=== PATIENT | female | born 1945 | race Caucasian/White ===

== ENCOUNTER 2019-10-15 12:29 | Outpatient (CLI) | payer MEDICARE, SELFPAY ==
--- NOTE | 2019-10-15 12:30 | XR_ITS ---
WS: [id number] KUB, 10/15/2019 Clinical Data: Left ureteral calculus Comparison: KUB, 12/18/2018. Findings: The left staghorn calculus shows no change in size or configuration. Its greatest dimension is 3.8 cm . There are other smaller calcifications which may be in the inferior pole of the left kidney. Fecal material and colon gas obscures detail over the right kidney but no obvious stones are seen. There ar e right upper quadrant clips. There are clips in both sides of the true pelvis. There is a large amou nt of fecal material throughout the colon. XR/XR KUB [id number] Impression: 1. Large left staghorn calculus unchanged. 2. No other renal or ureteral calculi are seen. 3. Large amount of fecal material throughout the colon.
== END 2019-10-15 12:30 | disposition home or self-care (01) ==
LOC: RAD 12:34
PROVIDERS: Family Provider Internal Medicine; PCP Internal Medicine; Visit Provider Urology
DX: N20.1 Calculus of ureter (principal)
CPT/HCPCS: 74018; 81001

== ENCOUNTER 2020-12-14 09:57 | Outpatient (CLI) | payer MEDICARE, SELFPAY ==
--- NOTE | 2020-12-14 10:00 | XRR_ITS ---
PROCEDURE INFORMATION: Exam: XR Abdomen Exam date and time: 12/14/2020 10:08 AM Age: 75 years old Clinical indication: Condition or disease; Kidney or ureter condition; Calculus (stone) in kidney; Additional info: Kidney stone TECHNIQUE: Imaging protocol: XR of the abdomen. Views: Frontal supine view of the abdomen. 1 View. COMPARISON: CR XR KUB [id number] 10/15/2019 12:38 PM FINDINGS: Gastrointestinal tract: Copious stool, in a pattern of constipation, along with mild bowel dilatation. Intraperitoneal space: Surgical clips in the right upper quadrant and bilateral pelvis. Residual subcentimeter pelvic calcifications, presumably vascular in etiology. Organs: Left renal staghorn calculus again demonstrated. Additional 14 mm nodular calcification overlying the left paraspinous region at the L2-L3 level, suggesting a ureteral calculus. CT can be performed for improved characterization, if clinically indicated. Bones/joints: Degenerative change. Costochondral calcifications. XR/XR KUB [id number] IMPRESSION: 1. Left renal staghorn calculus again demonstrated. 2. Additional 14 mm nodular calcification overlying the left paraspinous region at the L2-L3 level, suggesting a ureteral calculus. 3. Additional findings as described above.
== END 2020-12-14 09:58 | disposition home or self-care (01) ==
PROVIDERS: PCP Internal Medicine; Visit Provider Urology
DX: N20.0 Calculus of kidney (principal)
CPT/HCPCS: 74018; 81003; 87077; 87086; 87184

== ENCOUNTER 2021-01-12 09:59 | Outpatient (CLI) | payer MEDICARE, SELFPAY ==
--- NOTE | 2021-01-12 10:15 | XRR_ITS ---
PROCEDURE INFORMATION: Exam: XR Abdomen Exam date and time: 01/12/2021 10:15 AM Age: 75 years old Clinical indication: Condition or disease; Kidney or ureter condition; Calculus (stone) in kidney; Prior surgery; Surgery type: Hystero, gb, tubal; Additional info: N20.0 - calculus of kidney TECHNIQUE: Imaging protocol: XR of the abdomen. Views: Frontal supine view of the abdomen. 1 View. COMPARISON: CR XR KUB [id number] 12/14/2020 10:10 AM FINDINGS: Gastrointestinal tract: bowel gas pattern is nonspecific. Air filled large bowel including distal rectal gas. Scattered loops of air filled small bowel none of which are dilated. Large amount of stool throughout the large bowel. Organs: Large calcifications left kidney including what appears to be a staghorn calculus upper pole. 15 mm calculus midpole. Bones/joints: Unremarkable. XR/XR KUB [id number] IMPRESSION: 1. Bowel gas pattern is nonspecific. Air filled large bowel including distal rectal gas. Scattered loops of air filled small bowel none of which are dilated. 2. Large amount of stool throughout the large bowel.
== END 2021-01-12 10:00 | disposition home or self-care (01) ==
LOC: RAD 10:03
PROVIDERS: PCP Internal Medicine; Visit Provider Urology
DX: N20.0 Calculus of kidney (principal)
CPT/HCPCS: 74018; 81003

== ENCOUNTER 2021-01-26 12:06 | Outpatient (CLI) | payer MEDICARE, SELFPAY ==
--- NOTE | 2021-01-26 12:18 | CT_ITS ---
WS: [id number] CT ABDOMEN AND PELVIS NONCONTRAST HISTORY: STAGHORN CALCULUS TECHNIQUE: Imaging performed through the abdomen and pelvis. Coronal and sagittal reformats are submi tted. All CT scans at [facility] use at least one of these dose optimization techniques: automated exposure control; mA and/or kV adjustment per patient size (includes targeted exams where d ose is matched to clinical indication); or iterative reconstruction. DLP: 1909.28 mGy.cm COMPARISON: 01/14/2018 Lower thorax: Lung bases are clear. Visualized heart is normal. No hiatal hernia. Liver: Unenhanced liver is negative. No bile duct dilatation per Gallbladder: Prior cholecystectomy. Pancreas: Mild diffuse pancreatic atrophy. Normal size duct. No mass or pancreatitis. Spleen: Normal. Adrenal glands: Normal. No mass. Right kidney: Normal size kidney. Nonobstructing 5 mm calcification lower pole. Left kidney: There is a large staghorn calculus which continues to increase in size since 01/14/2018. Upper pole ranging calculus measures 3.0 x 1.3 cm. There are additional calcifications in the mid and lower kidney. Calcific burden now extends into the LEFT renal pelvis and proximal ureter extending o tacho a length of 3.1 cm. Largest diameter is 1.1 cm in the renal pelvis. Minimal perinephric stranding . Diffuse mild calyceal dilatation and decreased attenuation. There is also progressive atrophy of th e LEFT kidney. Prior measurement of 12.3 cm in length. LEFT kidney now measures 9.2 cm in length. Aorta: Mild atherosclerosis abdominal aorta with no aneurysm. No free fluid, intraperitoneal air or significant lymphadenopathy. GI tract: Prior appendectomy. There is diffuse constipation. Numerous diverticula throughout the colo n without acute diverticulitis. Abdominal wall: Fat-containing ventral abdominal wall hernia. Pelvis: Prior hysterectomy. No free fluid or adenopathy in the pelvis. Urinary bladder is only minima lly distended. Osseous structures: No destructive lesions. CT/CT kidney stone [id number] IMPRESSION: 1. Progression in size of the LEFT staghorn calculus. Calcific burden now exte nds into the renal pelvis and proximal LEFT ureter. 2. Progressive atrophy of the LEFT kidney with low attenuation involving the c alyces. Although there is not a lot of perinephric stranding at this time patie nt is at risk for xanthogranulomatous pyelonephritis. 3. Severe constipation with tortuous overlapping loops of colon and scattered diverticula. 4. Prior appendectomy, cholecystectomy and hysterectomy.
== END 2021-01-26 12:07 | disposition home or self-care (01) ==
LOC: RAD 12:10
PROVIDERS: PCP Internal Medicine; Visit Provider Urology
DX: N20.0 Calculus of kidney (principal); N26.1 Atrophy of kidney (terminal); K59.00 Constipation, unspecified; Z90.49 Acquired absence of other specified parts of digestive tract; Q42.8 Congenital absence, atresia and stenosis of other parts of large intestine; Z90.710 Acquired absence of both cervix and uterus
CPT/HCPCS: 74176; 81003; 87086

== ENCOUNTER → 2021-01-29 11:40 | Outpatient (BNVA) | payer MEDICARE, SELFPAY | PROVIDERS: PCP Internal Medicine; Visit Provider Urology | DX: N20.0 Calculus of kidney (principal); Z20.822 Contact with and (suspected) exposure to COVID-19 | CPT/HCPCS: 87635 ==

== ENCOUNTER 2021-02-03 23:37 | Observation (INO) | payer MEDICARE, SELFPAY ==
[2021-02-03 23:58] VITALS: BP 175/65; PULSE 106; RESP 24; TEMP 37.1; O2SAT 96; BMI 40.7
[2021-02-04] VITALS (19 sets, daily range): BP systolic 93–149; BP diastolic 53–77; PULSE 73–103; RESP 14–20; TEMP 36.2–38.1; O2SAT 90–97
--- NOTE | 2021-02-04 | SCC_ITS ---
Procedure Done: Cystoscopy, left ureteral stent placement 16.1 seconds of fluoroscopic guidance, for a cumulative dose of 4.44 mGy, was provided to Dr. Meyer by the radiology department. C-arm images of the abdomen were saved for the patient's permanent record. AMBROSIO
[2021-02-04 00:15] LABS: Add Urine Microscopic? YES; Bacteria Urine 2+ /hpf; Bilirubin Urine Neg (Negative); Blood Urine 3+ (Negative); Glucose Urine UA Norm (Normal); Ketones Urine 1+ (Negative); Leukocyte Esterase Urine 2+ (Negative); Nitrate Urine Positive (Negative); Protein Urine 1+ (Negative); Specific Gravity, Urine 1.015 (1.005-1.030); Squamous Epithelial Cell Urine 40-55 /hpf (0-5); Urine Appearance Cloudy (CLEAR); Urine Color Yellow (Yellow); Urobilinogen Urine Norm (Negative); WBC Urine TOO NUMEROUS TO CNT /hpf (0-5); pH Urine 5 (5-7)
[2021-02-04 00:16] LABS: Add Urine Culture? No
[2021-02-04 00:30] LABS: Basophils % 0.3 %; Hemoglobin 12.9 g/dL (11.5-15.3); Lymphocytes # 0.8 10^3/uL (0.8-4.8); Lymphocytes % 5.1 %; Mean Corpuscular HGB Conc 31.5 g/dL (30.0-36.0); Mean Corpuscular Hemoglobin 30.6 pg (28.0-34.0); Mean Corpuscular Volume 97.4 fL (81-99); Mean Platelet Volume 10.5 fL (7.4-10.4); Monocytes # 0.9 10^3/uL (0.2-0.9); Monocytes % 5.6 %; Neutrophils # 14.13 10^3/uL (1.8-7.7); Neutrophils % 88.7 %; Nucleated Red Blood Cells % 0 %; Platelet Count 214 10^3/cmm (130-400); Red Blood Count 4.21 10^6/uL (4.1-5.3); Red Cell Distribution Width 13.3 % (12.1-15.1); White Blood Count 15.9 10^3/uL (4.0-10.0)
--- NOTE | 2021-02-04 00:33 | W.ED.GENADLT ---
HPI - General Adult General: Chief complaint: General Medical Stated complaint: kidney stone Time Seen by Provider: 02/04/21 00:05 History of Present Illness: HPI narrative: 75-year-old female comes in today with complaints of left flank pain. Patient has a history of a staghorn kidney stone that was scheduled to get lithotripsy and removal this week but had to be rescheduled. Patient started having fever today with increasing pain on the left side. Patient appears mildly ill but not toxic. Patient appears in moderate pain. Onset (ago): hour(s) Review of Systems General: Reports: 10 or more systems reviewed and unremarkable except in HPI and below : Reports: flank pain PFSH ED PFSH: Medical History (Updated 02/04/21 @ 00:44 by ASTRID Mares) Cystitis cystica Staghorn calculus Surgical History S/P appendectomy S/P bilateral oophorectomy S/P cholecystectomy S/P hysterectomy Family History Mother , 73 No problems noted. Father , 75 CAD (coronary artery disease) Family/Other Cancer Diabetes Thyroid disease Social History Smoking and tobacco status: never smoked Alcohol intake: never Marital status: Current occupational status: retired History of recent travel: No Physical Exam Const: COMMON NORMALS: no acute distress and patient oriented x3 GENERAL APPEARANCE: cooperative HENMT: COMMON NORMALS: normocephalic and Normal external nose present HEAD & SCALP: normal to inspection and normocephalic NOSE: Normal external nose present Eye: GENERAL EYE: appearance normal, both eyes and all related structures Neck/C-Spine: COMMON NORMALS: full ROM Lymph: LYMPHATIC: no lymphadenopathy noted Chest: COMMONS NORMALS: normal inspection of the chest Resp: COMMON NORMALS: normal respiratory effort EFFORT & INSPECTION: Yes able to speak in complete sentences Cardio: COMMON NORMALS: regular rate and regular rhythm RATE: regular rate RHYTHM: regular rhythm GI: COMMON NORMALS: non-tender : BLADDER/KIDNEY EXAM: Yes CVA tenderness on the left Back/Pelvis: GENERAL BACK: Yes CVA tenderness Extremity: COMMON NORMALS: normal to inspection Neuro: COMMON NORMALS: patient oriented x3 and moves all extremities Psych: COMMON NORMALS: mental status grossly normal and cooperative Skin: COMMON NORMALS: no rashes or lesions noted GENERAL SKIN EXAM: no rashes or lesions noted Course Vital Signs: Vital signs: Vital Signs Temperature 98.7 F 02/03/21 23:58 Pulse Rate 106 H 02/03/21 23:58 Respiratory Rate 24 H 02/03/21 23:58 Blood Pressure 175/65 02/03/21 23:58 Pulse Oximetry 96 02/03/21 23:58 MDM - General Adult MDM Narrative: Medical decision making narrative: 75-year-old female comes in today with complaints of left flank pain and fever. Patient has a large kidney stone that she has been scheduled to have removed in 1 week but started having fever today. On exam patient has some left flank tenderness on percussion. Abdomen soft nontender. Bowel sounds are present. Vital signs are normal except for some elevation in blood pressure and pulse. Differential diagnosis includes sepsis, urinary tract infection, renal colic. Urinalysis shows large amount of white blood cells, and CBC shows a 16,000 white count. I reviewed this with Dr. Ramírez who recommend I talked to Dr. Meyer for admission. Discussion with Dr. Meyer he recommended we start patient on antibiotics, keep her n.p.o. and he will evaluate her in the morning. Lab Data: Labs: Lab Results 02/03/21 02/04/21 Range/Units 23:58 00:24 WBC 15.9 H (4.0-10.0) 10^3/ uL RBC 4.21 (4.1-5.3) 10^6/u L Hgb 12.9 (11.5-15.3) g/dL Hct 41.0 (37.0-47.0) % MCV 97.4 (81-99) fL MCH 30.6 (28.0-34.0) pg MCHC 31.5 (30.0-36.0) g/dL RDW 13.3 (12.1-15.1) % Plt Count 214 (130-400) 10^3/c mm MPV 10.5 H (7.4-10.4) fL Neut % (Auto) 88.7 % Lymph % (Auto) 5.1 % [place] % (Auto) 5.6 % Eos % (Auto) 0.0 % Baso % (Auto) 0.3 % Neut # (Auto) 14.13 H (1.8-7.7) 10^3/u L Lymph # (Auto) 0.8 (0.8-4.8) 10^3/u L [place] # (Auto) 0.9 (0.2-0.9) 10^3/u L Eos # (Auto) 0.0 (0.0-0.8) 10^3/u L Baso # (Auto) 0.0 (0.0-0.1) 10^3/u L Nucleated RBC % (a uto) 0 % Nucleated RBCs # 0.0 /100WBC Urine Color Yellow (Yellow) Urine Appearance Cloudy (CLEAR) Urine pH 5 (5-7) Ur Specific Gravit y 1.015 (1.005-1.030) Urine Protein 1+ H (Negative) Urine Glucose (UA) Norm (Normal) Urine Ketones 1+ H (Negative) Urine Blood 3+ H (Negative) Urine Nitrate Positive H (Negative) Urine Bilirubin Neg (Negative) Urine Urobilinogen Norm (Negative) mg/dL Ur Leukocyte Hansa ase 2+ H (Negative) Urine RBC 5-10 H (0-2) /hpf Urine WBC Too numerous to c nt H (0-5) /hpf Ur Squamous Epith Cells 40-55 H (0-5) /hpf Amorphous Sediment Not Reportable Urine Bacteria 2+ H (NONE) /hpf Discharge Plan Discharge Patient Disposition: Admitted As Inpatient Clinical Impression: Pyelonephritis of left kidney, Staghorn calculus Condition: Stable Coding Level of Care Code ED Pathology Assistant for Анна Fwd Exam Comprehensive
[2021-02-04] MEDS: morphine 4 mg/mL SDV 1 mL IVP ×3 (00:53→18:02)
[2021-02-04] MEDS: ondansetron 2 mg/ML SDV 2 mL 4 MG IVP ×2 (00:53→05:40)
[2021-02-04 01:05] LABS: Alanine Aminotransferase 8 U/L (0-33); Alkaline Phosphatase 75 IU/L (35-105); Anion Gap 16.9 (5-19); Aspartate Amino Transferase 16 U/L (0-32); Blood Urea Nitrogen 33 mg/dL (8-23); Calcium 9.2 mg/dL (8.5-10.5); Carbon Dioxide 24 mmol/L (22-29); Chloride 98 mmol/L (98-107); Globulin 3.4 g/dL (1.3-4.6); Glucose 153 mg/dL (65-115); Osmolality Calculated 290 mOsm/kg (285-295); Potassium 3.9 mmol/L (3.5-5.1); Sodium 135 mmol/L (136-145); Total Bilirubin 0.5 mg/dL (0.15-1.2); Total Protein 7.4 g/dL (6.6-8.7)
[2021-02-04] MEDS: cefepime 1,000 MG in sodium chloride 0.9% (plus) 50 ML 100 MG IV ×2 (01:24→16:02)
[2021-02-04] MEDS: sodium chloride 0.9% 1,000 ML 100 ML IV ×2 (02:36→18:09)
--- NOTE | 2021-02-04 05:42 | P.HP_ITS ---
Providers/Chief Complaint Admitting Physician: Levy Meyer MD Primary Care Provider: Karl Paige DO Chief Complaint: kidney stone History of Present Illness Melissa Courtney is a 75 year old female with complex history of urolithiasis (LEFT including Staghorn Calculus) who was recently diagnosed with 2 new mildly obstructing stones at LEFT UPJ but without pain. Complicated by chronic cystitis (on suppressive METHENAMINE with good response) and a history of obstructive pyelonephritis/SEPSIS in January 2018 with ureteral stone as source of obstruction; treated in phases with stent/Antibiotics followed by ureteroscopic laser lithotripsy to 2 large left distal ureteral stones with fragment removal 2 weeks later. She did well. We had planned to treat the stones on 02/05/21 but had to move the date to 02/11/21 for scheduling reasons. Yesterday she called with pain and meds sent but later developed increasing symptoms and presented to ED last night. Symptoms included increasing left renal colic pain not controlled with pain medication, some low-grade temperature, nausea and vomiting. She was not able to sustain at home and for that reason presented to the ED. WBC was 15+, urine consistent with infection, no clinical picture of sepsis, and stable. Admitted for IV antibiotics and likely move to stenting. Based on recent culture of Pseudomonas was started on CEFEPIME Since admission has remained clinically stable with no evidence of progression to septic picture. Based on her risk though she was admitted to inpatient status for further treatment. Review of Systems Const: Reports: fever(s), fatigue and malaise Eyes: Denies: change in vision or blurry vision ENMT: Denies: throat pain or odynophagia Card: Denies: chest pain, palpitations or edema Resp: Denies: dyspnea, productive cough or wheezing GI: Reports: abdominal pain; Denies: change in bowel habits : Reports: flank pain; Denies: dysuria Musc: Reports: back pain and joint pain; Denies: joint redness Skin/Breast: Denies: rash, new lesions or changing lesions Neuro: Denies: headache(s), confusion, Slurred speech present or seizure-like activity Psych: Denies: anxiety, memory loss or difficulty concentrating Endo: Denies: excessive sweating or flushing [place]/Lymph: Denies: easy bruising, easy bleeding or enlarged lymph nodes All/Imm: Denies: urticaria Medications/Allergies Home Medications Medication Instructions Recorded Confirmed Last Taken Type acetaminophen 325 mg capsule 325 mg PO QID PRN 10/15/19 02/04/21 Unknown History ascorbate calcium (vitamin C) 500 1,000 mg PO BID 10/15/19 02/04/21 Unknown History mg tablet ibuprofen 200 mg capsule 200 mg PO Q6H PRN 10/15/19 02/04/21 Unknown History methenamine hippurate 1 gram tablet 1 gm PO BID #60 tab 05/12/20 02/04/21 Unknown Rx hydrocodone 5 mg-acetaminophen 325 1 tab PO Q6H PRN 5 Days #20 tab 02/03/21 02/04/21 Unknown Rx mg tablet Allergies Allergy/AdvReac Type Severity Reaction Status Date / Time aspirin Allergy NA Verified 01/26/21 13:47 levofloxacin [From Levaquin] Allergy NA Verified 01/26/21 13:47 nitrofurantoin Allergy NA Verified 01/26/21 13:47 Sulfa (Sulfonamide Allergy NA Verified 01/26/21 13:47 Antibiotics) PFSH Acute PFSH: Medical History 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 Father , 75 CAD (coronary artery disease) Family/Other Cancer Diabetes Thyroid disease Social History Smoking and tobacco status: never smoked Alcohol intake: never Marital status: Current occupational status: retired History of recent travel: No Vitals/I&O/Wt Last Vital Signs Temp 98.0 F 02/04/21 04:40 Pulse 88 02/04/21 04:40 Resp 18 02/04/21 05:40 BP 123/57 02/04/21 04:40 Pulse Ox 94 02/04/21 04:40 06/02/21 06/02/21 06/03/21 14:59 22:59 06:59 Intake Total 50 / 50 Balance 50 / 50 Weight last 48 hrs Weight 230 lb Physical Exam Const: COMMON NORMALS: no acute distress, alert and well nourished GENERAL APPEARANCE: well kempt and well developed ORIENTATION/CONSCIOUSNESS: not confused HENMT: HEAD & SCALP: normocephalic and atraumatic Eye: COMMON NORMALS: no scleral icterus CONJUNCTIVA: Yes conjunctivae normal Neck/C-Spine: COMMON NORMALS: full ROM GENERAL: Yes normal visual inspe ction Lymph: LYMPHATIC: no lymphadenopathy noted and no lymphedema noted Resp: COMMON NORMALS: normal respiratory effort and clear to auscultation bilaterally EFFORT & INSPECTION: No labored and No Actively coughing Cardio: COMMON NORMALS: regular rate and regular rhythm GI: COMMON NORMALS: Soft to palpation and no masses AUSCULTATION: Yes normoactive bowel sounds PALPATION: Yes Tenderness to palpation present (GI) Details: LLQ and LUQ : OTHER: Bladder nondistended. Nontender. CVA tenderness on the left. Back/Pelvis: GENERAL BACK: Yes CVA tenderness CVA tenderness: left Extremity: COMMON NORMALS: no clubbing, cyanosis or edema Neuro: SENSORIUM/ORIENTATION: Yes alert Psych: COMMON NORMALS: mental status grossly normal APPEARANCE: Yes grossly normal and Yes well kempt ATTITUDE: Yes calm and Yes engaged Skin: COMMON NORMALS: no rashes or lesions noted and no jaundice Data : 02/04/21 00:24 02/04/21 00:24 A&P Assessment and plan (1) Pyelonephritis of left kidney: Clinical evidence of pyelonephritis with elevated white count, increasing pain, complicated by 2 large left proximal ureteral stones. We will obtain a KUB this morning to confirm location of stones. Plan for cystoscopy and stent placement around noon. We will continue on inpatient basis for IV antibiotics. Status: Acute (2) Staghorn calculus: Chronic. Unchanged Status: Chronic (3) Cystitis cystica: Documented Pseudomonas Status: Chronic (4) Left flank pain: Secondary to stones and UTI Status: Acute Attestations Medical Necessity Statement*: UTI and stone. Progressed on outpatient treatment. High risk for obstructive pyelonephritis and sepsis. Coding Level of Care Code Acute Opal Polisher for [facility] Diagnoses Pyelonephritis of left kidney N12 Staghorn calculus N20.0 Cystitis cystica N30.80 Left flank pain R10.9
--- NOTE | 2021-02-04 07:20 | XR_ITS ---
WS: [id number] KUB, AP view, 02/04/2021 Clinical Data: Follow-up left proximal ureteral stones Comparison: KUB, 01/12/2021. Findings: There are calcifications overlying the left kidney. The largest calcification overlying the upper li e is 3.5 cm. There are other large calcifications probably in the midportion of the left kidney and i n the proximal left ureter. There are small calcifications overlying the area of the right kidney. Th ere is a large amount of fecal material in colon gas obscuring detail. There are clips on both sides of the pelvis from surgery. There is a large fecal impaction. XR/XR KUB [id number] Impression: 1. Large calcifications overlying left kidney unchanged. 2. Small calcifications overlying right kidney. 3. Large amount of fecal material in colon gas obscuring detail over the kidney s, ureters and bladder.
--- NOTE | 2021-02-04 11:21 | PC.CHAP ---
Pastoral Care Encounter/Spiritual Assessment Type of Contact [] Declined highway maintenance supervisor visit [] Patient/Family/Request visit [] Outpatient visit [] Follow-up visit [] Physician referral [] Code/Alert [x] Routine visit [] Staff referral [] Actively dying [] Patient sleeping [] Family support [] [] Out of room [] Palliative care [] [x] Receiving care in room [] Pre-surgical visit [] Trauma [x] Long length of stay [] ICU visit [] Other: Relational/Emotional Strength [x] Patient feels connected with others/family/visitors/staff [x] Distress [] Loneliness/isolation [] Abandonment Spirituality of Patient [x] Person of Maritza [] Attends Temple of their Maritza [x] Believes in Prayer [] Reads Bible or Jain materials [] There are Spiritual issues to be addressed Shop Estimator Interventions [x] Prayer [x] Active listening [x] Non-anxious presence [x] Spiritual/emotional support [] Crisis/trauma care [x] Spiritual counseling [] Bereavement support [] Provided bereavement packet [] Provided Bible/devotional materials [] Provided toy/stuffed animal, coloring book to patient or family member [] Provided Communion [] Anointing/[place] [] Salvation [x] Completed spiritual assessment [] Other: Impact on Illness or Injury [] Angry [x] Fearful [] Anxious [] Often cries [] Exhaustion [x] Unable to work [] Unable to attend yarsani [] Unable to walk/stand [] Unable to read [] Unable to drive [] Unable to eat/drink [] Unable to sleep [] Unable to be with family [] Patient intubated [] Other: Summary Just now learning about her cancer or cancer treatment, has had some tests, they going do a proceduer at some time, has a negative attitude not sure about recovery or for how long? Time spent with patient 10 mins
[2021-02-04] MEDS: sodium chloride 0.9% 1,000 ML 30 ML IV (11:23)
--- NOTE | 2021-02-04 11:39 | SC_ITS ---
WS: [id number] C-arm fluoroscopy for left ureteral stent placement, 02/04/2021 Clinical Data: surgery Comparison: KUB, 02/04/2021 Findings: A left ureteral stent has been inserted and the distal tip appears to be in the left kidney. SC/C-arm FL for Urology Impression: Placement of a left ureteral stent.
--- NOTE | 2021-02-04 11:47 | PM.OP ---
Operative Report Date of procedure: February 04, 2021 Pre-op Diagnosis: 2 large UPJ stones left, UTI Post-op diagnosis: same Procedure Done: Cystoscopy, left ureteral stent placement Implants: Left ureteral stent without string Pathology: none sent Surgeon: Betsy Anesthesia: General Estimated blood loss: Minimal Urine output: Not measured Complications: none Findings: Stones in the expected position Condition: stable Disposition: PACU Brief History: Melissa is a very pleasant 75-year-old white female with complex history of stone disease and UTIs. Has a longstanding left upper pole partial staghorn calculus. She has had recent diagnosis of a couple stones at the proximal left ureter with mild obstructive changes. This is further complicated by chronic cystitis and she has been on suppression with methenamine waiting for definitive treatment of the stones in the left ureter. In 2018 she had sepsis related to obstructive pyelonephritis. She was scheduled for endoscopic treatment of the stones next week but last night started having fever chills severe nausea vomiting found to have an elevated white count and because of her prior history of obstructive pyelonephritis and sepsis she presented to the emergency department where she was admitted for IV antibiotics in anticipation of a stent. Procedure: After urgent evaluation examination and obtaining of informed consent she was taken to the operating suite on 02/04/2021 where general anesthesia was administered without difficulty after appropriate timeout was performed, SCDs confirmed to be functioning, preoperative antibiotics administered, beta-caity protocol confirmed. Prepped and draped in the usual sterile fashion in dorsolithotomy position paying careful attention to avoiding pressure points. 21 Turkish cystoscope with 30 degree lens was introduced into the urethral meatus and advanced to the bladder to videoscopy. No stones were seen. Bladder did show evidence of chronic cystitis. Flexible tip guidewire was then advanced up the left ureter. The largest of the stones pushed back into the renal pelvis. The wire was then easily advanced beyond the stones into the upper pole calyx. A 7 Turkish by 26 cm double-pigtail stent was then advanced without difficulty over the guidewire into appropriate position as confirmed via fluoroscopy and cystoscopy. The stent was confirmed to be draining cloudy urine. A Monterroso catheter was left indwelling to reduce the retrograde flow of infected urine up the stent with plans for removing it in the next 24 to 48 hours. She tolerated the procedure well without complications and was awakened in the operating room and returned to the recovery in stable condition. PLANS: 1. Maintain IV antibiotics until clinically improved. We will probably have to continue them at discharge due to her lack of oral antibiotic choices. 2. We will continue to maintain her on the schedule for next week for endoscopic treatment of the stones assuming continued improvement in the infectious picture.
--- NOTE | 2021-02-04 11:50 | P.ANESASSM_ITS ---
Pre-Anesthetic Assessment Pre-Anesthetic Assessment: Height/Weight: Height 1.6 m Weight 104.326 kg Temp Pulse Resp BP Pulse Ox 99.9 F H 103 H 18 120/63 92 02/04/21 11:22 02/04/21 11:22 02/04/21 11:22 02/04/21 11:22 02/04/21 11:22 Preop Diagnosis: 2 large UPJ stones left, UTI Proposed Procedure: Operation Date: 02/04/21 11:50 Proposed Procedures p Cystoscopy ureteral stent(Left) - Levy Meyer MD Was Beta Kely taken within 24 hours: N/A Was Clonidine taken within 24 hours: N/A Social: Social History: No alcohol and No tobacco Exam: Pre-Anes Outpt Exam: alert, oriented x 3, clear to auscultation bilaterally and regular rate & rhythm Airway: Submandibular: WNL Cervical ROM: WNL MP: 2 Dentition: Chipped : Comments: Kidney stones Metabolic: Metabolic: Morbid obesity Musc/skel: Comments: tremor Anesthetic Plan: ASA status: 3 Anesthesia: General Risk of > 500 ml blood loss (7ml/kg in children): No Meds/Allergies Current Medications: Current Medications Generic Name Dose Route Start Last Admin Trade Name Freq PRN Reason Stop Dose Admin Sodium Chloride 1,000 mls @ 100 m ls/hr 02/04/21 02:17 02/04/21 11:22 Sodium Chloride 0.9% IV Infused .Q10H CARINA Infusion Sodium Chloride 1,000 mls @ 30 ml s/hr 02/04/21 11:15 02/04/21 11:23 Sodium Chloride 0.9% IV 02/05/21 11:14 30 mls/hr .Q24H CARINA Administration Morphine Sulfate 4 mg 02/04/21 02:17 02/04/21 05:40 Morphine 4 Mg/Ml Sdv 1 Ml IVP 4 mg Q4H PRN Administration SEVERE PAIN Ondansetron HCl 4 mg 02/04/21 02:17 02/04/21 05:40 Ondansetron 2 Mg /Ml Sdv 2 Ml IVP 4 mg Q6H PRN Administration NAUSEA AND VOMITI NG PFSH Anesthesia PFSH: Medical History 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 Father , 75 CAD (coronary artery disease) Family/Other Cancer Diabetes Thyroid disease Social History Smoking and tobacco status: never smoked Alcohol intake: never Marital status: Current occupational status: retired History of recent travel: No Data Anesthesia CBC & Chem 7: 02/04/21 00:24 02/04/21 00:24 Other Labs: Laboratory Results - last 48 hr 02/03/21 02/04/21 02/04/21 23:58 00:24 00:24 WBC 15.9 H RBC 4.21 Hgb 12.9 Hct 41.0 MCV 97.4 MCH 30.6 MCHC 31.5 RDW 13.3 Plt Count 214 MPV 10.5 H Neut % (Auto) 88.7 Lymph % (Auto) 5.1 [place] % (Auto) 5.6 Eos % (Auto) 0.0 Baso % (Auto) 0.3 Neut # (Auto) 14.13 H Lymph # (Auto) 0.8 [place] # (Auto) 0.9 Eos # (Auto) 0.0 Baso # (Auto) 0.0 Nucleated RBC % (auto) 0 Nucleated RBCs # 0.0 Sodium 135 L Potassium 3.9 Chloride 98 Carbon Dioxide 24 Anion Gap 16.9 BUN 33 H Creatinine 0.9 GFR Calculation Not Reportable Glucose 153 H Calculated Osmolality 290 Calcium 9.2 Total Bilirubin 0.5 AST 16 ALT 8 Alkaline Phosphatase 75 Total Protein 7.4 Albumin 4.0 Globulin 3.4 Urine Color Yellow Urine Appearance Cloudy Urine pH 5 Ur Specific [place] 1.015 Urine Protein 1+ H Urine Glucose (UA) Norm Urine Ketones 1+ H Urine Blood 3+ H Urine Nitrate Positive H Urine Bilirubin Neg Urine Urobilinogen Norm Ur Leukocyte Esterase 2+ H Urine RBC 5-10 H Urine WBC Too numerous to cnt H Ur Squamous Epith Cells 40-55 H Amorphous Sediment Not Reportable Urine Bacteria 2+ H Cardiac Studies: No Data to Display
[2021-02-04] MEDS: HYDROcodone-acetaminophen 5-325 mg Tablet 1 TAB PO ×2 (13:35→22:18)
--- NOTE | 2021-02-04 14:57 | ANE.PACU2 ---
Inpatient post-anesthesia follow up: Airway intact: Yes Vital signs: Temperature 98.6 F Pulse Rate [Monito r] 106 Pulse Rate 75 Respiratory Rate 14 Blood Pressure [Ri ght Arm] 175/65 Blood Pressure 93/61 Pulse Oximetry 91 Oxygen Delivery Me thod Room Air Oxygen Flow Rate Fraction of Inspir ed Oxygen Hydration adequate: Yes Nausea and vomiting: No Pain level: 2 Mental status: Baseline
[2021-02-05] VITALS: BP 113/65; PULSE 81; RESP 16; TEMP 36.8; O2SAT 91
[2021-02-05] MEDS: cefepime 1,000 MG in sodium chloride 0.9% (plus) 50 ML 100 MG IV ×2 (01:21→12:58)
[2021-02-05 02:55] LABS: Basophils # 0.1 10^3/uL (0.0-0.1); Basophils % 0.3 %; Eosinophils # 0.1 10^3/uL (0.0-0.8); Eosinophils % 0.5 %; Hemoglobin 11.7 g/dL (11.5-15.3); Lymphocytes # 1.3 10^3/uL (0.8-4.8); Lymphocytes % 8.5 %; Mean Corpuscular HGB Conc 31.6 g/dL (30.0-36.0); Mean Corpuscular Volume 97.9 fL (81-99); Mean Platelet Volume 10.7 fL (7.4-10.4); Monocytes # 1.2 10^3/uL (0.2-0.9); Monocytes % 7.7 %; Neutrophils # 12.49 10^3/uL (1.8-7.7); Neutrophils % 82.6 %; Nucleated Red Blood Cells % 0 %; Platelet Count 182 10^3/cmm (130-400); Red Blood Count 3.78 10^6/uL (4.1-5.3); Red Cell Distribution Width 13.6 % (12.1-15.1); White Blood Count 15.1 10^3/uL (4.0-10.0)
[2021-02-05 03:20] LABS: Alanine Aminotransferase 6 U/L (0-33); Albumin Level 3.2 g/dL (3.5-5.2); Alkaline Phosphatase 58 IU/L (35-105); Anion Gap 12.9 (5-19); Aspartate Amino Transferase 11 U/L (0-32); Blood Urea Nitrogen 24 mg/dL (8-23); Calcium 8.3 mg/dL (8.5-10.5); Carbon Dioxide 24 mmol/L (22-29); Chloride 105 mmol/L (98-107); Globulin 3.1 g/dL (1.3-4.6); Glucose 98 mg/dL (65-115); Osmolality Calculated 290 mOsm/kg (285-295); Potassium 3.9 mmol/L (3.5-5.1); Sodium 138 mmol/L (136-145); Total Bilirubin 0.5 mg/dL (0.15-1.2); Total Protein 6.3 g/dL (6.6-8.7)
[2021-02-05] MEDS: HYDROcodone-acetaminophen 5-325 mg Tablet 1 TAB PO ×2 (03:47→12:56)
[2021-02-05 04:22] VITALS: BP 121/70; PULSE 76; RESP 14; TEMP 36.7; O2SAT 91
[2021-02-05] MEDS: sodium chloride 0.9% 1,000 ML 100 ML IV ×2 (04:53→17:13)
[2021-02-05 08:06] VITALS: BP 113/62; PULSE 84; RESP 18; TEMP 37.2; O2SAT 90
[2021-02-05] MEDS: docusate sodium 100 mg Capsule PO ×2 (09:29→17:13)
[2021-02-05 11:58] VITALS: BP 124/71; PULSE 82; RESP 18; TEMP 37.1; O2SAT 91
[2021-02-05 16:39] VITALS: BP 115/70; PULSE 83; RESP 18; TEMP 36.8; O2SAT 93
[2021-02-05 20:00] VITALS: BP 110/63; PULSE 81; RESP 16; TEMP 37.2; O2SAT 92
[2021-02-06] VITALS: BP 145/68; PULSE 82; RESP 16; TEMP 36.5; O2SAT 90
[2021-02-06] MEDS: cefepime 1,000 MG in sodium chloride 0.9% (plus) 50 ML 100 MG IV ×2 (00:45→14:50)
[2021-02-06] MEDS: HYDROcodone-acetaminophen 5-325 mg Tablet 1 TAB PO ×4 (00:46→23:57)
[2021-02-06] MEDS: sodium chloride 0.9% 1,000 ML 100 ML IV ×2 (03:19→14:52)
[2021-02-06 03:26] VITALS: BP 101/61; PULSE 60; RESP 16; TEMP 37; O2SAT 94
[2021-02-06] MEDS: docusate sodium 100 mg Capsule PO ×2 (08:17→18:17)
[2021-02-06 08:44] VITALS: BP 115/70; PULSE 86; RESP 18; TEMP 36.9; O2SAT 94
[2021-02-06 08:51] LABS: Basophils # 0.1 10^3/uL (0.0-0.1); Basophils % 0.6 %; Eosinophils # 0.2 10^3/uL (0.0-0.8); Hematocrit 36.2 % (37.0-47.0); Hemoglobin 11.7 g/dL (11.5-15.3); Lymphocytes # 1.1 10^3/uL (0.8-4.8); Lymphocytes % 12.6 %; Mean Corpuscular HGB Conc 32.3 g/dL (30.0-36.0); Mean Corpuscular Hemoglobin 30.7 pg (28.0-34.0); Mean Platelet Volume 10.7 fL (7.4-10.4); Monocytes # 0.8 10^3/uL (0.2-0.9); Monocytes % 8.8 %; Neutrophils # 6.63 10^3/uL (1.8-7.7); Neutrophils % 75.4 %; Nucleated Red Blood Cells % 0 %; Platelet Count 181 10^3/cmm (130-400); Red Blood Count 3.81 10^6/uL (4.1-5.3); Red Cell Distribution Width 13.6 % (12.1-15.1); White Blood Count 8.8 10^3/uL (4.0-10.0)
--- NOTE | 2021-02-06 09:35 | P.PN_ITS ---
Subjective Subjective: Interval history: Delayed entry for 02/05/2021. She remained afebrile overnight following the surgery. She was still having some left flank pain requiring pain medication. White count was still elevated to >15. Based on those findings of increased pain persist elevated white count it was recommended she stay in the hospital overnight again for observation with repeat lab on 02/06/2021. Based on her prior culture she will require IV antibiotics. If she responds well to cefepime we will see if we can make arrangements for her to come in twice a day for antibiotics or potentially home health. I explained all this in detail to her. Medications: Reviewed: Yes Vitals/I&O/Wt Last Vital Signs Temp 98.4 F 02/06/21 08:44 Pulse 86 02/06/21 08:44 Resp 18 02/06/21 08:44 BP 115/70 02/06/21 08:44 Pulse Ox 94 02/06/21 08:44 02/05/21 02/06/21 02/06/21 22:59 06:59 14:59 Intake Total 1300 / 2470 Output Total 400 / 400 300 / 700 Balance -400 / 770 1000 / 1770 Physical Exam Const: COMMON NORMALS: no acute distress, alert and well nourished GENERAL APPEARANCE: well kempt and well developed ORIENTATION/CONSCIOUSNESS: not confused HENMT: COMMON NORMALS: normocephalic and atraumatic HEAD & SCALP: normocephalic and atraumatic Eye: COMMON NORMALS: conjunctivae normal and no scleral icterus CONJUNCTIVA: Yes conjunctivae normal Neck/C-Spine: COMMON NORMALS: full ROM GENERAL: Yes normal visual inspection Resp: COMMON NORMALS: normal respiratory effort EFFORT & INSPECTION: No labored and No Actively coughing Neuro: SENSORIUM/ORIENTATION: Yes alert Psych: COMMON NORMALS: mental status grossly normal APPEARANCE: Yes grossly normal and Yes well kempt ATTITUDE: Yes calm and Yes engaged Skin: COMMON NORMALS: no rashes or lesions noted and no jaundice GENERAL SKIN EXAM: no rashes or lesions noted Urinary Catheter Management^: F: Cath Placed During This Visit: yes, but has since been removed by the nurse Reason for Continuing Indwelling Catheter: Decision to DC Catheter Urinary Catheter Date of Insertion: 02/04/21 Urinary Catheter Time of Insertion: 12:13 Date Urinary Catheter Removed: 02/05/21 Time Urinary Catheter Discontinued: 11:32 Data : 02/06/21 08:10 02/05/21 02:30 Other Labs: Labs for 02/05/2021 showed a white count is still above 15,000. Creatinine had increased to 1.1 probably a reflection of acute kidney injury. A&P Assessment and plan (1) Pyelonephritis of left kidney: No progression of infectious picture but slow improvement which is not bahman prising. Status: Acute (2) Staghorn calculus: Unchanged Status: Chronic (3) Cystitis cystica: Pseudomonas UTI Status: Chronic Attestations Medical Necessity Statement*: Still with elevated white count. Stent has been placed expect continued improvement but still requires hospitalization for IV antibiotics until she turns a corner clinically. Coding Level of Care Code Acute Test Fixture Assembler for Анна Ribeiro Diagnoses Pyelonephritis of left kidney N12 Staghorn calculus N20.0 Cystitis cystica N30.80
--- NOTE | 2021-02-06 09:43 | PM.PN ---
Subjective Subjective: Interval history: Postoperative day #2, urology follow-up She has been afebrile and her vital signs have remained stable. White count has decreased to 8.8. Creatinine stable at 1.1. Today she states that she is feeling much better. Decreased flank pain. Appetite and returning. Still weak. No chills Reviewed her options. She still needs an extended course of antibiotics based on the Pseudomonas and her inability to tolerate historically Levaquin historically. Given her improvement we are looking at options for outpatient IV antibiotics until she is definitively treated for the stones. director client services been consulted. Order has been written for IV antibiotics at home. Arrangements will be made. Vitals/I&O/Wt Last Vital Signs Temp 98.4 F 02/06/21 08:44 Pulse 86 02/06/21 08:44 Resp 18 02/06/21 08:44 BP 115/70 02/06/21 08:44 Pulse Ox 94 02/06/21 08:44 02/05/21 02/06/21 02/06/21 22:59 06:59 14:59 Intake Total 1300 / 2470 Output Total 400 / 400 300 / 700 Balance -400 / 770 1000 / 1770 Physical Exam Const: COMMON NORMALS: no acute distress, alert and well nourished GENERAL APPEARANCE: well kempt and well developed ORIENTATION/CONSCIOUSNESS: not confused HENMT: COMMON NORMALS: normocephalic and atraumatic HEAD & SCALP: normocephalic and atraumatic Eye: COMMON NORMALS: no scleral icterus Neck/C-Spine: COMMON NORMALS: full ROM GENERAL: Yes normal visual inspection Resp: COMMON NORMALS: normal respiratory effort EFFORT & INSPECTION: No labored and No Actively coughing Neuro: SENSORIUM/ORIENTATION: Yes alert Psych: COMMON NORMALS: mental status grossly normal APPEARANCE: Yes grossly normal and Yes well kempt ATTITUDE: Yes calm and Yes engaged Skin: COMMON NORMALS: no rashes or lesions noted and no jaundice GENERAL SKIN EXAM: no rashes or lesions noted Urinary Catheter Management^: F: Cath Placed During This Visit: yes, but has since been removed by the nurse Reason for Continuing Indwelling Catheter: Decision to DC Catheter Urinary Catheter Date of Insertion: 02/04/21 Urinary Catheter Time of Insertion: 12:13 Date Urinary Catheter Removed: 02/05/21 Time Urinary Catheter Discontinued: 11:32 Data : 02/07/21 05:28 02/05/21 02:30 A&P Assessment and plan (1) Pyelonephritis of left kidney: No progression of infectious picture but slow improvement which is not surprising. Status: Acute (2) Staghorn calculus: Unchanged Status: Chronic (3) Cystitis cystica: Pseudomonas UTI Status: Chronic (4) Left ureteral calculus: Status: Acute Attestations Medical Necessity Statement*: Continues IV antibiotics for obstructive pyelonephritis. Much improved. Looking toward discharge sometime in the next 24 to 48 hours Coding Level of Care Code Acute Pattern Hand for [facility] Fwd Exam Detailed Diagnoses Pyelonephritis of left kidney N12 Staghorn calculus N20.0 Cystitis cystica N30.80 Left ureteral calculus N20.1
[2021-02-06 12:43] VITALS: BP 131/70; PULSE 71; RESP 18; TEMP 36.9; O2SAT 93
[2021-02-06 15:28] VITALS: BP 115/70; PULSE 74; RESP 18; TEMP 36.4; O2SAT 94
[2021-02-06 20:23] VITALS: BP 120/72; PULSE 75; RESP 17; TEMP 37.2; O2SAT 93
[2021-02-07] VITALS: BP 133/75; PULSE 68; RESP 17; TEMP 37.1; O2SAT 94
[2021-02-07] MEDS: sodium chloride 0.9% 1,000 ML 100 ML IV (00:44)
[2021-02-07] MEDS: cefepime 1,000 MG in sodium chloride 0.9% (plus) 50 ML 100 MG IV ×2 (00:44→12:46)
[2021-02-07 04:00] VITALS: BP 114/68; PULSE 70; RESP 17; TEMP 36.5; O2SAT 93
[2021-02-07] MEDS: HYDROcodone-acetaminophen 5-325 mg Tablet 1 TAB PO ×3 (05:42→21:30)
[2021-02-07 06:09] LABS: Basophils # 0.1 10^3/uL (0.0-0.1); Basophils % 0.8 %; Eosinophils # 0.3 10^3/uL (0.0-0.8); Eosinophils % 4.1 %; Hematocrit 36.1 % (37.0-47.0); Hemoglobin 11.2 g/dL (11.5-15.3); Lymphocytes # 1.6 10^3/uL (0.8-4.8); Lymphocytes % 22.1 %; Mean Corpuscular Hemoglobin 30.7 pg (28.0-34.0); Mean Corpuscular Volume 98.9 fL (81-99); Mean Platelet Volume 10.7 fL (7.4-10.4); Monocytes # 0.7 10^3/uL (0.2-0.9); Monocytes % 8.9 %; Neutrophils # 4.63 10^3/uL (1.8-7.7); Neutrophils % 63.7 %; Nucleated Red Blood Cells % 0 %; Platelet Count 200 10^3/cmm (130-400); Red Blood Count 3.65 10^6/uL (4.1-5.3); Red Cell Distribution Width 13.2 % (12.1-15.1); White Blood Count 7.3 10^3/uL (4.0-10.0)
[2021-02-07 07:47] VITALS: BP 118/68; PULSE 66; RESP 18; TEMP 36.9; O2SAT 92
--- NOTE | 2021-02-07 09:06 | P.PN_ITS ---
Subjective Subjective: Interval history: Postoperative day #2 urgent ureteral stent placement for obstructive pyelonephritis large left proximal ureteral stones. She continues to improve clinically. She feels much better this morning with increased energy, improved appetite, and decreased pain. Arrangements have been pursued regarding IV antibiotics on outpatient basis. Home health has been consulted. We may consider utilizing outpatient administration through [facility] for one of her due doses. We will administer the 1 PM dose now to try to obtain a 7 and 7 schedule to make more reasonable and convenient administration. Hopefully should be to be discharged today if we can work that out. I think from a clinical perspective she should be safe to be discharged. She does have assistance with family members that can get her here. White count this morning is further reduced at 7.3. Creatinine stable at 1.1. Vitals/I&O/Wt Last Vital Signs Temp 98.4 F 02/07/21 07:47 Pulse 66 02/07/21 07:47 Resp 18 02/07/21 07:47 BP 118/68 02/07/21 07:47 Pulse Ox 92 02/07/21 07:47 02/06/21 02/07/21 02/07/21 22:59 06:59 14:59 Intake Total 410 / 1720 1036.667 / 2756.667 Balance 410 / 1620 1036.667 / 2656.667 Physical Exam Const: COMMON NORMALS: no acute distress, alert and well nourished GENERAL APPEARANCE: well kempt and well developed ORIENTATION/CONSCIOUSNESS: not confused Resp: COMMON NORMALS: normal respiratory effort EFFORT & INSPECTION: No labored and No Actively coughing Neuro: SENSORIUM/ORIENTATION: Yes alert Psych: COMMON NORMALS: mental status grossly normal APPEARANCE: Yes grossly normal and Yes well kempt ATTITUDE: Yes calm and Yes engaged Urinary Catheter Management^: F: Cath Placed During This Visit: yes, but has since been removed by the nurse Reason for Continuing Indwelling Catheter: Decision to DC Catheter Urinary Catheter Date of Insertion: 02/04/21 Urinary Catheter Time of Insertion: 12:13 Date Urinary Catheter Removed: 02/05/21 Time Urinary Catheter Discontinued: 11:32 Data : 02/07/21 05:28 02/05/21 02:30 A&P Assessment and plan (1) Pyelonephritis of left kidney: Doing much better. White count has improved. Symptomatically she is doing great. We will need to continue the IV antibiotics on outpatient basis. Arrangements are being attempted now. Status: Acute (2) Staghorn calculus: Unchanged. Final decision on management of the staghorn is pending. Status: Chronic (3) Cystitis cystica: Pseudomonas UTI Responding well to cefepime. Status: Chronic (4) Left ureteral calculus: Complex large left ureteral calculi with obstructive pyelonephritis complicating. Has surgery scheduled for endoscopic laser lithotripsy on 02/11/2021. Status: Acute Attestations Medical Necessity Statement*: On IV antibiotics. 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
--- NOTE | 2021-02-07 09:13 | PM.DCS ---
Discharge Providers Date of Admission: 02/04/21 12:55 Date of Discharge: February 08, 2021 Attending Provider at Admission: Levy Meyer MD Attending Provider at Discharge: Levy Meyer MD Primary Care Provider: Karl Paige DO Diagnoses at Discharge Discharge Diagnosis (1) Pyelonephritis of left kidney: Status: Acute (2) Staghorn calculus: Status: Chronic (3) Cystitis cystica: Status: Chronic (4) Left ureteral calculus: Status: Acute Reason for Visit Reason for Visit: kidney stone Hospital Course Hospital Course She was admitted on 02/04/2021 through the emergency department for symptoms concerning for obstructive pyelonephritis. She had increasing left flank pain over the preceding 12 to 18 hours. White count was elevated. She was having some chills. Was not septic Was taken to the operating room for urgent stenting which went well. Based on her previous culture of Pseudomonas she was placed on CEFEPIME 1 g twice a day IV piggyback. On postoperative day #1 her white count was still elevated but improved thereafter. Her clinical picture also improved with decreasing pain, decreasing white count, no spiking fever, and overall sense of wellbeing improvement. She has only 1 real oral option with a fluoroquinolone for treatment of Pseudomonas but she has reacted poorly to that in the past. Not clear that she has a full allergy but she really wants to avoid that. Arrangements have been made for IV antibiotics on outpatient basis. She will likely receive her first dose this evening on outpatient basis and then see what options we have for home health and outpatient administration through [facility]. We did review the current plans for endoscopic treatment of the 2 large obstructing left proximal ureteral stones scheduled for 02/11/2021. If she continues to improve I think that we can still proceed with that. There is also the question of other renal calculi as well as her large upper pole staghorn calculus on the left. In the past she had wanted to avoid treatment of that given the likely need for percutaneous nephrostolithotomy but given her recent more prolific stone formation and infectious complication I think it may make sense to consider pursuing that avenue of treatment. We reviewed in detail the above. She is comfortable with these plans. She does have a very supportive family who can help transport her as needed for her outpatient antibiotics. By time of discharge all these arrangements have been made. Physical Exam Const: COMMON NORMALS: no acute distress, alert and well nourished GENERAL APPEARANCE: well kempt and well developed ORIENTATION/CONSCIOUSNESS: not confused HENMT: COMMON NORMALS: normocephalic and atraumatic HEAD & SCALP: normocephalic and atraumatic Eye: COMMON NORMALS: conjunctivae normal and no scleral icterus CONJUNCTIVA: Yes conjunctivae normal Neck/C-Spine: COMMON NORMALS: full ROM GENERAL: Yes normal visual inspection Resp: COMMON NORMALS: normal respiratory effort EFFORT & INSPECTION: No labored and No Actively coughing Extremity: COMMON NORMALS: no clubbing, cyanosis or edema Neuro: COMMON NORMALS: no focal motor deficits SENSORIUM/ORIENTATION: Yes alert Psych: COMMON NORMALS: mental status grossly normal APPEARANCE: Yes grossly normal and Yes well kempt ATTITUDE: Yes calm and Yes engaged Skin: COMMON NORMALS: no rashes or lesions noted and no jaundice GENERAL SKIN EXAM: no rashes or lesions noted Urinary Catheter Management^: F: Cath Placed During This Visit: yes, but has since been removed by the nurse Reason for Continuing Indwelling Catheter: Decision to DC Catheter Urinary Catheter Date of Insertion: 02/04/21 Urinary Catheter Time of Insertion: 12:13 Date Urinary Catheter Removed: 02/05/21 Time Urinary Catheter Discontinued: 11:32 Discharge Data Data Completed and Pending: Completed Studies During Hospitalization Category Date Time Status XR KUB [id number] Rout ine Exams 02/04/21 07:20 Completed Labs from last 24 hours 02/07/21 05:28 WBC 7.3 RBC 3.65 L Hgb 11.2 L Hct 36.1 L MCV 98.9 MCH 30.7 MCHC 31.0 RDW 13.2 Plt Count 200 MPV 10.7 H Neut % (Auto) 63.7 Lymph % (Auto) 22.1 [place] % (Auto) 8.9 Eos % (Auto) 4.1 Baso % (Auto) 0.8 Neut # (Auto) 4.63 Lymph # (Auto) 1.6 [place] # (Auto) 0.7 Eos # (Auto) 0.3 Baso # (Auto) 0.1 Nucleated RBC % (a uto) 0 Nucleated RBCs # 0.0 Vitals: Last Vital Signs Temp 98.4 F 02/07/21 07:47 Pulse 66 02/07/21 07:47 Resp 18 02/07/21 07:47 BP 118/68 02/07/21 07:47 Pulse Ox 92 02/07/21 07:47 Discharge Plan Discharge Patient Disposition: Home Condition: Stable Prescriptions: Continued ascorbate calcium (vitamin C) 500 mg tablet 1,000 mg PO BID RF: 0 acetaminophen [Tylenol] 325 mg capsule 325 mg PO QID PRN (Reason: Pain) RF: 0 ibuprofen 200 mg capsule 200 mg PO Q6H PRN (Reason: Pain) RF: 0 hydrocodone-acetaminophen 5-325 mg tablet 1 tab PO Q6H PRN (Reason: pain) 5 Days Qty: 20 RF: 0 Held methenamine hippurate 1 gram tablet 1 gm PO BID Qty: 60 RF: 12 Hold Instructions: Resume on 02/15/21. Discharge Orders: Discharge Order (Routine); Ordered 02/07/21 Ordered By: Levy Meyer Referrals: [facility] [Other] [facility] [Outside] Levy Meyer MD [Physician] - 02/11/21 (OP Surgery as scheduled 02/11/21) Karl Paige DO [Primary Care Provider] - 02/22/21 10:15 am (Please call [facility] and schedule an appointment to followo up with Dr. Paige within the next 2 weeks.) Discharge Diet: Usual diet Discharge Activity: Increase activity as tolerated Patient Instructions: Cystoscopy (DC), Ureteral Stent Placement (DC), Opioid Safety, Pyelonephritis Activity Restrictions/Additional Instructions: We will plan on continuing as scheduled for your endoscopic treatment of the left proximal ureteral stones on 02/11/2021. Of course this will be contingent upon continued improvement from an infection perspective. We will need to continue IV antibiotics. Arrangements are being made for the most convenient administration sites. Discharge Attestations Time Spent in Discharge Care*: greater than 30 min Specific Discharge Activities: educating patient, discussing with supervisor lace tearing/social workers/dc planners and evaluating patient/reviewing data Quality Metrics Clinical Quality Measures During this hospital stay, did patient experience: None Coding Level of Care Code Acute Chg FW DC note Exam Comprehensive Diagnoses Pyelonephritis of left kidney N12 Staghorn calculus N20.0 Cystitis cystica N30.80 Left ureteral calculus N20.1
--- NOTE | 2021-02-07 11:36 | PC.SOCIAL ---
Pg 2 IMM Explained to pt Pg 2 IMM. No questions voiced. Provided pt a copy. Signed, dated, & timed a copy & placed in chart.
[2021-02-07 11:37] VITALS: BP 127/74; PULSE 83; RESP 18; TEMP 36.7; O2SAT 94
[2021-02-07 15:56] VITALS: BP 123/73; PULSE 66; RESP 18; TEMP 36.6; O2SAT 94
[2021-02-07] MEDS: docusate sodium 100 mg Capsule PO (17:21)
[2021-02-07 19:53] VITALS: BP 126/77; PULSE 74; RESP 17; TEMP 37.2; O2SAT 94
[2021-02-08] VITALS: BP 122/71; PULSE 72; RESP 16; TEMP 37.3; O2SAT 93
[2021-02-08] MEDS: cefepime 1,000 MG in sodium chloride 0.9% (plus) 50 ML 100 MG IV ×2 (01:10→07:56)
[2021-02-08] MEDS: HYDROcodone-acetaminophen 5-325 mg Tablet 1 TAB PO ×2 (01:25→08:10)
[2021-02-08 04:00] VITALS: BP 137/75; PULSE 82; RESP 17; TEMP 37.2; O2SAT 91
[2021-02-08 07:49] VITALS: BP 148/77; PULSE 66; RESP 17; TEMP 36.6; O2SAT 93
[2021-02-08] MEDS: docusate sodium 100 mg Capsule PO (07:56)
--- NOTE | 2021-02-08 08:00 | PC.NURSE ---
PER ORDERS THIS NURSE HUNG ABX EARLY FOR PATIENT. THE PATIENT WILL ALSO BE DISCHARGING WITH HER PERIPHERAL IV IN PLACE SO THAT SHE CAN COME IN FOR SCHEDULED OUTPATIENT IV ABX TX
[2021-02-08 11:57] VITALS: BP 146/84; PULSE 76; RESP 17; TEMP 36.6; O2SAT 95
[2021-02-08 13:10] VITALS: BP 146/84; PULSE 76; RESP 17; TEMP 36.6; O2SAT 95
[2021-02-09 16:44] LABS: Coronavirus Test Green County Not Detected
== END 2021-02-08 12:35 | disposition home or self-care (01) ==
LOC: ER 02-04 00:44 → MEDSURG 02-04 06:44
PROVIDERS: Emergency Medicine; Admitting Provider Urology; Emergency Provider Nurse Practitioner Family; PCP Internal Medicine; Visit Provider Urology
PROC: 0TJB8ZZ Inspection of Bladder, Via Natural or Artificial Opening Endoscopic (ICD-10-PCS; CPT 52000; principal; 2021-02-04 11:30)
DX: N20.1 Calculus of ureter (principal); N39.0 Urinary tract infection, site not specified; N12 Tubulo-interstitial nephritis, not specified as acute or chronic; N30.80 Other cystitis without hematuria
CPT/HCPCS: 52332; 36415; 74018; 76000; 80053; 81001; 85025; 87635; 96365; 96367; 96375; 99285; C2625; G0378; J0692; J2270; J2405; J2704; J3010; J7030

== ENCOUNTER 2021-02-09 06:13 | Outpatient (RCR) | payer MEDICARE, SELFPAY ==
[2021-02-08] MEDS: cefepime 1,000 MG in sodium chloride 0.9% (plus) 50 ML 100 MG IV (18:00)
[2021-02-08 18:03] VITALS: BMI 40.1
--- NOTE | 2021-02-08 18:04 | SUR.PREOP ---
Patient presented with existing piid to left AC flushed easily. med started per existing access.
[2021-02-08 18:08] VITALS: BP 177/81; PULSE 76; RESP 18; TEMP 36.6; O2SAT 97
--- NOTE | 2021-02-09 06:44 | PC.NURSE ---
PT ARRIVED WITH IV IN LEFT AC. IV NOT WORKING SO IT WAS DC'D AND NEW IV PLACED IN LEFT HAND. PT STATED THIS WILL BE HER LAST DOSE HERE, HOME HEALTH STARTS THIS EVENING.
[2021-02-09] MEDS: cefepime 1,000 MG in sodium chloride 0.9% (plus) 50 ML 100 MG IV (06:45)
--- NOTE | 2021-02-09 06:49 | PC.NURSE ---
PT ARRIVED TO GI WITH IV IN LEFT AC. IV WAS NOT WORKING SO IT WAS DC'D, NEW ONE PLACED IN LEFT HAND. PT STATED THIS WILL BE HER LAST DOSE HERE, HOME HEALTH STARTS TONIGHT.
[2021-02-09 06:52] VITALS: BP 147/85; PULSE 75; RESP 18; TEMP 36.1; O2SAT 95
--- NOTE | 2021-02-09 07:27 | SUR.PHASEII ---
saline lock flushed. Coban applied for patient comfort.
== END 2021-03-03 23:59 | disposition home or self-care (01) ==
LOC: GILAB 06:13
PROVIDERS: PCP Internal Medicine; Visit Provider Urology
DX: N20.1 Calculus of ureter (principal)
CPT/HCPCS: 96365; J0692

== ENCOUNTER 2021-02-11 11:39 | Day surgery (SDC) | payer MEDICARE, SELFPAY ==
[2021-02-10 13:17] VITALS: BMI 40.7
[2021-02-11] VITALS (8 sets, daily range): BP systolic 141–174; BP diastolic 67–80; PULSE 61–80; RESP 17–20; TEMP 36.2–36.9; O2SAT 94–97
--- NOTE | 2021-02-11 | SCC_ITS ---
Procedure Done: 1. Cystoscopy, removal of left ureteral stent 2. Left ureteroscopy laser lithotripsy placement of left ureteral stent 36.9 seconds of fluoroscopic guidance, for a cumulative dose of 8.28 mGy, was provided to Dr. Meyer by the radiology department. C-arm images of the abdomen were saved for the patient's permanent record. [facility]
--- NOTE | 2021-02-11 11:48 | XR_ITS ---
WS: [id number] KUB, AP view, 02/11/2021 Clinical Data: PRE OP Comparison: KUB, 02/04/2021. Findings: The left ureteral stent is in good position. There are multiple left renal calcifications with the la rgest measuring 3.5 cm in the upper pole. The right kidney is obscured by overlying fecal material and gas. There are surgical yomaira on both sides of the true pelvis. There is a large fecal impaction. XR/XR KUB [id number] Impression: 1. Left ureteral stent. 2. Large left renal calcifications. 3. Right kidney obscured by fecal material. 4. Large amount of fecal material throughout the colon.
--- NOTE | 2021-02-11 11:54 | SC_ITS ---
WS: [id number] C-arm fluoroscopy for ureteral stent, 02/11/2021 Clinical Data: Left ureteroscopy Comparison: KUB, 02/11/2021. Findings: A left ureteral stent has been placed so that it curls in the left renal pelvis. SC/C-arm FL for Urology Impression: Left ureteral stent placement.
--- NOTE | 2021-02-11 12:44 | ECG_ITS ---
[facility] Test Date: 2021-02-11 Pat Name: Melissa Courtney Department: Room: Gender: Female Rn Homecare: : 1945 Requested By: Bruna Bronson Order Number: [id number] Temo MD: José Schwartz M.D. Measurements Intervals [place] Rate: 72 P: 22 VT: 186 QRS: -23 QRSD: 167 T: 63 QT: 463 QTc: 507 Interpretive Statements SINUS RHYTHM LEFT BUNDLE BRANCH BLOCK [120+ ms QRS DURATION, 80+ ms Q/S IN V1/V2, 85+ ms R IN I/aVL/V5/V6] Compared to ECG 02/14/2018 10:23:57 Left bundle-branch block now present Sinus arrhythmia no longer present Myocardial infarct finding no longer present Electronically Signed On 02-11-2021 17:06:23 CDT by José Schwartz M.D. [email or web address]
--- NOTE | 2021-02-11 12:55 | ANES.PREANE2 ---
Pre-Anesthetic Assessment Pre-Anesthetic Assessment: Height/Weight: Height 1.6 m Weight 104.326 kg Temp Pulse Resp BP Pulse Ox 98.1 F 80 18 154/80 97 02/11/21 12:25 02/11/21 12:25 02/11/21 12:25 02/11/21 12:25 02/11/21 12:25 Preop Diagnosis: 2 large left UPJ stones Proposed Procedure: Operation Date: 02/11/21 14:05 Proposed Procedures p Cystoscopy 81686 90060 n20.0(Not Applicable) - Levy Meyer MD s Retrograde Pyelogram(Left) - Levy Meyer MD s Ureteroscopy(Not Applicable) - Levy Meyer MD Familial anesthetic complications: None Was Beta Kely taken within 24 hours: N/A Was Clonidine taken within 24 hours: N/A Last intake: Intake Last Liquid Date 02/11/21 Last Liquid Time 07:00 Last Solid Date 02/10/21 Last Solid Time 23:55 Social: Social History: No alcohol and No tobacco Exam: Pre-Anes Outpt Exam: alert, oriented x 3, clear to auscultation bilaterally and regular rate & rhythm Airway: Cervical ROM: WNL MP: 1 Dentition: Chipped Metabolic: Metabolic: Morbid obesity Neuropsych: Comments: tremors Anesthetic Plan: ASA status: 2 Anesthesia: General Risk of > 500 ml blood loss (7ml/kg in children): No PFSH Anesthesia PFSH: Medical History 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 Father , 75 CAD (coronary artery disease) Family/Other Cancer Diabetes Thyroid disease Social History Smoking and tobacco status: never smoked Alcohol intake: never Marital status: Current occupational status: retired History of recent travel: No Data Anesthesia Cardiac Studies: No Data to Display
--- NOTE | 2021-02-11 13:22 | SUR.PREOP ---
6 X 2 CM HEALING WOUND TO LEFT FLANK AREA, NOTED WITH ERYTHEMATOSUS BOARDERS.
[2021-02-11] MEDS: sodium chloride 0.9% 1,000 ML 30 ML IV (13:36)
--- NOTE | 2021-02-11 14:21 | W.PM.OPSUD ---
Surgery/Procedure H&P Update DATE OF PROCEDURE: February 11, 2021 DATE H&P PERFORMED: 02/04/21 H&P UPDATE INFORMATION: I have reviewed H&P completed within last 30 days, I have examined patient prior to procedure, Changes to prior documentation as noted here and H&P is in [facility] EMR on date indicated CHANGES TO PREVIOUS DOCUMENTATION: She was admitted on 02/04/2021 with complaints of obstructive pyelonephritis. An emergency stent was placed she was placed on IV antibiotics to cover Pseudomonas. Has done well from that perspective and is on outpatient antibiotics currently. We had set the surgery date prior to her becoming sick with the infection and decided to proceed with treatment of the stones after almost a week of IV antibiotics She is feeling much better. PREOP DIAGNOSIS: 2 large left UPJ stones PLANNED PROCEDURE: Operation Date: 02/11/21 14:05 Proposed Procedures p Cystoscopy 10318 [id number] n20.0(Not Applicable) - Levy Meyer MD s Retrograde Pyelogram(Left) - Levy Meyer MD s Ureteroscopy(Not Applicable) - Levy Meyer MD
--- NOTE | 2021-02-11 15:27 | PM.OP ---
Operative Report Date of procedure: February 11, 2021 Pre-op Diagnosis: 2 large left UPJ stones Post-op diagnosis: same Procedure Done: 1. Cystoscopy, removal of left ureteral stent 2. Left ureteroscopy laser lithotripsy placement of left ureteral stent Pathology: Stone fragments Surgeon: Betsy Anesthesia: General Estimated blood loss: Minimal Urine output: Not measured Complications: None Condition: stable Disposition: PACU Brief History: Melissa is a very pleasant 75-year-old white female with a complex history of stone disease, recurrent urinary tract infections and multiple episodes of obstructive pyelonephritis historically. She has a stable left upper pole staghorn calculus that historically and currently she has elected to not treat. Recently she developed to new stones that were located at the left UPJ with CT scan demonstrating mild obstructive changes. She has a history of recurrent urinary tract infections and it was ultimately decided to treat the stones with endoscopy prior to an infectious complications such as obstructive pyelonephritis. She was offered the option for percutaneous nephrostolithotomy to try to be more definitive for clearing out the kidney hopefully reducing her risk of recurrent likely infection stones and risk of obstructive pyelonephritis in the future but unfortunately after scheduling for the surgery originally planned for today she did develop obstructive pyelonephritis and was hospitalized with an emergency stent placement. She has been maintained on IV antibiotics since that time initially inpatient and then outpatient and is recovered well. She is brought to the operating room today for the scheduled ureteroscopic treatment of the 2 large left proximal ureteral stones. Procedure: After routine preoperative evaluation examination and obtaining of informed consent taken to the operating suite on 02/11/2021 where general anesthesia was administered without difficulty after appropriate timeout was performed, SCDs confirmed to be functioning, preoperative antibiotics administered, beta-caity protocol confirmed. Prepped and draped in usual sterile fashion in dorsolithotomy position paying careful attention to avoiding pressure points. 21 [place] cystoscope with 30 degree lens was introduced into the urethral meatus and advanced into the bladder under videoscopy. Bladder systematically examined. Some inflammatory changes consistent with stent irritation and recent UTI. Grasping forceps were utilized to secure the end of the stent and pulled through the urethral meatus with subsequent passage of flexible guidewire up the stent into appropriate position and then stent was removed. The wire was secured to the drapes as a safety wire. A second guidewire, the working wire, was then passed of the left ureter next to the safety wire easily bypassing the stones. A 38 cm ureteral access sheath was very easily advanced under fluoroscopic guidance up the left ureter over the second/working guidewire to just below the level of the stones. The inner sheath was removed. And a 7 [place]an semi-rigid ureteroscope was advanced over the guidewire up the sheath to the level of the stones and the guidewire was removed. The angle of access to the stones was not adequate through the semirigid ureteroscope and therefore was exchanged with a 7 [place] flexible ureterorenoscope. This allowed easy access to the stones. There were about 4 or 5 stones with 2 of them quite large. A 365 ?m thulium superpulse laser fiber was utilized for fragmentation and over a period of a couple hours the stones were completely fragmented. Sand was intermittently flushed from the system in order to better expose the remaining stones that needed treatment. At the completion of the procedure most of the sand had been washed free. I could not see any substantial pieces remaining either on fluoroscopy or inspection of the renal pelvis. No attempt was made to access the upper pole partial staghorn. Once fragmentation was completed the ureteral access sheath was backed onto the scope at the hub and the ureter was inspected as the scope was removed. There remained few small fragments and sand but nothing substantial. The cystoscope was then backloaded over the guidewire and a 7 [place]an by 26 cm double-pigtail stent was advanced over the guidewire through the cystoscope into appropriate position as confirmed via fluoroscopy cystoscopy Bladder was drained and the procedure was completed. Tolerated procedure well without complications and was awakened in the operating room and returned to recovery in stable condition. PLANS: 1. Complete IV antibiotics as scheduled in 3 days 2. Restart METHENAMINE HIPPURATE 1 g twice a day with 1 g vitamin C on the third day as well. 3. Follow-up in approximately 2 weeks with a KUB. 4. I reviewed all the plans and the findings with her daughter.
[2021-02-11] MEDS: cefepime 1,000 MG in sodium chloride 0.9% (plus) 50 ML 100 MG IV (15:37)
[2021-02-11] MEDS: iohexol 300 mg/mL 50 mL Btl (OR ONLY) XX (16:19)
--- NOTE | 2021-02-11 17:40 | SUR.PHASEI ---
1738 PATIENT TO PACU FROM OR. RR EVEN AND UNLABORED. PWD.
[2021-02-17 22:32] LABS: Stone Source LEFT URETERAL STONE
== END 2021-02-11 18:45 | disposition home or self-care (01) ==
PROVIDERS: PCP Internal Medicine; Visit Provider Urology
PROC: 0TJB8ZZ Inspection of Bladder, Via Natural or Artificial Opening Endoscopic (ICD-10-PCS; CPT 52000; principal; 2021-02-11 13:45)
PROC: (CPT 74420; 2021-02-11 13:45)
PROC: 0TJ98ZZ Inspection of Ureter, Via Natural or Artificial Opening Endoscopic (ICD-10-PCS; CPT 52351; 2021-02-11 13:45)
PROC: (CPT 52356; 2021-02-11 13:45)
PROC: (CPT 52310; 2021-02-11 13:45)
DX: N20.1 Calculus of ureter (principal); E66.01 Morbid (severe) obesity due to excess calories; Z68.41 Body mass index [BMI] 40.0-44.9, adult; N12 Tubulo-interstitial nephritis, not specified as acute or chronic; N30.80 Other cystitis without hematuria
CPT/HCPCS: 52356; 74018; 76000; 82365; 88300; 93005; C2625; J0692; J2405; J2704; J2710; J3010; J3490; J7030

== ENCOUNTER 2021-02-26 09:55 | Outpatient (CLI) | payer MEDICARE, SELFPAY ==
--- NOTE | 2021-02-26 09:30 | XR_ITS ---
WS: [id number] KUB, AP view, 02/26/2021 Clinical Data: URETERAL CALCULUS Comparison: KUB, 02/11/2021. Findings: The left ureteral stent remains in good position. There is a large staghorn calculus in the superior pole of the left kidney. The 2 calcifications which were adjacent to the proximal left ureteral stent are no longer seen. There is a large amount of fecal material throughout the colon obscuring detail. There are surgical clips on both sides of the true pelvis. XR/XR KUB [id number] Impression: 1. No change in left ureteral stent. 2. Left renal calcification dictations are still present. 3. Proximal left ureteral calcifications not seen.
== END 2021-02-26 09:56 | disposition home or self-care (01) ==
PROVIDERS: PCP Internal Medicine; Visit Provider Urology
DX: N20.1 Calculus of ureter (principal); N20.0 Calculus of kidney
CPT/HCPCS: 74018; 81003; 87077; 87086; 87184

== ENCOUNTER → 2021-03-05 10:19 | Outpatient (BNVA) | payer MEDICARE, SELFPAY | PROVIDERS: PCP Internal Medicine; Visit Provider Urology | DX: N20.1 Calculus of ureter (principal); N20.0 Calculus of kidney; N30.80 Other cystitis without hematuria | CPT/HCPCS: 81003 ==

== ENCOUNTER → 2021-03-12 10:26 | Outpatient (BNVA) | payer MEDICARE, SELFPAY | PROVIDERS: PCP Internal Medicine; Visit Provider Urology | DX: N20.1 Calculus of ureter (principal) | CPT/HCPCS: 87635 ==

== ENCOUNTER 2021-03-19 16:32 | Inpatient (IN) | payer MEDICARE, SELFPAY ==
[2021-03-19] VITALS (8 sets, daily range): BP systolic 124–153; BP diastolic 56–76; PULSE 101–111; RESP 18–24; TEMP 36.4; O2SAT 86–92; BMI 39.2
--- NOTE | 2021-03-19 16:37 | XRR_ITS ---
PROCEDURE INFORMATION: Exam: XR Chest Exam date and time: 03/19/2021 4:37 PM Age: 75 years old Clinical indication: Cough and shortness of breath TECHNIQUE: Imaging protocol: XR of the chest. Views: 1 view. COMPARISON: [place] Chest 1 [place] [id number] 01/23/2018 9:05 AM FINDINGS: Lungs: Scattered patchy ground-glass foci in the lungs bilaterally. Overall decreased lung volumes. Poor definition of pulmonary interstitium. Pleural spaces: Unremarkable. No pleural effusion. No pneumothorax. Heart/Mediastinum: Mild cardiac enlargement. Bones/joints: Unremarkable. XR/XR chest 1V portable [id number] IMPRESSION: Patchy ground-glass airspace disease in both lungs. This may reflect atypical pneumonia or asymmetric pulmonary edema changes. Recommend correlation for COVID-19 pneumonia.
--- NOTE | 2021-03-19 16:49 | ED_ITS ---
HPI - SOB/Dyspnea General: Chief Complaint: COVID symptoms Stated Complaint: COVID +/ INCREASED DYSPNEA Time Seen by Provider: 03/19/21 16:36 History of Present Illness: HPI Narrative: This patient is a 75-year-old female who presents to the emerge department complaint of body aches fatigue and shortness of breath. Patient has recent history of kidney stones was scheduled to have a procedure yesterday however on Monday got tested for Covid prior to his procedure and was negative. But also was tested again yesterday and had a positive Covid test. Patient states she did not feel too bad yesterday but today it feels like she cannot breathe very well. Patient is on 6 L by nasal cannula upon arrival. Will do medical evaluation treat as needed MD elicited complaint: shortness of breath Onset (ago): day(s) Timing: constant Exacerbating factors: nothing Associated symptoms: Deny abdominal pain, chest pain, extremity pain, fever(s), lightheadedness, nausea, palpitations or vomiting Review of Systems General: Reports: 10 or more systems reviewed and unremarkable except in HPI and below Const: Reports: body aches; Denies: fever(s), chills or fatigue Eyes: Denies: change in vision or blurry vision ENMT: Denies: throat pain, hoarseness or mouth pain Card: Denies: chest pain, palpitations, irregular heart rhythm, edema, swelling of feet/ankles or lightheadedness Resp: Reports: dyspnea; Denies: productive cough, non-productive cough, wheezing or pain on inspiration GI: Denies: abdominal pain, nausea or vomiting : Denies: flank pain, difficulty voiding, dysuria, urinary frequency, urinary urgency or urinary hesitancy Musc: Denies: neck pain, back pain, extremity pain, extremity swelling, joint pain, joint swelling, joint redness, joint warmth or limited range of motion Skin/Breast: Denies: rash, pruritus, erythema or skin tenderness Neuro: Denies: headache(s), numbness in extremities or weakness in extremities Psych: Denies: anxiety or depression PFSH ED PFSH: Medical History 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 Father , 75 CAD (coronary artery disease) Family/Other Cancer Diabetes Thyroid disease Social History Alcohol intake: never Marital status: Current occupational status: retired History of recent travel: No Physical Exam Const: COMMON NORMALS: no acute distress, average body habitus, patient orie nted x3, no limitations, healthy appearing, alert and well nourished HENMT: COMMON NORMALS: normocephalic, atraumatic, hearing grossly normal bila terally, external ears normal, EAC's normal, TM's normal bilaterally, Normal external nose present, Normal nasal mucous membranes and turbinates present, moist oral mucous membranes, oropharynx normal, dentition normal and gingiva normal HEAD & SCALP: normocephalic and atraumatic NOSE: Normal external nose present and Normal nasal mucous membranes and turbinates present EXTERNAL EAR: Yes external ears normal EXTERNAL AUDITORY CANAL: EAC's normal TYMPANIC MEMBRANE: TM's normal bilaterally Neck/C-Spine: COMMON NORMALS: full ROM, no lymphadenopathy, supple, no meningeal signs, no JVD, Thyroid normal and No carotid bruits THYROID: Thyroid normal Chest: COMMONS NORMALS: normal inspection of the chest, normal palpation of entire chest wall, normal inspection of the breasts and normal palpation of the breasts Breast/axilla inspection: Yes normal inspection of the breasts BREAST/AXILLA PALPATION: Yes normal palpation of the breasts Resp: COMMON NORMALS: normal respiratory effort, No retractions, No use of accessory muscles, clear to auscultation bilaterally and percussion normal AUSCULTATION: clear to auscultation bilaterally PERCUSSION: percussion normal Cardio: COMMON NORMALS: no JVD, regular rate, regular rhythm, S1 normal heart sound present, S2 normal heart sound present, No gallops present (Cardio), No clicks present (Cardio), No murmurs present (Cardio), No rub (Cardio) and Peripheral pulses 2+ throughout RATE: regular rate RHYTHM: regular rhythm HEART SOUNDS: S1 normal heart sound present and S2 normal heart sound present PERIPHERAL PULSES: Peripheral pulses 2+ throughout GI: COMMON NORMALS: Normal to inspection, nondistended, normoactive bowel sounds present, Soft to palpation, non-tender, No hepatosplenomegaly present, no masses and no bruits PALPATION: Yes Soft to palpation and Yes No hepatosplenomegaly present Back/Pelvis: COMMON NORMALS: thoracic and lumbar spine normal to inspection, no thoracic nor lumbar tenderness, thoraco-lumbar ROM normal and straight leg raise negative bilaterally Extremity: COMMON NORMALS: normal to inspection, full ROM, capillary refill normal, no joint enlargement, no clubbing, cyanosis or edema, no calf tenderness and no pedal edema Neuro: COMMON NORMALS: patient oriented x3 SENSORIUM/ORIENTATION: Yes alert MENINGEAL SIGNS: Yes no meningeal signs Course Reevaluation(s): Reevaluation #1: I did discuss at length with patient about findings. Patient be admitted to the hospital for Covid pneumonia. She states understanding Time: 18:09 Consultations: Consultation #1: I discussed at length with Dr. Farrell he is agreed to accept this patient for admission he will see patient write additional orders Time: 18:10 Vital Signs: Vital signs: Vital Signs Temperature 97.6 F 03/19/21 16:52 Pulse Rate 102 H 03/19/21 17:25 Respiratory Rate 24 H 03/19/21 17:25 Blood Pressure 124/56 03/19/21 16:52 Pulse Oximetry 92 03/19/21 17:25 MDM - SOB/Dyspnea MDM Narrative: Medical decision making narrative: This patient is a 75-year-old female who presents to the emerge department complaint of body aches fatigue and shortness of breath. Patient has recent history of kidney stones was scheduled to have a procedure yesterday however on Monday got tested for Covid prior to his procedure and was negative. But also was tested again yesterday and had a positive Covid test. Patient states she did not feel too bad yesterday but today it feels like she cannot breathe very well. Patient is on 6 L by nasal cannula upon arrival. I did discuss at length with patient about findings. Patient be admitted to the hospital for Covid pneumonia. She states understanding I discussed at length with Dr. Farrell he is agreed to accept this patient for admission he will see patient write additional orders Lab Data: Labs: Lab Results 03/19/21 03/19/21 03/19/21 Range/Units 17:04 17:04 17:04 WBC 13.6 H (4.0-10.0) 10^3/ uL RBC 4.70 (4.1-5.3) 10^6/u L Hgb 14.2 (11.5-15.3) g/dL Hct 45.6 (37.0-47.0) % MCV 97.0 (81-99) fL MCH 30.2 (28.0-34.0) pg MCHC 31.1 (30.0-36.0) g/dL RDW 14.6 (12.1-15.1) % Plt Count 200 (130-400) 10^3/c mm MPV 10.9 H (7.4-10.4) fL Neut % (Auto) 79.4 % Lymph % (Auto) 14.3 % [place] % (Auto) 4.7 % Eos % (Auto) 0.2 % Baso % (Auto) 0.3 % Neut # (Auto) 10.78 H (1.8-7.7) 10^3/u L Lymph # (Auto) 2.0 (0.8-4.8) 10^3/u L [place] # (Auto) 0.6 (0.2-0.9) 10^3/u L Eos # (Auto) 0.0 (0.0-0.8) 10^3/u L Baso # (Auto) 0.0 (0.0-0.1) 10^3/u L Nucleated RBC % (a uto) 0 % Nucleated RBCs # 0.0 /100WBC PT (12.1-14.9) SECO NDS INR (0.8-1.2) APTT (23.9-36.7) SECO NDS D-Dimer (0-0.59) ug/mIFE U Specimen Type Sample Site ABG pH (7.35-7.45) ABG pCO2 (35-45) mmHg ABG pO2 (80.0-100.0) mmH g ABG HCO3 (22-26) mmol/L ABG O2 Saturation ABG Base Excess (-2.0-2.0) mmol/ L Andrés Test A-a O2 Gradient (5-10) mmHg Hematocrit (37-47) % Hgb O2 Saturation (95-100) % Carboxyhemoglobin (0.4-20.1) %THgb Methemoglobin (0.4-1.5) % Total Hemoglobin (12-16) g/dL Ionized Calcium (1.1-1.4) mmol/L O2 Delivery Device O2 Liters/Min % FiO2 % Customer Leader ID Sodium 140 (136-145) mmol/L Potassium 3.5 (3.5-5.1) mmol/L Chloride 101 (98-107) mmol/L Carbon Dioxide 21 L (22-29) mmol/L Anion Gap 21.5 H (5-19) BUN 31 H (8-23) mg/dL Creatinine 1.0 H (0.5-0.9) mg/dL GFR Calculation Not Reportable Glucose 196 H (65-115) mg/dL Calculated Osmolal ity 302 H (285-295) mOsm/k g Calcium 9.0 (8.5-10.5) mg/dL Total Bilirubin 0.5 (0.15-1.2) mg/dL AST 37 H (0-32) U/L ALT 19 (0-33) U/L Alkaline Phosphata se 119 H (35-105) IU/L Troponin T Gen 5 n g/L (0-10) ng/L NT-Pro-B Natriuret Pep 296 H (0-125) pg/mL Total Protein 7.2 (6.6-8.7) g/dL Albumin 3.9 (3.5-5.2) g/dL Globulin 3.3 (1.3-4.6) g/dL SARS-CoV-2 Ag (Rap id) Positive H (Negative) 03/19/21 03/19/21 03/19/21 Range/Units 17:18 17:32 Unknown WBC (4.0-10.0) 10^3/ uL RBC (4.1-5.3) 10^6/u L Hgb (11.5-15.3) g/dL Hct (37.0-47.0) % MCV (81-99) fL MCH (28.0-34.0) pg MCHC (30.0-36.0) g/dL RDW (12.1-15.1) % Plt Count (130-400) 10^3/c mm MPV (7.4-10.4) fL Neut % (Auto) % Lymph % (Auto) % [place] % (Auto) % Eos % (Auto) % Baso % (Auto) % Neut # (Auto) (1.8-7.7) 10^3/u L Lymph # (Auto) (0.8-4.8) 10^3/u L [place] # (Auto) (0.2-0.9) 10^3/u L Eos # (Auto) (0.0-0.8) 10^3/u L Baso # (Auto) (0.0-0.1) 10^3/u L Nucleated RBC % (a uto) % Nucleated RBCs # /100WBC PT 13.90 (12.1-14.9) SECO NDS INR 1.04 (0.8-1.2) APTT 34.0 (23.9-36.7) SECO NDS D-Dimer 0.91 H (0-0.59) ug/mIFE U Specimen Type Arterial Sample Site Radial, right ABG pH 7.37 (7.35-7.45) ABG pCO2 33.7 L (35-45) mmHg ABG pO2 49.2 L (80.0-100.0) mmH g ABG HCO3 19.2 L (22-26) mmol/L ABG O2 Saturation 86.8 ABG Base Excess -5.2 L (-2.0-2.0) mmol/ L Andrés Test Pos A-a O2 Gradient 28.8 H (5-10) mmHg Hematocrit 43.0 (37-47) % Hgb O2 Saturation 85.4 L (95-100) % Carboxyhemoglobin 1.2 (0.4-20.1) %THgb Methemoglobin 0.4 (0.4-1.5) % Total Hemoglobin 14.0 (12-16) g/dL Ionized Calcium 1.2 (1.1-1.4) mmol/L O2 Delivery Device Nc O2 Liters/Min 6.0 % FiO2 44.0 % Customer Leader ID Amh Sodium 141.0 (136-145) mmol/L Potassium 3.5 (3.5-5.1) mmol/L Chloride (98-107) mmol/L Carbon Dioxide (22-29) mmol/L Anion Gap (5-19) BUN (8-23) mg/dL Creatinine (0.5-0.9) mg/dL GFR Calculation Glucose 209.0 H (65-115) mg/dL Calculated Osmolal ity (285-295) mOsm/k g Calcium (8.5-10.5) mg/dL Total Bilirubin (0.15-1.2) mg/dL AST (0-32) U/L ALT (0-33) U/L Alkaline Phosphata se (35-105) IU/L Troponin T Gen 5 n g/L 11 H (0-10) ng/L NT-Pro-B Natriuret Pep (0-125) pg/mL Total Protein (6.6-8.7) g/dL Albumin (3.5-5.2) g/dL Globulin (1.3-4.6) g/dL SARS-CoV-2 Ag (Rap id) (Negative) Imaging Data^: CXR: Attestation: I personally reviewed and interpreted this imaging study as follows: Radiologist's impression: MPRESSION: Patchy ground-glass airspace disease in both lungs. This may reflect atypical pneumonia or asymmetric pulmonary edema changes. Recommend correlation for COVID-19 pneumonia. ABG Data^: ABG Interpretation 1: ABG results: pH 7.37. PCO2 37.7. PO2 49.2. O2 saturation 85%. Attestation: I personally reviewed and interpreted this ABG as follows: Interpretation: Respiratory acidosis hypoxia. Discharge Plan Discharge Patient Disposition: Admitted As Inpatient Clinical Impression: Pneumonia due to severe acute respiratory syndrome coronavirus 2 (SARS-CoV-2), Hypoxia Condition: Stable Prescriptions: No Action ascorbate calcium (vitamin C) 500 mg tablet 1,000 mg PO BID RF: 0 acetaminophen [Tylenol] 325 mg capsule 325 mg PO QID PRN (Reason: Pain) RF: 0 methenamine hippurate 1 gram tablet 1 gm PO BID Qty: 60 RF: 12 Hold Instructions: Resume on 02/15/21. Referrals: Karl Paige DO [Primary Care Provider] - Coding Level of Care Code ED Personnel Supervisor for Chg Fwd Exam Comprehensive
[2021-03-19 17:14] LABS: Basophils % 0.3 %; Eosinophils % 0.2 %; Hematocrit 45.6 % (37.0-47.0); Hemoglobin 14.2 g/dL (11.5-15.3); Lymphocytes % 14.3 %; Mean Corpuscular HGB Conc 31.1 g/dL (30.0-36.0); Mean Corpuscular Hemoglobin 30.2 pg (28.0-34.0); Mean Platelet Volume 10.9 fL (7.4-10.4); Monocytes # 0.6 10^3/uL (0.2-0.9); Monocytes % 4.7 %; Neutrophils # 10.78 10^3/uL (1.8-7.7); Neutrophils % 79.4 %; Nucleated Red Blood Cells % 0 %; Platelet Count 200 10^3/cmm (130-400); Red Cell Distribution Width 14.6 % (12.1-15.1); White Blood Count 13.6 10^3/uL (4.0-10.0)
[2021-03-19] MEDS: albuterol 8 gm MDI 2 PUFF INHALATION (17:20)
[2021-03-19] MEDS: dexamethasone 10 mg/mL INJ IM (17:26)
[2021-03-19 17:29] LABS: ABG PCO2 33.7 mmHg (35-45); ABG PH Result 7.37 (7.35-7.45); Alveolar-Arterial Oxygen Gradi 28.8 mmHg (5-10); Base Excess ABG -5.2 mmol/L (-2.0-2.0); Blood Gas Allen Test Pos; Blood Gas Operator Identificat AMH; Blood Gas Sample Site Radial, right; Blood Gas Sample Type Arterial; Carboxyhemoglobin 1.2 %THgb (0.4-20.1); HCO3 ABG 19.2 mmol/L (22-26); HGB O2 Sat 85.4 % (95-100); Ionized Calcium Level - ABG 1.2 mmol/L (1.1-1.4); Methemoglobin 0.4 % (0.4-1.5); Oxygen Device NC; Oxygen Saturation ABG 86.8; PO2 ABG 49.2 mmHg (80.0-100.0); Potassium Level - ABG 3.5 mmol/L (3.5-5.0)
[2021-03-19 17:49] LABS: Troponin T (5th) Once 11 ng/L (0-10)
[2021-03-19 17:53] LABS: SARS Covid-2 Antigen Positive (Negative)
[2021-03-19 17:58] LABS: INR 1.04 (0.8-1.2)
[2021-03-19 17:59] LABS: Alanine Aminotransferase 19 U/L (0-33); Albumin Level 3.9 g/dL (3.5-5.2); Alkaline Phosphatase 119 IU/L (35-105); Anion Gap 21.5 (5-19); Aspartate Amino Transferase 37 U/L (0-32); Blood Urea Nitrogen 31 mg/dL (8-23); Carbon Dioxide 21 mmol/L (22-29); Chloride 101 mmol/L (98-107); Globulin 3.3 g/dL (1.3-4.6); Glucose 196 mg/dL (65-115); NT Pro B Type Natriuretic Pept 296 pg/mL (0-125); Osmolality Calculated 302 mOsm/kg (285-295); Potassium 3.5 mmol/L (3.5-5.1); Sodium 140 mmol/L (136-145); Total Bilirubin 0.5 mg/dL (0.15-1.2); Total Protein 7.2 g/dL (6.6-8.7)
[2021-03-19 18:02] LABS: D Dimer 0.91 ug/mIFEU (0-0.59)
--- NOTE | 2021-03-19 18:21 | PM.HP ---
Providers/Chief Complaint Primary Care Provider: Karl Paige DO Chief Complaint: COVID +/ INCREASED DYSPNEA History of Present Illness Melissa Courtney is a 75 year old female who presented to the ER with complaints of shortness of breath and body aches. On arrival she was hypoxic and was on 6 L nasal cannula. Patient's had a positive Covid test in the emergency room. Currently on nonrebreather. Review of Systems General: Reports: 10 or more systems reviewed and unremarkable except in HPI and below Const: Reports: body aches; Denies: fever(s) Eyes: Denies: change in vision ENMT: Denies: throat pain Card: Denies: chest pain Resp: Reports: dyspnea GI: Denies: abdominal pain : Denies: flank pain Musc: Reports: back pain and joint pain Medications/Allergies Home Medications Medication Instructions Recorded Confirmed Last Taken Type acetaminophen 325 mg capsule 325 mg PO QID PRN 10/15/19 03/19/21 02/10/21 History ascorbate calcium (vitamin C) 500 1,000 mg PO BID 10/15/19 03/19/21 03/18/21 History mg tablet methenamine hippurate 1 gram tablet 1 gm PO BID #60 tab 05/12/20 03/19/21 03/18/21 Rx Allergies Allergy/AdvReac Type Severity Reaction Status Date / Time aspirin Allergy NA Verified 03/17/21 09:57 levofloxacin [From Levaquin] Allergy NA Verified 03/17/21 09:57 nitrofurantoin Allergy NA Verified 03/17/21 09:57 Sulfa (Sulfonamide Allergy NA Verified 03/17/21 09:57 Antibiotics) PFSH Acute PFSH: Medical History 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 Father , 75 CAD (coronary artery disease) Family/Other Cancer Diabetes Thyroid disease Social History Alcohol intake: never Marital status: Current occupational status: retired History of recent travel: No Vitals/I&O/Wt Last Vital Signs Temp 97.6 F 03/19/21 16:52 Pulse 102 H 03/19/21 17:25 Resp 24 H 03/19/21 17:25 BP 124/56 03/19/21 16:52 Pulse Ox 92 03/19/21 17:25 Weight last 48 hrs Weight 225 lb Physical Exam Const: COMMON NORMALS: patient oriented x3 GENERAL APPEARANCE: cooperative Chest: COMMONS NORMALS: normal inspection of the chest Resp: AUSCULTATION: rhonchi Cardio: RATE: regular rate and tachycardic GI: COMMON NORMALS: Soft to palpation and non-tender Extremity: COMMON NORMALS: normal to inspection Data : 03/19/21 17:04 03/19/21 17:04 CXR: Radiologist's impression: Patchy ground-glass airspace disease in both lungs. This may reflect atypical pneumonia or asymmetric pulmonary edema changes. Recommend correlation for COVID-19 pneumonia. A&P Assessment and plan (1) Pneumonia due to severe acute respiratory syndrome coronavirus 2 (SARS-CoV-2): Status: Acute (2) Hypoxia: Status: Acute (3) Left ureteral calculus: Status: Acute Additional A&P Information #Covid 19 pneumonia #Hypoxemia #renal stones plan: 1. admit to med surg, if worsens will go to ICU 2. Oxygen NRB 3. nebs 4. remdesivir, dexamethasone, Vitamin D, C, Zinc Attestations Medical Necessity Statement*: Melissa Courtney's hospital stay will require greater than 2 midnights for covid pneumonia Coding Level of Care Code Acute Machine Learning Intern for [facility] Fwd Exam Detailed Diagnoses Pneumonia due to severe acute respiratory syndrome coronavirus 2 (SARS-CoV-2) U07.1; J12.82 Hypoxia R09.02 Left ureteral calculus N20.1
[2021-03-19] MEDS: remdesivir 200 MG in sodium chloride 0.9% (100 ml) 100 ML 100 MG IV (19:25)
--- NOTE | 2021-03-19 22:58 | PC.NURSE ---
Around 2244: Patient complaining of pain as a 7 on 0-[address] Espinoza, Hospitalist. Orders received, see NOV.
[2021-03-19] MEDS: morphine 4 mg/mL SDV 1 mL 2 MG IVP (23:51)
[2021-03-20] VITALS (17 sets, daily range): BP systolic 126–166; BP diastolic 69–85; PULSE 77–99; RESP 18–30; TEMP 37.1–37.3; O2SAT 85–92
[2021-03-20] MEDS: acetaminophen 325 mg Tablet 650 MG PO (03:07)
--- NOTE | 2021-03-20 04:38 | PC.NURSE ---
Patient on oxygen, 15 L High Flow NC with humidification. Per Dr. Espinoza, Hospitalist, keep patient oxygen saturation level greater or equal to 88%.
[2021-03-20] MEDS: morphine 4 mg/mL SDV 1 mL 2 MG IVP ×2 (05:24→12:46)
[2021-03-20 05:58] LABS: Basophils % 0.2 %; Hematocrit 41.8 % (37.0-47.0); Hemoglobin 13.1 g/dL (11.5-15.3); Lymphocytes # 0.7 10^3/uL (0.8-4.8); Lymphocytes % 6.4 %; Mean Corpuscular HGB Conc 31.3 g/dL (30.0-36.0); Mean Corpuscular Hemoglobin 30.4 pg (28.0-34.0); Mean Platelet Volume 11.1 fL (7.4-10.4); Monocytes # 0.2 10^3/uL (0.2-0.9); Monocytes % 1.9 %; Neutrophils # 9.47 10^3/uL (1.8-7.7); Neutrophils % 89.7 %; Nucleated Red Blood Cells % 0 %; Platelet Count 222 10^3/cmm (130-400); Red Blood Count 4.31 10^6/uL (4.1-5.3); Red Cell Distribution Width 14.4 % (12.1-15.1); White Blood Count 10.6 10^3/uL (4.0-10.0)
[2021-03-20 06:11] LABS: Alanine Aminotransferase 16 U/L (0-33); Albumin Level 3.2 g/dL (3.5-5.2); Alkaline Phosphatase 110 IU/L (35-105); Aspartate Amino Transferase 31 U/L (0-32); Blood Urea Nitrogen 25 mg/dL (8-23); Calcium 8.9 mg/dL (8.5-10.5); Carbon Dioxide 21 mmol/L (22-29); Chloride 106 mmol/L (98-107); Glucose 211 mg/dL (65-115); Osmolality Calculated 297 mOsm/kg (285-295); Sodium 138 mmol/L (136-145); Total Bilirubin 0.3 mg/dL (0.15-1.2); Total Protein 7.2 g/dL (6.6-8.7)
[2021-03-20] MEDS: albuterol 8 gm MDI 2 PUFF INHALATION ×2 (08:43→20:42)
[2021-03-20] MEDS: zinc gluconate 50 mg Tablet PO (08:46)
[2021-03-20] MEDS: cholecalciferol (vitamin D3) 1,000 unit Tablet 1000 UNIT PO (08:46)
[2021-03-20] MEDS: ascorbic acid 500 mg Tablet PO (08:46)
[2021-03-20] MEDS: dexamethasone 4 mg/mL INJ 6 MG IVP (17:35)
[2021-03-20] MEDS: remdesivir 100 MG in sodium chloride 0.9% (100 ml) 100 ML IV (17:36)
--- NOTE | 2021-03-20 17:38 | P.PN_ITS ---
Subjective Subjective: Interval history: patient started on high-flow nasal cannula. Medications: Reviewed: Yes Vitals/I&O/Wt Last Vital Signs Temp 98.8 F 03/20/21 14:53 Pulse 89 03/20/21 17:35 Resp 20 H 03/20/21 17:35 BP 133/71 03/20/21 14:53 Pulse Ox 90 03/20/21 17:35 03/20/21 03/20/21 03/20/21 06:59 14:59 22:59 Intake Total 250 / 350 236 / 236 Output Total 500 / 500 Balance -250 / -150 236 / 236 Weight last 48 hrs Weight 102.058 kg Physical Exam Const: COMMON NORMALS: patient oriented x3 GENERAL APPEARANCE: cooperative Chest: COMMONS NORMALS: normal inspection of the chest Resp: AUSCULTATION: rhonchi Cardio: COMMON NORMALS: regular rate RATE: regular rate and tachycardic GI: COMMON NORMALS: Soft to palpation and non-tender PALPATION: Yes Soft to palpation Extremity: COMMON NORMALS: normal to inspection Neuro: COMMON NORMALS: patient oriented x3 Urinary Catheter Management^: Monterroso Latex: Cath Placed During This Visit: yes Urinary Catheter Date of Insertion: 03/20/21 Urinary Catheter Time of Insertion: 10:59 Data : 03/20/21 04:46 03/20/21 04:46 A&P Assessment and plan (1) Pneumonia due to severe acute respiratory syndrome coronavirus 2 (SARS-CoV-2): Status: Acute (2) Hypoxia: Status: Acute (3) Left ureteral calculus: Status: Acute Additional A&P Information #Covid 19 pneumonia #Hypoxemia #renal stones plan: 1. Wean oxygen as tolerated 2. continue medications as currently ordered 3. repeat labs in a.m. Attestations Medical Necessity Statement*: Continue hospitalization for management of COVID-19 Time Spent in Patient Care: Greater than 35 minutes (>than 50% of time spent in counselling and/or direct pt care on unit) . Coding Level of Care Code Acute Curbstone Setter for [facility] Fwd Diagnoses Pneumonia due to severe acute respiratory syndrome coronavirus 2 (SARS-CoV-2) U07.1; J12.82 Hypoxia R09.02 Left ureteral calculus N20.1
[2021-03-20] MEDS: HYDROcodone-acetaminophen 5-325 mg Tablet 1 TAB PO ×2 (18:57→22:49)
[2021-03-21] VITALS (74 sets, daily range): BP systolic 122–149; BP diastolic 60–82; PULSE 62–98; RESP 16–40; TEMP 36.7–37.1; O2SAT 87–96
[2021-03-21] MEDS: HYDROcodone-acetaminophen 5-325 mg Tablet 1 TAB PO ×4 (03:02→23:49)
[2021-03-21 03:44] LABS: Basophils % 0.2 %; Hematocrit 40.1 % (37.0-47.0); Hemoglobin 12.8 g/dL (11.5-15.3); Lymphocytes # 0.9 10^3/uL (0.8-4.8); Lymphocytes % 4.8 %; Mean Corpuscular HGB Conc 31.9 g/dL (30.0-36.0); Mean Corpuscular Hemoglobin 30.1 pg (28.0-34.0); Mean Corpuscular Volume 94.4 fL (81-99); Mean Platelet Volume 11.2 fL (7.4-10.4); Monocytes % 5.1 %; Neutrophils # 16.36 10^3/uL (1.8-7.7); Neutrophils % 88.2 %; Nucleated Red Blood Cells % 0 %; Platelet Count 289 10^3/cmm (130-400); Red Blood Count 4.25 10^6/uL (4.1-5.3); Red Cell Distribution Width 14.3 % (12.1-15.1); White Blood Count 18.6 10^3/uL (4.0-10.0)
[2021-03-21 04:32] LABS: Alanine Aminotransferase 16 U/L (0-33); Albumin Level 3.2 g/dL (3.5-5.2); Alkaline Phosphatase 100 IU/L (35-105); Anion Gap 15.3 (5-19); Aspartate Amino Transferase 30 U/L (0-32); Blood Urea Nitrogen 30 mg/dL (8-23); Calcium 8.8 mg/dL (8.5-10.5); Carbon Dioxide 22 mmol/L (22-29); Chloride 103 mmol/L (98-107); Globulin 3.5 g/dL (1.3-4.6); Glucose 218 mg/dL (65-115); Osmolality Calculated 295 mOsm/kg (285-295); Potassium 4.3 mmol/L (3.5-5.1); Sodium 136 mmol/L (136-145); Total Bilirubin 0.3 mg/dL (0.15-1.2); Total Protein 6.7 g/dL (6.6-8.7)
[2021-03-21] MEDS: albuterol 8 gm MDI 2 PUFF INHALATION ×2 (08:13→22:04)
[2021-03-21] MEDS: cholecalciferol (vitamin D3) 1,000 unit Tablet 1000 UNIT PO (10:12)
[2021-03-21] MEDS: zinc gluconate 50 mg Tablet PO (10:12)
[2021-03-21] MEDS: ascorbic acid 500 mg Tablet PO (10:12)
[2021-03-21] MEDS: acetaminophen 325 mg Tablet 650 MG PO (14:18)
--- NOTE | 2021-03-21 14:22 | PM.PN ---
Subjective Subjective: Interval history: patient did have increased work of breathing at the time of my evaluation O2 saturations were in the mid 80s. Medications: Reviewed: Yes Vitals/I&O/Wt Last Vital Signs Temp 98.7 F 03/21/21 11:27 Pulse 69 03/21/21 12:35 Resp 16 03/21/21 12:35 BP 122/77 03/21/21 11:27 Pulse Ox 89 L 03/21/21 12:35 03/20/21 03/21/21 03/21/21 22:59 06:59 14:59 Intake Total 100 / 336 200 / 536 480 / 480 Output Total 700 / 700 350 / 1050 Balance -600 / -364 -150 / -514 480 / 480 Weight last 48 hrs Weight 102.058 kg Physical Exam Const: COMMON NORMALS: patient oriented x3 GENERAL APPEARANCE: cooperative Chest: COMMONS NORMALS: normal inspection of the chest Resp: AUSCULTATION: rhonchi Cardio: COMMON NORMALS: regular rate RATE: regular rate and tachycardic GI: COMMON NORMALS: Soft to palpation and non-tender PALPATION: Yes Soft to palpation Extremity: COMMON NORMALS: normal to inspection Neuro: COMMON NORMALS: patient oriented x3 Urinary Catheter Management^: Monterroso Latex: Cath Placed During This Visit: yes Reason for Continuing Indwelling Catheter: Other Urinary Catheter Date of Insertion: 03/20/21 Urinary Catheter Time of Insertion: 10:59 Data : 03/21/21 02:48 03/21/21 02:48 A&P Assessment and plan (1) Pneumonia due to severe acute respiratory syndrome coronavirus 2 (SARS-CoV-2): Status: Acute (2) Hypoxia: Status: Acute (3) Left ureteral calculus: Status: Acute Additional A&P Information #Covid 19 pneumonia #Hypoxemia #renal stones plan: 1. Wean oxygen as tolerated 2. Continue medications as currently ordered 3. Repeat labs in a.m. 4. Transfer to ICU for close monitoring 5. Continue bronchdilators Attestations Medical Necessity Statement*: Continue hospitalization for managementOf COVID-19 pneumonia Time Spent in Patient Care: Greater than 35 minutes (>than 50% of time spent in counselling and/or direct pt care on unit). Coding Level of Care Code Acute Energy Projects Lead for [facility] Diagnoses Pneumonia due to severe acute respiratory syndrome coronavirus 2 (SARS-CoV-2) U07.1; J12.82 Hypoxia R09.02 Left ureteral calculus N20.1
--- NOTE | 2021-03-21 14:29 | PC.NURSE ---
Addendum entered by Tacho Hunter RN 03/21/21 14:32: 1200 pm-hand off report given to ysabel staples in icu. pt informed she is going to icu-6 Original Note: transfer to ICU per dr womack.
[2021-03-21] MEDS: dexamethasone 4 mg/mL INJ 6 MG IVP (16:55)
[2021-03-21] MEDS: remdesivir 100 MG in sodium chloride 0.9% (100 ml) 100 ML IV (17:46)
[2021-03-21] MEDS: enoxaparin 40 mg/0.4 mL Syringe SUBCUT (20:01)
[2021-03-21] MEDS: morphine 4 mg/mL SDV 1 mL 2 MG IVP (22:42)
[2021-03-22] VITALS (52 sets, daily range): BP systolic 110–149; BP diastolic 58–88; PULSE 57–218; RESP 15–34; TEMP 36.6–37.2; O2SAT 91–98
[2021-03-22] MEDS: HYDROcodone-acetaminophen 5-325 mg Tablet 1 TAB PO ×3 (04:59→20:22)
--- NOTE | 2021-03-22 06:50 | PC.NURSE ---
Shift summary, uneventful night, required PRN medication for pain, no c/o at this time, tolerated HHFNC settings through shift with no reported SOB, supine 45 degrees calll light within reach at this time
[2021-03-22 07:32] LABS: Basophils % 0.1 %; Hematocrit 41.8 % (37.0-47.0); Hemoglobin 13.3 g/dL (11.5-15.3); Lymphocytes # 0.9 10^3/uL (0.8-4.8); Lymphocytes % 5.9 %; Mean Corpuscular HGB Conc 31.8 g/dL (30.0-36.0); Mean Corpuscular Hemoglobin 30.1 pg (28.0-34.0); Mean Corpuscular Volume 94.6 fL (81-99); Monocytes # 0.9 10^3/uL (0.2-0.9); Monocytes % 5.9 %; Neutrophils # 13.08 10^3/uL (1.8-7.7); Neutrophils % 85.3 %; Nucleated Red Blood Cells % 0 %; Platelet Count 324 10^3/cmm (130-400); Red Blood Count 4.42 10^6/uL (4.1-5.3); White Blood Count 15.3 10^3/uL (4.0-10.0)
[2021-03-22 08:10] LABS: Alanine Aminotransferase 17 U/L (0-33); Albumin Level 3.2 g/dL (3.5-5.2); Alkaline Phosphatase 88 IU/L (35-105); Anion Gap 14.8 (5-19); Aspartate Amino Transferase 22 U/L (0-32); Blood Urea Nitrogen 36 mg/dL (8-23); C Reactive Protein 46.3 mg/L (0.0-4.9); Calcium 8.9 mg/dL (8.5-10.5); Carbon Dioxide 26 mmol/L (22-29); Chloride 103 mmol/L (98-107); Globulin 3.6 g/dL (1.3-4.6); Glucose 237 mg/dL (65-115); Osmolality Calculated 304 mOsm/kg (285-295); Potassium 4.8 mmol/L (3.5-5.1); Sodium 139 mmol/L (136-145); Total Bilirubin 0.4 mg/dL (0.15-1.2); Total Protein 6.8 g/dL (6.6-8.7)
[2021-03-22 08:13] LABS: Procalcitonin 0.25 ng/mL (0-0.5)
[2021-03-22 08:49] LABS: Ferritin 1266 ng/mL (15-150)
[2021-03-22] MEDS: zinc gluconate 50 mg Tablet PO (08:57)
[2021-03-22] MEDS: cholecalciferol (vitamin D3) 1,000 unit Tablet 1000 UNIT PO (08:57)
[2021-03-22] MEDS: cefTRIAXone 1,000 MG in sodium chloride 0.9% (plus) 100 ML 100 MG IV (09:33)
--- NOTE | 2021-03-22 10:01 | PC.NURSE ---
Nurse assisted patient to sit on the side of bed to eat breakfast. Oxygen saturation improved form 93-98% while sitting up, but patient tires quickly. Was able to sit up for about 30 minutes.
--- NOTE | 2021-03-22 11:23 | PC.SOCIAL ---
IMM IMM updated with patient via telephone. No questions voiced, verbalized an understanding. Copy initialed, dated, timed and placed in chart.
[2021-03-22] MEDS: ascorbic acid 500 mg Tablet PO (12:27)
[2021-03-22] MEDS: FUROsemide 10 mg/mL SDV 2mL 20 MG IVP (15:08)
--- NOTE | 2021-03-22 16:00 | P.PN_ITS ---
Subjective Subjective: Interval history: Patient was seen and examined this morning, shortness of breath is slightly improved, she continues to require high supplemental oxygen. Medications: Reviewed: Yes Vitals/I&O/Wt Last Vital Signs Temp 97.9 F 03/22/21 12:30 Pulse 96 03/22/21 14:26 Resp 20 H 03/22/21 14:26 BP 138/72 03/22/21 12:30 Pulse Ox 98 03/22/21 14:26 03/22/21 03/22/21 03/22/21 06:59 14:59 22:59 Intake Total 400 / 400 Output Total 700 / 1250 150 / 150 Balance -700 / -290 250 / 250 Physical Exam Const: COMMON NORMALS: patient oriented x3 HENMT: COMMON NORMALS: normocephalic and atraumatic HEAD & SCALP: normocephalic and atraumatic Resp: OTHER: Bilateral basal crackles present in both lung manrique predominantly at bases Cardio: COMMON NORMALS: regular rate, regular rhythm, S1 normal heart sound present, S2 normal heart sound present, No gallops present (Cardio), No murmurs present (Cardio), No rub (Cardio) and Peripheral pulses 2+ throughout RATE: regular rate RHYTHM: regular rhythm HEART SOUNDS: S1 normal heart sound present and S2 normal heart sound present PERIPHERAL PULSES: Peripheral pulses 2+ throughout GI: COMMON NORMALS: Normal to inspection, nondistended, normoactive bowel sounds present, Soft to palpation, non-tender, No hepatosplenomegaly present and no masses AUSCULTATION: Yes normoactive bowel sounds PALPATION: Yes Soft to palpation and Yes No hepatosplenomegaly present RECTAL EXAM: deferred Extremity: COMMON NORMALS: no clubbing, cyanosis or edema and no pedal edema Neuro: COMMON NORMALS: patient oriented x3 Urinary Catheter Management^: Monterroso Latex: Cath Placed During This Visit: yes Reason for Continuing Indwelling Catheter: Accurate Measurement of Urinary Output in Critically Ill Patients Urinary Catheter Date of Insertion: 03/20/21 Urinary Catheter Time of Insertion: 10:59 Data : 03/22/21 06:50 03/22/21 06:50 A&P Assessment and plan (1) Pneumonia due to severe acute respiratory syndrome coronavirus 2 (SARS-CoV-2): Status: Acute (2) Hypoxia: Status: Acute (3) Left ureteral calculus: Status: Acute Additional A&P Information #Covid 19 pneumonia #Hypoxemia #renal stones plan: 1. Wean oxygen as tolerated 2. Continue medications as currently ordered 3. Repeat labs in a.m. 5. Continue bronchdilators Attestations Medical Necessity Statement*: Patient needs to be in hospital for management of respiratory failure 2/2 COVID PNA Coding Level of Care Code Acute Rpg Developer for [facility] Fwd Diagnoses Pneumonia due to severe acute respiratory syndrome coronavirus 2 (SARS-CoV-2) U07.1; J12.82 Hypoxia R09.02 Left ureteral calculus N20.1
[2021-03-22] MEDS: remdesivir 100 MG in sodium chloride 0.9% (100 ml) 100 ML IV (17:02)
[2021-03-22] MEDS: dexamethasone 4 mg/mL INJ 6 MG IVP (17:02)
[2021-03-22] MEDS: nystatin cream 30 gm 1 APPLIC TOPICAL (18:26)
--- NOTE | 2021-03-22 18:47 | PC.NURSE ---
Shift summary: Uneventful shift. patient rested in bed most of day, but did make efforts to sit on side of bed to eat. Oxygen requirements were unchanged at 50L and 80%. Nystatin started for yeast infection in skin folds near groin and flank.
[2021-03-22] MEDS: enoxaparin 40 mg/0.4 mL Syringe SUBCUT (20:09)
[2021-03-23] VITALS (52 sets, daily range): BP systolic 99–168; BP diastolic 37–84; PULSE 54–105; RESP 15–37; O2SAT 89–95
[2021-03-23] MEDS: HYDROcodone-acetaminophen 5-325 mg Tablet 1 TAB PO ×2 (03:50→19:57)
[2021-03-23 05:56] LABS: Basophils % 0.3 %; Hematocrit 41.4 % (37.0-47.0); Hemoglobin 13.3 g/dL (11.5-15.3); Lymphocytes # 1.2 10^3/uL (0.8-4.8); Mean Corpuscular HGB Conc 32.1 g/dL (30.0-36.0); Mean Corpuscular Hemoglobin 29.7 pg (28.0-34.0); Mean Corpuscular Volume 92.4 fL (81-99); Mean Platelet Volume 10.4 fL (7.4-10.4); Monocytes % 8.7 %; Neutrophils # 8.92 10^3/uL (1.8-7.7); Neutrophils % 77.3 %; Nucleated Red Blood Cells % 0 %; Platelet Count 324 10^3/cmm (130-400); Red Blood Count 4.48 10^6/uL (4.1-5.3); Red Cell Distribution Width 13.5 % (12.1-15.1); White Blood Count 11.5 10^3/uL (4.0-10.0)
--- NOTE | 2021-03-23 06:00 | XRR_ITS ---
PROCEDURE INFORMATION: Exam: XR Chest Exam date and time: 03/23/2021 6:00 AM Age: 75 years old Clinical indication: Dyspnea; Additional info: Pna TECHNIQUE: Imaging protocol: XR of the chest. Views: 1 view. COMPARISON: CR (CHEST, ) 03/19/2021 5:17 PM FINDINGS: Lungs: Subtle patchy diffuse interstitial and alveolar airspace disease. Edema and/or pneumonia. Pleural spaces: Unremarkable. No pleural effusion. No pneumothorax. Heart/Mediastinum: Unremarkable. No cardiomegaly. Bones/joints: Unremarkable. XR/XR chest 1V portable [id number] IMPRESSION: Subtle patchy diffuse interstitial and alveolar airspace disease. Edema and/or pneumonia. Covid within the differential diagnosis.
[2021-03-23 06:08] LABS: D Dimer 1.28 ug/mIFEU (0-0.59)
[2021-03-23 06:15] LABS: Alanine Aminotransferase 16 U/L (0-33); Albumin Level 3.3 g/dL (3.5-5.2); Alkaline Phosphatase 90 IU/L (35-105); Anion Gap 14.3 (5-19); Aspartate Amino Transferase 20 U/L (0-32); Blood Urea Nitrogen 41 mg/dL (8-23); C Reactive Protein 25.7 mg/L (0.0-4.9); Calcium 8.8 mg/dL (8.5-10.5); Carbon Dioxide 28 mmol/L (22-29); Chloride 100 mmol/L (98-107); Globulin 3.2 g/dL (1.3-4.6); Glucose 200 mg/dL (65-115); Osmolality Calculated 302 mOsm/kg (285-295); Potassium 4.3 mmol/L (3.5-5.1); Sodium 138 mmol/L (136-145); Total Bilirubin 0.4 mg/dL (0.15-1.2); Total Protein 6.5 g/dL (6.6-8.7)
[2021-03-23 06:18] LABS: Slide Review Slide Review Perform
[2021-03-23 06:46] LABS: Erythrocyte Sedimentation Rate 61 mm/hr (0-15); Ferritin 1134 ng/mL (15-150)
[2021-03-23] MEDS: cefTRIAXone 1,000 MG in sodium chloride 0.9% (plus) 100 ML 100 MG IV (08:39)
[2021-03-23] MEDS: zinc gluconate 50 mg Tablet PO (08:39)
[2021-03-23] MEDS: cholecalciferol (vitamin D3) 1,000 unit Tablet 1000 UNIT PO (08:39)
[2021-03-23] MEDS: ascorbic acid 500 mg Tablet PO (08:39)
[2021-03-23] MEDS: nystatin cream 30 gm 1 APPLIC TOPICAL ×2 (08:40→17:37)
--- NOTE | 2021-03-23 08:55 | PC.NURSE ---
up in bed am breakfast served good appitite noted at ths time
--- NOTE | 2021-03-23 09:36 | PC.CHAP ---
Pastoral Care Encounter/Spiritual Assessment Type of Contact [] Declined industrial yard brake coupler visit [] Patient/Family/Request visit [] Outpatient visit [] Follow-up visit [] Physician referral [] Code/Alert [x] Routine visit [] Staff referral [] Actively dying [] Patient sleeping [] Family support [] [] Out of room [] Palliative care [] [] Receiving care in room [] Pre-surgical visit [] Trauma [] Long length of stay [x] ICU visit [] Other: Relational/Emotional Strength [] Patient feels connected with others/family/visitors/staff [] Distress [] Loneliness/isolation [] Abandonment Spirituality of Patient [] Person of Maritza [] Attends Hinduism of their Maritza [] Believes in Prayer [] Reads Bible or Voodoo materials [] There are Spiritual issues to be addressed Social Worker Health Services Interventions [x] Prayer [] Active listening [] Non-anxious presence [] Spiritual/emotional support [] Crisis/trauma care [] Spiritual counseling [] Bereavement support [] Provided bereavement packet [] Provided Bible/devotional materials [] Provided toy/stuffed animal, coloring book to patient or family member [] Provided Communion [] Anointing/[place] [] Salvation [x] Completed spiritual assessment [] Other: Impact on Illness or Injury [] Angry [] Fearful [] Anxious [] Often cries [] Exhaustion [] Unable to work [] Unable to attend yazidism [] Unable to walk/stand [] Unable to read [] Unable to drive [] Unable to eat/drink [] Unable to sleep [] Unable to be with family [] Patient intubated [] Other: Summary Time spent with patient
--- NOTE | 2021-03-23 11:57 | P.PN_ITS ---
Subjective Subjective: Interval history: Patient was seen and examined this morning, shortness of breath is slightly improved, suplemental oxygen requirement has slightly gone down. she fells little better today, appetite has not changed much. Have encouraged her to eat more.Continue to remain afebrile. Medications: Reviewed: Yes Vitals/I&O/Wt Last Vital Signs Temp 99 F 03/22/21 17:00 Pulse 59 L 03/23/21 08:00 Resp 24 H 03/23/21 08:00 BP 99/53 03/23/21 08:00 Pulse Ox 90 03/23/21 08:00 03/22/21 03/23/21 03/23/21 22:59 06:59 14:59 Intake Total 240 / 640 440 / 440 Output Total 900 / 1050 800 / 1850 1700 / 1700 Balance -660 / -410 -800 / -1210 -1260 / -1260 Physical Exam Const: COMMON NORMALS: patient oriented x3 HENMT: COMMON NORMALS: normocephalic and atraumatic HEAD & SCALP: normocephalic and atraumatic Resp: OTHER: Bilateral basal crackles present in both lung manrique predominantly at bases Cardio: COMMON NORMALS: regular rate, regular rhythm, S1 normal heart sound present, S2 normal heart sound present, No gallops present (Cardio), No murmurs present (Cardio), No rub (Cardio) and Peripheral pulses 2+ throughout RATE: regular rate RHYTHM: regular rhythm HEART SOUNDS: S1 normal heart sound present and S2 normal heart sound present PERIPHERAL PULSES: Peripheral pulses 2+ throughout GI: COMMON NORMALS: Normal to inspection, nondistended, normoactive bowel sounds present, Soft to palpation, non-tender, No hepatosplenomegaly present and no masses AUSCULTATION: Yes normoactive bowel sounds PALPATION: Yes Soft to palpation and Yes No hepatosplenomegaly present RECTAL EXAM: deferred Extremity: COMMON NORMALS: no clubbing, cyanosis or edema and no pedal edema Neuro: COMMON NORMALS: patient oriented x3 Urinary Catheter Management^: Monterroso Latex: Cath Placed During This Visit: yes Reason for Continuing Indwelling Catheter: Accurate Measurement of Urinary Output in Critically Ill Patients Urinary Catheter Date of Insertion: 03/20/21 Urinary Catheter Time of Insertion: 10:59 Data : 03/23/21 05:27 03/23/21 05:27 A&P Assessment and plan (1) Pneumonia due to severe acute respiratory syndrome coronavirus 2 (SARS-CoV-2): Status: Acute (2) Hypoxia: Status: Acute (3) Left ureteral calculus: Status: Acute Additional A&P Information #Covid 19 pneumonia #Hypoxemia #renal stones plan: 1. Wean oxygen as tolerated 2. Continue medications as currently ordered 3. Repeat labs in a.m. 5. Continue bronchdilators Attestations Medical Necessity Statement*: Patient needs to be in hospital for the management of respiratory failure 2/2 to COVID PNA Coding Level of Care Code Acute Car Construction Superintendent for [facility] Fwd Exam Detailed Diagnoses Pneumonia due to severe acute respiratory syndrome coronavirus 2 (SARS-CoV-2) U07.1; J12.82 Hypoxia R09.02 Left ureteral calculus N20.1
[2021-03-23] MEDS: dexamethasone 4 mg/mL INJ 6 MG IVP (17:37)
[2021-03-23] MEDS: remdesivir 100 MG in sodium chloride 0.9% (100 ml) 100 ML IV (17:38)
[2021-03-23] MEDS: enoxaparin 40 mg/0.4 mL Syringe SUBCUT (21:52)
[2021-03-24] VITALS (47 sets, daily range): BP systolic 107–153; BP diastolic 58–89; PULSE 60–110; RESP 17–42; TEMP 36.6–36.8; O2SAT 87–96; BMI 39.4
[2021-03-24] MEDS: HYDROcodone-acetaminophen 5-325 mg Tablet 1 TAB PO ×3 (00:52→22:28)
[2021-03-24 04:53] LABS: Hematocrit 41.4 % (37.0-47.0); Mean Corpuscular HGB Conc 31.4 g/dL (30.0-36.0); Mean Corpuscular Hemoglobin 29.4 pg (28.0-34.0); Mean Corpuscular Volume 93.7 fL (81-99); Mean Platelet Volume 10.6 fL (7.4-10.4); Platelet Count 355 10^3/cmm (130-400); Red Blood Count 4.42 10^6/uL (4.1-5.3); Red Cell Distribution Width 13.3 % (12.1-15.1); White Blood Count 10.5 10^3/uL (4.0-10.0)
[2021-03-24 05:19] LABS: Alanine Aminotransferase 19 U/L (0-33); Alkaline Phosphatase 77 IU/L (35-105); Anion Gap 15.9 (5-19); Aspartate Amino Transferase 21 U/L (0-32); Blood Urea Nitrogen 41 mg/dL (8-23); Calcium 8.5 mg/dL (8.5-10.5); Carbon Dioxide 27 mmol/L (22-29); Chloride 100 mmol/L (98-107); Ferritin 931 ng/mL (15-150); Globulin 3.2 g/dL (1.3-4.6); Glucose 303 mg/dL (65-115); Osmolality Calculated 307 mOsm/kg (285-295); Potassium 4.9 mmol/L (3.5-5.1); Sodium 138 mmol/L (136-145); Total Bilirubin 0.3 mg/dL (0.15-1.2); Total Protein 6.2 g/dL (6.6-8.7)
[2021-03-24 05:24] LABS: Slide Review Slide Review Perform
[2021-03-24 05:27] LABS: Absolute Segmented Neutrophil 8.7 10/cmm (1.6-7.1); Band Neutrophils Absolute 0.1 10^3/cmm (0.0-1.2); Lymphocytes 9 %; Lymphocytes Absolute 1.1 10^3/cmm (1.2-3.4); Monocytes Absolute 0.3 10^3/cmm (0.1-0.6); Segmented Neutrophils 83 %; Total Cells Counted 100 (0-100)
[2021-03-24 05:33] LABS: D Dimer 1.39 ug/mIFEU (0-0.59)
[2021-03-24 05:40] LABS: Eosinophils 0 %
[2021-03-24 05:51] LABS: Erythrocyte Sedimentation Rate 47 mm/hr (0-15)
[2021-03-24 06:04] LABS: Absolute Neutrophil 8.8 10^3/cmm (1.4-6.5); Platelet Estimate Normal (Normal)
--- NOTE | 2021-03-24 07:21 | PC.NURSE ---
Addendum entered by Maryjane Saleh RN 03/24/21 07:33: Patient is on heated high flow 50 liters and 50% FiO2 Original Note: Shift Summary Patient had an uneventful night. She rested well and had one complaint of pain, PRN Hydrocodone was given. Patient has an IV to the left hand that is saline locked at this time. Monterroso catheter drained 1450 mls of dark yellow cloudy urine with sediment. She is alert and oriented x4. Skin tear is noted the left lower posterior back, site is covered with a dressing. No other wounds or skin issues are noted at this time.
[2021-03-24] MEDS: ascorbic acid 500 mg Tablet PO (09:26)
[2021-03-24] MEDS: cefTRIAXone 1,000 MG in sodium chloride 0.9% (plus) 100 ML 100 MG IV (09:26)
[2021-03-24] MEDS: cholecalciferol (vitamin D3) 1,000 unit Tablet 1000 UNIT PO (09:26)
[2021-03-24] MEDS: zinc gluconate 50 mg Tablet PO (09:26)
[2021-03-24] MEDS: nystatin cream 30 gm 1 APPLIC TOPICAL ×2 (09:28→17:14)
--- NOTE | 2021-03-24 10:02 | PC.CHAP ---
Pastoral Care Encounter/Spiritual Assessment Type of Contact [] Declined planning aide visit [] Patient/Family/Request visit [] Outpatient visit [] Follow-up visit [] Physician referral [] Code/Alert [x] Routine visit [] Staff referral [] Actively dying [] Patient sleeping [] Family support [] [] Out of room [] Palliative care [] [x] Receiving care in room [] Pre-surgical visit [] Trauma [] Long length of stay [x] ICU visit [x] Other: ventilator Relational/Emotional Strength [] Patient feels connected with others/family/visitors/staff [] Distress [] Loneliness/isolation [] Abandonment Spirituality of Patient [] Person of Maritza [] Attends Mandaen of their Maritza [] Believes in Prayer [] Reads Bible or Roman Catholic materials [] There are Spiritual issues to be addressed Casing In Line Setter Interventions [x] Prayer [] Active listening [] Non-anxious presence [] Spiritual/emotional support [] Crisis/trauma care [] Spiritual counseling [] Bereavement support [] Provided bereavement packet [] Provided Bible/devotional materials [] Provided toy/stuffed animal, coloring book to patient or family member [] Provided Communion [] Anointing/[place] [] Salvation [x] Completed spiritual assessment [] Other: Impact on Illness or Injury [] Angry [] Fearful [] Anxious [] Often cries [] Exhaustion [] Unable to work [] Unable to attend mandaen [] Unable to walk/stand [] Unable to read [] Unable to drive [] Unable to eat/drink [] Unable to sleep [] Unable to be with family [] Patient intubated [] Other: Summary Time spent with patient
--- NOTE | 2021-03-24 10:47 | PC.SOCIAL ---
IMM UPDATE Gave patient and daughter verbal IMM update. Verbalized understanding. Initialed, dated, timed and placed in chart.
--- NOTE | 2021-03-24 11:53 | PM.PN ---
Subjective Subjective: Interval history: Patient was seen and examined this morning, over all she is doing better, continue to be on HHFONC though the supplemental oxygen requirement is going down.Over all her appetite has improved,will encourage her to Move to chair. Medications: Reviewed: Yes Vitals/I&O/Wt Last Vital Signs Temp 97.9 F 03/24/21 08:00 Pulse 91 03/24/21 11:00 Resp 24 H 03/24/21 11:00 BP 132/74 03/24/21 10:00 Pulse Ox 93 03/24/21 11:00 03/23/21 03/24/21 03/24/21 22:59 06:59 14:59 Intake Total 237 / 917 300 / 300 Output Total 1450 / 3150 Balance 237 / -783 -1450 / -2233 300 / 300 Weight last 48 hrs Weight 102.682 kg Physical Exam Const: COMMON NORMALS: patient oriented x3 HENMT: COMMON NORMALS: normocephalic and atraumatic HEAD & SCALP: normocephalic and atraumatic Resp: OTHER: Diminished air entry bilaterally Cardio: COMMON NORMALS: regular rate, regular rhythm, S1 normal heart sound present, S2 normal heart sound present, No gallops present (Cardio), No murmurs present (Cardio), No rub (Cardio) and Peripheral pulses 2+ throughout RATE: regular rate RHYTHM: regular rhythm HEART SOUNDS: S1 normal heart sound present and S2 normal heart sound present PERIPHERAL PULSES: Peripheral pulses 2+ throughout GI: COMMON NORMALS: Normal to inspection, nondistended, normoactive bowel sounds present, Soft to palpation, non-tender, No hepatosplenomegaly present and no masses AUSCULTATION: Yes normoactive bowel sounds PALPATION: Yes Soft to palpation and Yes No hepatosplenomegaly present RECTAL EXAM: deferred Extremity: COMMON NORMALS: no clubbing, cyanosis or edema and no pedal edema Neuro: COMMON NORMALS: patient oriented x3 Urinary Catheter Management^: Monterroso Latex: Cath Placed During This Visit: yes Reason for Continuing Indwelling Catheter: Accurate Measurement of Urinary Output in Critically Ill Patients Urinary Catheter Date of Insertion: 03/20/21 Urinary Catheter Time of Insertion: 10:59 Data : 03/24/21 04:19 03/24/21 04:19 A&P Assessment and plan (1) Pneumonia due to severe acute respiratory syndrome coronavirus 2 (SARS-CoV-2): Status: Acute (2) Hypoxia: Status: Acute (3) Left ureteral calculus: Status: Acute Additional A&P Information Acute Hypoxic r/f 2/2 COVID PNA Xray chest D-dimer ESR CRP Ferritin Fibrinogen Blood culture Monitor ABG Monitor x-ray chest Remdesivir 5-day course Status post 1 dose of tocilizumab Dexamethasone 6 mg IV daily for 10 days Advair 1 puff twice daily Spirivia inhalation daily Robitussin-DM Tessalon Perles Ceftriaxone 1 mg IV daily Lovenox 40 subcu daily Supplemental oxygen as needed Incentive spirometry Flutter valve Attestations Medical Necessity Statement*: Patient needs to be in hospital for the management of severe covid pna. Coding Level of Care Code Acute Silo Painter for [facility] Fwd Exam Detailed Diagnoses Pneumonia due to severe acute respiratory syndrome coronavirus 2 (SARS-CoV-2) U07.1; J12.82 Hypoxia R09.02 Left ureteral calculus N20.1
[2021-03-24] MEDS: dexamethasone 4 mg/mL INJ 6 MG IVP (17:13)
--- NOTE | 2021-03-24 18:46 | PC.NURSE ---
Skin tear to left lower back
[2021-03-24] MEDS: albuterol 8 gm MDI 2 PUFF INHALATION (20:07)
[2021-03-24] MEDS: enoxaparin 40 mg/0.4 mL Syringe SUBCUT (21:22)
--- NOTE | 2021-03-24 23:12 | PC.NURSE ---
Blood thinner Patient asked nurse if she can refuse blood thinners. States she almost after a hysterectomy due to blood thinners. Patient educated that she has the right to refuse any treatment, but would be best to talk to physician prior to doing so. Patient educated on increased risk of blood clot in lungs due to covid pneumonia. Patient gives verbal understanding.
[2021-03-25] VITALS (49 sets, daily range): BP systolic 108–149; BP diastolic 49–84; PULSE 58–102; RESP 16–46; TEMP 36.4–37; O2SAT 81–95
[2021-03-25 06:02] LABS: Basophils # 0.1 10^3/uL (0.0-0.1); Basophils % 0.5 %; Eosinophils % 0.1 %; Hemoglobin 13.2 g/dL (11.5-15.3); Lymphocytes # 1.1 10^3/uL (0.8-4.8); Lymphocytes % 8.4 %; Mean Corpuscular HGB Conc 32.2 g/dL (30.0-36.0); Mean Corpuscular Hemoglobin 30.4 pg (28.0-34.0); Mean Corpuscular Volume 94.5 fL (81-99); Mean Platelet Volume 11.3 fL (7.4-10.4); Monocytes # 0.6 10^3/uL (0.2-0.9); Monocytes % 4.4 %; Neutrophils # 10.83 10^3/uL (1.8-7.7); Nucleated Red Blood Cells % 0 %; Platelet Count 325 10^3/cmm (130-400); Red Blood Count 4.34 10^6/uL (4.1-5.3); Red Cell Distribution Width 13.3 % (12.1-15.1); White Blood Count 13.3 10^3/uL (4.0-10.0)
[2021-03-25 06:19] LABS: Alanine Aminotransferase 22 U/L (0-33); Alkaline Phosphatase 75 IU/L (35-105); Aspartate Amino Transferase 24 U/L (0-32); Blood Urea Nitrogen 39 mg/dL (8-23); C Reactive Protein 8.2 mg/L (0.0-4.9); Calcium 8.6 mg/dL (8.5-10.5); Carbon Dioxide 25 mmol/L (22-29); Chloride 100 mmol/L (98-107); Ferritin 985 ng/mL (15-150); Globulin 3.2 g/dL (1.3-4.6); Glucose 242 mg/dL (65-115); Osmolality Calculated 299 mOsm/kg (285-295); Sodium 136 mmol/L (136-145); Total Bilirubin 0.4 mg/dL (0.15-1.2); Total Protein 6.2 g/dL (6.6-8.7)
[2021-03-25 06:24] LABS: Anion Gap 15.7 (5-19); Potassium 4.7 mmol/L (3.5-5.1)
[2021-03-25 06:31] LABS: D Dimer 3.74 ug/mIFEU (0-0.59)
[2021-03-25 07:14] LABS: Erythrocyte Sedimentation Rate 37 mm/hr (0-15)
[2021-03-25 07:57] LABS: Neutrophils % 86.6 %; Slide Review Slide Review Perform
[2021-03-25] MEDS: zinc gluconate 50 mg Tablet PO (08:06)
[2021-03-25] MEDS: ascorbic acid 500 mg Tablet PO (08:06)
[2021-03-25] MEDS: cholecalciferol (vitamin D3) 1,000 unit Tablet 1000 UNIT PO (08:06)
[2021-03-25] MEDS: nystatin cream 30 gm 1 APPLIC TOPICAL ×2 (08:08→18:02)
[2021-03-25] MEDS: HYDROcodone-acetaminophen 5-325 mg Tablet 1 TAB PO ×2 (08:16→20:21)
[2021-03-25] MEDS: cefTRIAXone 1,000 MG in sodium chloride 0.9% (plus) 100 ML 100 MG IV (08:16)
[2021-03-25] MEDS: albuterol 8 gm MDI 2 PUFF INHALATION ×2 (08:18→22:38)
--- NOTE | 2021-03-25 08:19 | PC.CHAP ---
Pastoral Care Encounter/Spiritual Assessment Type of Contact [] Declined ball holder visit [] Patient/Family/Request visit [] Outpatient visit [] Follow-up visit [] Physician referral [] Code/Alert [x] Routine visit [] Staff referral [] Actively dying [] Patient sleeping [] Family support [] [] Out of room [] Palliative care [] [] Receiving care in room [] Pre-surgical visit [] Trauma [] Long length of stay [x] ICU visit [] Other: Relational/Emotional Strength [] Patient feels connected with others/family/visitors/staff [] Distress [] Loneliness/isolation [] Abandonment Spirituality of Patient [] Person of [place] [] Attends Synagogue of their [place] [] Believes in Prayer [] Reads Bible or Druze materials [] There are Spiritual issues to be addressed City Recorder Interventions [x] Prayer [] Active listening [] Non-anxious presence [] Spiritual/emotional support [] Crisis/trauma care [] Spiritual counseling [] Bereavement support [] Provided bereavement packet [] Provided Bible/devotional materials [] Provided toy/stuffed animal, coloring book to patient or family member [] Provided Communion [] Anointing/[place] [] Salvation [x] Completed spiritual assessment [] Other: Impact on Illness or Injury [] Angry [] Fearful [] Anxious [] Often cries [] Exhaustion [] Unable to work [] Unable to attend catholic [] Unable to walk/stand [] Unable to read [] Unable to drive [] Unable to eat/drink [] Unable to sleep [] Unable to be with family [] Patient intubated [] Other: Summary Time spent with patient
--- NOTE | 2021-03-25 17:05 | P.PN_ITS ---
Subjective Subjective: Interval history: Patient was seen and examined this morning, over all she is doing better, supplemental oxygen requirement has continued to gone down,current plan is to switch her to regular nasal cannula. Medications: Reviewed: Yes Vitals/I&O/Wt Last Vital Signs Temp 97.6 F 03/25/21 11:00 Pulse 85 03/25/21 15:33 Resp 20 H 03/25/21 15:33 BP 126/72 03/25/21 13:00 Pulse Ox 95 03/25/21 15:33 03/25/21 03/25/21 03/25/21 06:59 14:59 22:59 Intake Total 500 / 500 Output Total 650 / 1300 400 / 400 Balance -650 / -380 100 / 100 Weight last 48 hrs Weight 102.625 kg Weight 102.682 kg Physical Exam Const: COMMON NORMALS: patient oriented x3 HENMT: COMMON NORMALS: normocephalic and atraumatic HEAD & SCALP: normocephalic and atraumatic Resp: OTHER: Diminished air entry bilaterally Cardio: COMMON NORMALS: regular rate, regular rhythm, S1 normal heart sound present, S2 normal heart sound present, No gallops present (Cardio), No murmurs present (Cardio), No rub (Cardio) and Peripheral pulses 2+ throughout RATE: regular rate RHYTHM: regular rhythm HEART SOUNDS: S1 normal heart sound present and S2 normal heart sound present PERIPHERAL PULSES: Peripheral pulses 2+ throughout GI: COMMON NORMALS: Normal to inspection, nondistended, normoactive bowel sounds present, Soft to palpation, non-tender, No hepatosplenomegaly present and no masses AUSCULTATION: Yes normoactive bowel sounds PALPATION: Yes Soft to palpation and Yes No hepatosplenomegaly present RECTAL EXAM: deferred Extremity: COMMON NORMALS: no clubbing, cyanosis or edema and no pedal edema Neuro: COMMON NORMALS: patient oriented x3 Urinary Catheter Management^: Monterroso Latex: Cath Placed During This Visit: yes Reason for Continuing Indwelling Catheter: Accurate Measurement of Urinary Output in Critically Ill Patients Urinary Catheter Date of Insertion: 03/20/21 Urinary Catheter Time of Insertion: 10:59 Data : 03/25/21 04:50 03/25/21 04:50 A&P Assessment and plan (1) Pneumonia due to severe acute respiratory syndrome coronavirus 2 (SARS-CoV-2): Status: Acute (2) Hypoxia: Status: Acute (3) Left ureteral calculus: Status: Acute Additional A&P Information Acute Hypoxic r/f 2/2 COVID PNA Xray chest D-dimer ESR CRP Ferritin Fibrinogen Blood culture Monitor ABG Monitor x-ray chest Remdesivir 5-day course Status post 1 dose of tocilizumab Dexamethasone 6 mg IV daily for 10 days Advair 1 puff twice daily Spirivia inhalation daily Robitussin-DM Tessalon Perles Ceftriaxone 1 mg IV daily Lovenox 40 subcu daily Supplemental oxygen as needed Incentive spirometry Flutter valve Attestations Medical Necessity Statement*: Patient needs to be in hospital for management of Covid pneumonia. Coding Level of Care Code Acute Staff Psychiatrist for [facility] Fwd Exam Detailed Diagnoses Pneumonia due to severe acute respiratory syndrome coronavirus 2 (SARS-CoV-2) U07.1; J12.82 Hypoxia R09.02 Left ureteral calculus N20.1
[2021-03-25] MEDS: dexamethasone 4 mg/mL INJ 6 MG IVP (17:44)
[2021-03-25] MEDS: enoxaparin 40 mg/0.4 mL Syringe SUBCUT (20:22)
[2021-03-26] VITALS (40 sets, daily range): BP systolic 103–139; BP diastolic 55–90; PULSE 53–95; RESP 15–38; TEMP 36.6–36.9; O2SAT 91–99
[2021-03-26] MEDS: lanolin oint 7 gm 1 APPLIC TOPICAL (02:53)
[2021-03-26] MEDS: HYDROcodone-acetaminophen 5-325 mg Tablet 1 TAB PO (03:09)
[2021-03-26] MEDS: albuterol 8 gm MDI 2 PUFF INHALATION ×2 (08:34→21:12)
[2021-03-26] MEDS: cefTRIAXone 1,000 MG in sodium chloride 0.9% (plus) 100 ML 100 MG IV (09:05)
[2021-03-26] MEDS: zinc gluconate 50 mg Tablet PO (09:06)
[2021-03-26] MEDS: cholecalciferol (vitamin D3) 1,000 unit Tablet 1000 UNIT PO (09:06)
[2021-03-26] MEDS: ascorbic acid 500 mg Tablet PO (09:06)
[2021-03-26] MEDS: nystatin cream 30 gm 1 APPLIC TOPICAL ×2 (09:07→18:14)
--- NOTE | 2021-03-26 11:19 | PM.PN ---
Subjective Subjective: Interval history: Patient was seen and examined this morning, over all she is doing better, currently she has been switched to regular high flow oxygen through [place]. Appetite is slowly improving. Medications: Reviewed: Yes Vitals/I&O/Wt Last Vital Signs Temp 98.1 F 03/26/21 08:00 Pulse 73 03/26/21 10:00 Resp 27 H 03/26/21 10:00 BP 120/58 03/26/21 10:00 Pulse Ox 95 03/26/21 11:17 03/25/21 03/26/21 03/26/21 22:59 06:59 14:59 Intake Total 350 / 350 Output Total 550 / 950 300 / 1250 Balance -550 / -350 -300 / -650 350 / 350 Weight last 48 hrs Weight 101.877 kg Weight 102.625 kg Physical Exam Const: COMMON NORMALS: patient oriented x3 HENMT: COMMON NORMALS: normocephalic and atraumatic HEAD & SCALP: normocephalic and atraumatic Resp: OTHER: Diminished air entry bilaterally Cardio: COMMON NORMALS: regular rate, regular rhythm, S1 normal heart sound present, S2 normal heart sound present, No gallops present (Cardio), No murmurs present (Cardio), No rub (Cardio) and Peripheral pulses 2+ throughout RATE: regular rate RHYTHM: regular rhythm HEART SOUNDS: S1 normal heart sound present and S2 normal heart sound present PERIPHERAL PULSES: Peripheral pulses 2+ throughout GI: COMMON NORMALS: Normal to inspection, nondistended, normoactive bowel sounds present, Soft to palpation, non-tender, No hepatosplenomegaly present and no masses AUSCULTATION: Yes normoactive bowel sounds PALPATION: Yes Soft to palpation and Yes No hepatosplenomegaly present RECTAL EXAM: deferred Extremity: COMMON NORMALS: no clubbing, cyanosis or edema and no pedal edema Neuro: COMMON NORMALS: patient oriented x3 Urinary Catheter Management^: Monterroso Latex: Cath Placed During This Visit: yes Reason for Continuing Indwelling Catheter: Accurate Measurement of Urinary Output in Critically Ill Patients Urinary Catheter Date of Insertion: 03/20/21 Urinary Catheter Time of Insertion: 10:59 Data : 03/26/21 10:58 03/26/21 10:58 A&P Assessment and plan (1) Pneumonia due to severe acute respiratory syndrome coronavirus 2 (SARS-CoV-2): Status: Acute (2) Hypoxia: Status: Acute (3) Left ureteral calculus: Status: Acute Additional A&P Information Acute Hypoxic r/f 2/2 COVID PNA Xray chest D-dimer ESR CRP Ferritin Fibrinogen Blood culture Monitor ABG Monitor x-ray chest Remdesivir 5-day course Status post 1 dose of tocilizumab Dexamethasone 6 mg IV daily for 10 days Advair 1 puff twice daily Spirivia inhalation daily Robitussin-DM Tessalon Perles Ceftriaxone 1 mg IV daily Lovenox 40 subcu daily Supplemental oxygen as needed Incentive spirometry Flutter valve Attestations Medical Necessity Statement*: Patient needs to be in the hospital for management of Covid pneumonia Coding Level of Care Code Acute Community Development Specialist for [facility] Fwd Diagnoses Pneumonia due to severe acute respiratory syndrome coronavirus 2 (SARS-CoV-2) U07.1; J12.82 Hypoxia R09.02 Left ureteral calculus N20.1
[2021-03-26 11:25] LABS: Basophils % 0.3 %; Eosinophils # 0.1 10^3/uL (0.0-0.8); Eosinophils % 0.6 %; Hematocrit 42.2 % (37.0-47.0); Hemoglobin 13.4 g/dL (11.5-15.3); Lymphocytes # 1.4 10^3/uL (0.8-4.8); Lymphocytes % 9.5 %; Mean Corpuscular HGB Conc 31.8 g/dL (30.0-36.0); Mean Corpuscular Volume 94.4 fL (81-99); Mean Platelet Volume 10.6 fL (7.4-10.4); Monocytes % 6.7 %; Neutrophils # 11.74 10^3/uL (1.8-7.7); Nucleated Red Blood Cells % 0 %; Platelet Count 321 10^3/cmm (130-400); Red Blood Count 4.47 10^6/uL (4.1-5.3); Red Cell Distribution Width 13.3 % (12.1-15.1); White Blood Count 14.9 10^3/uL (4.0-10.0)
[2021-03-26 11:44] LABS: Alanine Aminotransferase 23 U/L (0-33); Albumin Level 3.1 g/dL (3.5-5.2); Alkaline Phosphatase 83 IU/L (35-105); Anion Gap 15.4 (5-19); Aspartate Amino Transferase 19 U/L (0-32); Blood Urea Nitrogen 37 mg/dL (8-23); Calcium 8.5 mg/dL (8.5-10.5); Carbon Dioxide 26 mmol/L (22-29); Chloride 100 mmol/L (98-107); Globulin 2.9 g/dL (1.3-4.6); Glucose 219 mg/dL (65-115); Osmolality Calculated 299 mOsm/kg (285-295); Potassium 4.4 mmol/L (3.5-5.1); Sodium 137 mmol/L (136-145); Total Bilirubin 0.4 mg/dL (0.15-1.2)
--- NOTE | 2021-03-26 11:58 | PC.SOCIAL ---
IMM UPDATE Gave patient IMM update. She verbalized understanding. 03/26/21 @ 1156. Initialed, dated, timed and placed in chart.
[2021-03-26] MEDS: dexamethasone 4 mg/mL INJ 6 MG IVP (18:12)
--- NOTE | 2021-03-26 19:13 | PC.NURSE ---
Shift summary: Pt alert and oriented. Pt was using heated high flow at beginning of shift. She was switched to high flow NC , 10lpm, earlier in the shift. Pt denies pain. VSS. She eats most of her meals. Pt sat up in chair for about an hour today and sat on side of bed for her evening meal. Urine output of 675ml.
--- NOTE | 2021-03-26 19:22 | PC.NURSE ---
Report given to KELLY Morrison.
[2021-03-26] MEDS: enoxaparin 40 mg/0.4 mL Syringe SUBCUT (21:22)
--- NOTE | 2021-03-26 21:53 | PC.NURSE ---
Patient was recieved earlier lyig in bed, nil distress noted watching TV. Nil complaint. DAVE to Lt wrist area saline locked, flushes well, nil blood return. Urinary catheter in place draining adequately, sediments noted. On high flow oxygen 10L. Remains stable. Being monitored.
[2021-03-27] VITALS (16 sets, daily range): BP systolic 116–135; BP diastolic 57–78; PULSE 59–101; RESP 14–32; TEMP 36.3–36.6; O2SAT 93–94
[2021-03-27] MEDS: HYDROcodone-acetaminophen 5-325 mg Tablet 1 TAB PO ×2 (01:08→21:27)
[2021-03-27 05:48] LABS: Basophils % 0.2 %; Eosinophils % 0.1 %; Hematocrit 40.2 % (37.0-47.0); Hemoglobin 13.1 g/dL (11.5-15.3); Lymphocytes # 0.8 10^3/uL (0.8-4.8); Lymphocytes % 5.9 %; Mean Corpuscular HGB Conc 32.6 g/dL (30.0-36.0); Mean Corpuscular Hemoglobin 30.8 pg (28.0-34.0); Mean Corpuscular Volume 94.4 fL (81-99); Mean Platelet Volume 10.8 fL (7.4-10.4); Monocytes # 0.6 10^3/uL (0.2-0.9); Monocytes % 4.2 %; Neutrophils # 11.88 10^3/uL (1.8-7.7); Nucleated Red Blood Cells % 0 %; Platelet Count 311 10^3/cmm (130-400); Red Blood Count 4.26 10^6/uL (4.1-5.3); Red Cell Distribution Width 13.4 % (12.1-15.1); White Blood Count 13.8 10^3/uL (4.0-10.0)
[2021-03-27 06:36] LABS: Alanine Aminotransferase 21 U/L (0-33); Albumin Level 3.2 g/dL (3.5-5.2); Alkaline Phosphatase 75 IU/L (35-105); Anion Gap 15.7 (5-19); Aspartate Amino Transferase 17 U/L (0-32); Blood Urea Nitrogen 35 mg/dL (8-23); Calcium 8.6 mg/dL (8.5-10.5); Carbon Dioxide 25 mmol/L (22-29); Chloride 102 mmol/L (98-107); Globulin 2.6 g/dL (1.3-4.6); Glucose 221 mg/dL (65-115); Osmolality Calculated 301 mOsm/kg (285-295); Potassium 4.7 mmol/L (3.5-5.1); Sodium 138 mmol/L (136-145); Total Bilirubin 0.5 mg/dL (0.15-1.2); Total Protein 5.8 g/dL (6.6-8.7)
--- NOTE | 2021-03-27 07:03 | PC.NURSE ---
Patient spent a fair shift, nil distress noted. Alert and oriented X4. Remains in bed. Remains on 10LPM oxygen via [place]. SR on monitor. Bath given. Remains stable. Care continues.
[2021-03-27] MEDS: cefTRIAXone 1,000 MG in sodium chloride 0.9% (plus) 100 ML 200 MG IV (08:32)
[2021-03-27] MEDS: albuterol 8 gm MDI 2 PUFF INHALATION ×2 (08:47→19:48)
[2021-03-27] MEDS: cholecalciferol (vitamin D3) 1,000 unit Tablet 1000 UNIT PO (09:00)
[2021-03-27] MEDS: zinc gluconate 50 mg Tablet PO (09:00)
[2021-03-27] MEDS: ascorbic acid 500 mg Tablet PO (09:00)
[2021-03-27] MEDS: nystatin cream 30 gm 1 APPLIC TOPICAL (09:04)
--- NOTE | 2021-03-27 10:35 | PC.NURSE ---
Report faed to CSU. Verbal report called and given to Marissa Fuller.
--- NOTE | 2021-03-27 10:44 | PC.NURSE ---
Addendum entered by Griselda Alvarado RN 03/27/21 11:34: Belongings with pt to room 112-1. Original Note: Pt transferred to room 112-1. Further verbal report given to KELLY Fuller. Pt on 10lpm not 8lpm on high flow NC.
--- NOTE | 2021-03-27 11:10 | PC.NURSE ---
received from icu via bed,into room 112-1.report received.pt is alert and oriented x 4.sr on monitor.10 liters high flow o2 via [place].oriented to room environment.instructed to notify staff for any sob,cp,..or for any concerns at all.pt verb understanding of instructions.
--- NOTE | 2021-03-27 14:36 | P.PN_ITS ---
Subjective Subjective: Interval history: Patient was seen and examined this morning, transitioned to regular high flow nasal cannula oxygen, denies any shortness of breath, appetite is improved. Medications: Reviewed: Yes Vitals/I&O/Wt Last Vital Signs Temp 97.7 F 03/27/21 11:53 Pulse 75 03/27/21 14:00 Resp 22 H 03/27/21 11:53 BP 128/70 03/27/21 11:53 Pulse Ox 93 03/27/21 11:53 03/26/21 03/27/21 03/27/21 22:59 06:59 14:59 Intake Total 250 / 950 470 / 470 Output Total 675 / 675 1100 / 1100 Balance -425 / 275 -630 / -630 Weight last 48 hrs Weight 102.013 kg Weight 101.877 kg Physical Exam Const: COMMON NORMALS: patient oriented x3 HENMT: COMMON NORMALS: normocephalic and atraumatic HEAD & SCALP: normocephalic and atraumatic Resp: OTHER: Diminished air entry bilaterally Cardio: COMMON NORMALS: regular rate, regular rhythm, S1 normal heart sound present, S2 normal heart sound present, No gallops present (Cardio), No murmurs present (Cardio), No rub (Cardio) and Peripheral pulses 2+ throughout RATE: regular rate RHYTHM: regular rhythm HEART SOUNDS: S1 normal heart sound present and S2 normal heart sound present PERIPHERAL PULSES: Peripheral puls es 2+ throughout GI: COMMON NORMALS: Normal to inspection, nondistended, normoactive bowel sounds present, Soft to palpation, non-tender, No hepatosplenomegaly present and no masses AUSCULTATION: Yes normoactive bowel sounds PALPATION: Yes Soft to palpation and Yes No hepatosplenomegaly present RECTAL EXAM: deferred Extremity: COMMON NORMALS: no clubbing, cyanosis or edema and no pedal edema Neuro: COMMON NORMALS: patient oriented x3 Urinary Catheter Management^: Mon[place]roso Latex: Cath Placed During This Visit: yes Reason for Continuing Indwelling Catheter: Accurate Measurement of Urinary Output in Critically Ill Patients Urinary Catheter Date of Insertion: 03/20/21 Urinary Catheter Time of Insertion: 10:59 Data : 03/27/21 05:20 03/27/21 05:20 A&P Assessment and plan (1) Pneumonia due to severe acute respiratory syndrome coronavirus 2 (SARS-CoV-2): Status: Acute (2) Hypoxia: Status: Acute (3) Left ureteral calculus: Status: Acute Additional A&P Information Acute Hypoxic r/f 2/2 COVID PNA Xray chest : patchy diffuse interstitial and alveolar airspace disease D-dimer: 3.74 ESR : 37 CRP : 8.2 Ferritin: 985 Fibrinogen: Blood culture: Monitor ABG: Completed remdesivir 5-day course Status post 1 dose of tocilizumab Dexamethasone 6 mg IV daily for 10 days Advair 1 puff twice daily Spirivia inhalation daily Robitussin-DM Tessalon Perles Ceftriaxone 1 mg IV daily Lovenox 40 subcu daily Supplemental oxygen as needed Incentive spirometry Flutter valve Attestations Medical Necessity Statement*: Patient needs to be in hospital for management of acute hypoxic respiratory failure. Coding Level of Care Code Acute Buildings Painter for [facility] Fwd Diagnoses Pneumonia due to severe acute respiratory syndrome coronavirus 2 (SARS-CoV-2) U07.1; J12.82 Hypoxia R09.02 Left ureteral calculus N20.1
[2021-03-27] MEDS: dexamethasone 4 mg/mL INJ 6 MG IVP (18:03)
[2021-03-27] MEDS: enoxaparin 40 mg/0.4 mL Syringe SUBCUT (21:27)
[2021-03-28] VITALS (11 sets, daily range): BP systolic 120–136; BP diastolic 64–78; PULSE 61–102; RESP 18–33; TEMP 36.5–36.8; O2SAT 92–95
[2021-03-28 03:51] LABS: Basophils % 0.1 %; Eosinophils % 0.1 %; Hematocrit 40.2 % (37.0-47.0); Lymphocytes # 0.6 10^3/uL (0.8-4.8); Lymphocytes % 4.6 %; Mean Corpuscular HGB Conc 32.3 g/dL (30.0-36.0); Mean Corpuscular Hemoglobin 30.5 pg (28.0-34.0); Mean Corpuscular Volume 94.4 fL (81-99); Monocytes # 0.4 10^3/uL (0.2-0.9); Monocytes % 2.7 %; Neutrophils # 12.08 10^3/uL (1.8-7.7); Nucleated Red Blood Cells % 0 %; Platelet Count 296 10^3/cmm (130-400); Red Blood Count 4.26 10^6/uL (4.1-5.3); Red Cell Distribution Width 13.5 % (12.1-15.1); White Blood Count 13.4 10^3/uL (4.0-10.0)
[2021-03-28 04:24] LABS: Alanine Aminotransferase 21 U/L (0-33); Albumin Level 3.3 g/dL (3.5-5.2); Alkaline Phosphatase 79 IU/L (35-105); Anion Gap 13.5 (5-19); Aspartate Amino Transferase 18 U/L (0-32); Blood Urea Nitrogen 34 mg/dL (8-23); Calcium 8.7 mg/dL (8.5-10.5); Carbon Dioxide 24 mmol/L (22-29); Chloride 101 mmol/L (98-107); Globulin 2.6 g/dL (1.3-4.6); Glucose 258 mg/dL (65-115); Osmolality Calculated 294 mOsm/kg (285-295); Potassium 4.5 mmol/L (3.5-5.1); Sodium 134 mmol/L (136-145); Total Bilirubin 0.4 mg/dL (0.15-1.2); Total Protein 5.9 g/dL (6.6-8.7)
--- NOTE | 2021-03-28 06:00 | XRR_ITS ---
PROCEDURE INFORMATION: Exam: XR Chest Exam date and time: 03/28/2021 6:00 AM Age: 75 years old Clinical indication: Shortness of breath; Additional info: Pna TECHNIQUE: Imaging protocol: XR of the chest. Views: 1 view. COMPARISON: CR (CHEST, ) 03/23/2021 4:01 AM FINDINGS: Lungs: Interstitial prominence and bilateral airspace disease. Pleural spaces: Questionable small left pleural effusion. Heart/Mediastinum: Borderline cardiomegaly. Diaphragm: Marked asymmetric elevation of the right hemidiaphragm. Bones/joints: Degenerative change. XR/XR chest 1V portable [id number] IMPRESSION: 1. Interstitial prominence and bilateral airspace disease. 2. Questionable small left pleural effusion.
--- NOTE | 2021-03-28 09:17 | PC.SOCIAL ---
IMM UPDATE Gave patient's daughter verbal IMM update. verbalized understanding. 03/28/21 @ 0915. Initialed, dated, timed and placed in chart.
[2021-03-28] MEDS: ascorbic acid 500 mg Tablet PO (09:24)
[2021-03-28] MEDS: cefTRIAXone 1,000 MG in sodium chloride 0.9% (plus) 100 ML 200 MG IV (09:24)
[2021-03-28] MEDS: cholecalciferol (vitamin D3) 1,000 unit Tablet 1000 UNIT PO (09:24)
[2021-03-28] MEDS: zinc gluconate 50 mg Tablet PO (09:24)
[2021-03-28] MEDS: nystatin cream 30 gm 1 APPLIC TOPICAL ×2 (09:25→18:21)
[2021-03-28] MEDS: albuterol 8 gm MDI 2 PUFF INHALATION ×2 (10:03→22:45)
[2021-03-28] MEDS: HYDROcodone-acetaminophen 5-325 mg Tablet 1 TAB PO ×2 (15:04→20:32)
[2021-03-28] MEDS: dexamethasone 4 mg/mL INJ 6 MG IVP (18:20)
--- NOTE | 2021-03-28 20:01 | PC.NURSE ---
pt does not want to get out of bed and sit in a chair.instructed in the benefits of activity..states not today..they changed my oxygen setting and i have to get used to it.
[2021-03-28] MEDS: enoxaparin 40 mg/0.4 mL Syringe SUBCUT (20:06)
--- NOTE | 2021-03-28 20:13 | P.PN_ITS ---
Subjective Subjective: Interval history: Patient was seen and examined this morning, doing well on nasal cannula oxygen, denies any shortness of breath . Medications: Reviewed: Yes Vitals/I&O/Wt Last Vital Signs Temp 97.8 F 03/28/21 10:00 Pulse 78 03/28/21 14:00 Resp 33 H 03/28/21 14:00 BP 128/64 03/28/21 14:00 Pulse Ox 94 03/28/21 14:00 03/28/21 03/28/21 03/28/21 06:59 14:59 22:59 Intake Total 580 / 580 360 / 940 Output Total 150 / 2024 900 / 900 Balance -150 / -1215 -320 / -320 360 / 40 Weight last 48 hrs Weight 102.421 kg Weight 102.013 kg Physical Exam Const: COMMON NORMALS: patient oriented x3 HENMT: COMMON NORMALS: normocephalic and atraumatic HEAD & SCALP: normocephalic and atraumatic Resp: COMMON NORMALS: clear to auscultation bilaterally EFFORT & INSPECTION: Yes able to speak in complete sentences AUSCULTATION: clear to auscultation bilaterally Cardio: COMMON NORMALS: regular rate, regular rhythm, S1 normal heart sound present, S2 normal heart sound present, No gallops present (Cardio), No murmurs present (Cardio), No rub (Cardio) and Peripheral pulses 2+ throughout RATE: regular rate RHYTHM: regular rhythm HEART SOUNDS: S1 normal heart sound present and S2 normal heart sound present PERIPHERAL PULSES: Peripheral pulses 2+ throughout GI: COMMON NORMALS: Normal to inspection, nondistended, normoactive bowel sounds present, Soft to palpation, non-tender, No hepatosplenomegaly present and no masses AUSCULTATION: Yes normoactive bowel sounds PALPATION: Yes Soft to palpation and Yes No hepatosplenomegaly present RECTAL EXAM: deferred Extremity: COMMON NORMALS: no clubbing, cyanosis or edema and no pedal edema Neuro: COMMON NORMALS: patient oriented x3 Urinary Catheter Management^: Monterroso Latex: Cath Placed During This Visit: yes Reason for Continuing Indwelling Catheter: Accurate Measurement of Urinary Output in Critically Ill Patients Urinary Catheter Date of Insertion: 03/20/21 Urinary Catheter Time of Insertion: 10:59 Data : 03/28/21 03:10 03/28/21 03:10 A&P Assessment and plan (1) Pneumonia due to severe acute respiratory syndrome coronavirus 2 (SARS-CoV- 2): Status: Acute (2) Hypoxia: Status: Acute (3) Left ureteral calculus: Status: Acute Additional A&P Information Acute Hypoxic r/f 2/2 COVID PNA Xray chest : patchy diffuse interstitial and alveolar airspace disease D-dimer: 3.74 ESR : 37 CRP : 8.2 Ferritin: 985 Fibrinogen: Monitor ABG: Completed remdesivir 5-day course Status post 1 dose of tocilizumab Dexamethasone 6 mg IV daily for 10 days Advair 1 puff twice daily Spirivia inhalation daily Robitussin-DM Bere Phelan Was empirically on ceftriaxone 1 mg IV daily Lovenox 40 subcu daily Supplemental oxygen as needed Incentive spirometry Flutter valve Attestations Medical Necessity Statement*: Patient needs to be in the hospital for management of Covid pneumonia Coding Level of Care Code Acute Information Systems Architect for [facility] Fwd Diagnoses Pneumonia due to severe acute respiratory syndrome coronavirus 2 (SARS-CoV-2) U07.1; J12.82 Hypoxia R09.02 Left ureteral calculus N20.1
[2021-03-29] VITALS (15 sets, daily range): BP systolic 114–140; BP diastolic 50–71; PULSE 63–99; RESP 16–33; TEMP 36.3–37.2; O2SAT 89–95
[2021-03-29 05:19] LABS: Basophils % 0.2 %; Eosinophils % 0.3 %; Hematocrit 39.7 % (37.0-47.0); Hemoglobin 12.6 g/dL (11.5-15.3); Lymphocytes # 0.9 10^3/uL (0.8-4.8); Lymphocytes % 7.9 %; Mean Corpuscular HGB Conc 31.7 g/dL (30.0-36.0); Mean Corpuscular Hemoglobin 29.6 pg (28.0-34.0); Mean Corpuscular Volume 93.4 fL (81-99); Mean Platelet Volume 11.2 fL (7.4-10.4); Monocytes # 0.6 10^3/uL (0.2-0.9); Monocytes % 5.1 %; Neutrophils # 9.17 10^3/uL (1.8-7.7); Neutrophils % 83.8 %; Nucleated Red Blood Cells % 0 %; Platelet Count 264 10^3/cmm (130-400); Red Blood Count 4.25 10^6/uL (4.1-5.3); Red Cell Distribution Width 13.4 % (12.1-15.1); White Blood Count 10.9 10^3/uL (4.0-10.0)
[2021-03-29 05:41] LABS: Alanine Aminotransferase 21 U/L (0-33); Albumin Level 3.2 g/dL (3.5-5.2); Alkaline Phosphatase 76 IU/L (35-105); Anion Gap 14.3 (5-19); Aspartate Amino Transferase 15 U/L (0-32); Blood Urea Nitrogen 34 mg/dL (8-23); Calcium 8.2 mg/dL (8.5-10.5); Carbon Dioxide 24 mmol/L (22-29); Chloride 101 mmol/L (98-107); Globulin 2.5 g/dL (1.3-4.6); Glucose 213 mg/dL (65-115); Osmolality Calculated 294 mOsm/kg (285-295); Potassium 4.3 mmol/L (3.5-5.1); Sodium 135 mmol/L (136-145); Total Bilirubin 0.5 mg/dL (0.15-1.2); Total Protein 5.7 g/dL (6.6-8.7)
[2021-03-29] MEDS: albuterol 8 gm MDI 2 PUFF INHALATION ×2 (09:44→20:18)
[2021-03-29] MEDS: cholecalciferol (vitamin D3) 1,000 unit Tablet 1000 UNIT PO (09:44)
[2021-03-29] MEDS: ascorbic acid 500 mg Tablet PO (09:44)
[2021-03-29] MEDS: zinc gluconate 50 mg Tablet PO (09:44)
[2021-03-29] MEDS: nystatin cream 30 gm 1 APPLIC TOPICAL ×2 (09:45→18:57)
--- NOTE | 2021-03-29 11:03 | USCV_ITS ---
Melissa Courtney Age: 75 Gender: F : 1945 Exam Date: 03/29/2021 13:58 Ordering Phys: Ed Lang MD Technologist: [place] [facility] [place]: [place] COVID BP: 119 / 71 HR: 92 Rhythm: Sinus Technical Quality: Adequate MEASUREMENTS (Male / Female) Normal Values 2D ECHO LV Diastolic Diameter PLAX 4.2 cm 4.2 - 5.9 / 3.9 - 5.3 cm LV Systolic Diameter PLAX 2.2 cm IVS Diastolic Thickness 0.8 cm 0.6 - 1.0 / 0.6 - 0.9 cm IVS Systolic Thickness 1.4 cm LVPW Diastolic Thickness 1.1 cm 0.6 - 1.0 / 0.6 - 0.9 cm LVPW Systolic Thickness 1.3 cm LVOT Diameter 2.0 cm LV Ejection Fraction 2D Teich 79.2 % LV Ejection Fraction MOD 2C 70.8 % LV Ejection Fraction 2C AL 71.7 % LA Diameter 3.5 cm LA Width 3.1 cm LA Height 4.3 cm RA Width 3.1 cm RA Height 4.3 cm Aorta at Sinotubular Diameter 3.0 cm DOPPLER AV Peak Velocity 125.0 cm/s LVOT Peak Velocity 110.0 cm/s AV Area Cont Eq vti 2.8 cm squared AV Area Cont Eq pk 2.8 cm squared MV Area PHT 5.0 cm squared Mitral E to A Ratio 0.7 MV E' Velocity 42.5 cm/s Mitral E to MV E' Ratio 9.8 Mitral E to LV E' Lateral Ratio 8.6 Mitral E to LV E' Septal Ratio 11.5 TR Peak Velocity 109.3 cm/s TR Peak Gradient 4.8 mmHg TV Peak E Velocity 74.0 cm/s Right Atrial Pressure 3.0 mmHg Pulmonary Artery Systolic Pressu 7.8 mmHg PV Peak Velocity 122.0 cm/s FINDINGS Left Ventricle Normal left ventricular size. Grossly LV systolic function is mildly reduced. Diastolic function is indeterminate Right Ventricle The right ventricle is normal in size and function. Right Atrium The right atrium is normal in size. Left Atrium The left atrium is normal in size. Mitral Valve Grossly normal Aortic Valve Grossly normal. No significant aortic stenosis or regurgitation Tricuspid Valve Grossly normal Pulmonic Valve Not visualized Pericardium Normal pericardium without effusion. Aorta Normal ascending aorta dimension. CONCLUSIONS Limited quality echocardiogram because of poor ultrasonic windows Grossly LV systolic function is mildly reduced Valvular structures are not well visualized but no significant abnormalities noted Because of poor visualization, comparison with prior echocardiogram is not possible. José Schwartz MD (Electronically Signed) Final Date: 29 March 2021 17:39 S
[2021-03-29] MEDS: FUROsemide 20 mg Tablet PO (11:20)
--- NOTE | 2021-03-29 16:31 | P.PN_ITS ---
Subjective Subjective: Interval history: Hospital course, labs appreciated. Examination patient lying comfortably in bed on 5 L oxygen supplementation saturating 90%. She states she is feeling better but extremely weak. Is able to stand up at bedside without desaturation but feels weakness without dizziness. States appetite is appropriate. Denies any nausea vomiting, headache. Medications: Reviewed: Yes Vitals/I&O/Wt Last Vital Signs Temp 97.7 F 03/29/21 16:00 Pulse 98 03/29/21 16:00 Resp 32 H 03/29/21 16:00 BP 139/62 03/29/21 16:00 Pulse Ox 93 03/29/21 16:00 03/29/21 03/29/21 03/29/21 06:59 14:59 22:59 Intake Total 100 / 1040 360 / 360 Output Total 1500 / 3050 600 / 600 Balance -1400 / -2010 -240 / -240 Weight last 48 hrs Weight 102.512 kg Weight 102.421 kg Physical Exam Const: COMMON NORMALS: patient oriented x3 GENERAL APPEARANCE: cooperative HENMT: COMMON NORMALS: normocephalic and atraumatic HEAD & SCALP: normocephalic and atraumatic Chest: COMMONS NORMALS: normal inspection of the chest Resp: COMMON NORMALS: clear to auscultation bilaterally EFFORT & INSPECTION: Yes able to speak in complete sentences AUSCULTATION: clear to auscultation bilaterally and rhonchi OTHER: Diminished air entry bilaterally Cardio: COMMON NORMALS: regular rate, regular rhythm, S1 normal heart sound present, S2 normal heart sound present, No gallops present (Cardio), No murmurs present (Cardio), No rub (Cardio) and Peripheral pulses 2+ throughout RATE: regular rate and tachycardic RHYTHM: regular rhythm HEART SOUNDS: S1 normal heart sound present and S2 normal heart sound present PERIPHERAL PULSES: Peripheral pulses 2+ throughout GI: COMMON NORMALS: Normal to inspection, nondistended, normoactive bowel mirian nds present, Soft to palpation, non-tender, No hepatosplenomegaly present and no masses AUSCULTATION: Yes normoactive bowel sounds PALPATION: Yes Soft to palpation and Yes No hepatosplenomegaly present RECTAL EXAM: deferred Extremity: COMMON NORMALS: normal to inspection, no clubbing, cyanosis or edema and no pedal edema Neuro: COMMON NORMALS: patient oriented x3 Urinary Catheter Management^: Monterroso Latex: Cath Placed During This Visit: yes Reason for Continuing Indwelling Catheter: Accurate Measurement of Urinary Output in Critically Ill Patients Urinary Catheter Date of Insertion: 03/20/21 Urinary Catheter Time of Insertion: 10:59 Data : 03/29/21 04:20 03/29/21 04:20 A&P Assessment and plan (1) Pneumonia due to severe acute respiratory syndrome coronavirus 2 (SARS-CoV-2): Status: Acute (2) Hypoxia: Status: Acute (3) Left ureteral calculus: Status: Acute Additional A&P Information Hypoxia secondary to COVID-19: Mild disease. Oxygen supplementation keeping saturation over 90%. Switch over to oxygen reservoir/pendent. Post 1 dose of Tocilizumab. Finished remdesivir 5-day course. Dexamethasone 6 mg IV daily. Will most likely require slow steroid taper as an outpatient. Vitamin C, zinc. Tessalon Perles, Robitussin as needed. Advair, Spiriva. Pulmonary toilet with incentive spirometry and flutter valve as possible and to tolerated. Continue to monitor inflammatory markers including ESR, CRP, ferritin. Patient has remained afebrile, resolving leukocytosis. Low suspicion of bacterial infection for now. Continue to hold off on oral antibiotics. Check echocardiogram. We will try to keep patient on the negative side. Oral Lasix 20 mg once. Strict input output charting. Full code. Regular diet. Lovenox for DVT prophylaxis. Discharge planning: Home with home health. PT/OT evaluation. We will ask respiratory therapy to switch oxygen supplementation to reservoir therapy and plan to ambulate patient in the room. Home O2 evaluation tomorrow and discharge accordingly if patient requiring less than 5 L oxygen supplementation. Attestations Medical Necessity Statement*: Requires further hospitalization secondary COVID-19 pneumonia leading to hypoxia and requiring high oxygen supplementation. Time Spent in Patient Care: Greater than 35 minutes (>than 50% of time spent in counselling and/or direct pt care on unit) . Coding Level of Care Code Acute Information Resource Consultant for [facility] Fwlawrence Diagnoses Pneumonia due to severe acute respiratory syndrome coronavirus 2 (SARS-CoV-2) U07.1; J12.82 Hypoxia R09.02 Left ureteral calculus N20.1
[2021-03-29] MEDS: dexamethasone 4 mg/mL INJ 6 MG IVP (18:56)
[2021-03-29] MEDS: enoxaparin 40 mg/0.4 mL Syringe SUBCUT (20:09)
[2021-03-29] MEDS: acetaminophen 325 mg Tablet 650 MG PO (22:39)
[2021-03-30] VITALS (18 sets, daily range): BP systolic 101–131; BP diastolic 56–75; PULSE 64–107; RESP 15–18; TEMP 36.4–36.8; O2SAT 90–95
[2021-03-30] MEDS: albuterol 8 gm MDI 2 PUFF INHALATION ×5 (01:00→20:46)
[2021-03-30 06:10] LABS: Basophils % 0.3 %; Hematocrit 41.3 % (37.0-47.0); Lymphocytes # 0.9 10^3/uL (0.8-4.8); Lymphocytes % 7.1 %; Mean Corpuscular HGB Conc 31.5 g/dL (30.0-36.0); Mean Corpuscular Hemoglobin 29.5 pg (28.0-34.0); Mean Corpuscular Volume 93.7 fL (81-99); Mean Platelet Volume 11.3 fL (7.4-10.4); Monocytes # 0.3 10^3/uL (0.2-0.9); Monocytes % 2.6 %; Neutrophils # 10.21 10^3/uL (1.8-7.7); Neutrophils % 85.9 %; Nucleated Red Blood Cells % 0 %; Platelet Count 248 10^3/cmm (130-400); Red Blood Count 4.41 10^6/uL (4.1-5.3); Red Cell Distribution Width 13.3 % (12.1-15.1); White Blood Count 11.9 10^3/uL (4.0-10.0)
[2021-03-30 06:24] LABS: Alanine Aminotransferase 26 U/L (0-33); Albumin Level 3.2 g/dL (3.5-5.2); Alkaline Phosphatase 74 IU/L (35-105); Anion Gap 17.6 (5-19); Aspartate Amino Transferase 20 U/L (0-32); Blood Urea Nitrogen 40 mg/dL (8-23); Carbon Dioxide 25 mmol/L (22-29); Chloride 97 mmol/L (98-107); Globulin 2.9 g/dL (1.3-4.6); Glucose 247 mg/dL (65-115); Osmolality Calculated 298 mOsm/kg (285-295); Potassium 4.6 mmol/L (3.5-5.1); Sodium 135 mmol/L (136-145); Total Bilirubin 0.5 mg/dL (0.15-1.2); Total Protein 6.1 g/dL (6.6-8.7)
[2021-03-30] MEDS: zinc gluconate 50 mg Tablet PO (08:49)
[2021-03-30] MEDS: cholecalciferol (vitamin D3) 1,000 unit Tablet 1000 UNIT PO (08:49)
[2021-03-30] MEDS: ascorbic acid 500 mg Tablet PO (08:49)
[2021-03-30] MEDS: nystatin cream 30 gm 1 APPLIC TOPICAL ×2 (08:50→17:35)
--- NOTE | 2021-03-30 13:52 | PC.SOCIAL ---
IMM Updated Updated pt on Pg 2 IMM, via phone. No questions voiced. Provided pt a copy. Initialed, dated, & timed copy in chart.
--- NOTE | 2021-03-30 15:26 | PC.SOCIAL ---
Updated IMM Updated pt on Pg 2 IMM, via phone. No questions voiced. Provided pt care nurse a copy to give to pt. Initialed, dated, & timed the copy in chart.
--- NOTE | 2021-03-30 16:24 | PM.PN ---
Subjective Subjective: Interval history: No acute events overnight. Patient lying comfortably in bed. Working with incentive spirometry. Currently on 3 L saturating 93%. Appetite states is better. Medications: Reviewed: Yes Vitals/I&O/Wt Last Vital Signs Temp 98.0 F 03/30/21 16:00 Pulse 82 03/30/21 16:00 Resp 18 03/30/21 16:00 BP 101/56 03/30/21 16:00 Pulse Ox 93 03/30/21 16:00 03/30/21 03/30/21 03/30/21 06:59 14:59 22:59 Intake Total 600 / 600 Output Total 650 / 2325 Balance -650 / -1945 600 / 600 Weight last 48 hrs Weight 99.518 kg Weight 102.512 kg Physical Exam Const: COMMON NORMALS: patient oriented x3 GENERAL APPEARANCE: cooperative HENMT: COMMON NORMALS: normocephalic and atraumatic HEAD & SCALP: normocephalic and atraumatic Chest: COMMONS NORMALS: normal inspection of the chest Resp: COMMON NORMALS: clear to auscultation bilaterally EFFORT & INSPECTION: Yes able to speak in complete sentences AUSCULTATION: clear to auscultation bilaterally and rhonchi OTHER: Diminished air entry bilaterally Cardio: COMMON NORMALS: regular rate, regular rhythm, S1 normal heart sound present, S2 normal heart sound present, No gallops present (Cardio), No murmurs present (Cardio), No rub (Cardio) and Peripheral pulses 2+ throughout RATE: regular rate and tachycardic RHYTHM: regular rhythm HEART SOUNDS: S1 normal heart sound present and S2 normal heart sound present PERIPHERAL PULSES: Peripheral pulses 2+ throughout GI: COMMON NORMALS: Normal to inspection, nondistended, normoactive bowel sounds present, Soft to palpation, non-tender, No hepatosplenomegaly present and no masses AUSCULTATION: Yes normoactive bowel sounds PALPATION: Yes Soft to palpation and Yes No hepatosplenomegaly present RECTAL EXAM: deferred Extremity: COMMON NORMALS: normal to inspection, no clubbing, cyanosis or edema and no pedal edema Neuro: COMMON NORMALS: patient oriented x3 Urinary Catheter Management^: Monterroso Latex: Cath Placed During This Visit: yes Reason for Continuing Indwelling Catheter: Acute Urinary Retention or Obstruction Urinary Catheter Date of Insertion: 03/20/21 Urinary Catheter Time of Insertion: 10:59 Data : 03/30/21 05:23 03/30/21 05:23 A&P Assessment and plan (1) Pneumonia due to severe acute respiratory syndrome coronavirus 2 (SARS-CoV-2): Status: Acute (2) Hypoxia: Status: Acute (3) Left ureteral calculus: Status: Acute (4) Physical deconditioning: Status: Acute Additional A&P Information Hypoxia secondary to COVID-19: Mild disease. Oxygen supplementation keeping saturation over 90%. Switch over to oxygen reservoir/pendent. Post 1 dose of Tocilizumab. Finished remdesivir 5-day course. Dexamethasone 6 mg IV daily. Will most likely require slow steroid taper as an outpatient. Vitamin C, zinc. Tessalon Perles, Robitussin as needed. Advair, Spiriva. Pulmonary toilet with incentive spirometry and flutter valve as possible and to tolerated. Continue to monitor inflammatory markers including ESR, CRP, ferritin. Patient has remained afebrile, resolving leukocytosis. Low suspicion of bacterial infection for now. Continue to hold off on oral antibiotics. Grossly LV systolic function to be mildly reduced, indeterminate diastolic function with poor echo window. Continue Lasix 20 mg oral daily. Strict input output charting. Full code. Regular diet. Lovenox for DVT prophylaxis. Discharge planning: SNF. As per PT OT evaluation patient has been recommended mended for discharge to SNF. Patient is agreeable. Case management alerted. Attestations Medical Necessity Statement*: Requires further hospitalization for management of severe generalized deconditioning due to COVID-19 pneumonia, persistent hypoxia requiring supplemental oxygenation while safe discharge planning is sought. Time Spent in Patient Care: Greater than 35 minutes (>than 50% of time spent in counselling and/or direct pt care on unit). 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
--- NOTE | 2021-03-30 16:44 | PC.NUTR ---
Nutrition assessment: Dr. Lang requesting this RD to add supplements for pt. Spoke with pt regarding preferences. Pt follows a low-carb diet, and would prefer chocolate Glucerna. Also prefers sugar free items when available. Noted po intake averaging 63% over past [address] assessment for further details.
[2021-03-30] MEDS: dexamethasone 4 mg/mL INJ 6 MG IVP (17:37)
[2021-03-30] MEDS: enoxaparin 40 mg/0.4 mL Syringe SUBCUT (20:11)
[2021-03-31] VITALS (11 sets, daily range): BP systolic 116–139; BP diastolic 69–75; PULSE 62–84; RESP 16–24; TEMP 36.4–37.1; O2SAT 90–93
[2021-03-31] MEDS: acetaminophen 325 mg Tablet 650 MG PO ×2 (00:04→23:11)
[2021-03-31] MEDS: albuterol 8 gm MDI 2 PUFF INHALATION (08:18)
[2021-03-31] MEDS: cholecalciferol (vitamin D3) 1,000 unit Tablet 1000 UNIT PO (08:57)
[2021-03-31] MEDS: nystatin cream 30 gm 1 APPLIC TOPICAL ×2 (08:57→17:41)
[2021-03-31] MEDS: ascorbic acid 500 mg Tablet PO (08:57)
[2021-03-31] MEDS: zinc gluconate 50 mg Tablet PO (08:57)
--- NOTE | 2021-03-31 16:28 | P.PN_ITS ---
Subjective Subjective: Interval history: No acute documented events overnight. Patient continues to remain stable. Lab holiday today. Continues, hemodynamically stable and afebrile. Currently on 2 L nasal cannula saturating 93%. Medications: Reviewed: Yes Vitals/I&O/Wt Last Vital Signs Temp 98.4 F 03/31/21 16:00 Pulse 75 03/31/21 16:00 Resp 18 03/31/21 16:00 BP 127/72 03/31/21 16:00 Pulse Ox 93 03/31/21 16:00 03/31/21 03/31/21 03/31/21 06:59 14:59 22:59 Intake Total 720 / 720 Output Total 750 / 1750 Balance -750 / -1150 720 / 720 Weight last 48 hrs Weight 99.337 kg Weight 99.518 kg Physical Exam Const: COMMON NORMALS: patient oriented x3 GENERAL APPEARANCE: cooperative HENMT: COMMON NORMALS: normocephalic and atraumatic HEAD & SCALP: normocephalic and atraumatic Chest: COMMONS NORMALS: normal inspection of the chest Resp: COMMON NORMALS: clear to auscultation bilaterally EFFORT & INSPECTION: Yes able to speak in complete sentences AUSCULTATION: clear to auscultation bilaterally and rhonchi OTHER: Diminished air entry bilaterally Cardio: COMMON NORMALS: regular rate, regular rhythm, S1 normal heart sound present, S2 normal heart sound present, No gallops present (Cardio), No murmurs present (Cardio), No rub (Cardio) and Peripheral pulses 2+ throughout RATE: regular rate and tachycardic RHYTHM: regular rhythm HEART SOUNDS: S1 normal heart sound present and S2 normal heart sound present PERIPHERAL PULSES: Peripheral pulses 2+ throughout GI: COMMON NORMALS: Normal to inspection, nondistended, normoactive bowel sounds present, Soft to palpation, non-tender, No hepatosplenomegaly present and no masses AUSCULTATION: Yes normoactive bowel sounds PALPATION: Yes Soft to palpation and Yes No hepatosplenomegaly present RECTAL EXAM: deferred Extremity: COMMON NORMALS: normal to inspection, no clubbing, cyanosis or edema and no pedal edema Neuro: COMMON NORMALS: patient oriented x3 Urinary Catheter Management^: Monterroso Latex: Cath Placed During This Visit: yes Reason for Continuing Indwelling Catheter: Acute Urinary Retention or Obstruction Urinary Catheter Date of Insertion: 03/20/21 Urinary Catheter Time of Insertion: 10:59 Data : 03/30/21 05:23 03/30/21 05:23 A&P Assessment and plan (1) Pneumonia due to severe acute respiratory syndrome coronavirus 2 (SARS-CoV-2): Status: Acute (2) Hypoxia: Status: Acute (3) Left ureteral calculus: Status: Acute (4) Physical deconditioning: Status: Acute Additional A&P Information Hypoxia secondary to COVID-19: Mild disease. Oxygen supplementation keeping saturation over 90%. Switch over to oxygen reservoir/pendent. Post 1 dose of Tocilizumab. Finished remdesivir 5-day course. Dexamethasone 6 mg IV daily. Will most likely require slow steroid taper as an outpatient. Vitamin C, zinc. Tessalon Perles, Robitussin as needed. Advair, Spiriva. Pulmonary toilet with incentive spirometry and flutter valve as possible and to tolerated. Continue to monitor inflammatory markers including ESR, CRP, ferritin. Patient has remained afebrile, resolving leukocytosis. Low suspicion of bacterial infection for now. Continue to hold off on oral antibiotics. Grossly LV systolic function to be mildly reduced, indeterminate diastolic function with poor echo window. Continue Lasix 20 mg oral daily. Strict input output charting. Full code. Regular diet. Lovenox for DVT prophylaxis. Discharge planning: SNF. As per PT OT evaluation patient has been recommended mended for discharge to SNF. Patient is agreeable. Case management alerted. Patient has been accepted to [facility]. Prior authorization awaited. Attestations Medical Necessity Statement*: Requires further hospitalization for management of physical deconditioning secondary to COVID-19 pneumonia, hypoxia secondary COVID-19 pneumonia while safe discharge planning is sought. Time Spent in Patient Care: Greater than 35 minutes (>than 50% of time spent in counselling and/or direct pt care on unit) . Coding Level of Care Code Acute Prn Physical Therapist for g Fwd Diagnoses Pneumonia due to severe acute respiratory syndrome coronavirus 2 (SARS-CoV-2) U07.1; J12.82 Hypoxia R09.02 Left ureteral calculus N20.1 Physical deconditioning R53.81
[2021-03-31] MEDS: dexamethasone 4 mg/mL INJ 6 MG IVP (17:41)
[2021-03-31] MEDS: enoxaparin 40 mg/0.4 mL Syringe SUBCUT (21:10)
[2021-04-01] VITALS (12 sets, daily range): BP systolic 110–133; BP diastolic 63–77; PULSE 69–90; RESP 16–20; TEMP 36.4–36.9; O2SAT 92–95
--- NOTE | 2021-04-01 05:41 | PC.NURSE ---
shift summary Patient rested well throughout this shift without complaint. Patient currently resting comfortably in bed.
[2021-04-01 05:49] LABS: Basophils % 0.2 %; Hematocrit 38.4 % (37.0-47.0); Hemoglobin 12.4 g/dL (11.5-15.3); Lymphocytes # 1.3 10^3/uL (0.8-4.8); Lymphocytes % 10.4 %; Mean Corpuscular HGB Conc 32.3 g/dL (30.0-36.0); Mean Corpuscular Volume 92.8 fL (81-99); Monocytes # 0.4 10^3/uL (0.2-0.9); Monocytes % 3.5 %; Neutrophils # 10.25 10^3/uL (1.8-7.7); Neutrophils % 82.2 %; Nucleated Red Blood Cells % 0 %; Platelet Count 228 10^3/cmm (130-400); Red Blood Count 4.14 10^6/uL (4.1-5.3); Red Cell Distribution Width 13.4 % (12.1-15.1); White Blood Count 12.5 10^3/uL (4.0-10.0)
[2021-04-01 06:07] LABS: C Reactive Protein 0.7 mg/L (0.0-4.9)
[2021-04-01 06:11] LABS: Alanine Aminotransferase 34 U/L (0-33); Albumin Level 3.2 g/dL (3.5-5.2); Alkaline Phosphatase 68 IU/L (35-105); Anion Gap 14.5 (5-19); Aspartate Amino Transferase 19 U/L (0-32); Blood Urea Nitrogen 40 mg/dL (8-23); Calcium 8.7 mg/dL (8.5-10.5); Carbon Dioxide 27 mmol/L (22-29); Chloride 100 mmol/L (98-107); Globulin 2.6 g/dL (1.3-4.6); Glucose 222 mg/dL (65-115); Osmolality Calculated 301 mOsm/kg (285-295); Potassium 4.5 mmol/L (3.5-5.1); Sodium 137 mmol/L (136-145); Total Bilirubin 0.6 mg/dL (0.15-1.2); Total Protein 5.8 g/dL (6.6-8.7)
[2021-04-01 07:32] LABS: Erythrocyte Sedimentation Rate 21 mm/hr (0-15)
[2021-04-01] MEDS: albuterol 8 gm MDI 2 PUFF INHALATION ×2 (09:15→20:49)
[2021-04-01] MEDS: ascorbic acid 500 mg Tablet PO (10:27)
[2021-04-01] MEDS: cholecalciferol (vitamin D3) 1,000 unit Tablet 1000 UNIT PO (10:27)
[2021-04-01] MEDS: zinc gluconate 50 mg Tablet PO (10:27)
[2021-04-01] MEDS: nystatin cream 30 gm 1 APPLIC TOPICAL ×2 (10:27→18:25)
[2021-04-01 10:45] LABS: Glucose Point of Care 189 mg/dL (70-110)
[2021-04-01 11:48] LABS: Estmated Average Glucose 143; Hemoglobin A1C 6.6 % (4.0-6.0)
--- NOTE | 2021-04-01 12:24 | PC.SOCIAL ---
IMM UPDATE Gave patient IMM update. She verbalized understanding. 04/01/21 @ 1010. Initialed, dated, timed and placed in chart.
--- NOTE | 2021-04-01 17:27 | P.PN_ITS ---
Subjective Subjective: Interval history: Status quo, no acute events overnight. Has remained hemodynamically stable and afebrile. Saturating 94% on minimal oxygen supplementation. Appetite appropriate. Medications: Reviewed: Yes Vitals/I&O/Wt Last Vital Signs Temp 97.5 F L 04/01/21 15:31 Pulse 79 04/01/21 15:31 Resp 17 04/01/21 15:31 BP 126/71 04/01/21 15:31 Pulse Ox 94 04/01/21 15:31 04/01/21 04/01/21 04/01/21 06:59 14:59 22:59 Intake Total 720 / 720 Output Total 1400 / 1400 Balance -1400 / -440 720 / 720 Weight last 48 hrs Weight 99.518 kg Weight 99.337 kg Physical Exam Const: COMMON NORMALS: patient oriented x3 GENERAL APPEARANCE: cooperative HENMT: COMMON NORMALS: normocephalic and atraumatic HEAD & SCALP: normocephalic and atraumatic Chest: COMMONS NORMALS: normal inspection of the chest Resp: COMMON NORMALS: clear to auscultation bilaterally EFFORT & INSPECTION: Yes able to speak in complete sentences AUSCULTATION: clear to auscultation bilaterally and rhonchi OTHER: Diminished air entry bilaterally Cardio: COMMON NORMALS: regular rate, regular rhythm, S1 normal heart sound present, S2 normal heart sound present, No gallops present (Cardio), No murmurs present (Cardio), No rub (Cardio) and Peripheral pulses 2+ throughout RATE: regular rate and tachycardic RHYTHM: regular rhythm HEART SOUNDS: S1 normal heart sound present and S2 normal heart sound present PERIPHERAL PULSES: Peripheral pulses 2+ throughout GI: COMMON NORMALS: Normal to inspection, nondistended, normoactive bowel soun ds present, Soft to palpation, non-tender, No hepatosplenomegaly present and no masses AUSCULTATION: Yes normoactive bowel sounds PALPATION: Yes Soft to palpation and Yes No hepatosplenomegaly present RECTAL EXAM: deferred Extremity: COMMON NORMALS: normal to inspection, no clubbing, cyanosis or edema and no pedal edema Neuro: COMMON NORMALS: patient oriented x3 Urinary Catheter Management^: Monterroso Latex: Cath Placed During This Visit: yes Reason for Continuing Indwelling Catheter: Other Urinary Catheter Date of Insertion: 03/20/21 Urinary Catheter Time of Insertion: 10:59 Data : 04/01/21 04:52 04/01/21 04:52 A&P Assessment and plan (1) Pneumonia due to severe acute respiratory syndrome coronavirus 2 (SARS-CoV-2): Status: Acute (2) Hypoxia: Status: Acute (3) Left ureteral calculus: Status: Acute (4) Physical deconditioning: Status: Acute Additional A&P Information Hypoxia secondary to COVID-19: Mild disease. Oxygen supplementation keeping saturation over 90%. Switch over to oxygen reservoir/pendent. Post 1 dose of Tocilizumab. Finished remdesivir 5-day course. Dexamethasone 6 mg IV daily. Will most likely require slow steroid taper as an outpatient. Vitamin C, zinc. Tessalon Perles, Robitussin as needed. Advair, Spiriva. Pulmonary toilet with incentive spirometry and flutter valve as possible and to tolerated. Continue to monitor inflammatory markers including ESR, CRP, ferritin. Patient has remained afebrile, resolving leukocytosis. Low suspicion of bacterial infection for now. Continue to hold off on oral antibiotics. Grossly LV systolic function to be mildly reduced, indeterminate diastolic function with poor echo window. Continue Lasix 20 mg oral daily. Strict input output charting. Full code. Regular diet. Lovenox for DVT prophylaxis. Off isolation as patient has been more than 2 weeks of positive COVID-19 test done on March 12/2021. Discharge planning: SNF. As per PT OT evaluation patient has been recommended mended for discharge to SNF. Patient is agreeable. Case management alerted. Patient has been accepted to [facility]. Prior authorization awaited. Attestations Medical Necessity Statement*: Requires further hospitalization for management of hypoxia secondary to COVID-19 pneumonia, severe physical deconditioning which puts her at a high risk of decompensating, falling while safe discharge planning is sought. Time Spent in Patient Care: 16 - 35 minutes (>than 50% of time spent in counselling and/or direct pt care on unit) . 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
[2021-04-01 17:41] LABS: Glucose Point of Care 154 mg/dL (70-110)
[2021-04-01 20:25] LABS: Glucose Point of Care 122 mg/dL (70-110)
[2021-04-02] VITALS (10 sets, daily range): BP systolic 110–143; BP diastolic 68–80; PULSE 80–97; RESP 14–28; TEMP 36.3–36.8; O2SAT 92–96
[2021-04-02] MEDS: acetaminophen 325 mg Tablet 650 MG PO ×2 (05:54→23:18)
[2021-04-02 06:27] LABS: Glucose Point of Care 128 mg/dL (70-110)
[2021-04-02] MEDS: dexamethasone 4 mg/mL INJ 3 MG IVP (08:33)
[2021-04-02] MEDS: zinc gluconate 50 mg Tablet PO (08:41)
[2021-04-02] MEDS: cholecalciferol (vitamin D3) 1,000 unit Tablet 1000 UNIT PO (08:41)
[2021-04-02] MEDS: ascorbic acid 500 mg Tablet PO (08:41)
[2021-04-02] MEDS: nystatin cream 30 gm 1 APPLIC TOPICAL (08:44)
[2021-04-02 12:50] LABS: Glucose Point of Care 188 mg/dL (70-110)
--- NOTE | 2021-04-02 14:00 | PM.PN ---
Subjective Subjective: Interval history: States she is feeling better. Eating better. Working with incentive spirometry and flutter valve. Has remained hemodynamically stable and afebrile. Saturating 94% on 3 L oxygen supplementation. Medications: Reviewed: Yes Vitals/I&O/Wt Last Vital Signs Temp 97.8 F 04/02/21 11:57 Pulse 82 04/02/21 11:57 Resp 24 H 04/02/21 11:57 BP 120/73 04/02/21 11:57 Pulse Ox 94 04/02/21 11:57 04/01/21 04/02/21 04/02/21 22:59 06:59 14:59 Intake Total 240 / 960 500 / 500 Output Total 1250 / 1250 250 / 250 Balance 240 / 960 -1250 / -290 250 / 250 Weight last 48 hrs Weight 98.43 kg Weight 99.518 kg Physical Exam Const: COMMON NORMALS: patient oriented x3 GENERAL APPEARANCE: cooperative HENMT: COMMON NORMALS: normocephalic and atraumatic HEAD & SCALP: normocephalic and atraumatic Chest: COMMONS NORMALS: normal inspection of the chest Resp: COMMON NORMALS: clear to auscultation bilaterally EFFORT & INSPECTION: Yes able to speak in complete sentences AUSCULTATION: clear to auscultation bilaterally and rhonchi OTHER: Diminished air entry bilaterally Cardio: COMMON NORMALS: regular rate, regular rhythm, S1 normal heart sound present, S2 normal heart sound present, No gallops present (Cardio), No murmurs present (Cardio), No rub (Cardio) and Peripheral pulses 2+ throughout RATE: regular rate and tachycardic RHYTHM: regular rhythm HEART SOUNDS: S1 normal heart sound present and S2 normal heart sound present PERIPHERAL PULSES: Peripheral pulses 2+ throughout GI: COMMON NORMALS: Normal to inspection, nondistended, normoactive bowel sounds present, Soft to palpation, non-tender, No hepatosplenomegaly present and no masses AUSCULTATION: Yes normoactive bowel sounds PALPATION: Yes Soft to palpation and Yes No hepatosplenomegaly present RECTAL EXAM: deferred Extremity: COMMON NORMALS: normal to inspection, no clubbing, cyanosis or edema and no pedal edema Neuro: COMMON NORMALS: patient oriented x3 Urinary Catheter Management^: Monterroso Latex: Cath Placed During This Visit: yes Reason for Continuing Indwelling Catheter: Other Urinary Catheter Date of Insertion: 03/20/21 Urinary Catheter Time of Insertion: 10:59 Data : 04/01/21 04:52 04/01/21 04:52 A&P Assessment and plan (1) Pneumonia due to severe acute respiratory syndrome coronavirus 2 (SARS-CoV-2): Status: Acute (2) Hypoxia: Status: Acute (3) Left ureteral calculus: Status: Acute (4) Physical deconditioning: Status: Acute Additional A&P Information Given lab holiday today. Hypoxia secondary to COVID-19: Mild disease. Oxygen supplementation keeping saturation over 90%. Switch over to oxygen reservoir/pendent. Post 1 dose of Tocilizumab. Finished remdesivir 5-day course. Dexamethasone 3 mg daily to finish a course on April 05. Vitamin C, zinc. Tessalon Perles, Robitussin as needed. Advair, Spiriva. Pulmonary toilet with incentive spirometry and flutter valve as possible and to tolerated. Continue to monitor inflammatory markers including ESR, CRP, ferritin. Patient has remained afebrile, resolving leukocytosis. Low suspicion of bacterial infection for now. Continue to hold off on oral antibiotics. Grossly LV systolic function to be mildly reduced, indeterminate diastolic function with poor echo window. Continue Lasix 20 mg oral daily. Strict input output charting. Full code. Regular diet. Lovenox for DVT prophylaxis. Off isolation as patient has been more than 2 weeks of positive COVID-19 test done on March 12/2021. Discharge planning: SNF. As per PT OT evaluation patient has been recommended mended for discharge to SNF. Patient is agreeable. Case management alerted. Patient has been accepted to [facility]. Prior authorization awaited. Attestations Medical Necessity Statement*: Patient requires further hospitalization for management of hypoxia O2 sat COVID-19 pneumonia, severe physical deconditioning which keeps her at high risk of fall and recurrent admission while safe discharge planning is sought to SNF. Time Spent in Patient Care: 16 - 35 minutes (>than 50% of time spent in counselling and/or direct pt care on unit). 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
[2021-04-02 16:56] LABS: Glucose Point of Care 152 mg/dL (70-110)
[2021-04-02] MEDS: NON-FORMULARY MEDICATION (Methenamine Hippurate 1 gram tablet) 1 EACH PO (18:22)
[2021-04-02] MEDS: albuterol 8 gm MDI 2 PUFF INHALATION (20:15)
[2021-04-02 20:43] LABS: Glucose Point of Care 187 mg/dL (70-110)
[2021-04-02] MEDS: enoxaparin 40 mg/0.4 mL Syringe SUBCUT (21:36)
[2021-04-03] VITALS (7 sets, daily range): BP systolic 118–134; BP diastolic 58–71; PULSE 65–95; RESP 14–22; TEMP 36.3–36.5; O2SAT 92–96
[2021-04-03 06:33] LABS: Glucose Point of Care 151 mg/dL (70-110)
--- NOTE | 2021-04-03 08:45 | PC.SOCIAL ---
IMM Updated Updated pt on Pg 2 IMM. No questions voiced. Provided pt a copy. Initialed, dated, & timed copy in chart.
[2021-04-03] MEDS: cholecalciferol (vitamin D3) 1,000 unit Tablet 1000 UNIT PO (09:01)
[2021-04-03] MEDS: zinc gluconate 50 mg Tablet PO (09:01)
[2021-04-03] MEDS: FUROsemide 20 mg Tablet PO (09:02)
[2021-04-03] MEDS: dexamethasone 4 mg/mL INJ 3 MG IVP (09:02)
[2021-04-03] MEDS: NON-FORMULARY MEDICATION (Methenamine Hippurate 1 gram tablet) 1 EACH PO (09:02)
[2021-04-03 10:31] LABS: Glucose Point of Care 167 mg/dL (70-110)
[2021-04-03 10:46] LABS: SARS Covid-2 Antigen Negative (Negative)
--- NOTE | 2021-04-03 11:47 | P.DS_ITS ---
Discharge Providers Date of Admission: 03/19/21 18:12 Date of Discharge: April 03, 2021 Attending Provider at Admission: Ezequiel Farrell MD Attending Provider at Discharge: Ed Lang MD Primary Care Provider: Karl Paige DO Diagnoses at Discharge Discharge Diagnosis (1) Pneumonia due to severe acute respiratory syndrome coronavirus 2 (SARS-CoV-2): Status: Acute (2) Hypoxia: Status: Acute (3) Left ureteral calculus: Status: Acute (4) Physical deconditioning: Status: Acute Reason for Visit Reason for Visit: COVID +/ INCREASED DYSPNEA Hospital Course Hospital Course Melissa Courtney is a 75 year old female with past medical history of cystoscopy cystica, staghorn calculi who presented to the ER on March 19 complaining of myalgias, fever and difficulty in breathing and was found to be Covid positive. Patient was in the hospital for the management of hypoxia from COVID-19 pneumonia started on treatment with IV remdesivir, steroid treatment with IV dexamethasone in relation treatment. She was also given 1 dose of IV Tocilizumab. She responded well to the treatment and has been on minimal oxygen supplementation for last 2 to 3 days. Physical therapy was consulted and because of severe physical deconditioning she was advised for SNF placement. Her hospital stay was otherwise unremarkable. Her hospital stay was prolonged without difficulty placement to SNF. She is been discharged in hemodynamically stable condition advised to take inhalation treatment for next 2 weeks, continue taking dexamethasone a steroid for next 3 days. Physical Exam Const: COMMON NORMALS: patient oriented x3 GENERAL APPEARANCE: cooperative HENMT: COMMON NORMALS: normocephalic and atraumatic HEAD & SCALP: normocephalic and atraumatic Chest: COMMONS NORMALS: normal inspection of the chest Resp: COMMON NORMALS: clear to auscultation bilaterally EFFORT & INSPECTION: Yes able to speak in complete sentences AUSCULTATION: clear to a uscultation bilaterally and rhonchi OTHER: Diminished air entry bilaterally Cardio: COMMON NORMALS: regular rate, regular rhythm, S1 normal heart sound present, S2 normal heart sound present, No gallops present (Cardio), No murmurs present (Cardio), No rub (Cardio) and Peripheral pulses 2+ throughout RATE: regular rate and tachycardic RHYTHM: regular rhythm HEART SOUNDS: S1 normal heart sound present and S2 normal heart sound present PERIPHERAL PULSES: Peripheral pulses 2+ throughout GI: COMMON NORMALS: Normal to inspection, nondistended, normoactive bowel sounds present, Soft to palpation, non-tender, No hepatosplenomegaly present and no masses AUSCULTATION: Yes normoactive bowel sounds PALPATION: Yes Soft to palpation and Yes No hepatosplenomegaly present RECTAL EXAM: deferred Extremity: COMMON NORMALS: normal to inspection, no clubbing, cyanosis or edema and no pedal edema Neuro: COMMON NORMALS: patient oriented x3 Urinary Catheter Management^: Monterroso Latex: Cath Placed During This Visit: yes Reason for Continuing Indwelling Catheter: Other Urinary Catheter Date of Insertion: 03/20/21 Urinary Catheter Time of Insertion: 10:59 Discharge Data Data Completed and Pending: Completed Studies During Hospitalization Category Date Time Status XR chest 1V rochelle ble [id number] Routine Exams 03/23/21 06:00 Completed XR chest 1V rochelle ble [id number] Routine Exams 03/28/21 06:00 Completed XR chest 1V rochelle ble [id number] Stat Exams 03/19/21 16:37 Completed CV. echo complete * [id number] Routine Ultrasound 03/29/21 11:03 Completed Pending at discharge Category Date Time Status Complete Blood Co unt w/Auto AM LABS Lab 04/03/21 04:00 Ordered Comprehensive Met abolic Panel AM LA BS Lab 04/03/21 04:00 Ordered Labs from last 24 hours 04/03/21 04/03/21 04/03/21 10:19 10:10 06:25 POC Glucose 167 H 151 H SARS-CoV-2 Ag (Rap id) Negative 04/02/21 04/02/21 04/02/21 20:30 16:39 12:05 POC Glucose 187 H 152 H 188 H SARS-CoV-2 Ag (Rap id) Addt'l Data from Hospital Stay: Laboratory Results WBC 12.5 10^3/uL (4.0 -10.0) H 04/01/21 04:52 RBC 4.14 10^6/uL (4.1 -5.3) 04/01/21 04:52 Hgb 12.4 g/dL (11.5-1 5.3) 04/01/21 04:52 Hct 38.4 % (37.0-47.0 ) 04/01/21 04:52 MCV 92.8 fL (81-99) 04/01/21 04:52 MCH 30.0 pg (28.0-34. 0) 04/01/21 04:52 MCHC 32.3 g/dL (30.0-3 6.0) 04/01/21 04:52 RDW 13.4 % (12.1-15.1 ) 04/01/21 04:52 Plt Count 228 10^3/cmm (130 -400) 04/01/21 04:52 MPV 12.0 fL (7.4-10.4 ) H 04/01/21 04:52 Neut % (Auto) 82.2 % 04/01/21 04:52 Lymph % (Auto) 10.4 % 04/01/21 04:52 [place] % (Auto) 3.5 % 04/01/21 04:52 Eos % (Auto) 0.0 % 04/01/21 04:52 Baso % (Auto) 0.2 % 04/01/21 04:52 Neut # (Auto) 10.25 10^3/uL (1. 8-7.7) H 04/01/21 04:52 Lymph # (Auto) 1.3 10^3/uL (0.8- 4.8) 04/01/21 04:52 [place] # (Auto) 0.4 10^3/uL (0.2- 0.9) 04/01/21 04:52 Eos # (Auto) 0.0 10^3/uL (0.0- 0.8) 04/01/21 04:52 Baso # (Auto) 0.0 10^3/uL (0.0- 0.1) 04/01/21 04:52 Nucleated RBC % (a uto) 0 % 04/01/21 04:52 Total Counted 100 (0-100) 03/24/21 04:19 Atypical Lymphs % 1.0 % (0-5) 03/24/21 04:19 Absolute Neutrophi ls 8.8 10^3/cmm (1.4 -6.5) H 03/24/21 04:19 Segmented Neutroph ils 83 % 03/24/21 04:19 Abs Segm Neuts (Ma n) 8.7 10/cmm (1.6-7 .1) H 03/24/21 04:19 Band Neutrophils 1.0 % 03/24/21 04:19 Abs Band Neuts (Ma n) 0.1 10^3/cmm (0.0 -1.2) 03/24/21 04:19 Absolute Lymphocyt es 1.1 10^3/cmm (1.2 -3.4) L 03/24/21 04:19 Lymphocytes (Manua l) 9 % 03/24/21 04:19 Monocytes (Manual) 3.0 % 03/24/21 04:19 Absolute Monocytes 0.3 10^3/cmm (0.1 -0.6) 03/24/21 04:19 Eosinophils (Manua l) 0 % 03/24/21 04:19 Absolute Eosinophi ls 0.0 10^3/cmm (0.0 -0.7) 03/24/21 04:19 Basophils (Manual) 0.0 % 03/24/21 04:19 Absolute Basophils 0.0 10^3/cmm (0.0 -0.2) 03/24/21 04:19 Metamyelocytes 1.0 % 03/24/21 04:19 Myelocytes 2.0 % 03/24/21 04:19 Nucleated RBCs # 0.0 /100WBC 04/01/21 04:52 Platelet Estimate Normal (Normal) 03/24/21 04:19 ESR 21 mm/hr (0-15) H 04/01/21 04:52 PT 13.90 SECONDS (12 .1-14.9) 03/19/21 17:32 INR 1.04 (0.8-1.2) 03/19/21 17:32 APTT 34.0 SECONDS (23. 9-36.7) 03/19/21 17:32 D-Dimer 3.74 ug/mIFEU (0- 0.59) H 03/25/21 04:50 Specimen Type Arterial 03/19/21 17:18 Sample Site Radial, right 03/19/21 17:18 ABG pH 7.37 (7.35-7.45) 03/19/21 17:18 ABG pCO2 33.7 mmHg (35-45) L 03/19/21 17:18 ABG pO2 49.2 mmHg (80.0-1 00.0) L 03/19/21 17:18 ABG HCO3 19.2 mmol/L (22-2 6) L 03/19/21 17:18 ABG O2 Saturation 86.8 03/19/21 17:18 ABG Base Excess -5.2 mmol/L (-2.0 -2.0) L 03/19/21 17:18 Andrés Test Pos 03/19/21 17:18 A-a O2 Gradient 28.8 mmHg (5-10) H 03/19/21 17:18 Hematocrit 43.0 % (37-47) 03/19/21 17:18 Hgb O2 Saturation 85.4 % (95-100) L 03/19/21 17:18 Carboxyhemoglobin 1.2 %THgb (0.4-20 .1) 03/19/21 17:18 Methemoglobin 0.4 % (0.4-1.5) 03/19/21 17:18 Total Hemoglobin 14.0 g/dL (12-16) 03/19/21 17:18 Sodium 141.0 mmol/L (131 -143) 03/19/21 17:18 Potassium 3.5 mmol/L (3.5-5 .0) 03/19/21 17:18 Glucose 209.0 mg/dL (70-1 15) H 03/19/21 17:18 Ionized Calcium 1.2 mmol/L (1.1-1 .4) 03/19/21 17:18 O2 Delivery Device Nc 03/19/21 17:18 O2 Liters/Min 6.0 % 03/19/21 17:18 FiO2 44.0 % 03/19/21 17:18 Dag Sprayer ID Amh 03/19/21 17:18 Sodium 137 mmol/L (136-1 45) 04/01/21 04:52 Potassium 4.5 mmol/L (3.5-5 .1) 04/01/21 04:52 Chloride 100 mmol/L (98-10 7) 04/01/21 04:52 Carbon Dioxide 27 mmol/L (22-29) 04/01/21 04:52 Anion Gap 14.5 (5-19) 04/01/21 04:52 BUN 40 mg/dL (8-23) H 04/01/21 04:52 Creatinine 0.8 mg/dL (0.5-0. 9) 04/01/21 04:52 GFR Calculation Not Reportable 04/01/21 04:52 Glucose 222 mg/dL (65-115 ) H 04/01/21 04:52 POC Glucose 167 mg/dL (70-110 ) H 04/03/21 10:19 Estimat Average Gl ucose 143 04/01/21 04:52 Hemoglobin A1c 6.6 % (4.0-6.0) H 04/01/21 04:52 Calculated Osmolal ity 301 mOsm/kg (285- 295) H 04/01/21 04:52 Calcium 8.7 mg/dL (8.5-10 .5) 04/01/21 04:52 Ferritin 985 ng/mL (15-150 ) H 03/25/21 04:50 Total Bilirubin 0.6 mg/dL (0.15-1 .2) 04/01/21 04:52 AST 19 U/L (0-32) 04/01/21 04:52 ALT 34 U/L (0-33) H 04/01/21 04:52 Alkaline Phosphata se 68 IU/L (35-105) 04/01/21 04:52 Troponin T Gen 5 n g/L 11 ng/L (0-10) H 03/19/21 Unknown C-Reactive Protein 0.7 mg/L (0.0-4.9 ) 04/01/21 04:52 NT-Pro-B Natriuret Pep 296 pg/mL (0-125) H 03/19/21 17:04 Total Protein 5.8 g/dL (6.6-8.7 ) L 04/01/21 04:52 Albumin 3.2 g/dL (3.5-5.2 ) L 04/01/21 04:52 Globulin 2.6 g/dL (1.3-4.6 ) 04/01/21 04:52 Procalcitonin 0.25 ng/mL (0-0.5 ) 03/22/21 06:50 SARS-CoV-2 Ag (Rap id) Negative (Negati ve) 04/03/21 10:10 Impressions Chest X-Ray 03/28/21 06:00 IMPRESSION: 1. Interstitial prominence and bilateral airspace disease. 2. Questionable small left pleural effusion. Echocardiogram: CONCLUSIONS Limited quality echocardiogram because of poor ultrasonic windows Grossly LV systolic function is mildly reduced Valvular structures are not well visualized but no significant abnormalities noted Because of poor visualization, comparison with prior echocardiogram is not possible. Vitals: Last Vital Signs Temp 97.3 F L 04/03/21 11:44 Pulse 95 04/03/21 11:44 Resp 16 04/03/21 11:44 BP 123/71 04/03/21 11:44 Pulse Ox 92 04/03/21 11:44 Discharge Plan Discharge Patient Disposition: Xfer SNF Condition: Stable Prescriptions: New Advair Diskus 250-50 mcg/dose Blister With Device 1 puff inhalation BID.RESPIRATORY 14 Days Qty: 28 RF: 0 furosemide 20 mg Tablet 20 mg PO DAILY@0800 30 Days Qty: 30 RF: 0 Spiriva with HandiHaler 18 mcg Capsule, W/Inhalation Device 18 mcg inhalation DAILY.RESPIRATORY 14 Days Qty: 14 RF: 0 zinc gluconate 50 mg Tablet 50 mg PO DAILY 30 Days Qty: 30 RF: 0 dexamethasone 4 mg tablet 2 mg PO DAILY Qty: 3 RF: 0 potassium chloride 10 mEq capsule, extended release 10 meq PO DAILY Qty: 30 RF: 0 Continued ascorbate calcium (vitamin C) 500 mg tablet 1,000 mg PO BID RF: 0 acetaminophen [Tylenol] 325 mg capsule 325 mg PO QID PRN (Reason: Pain) RF: 0 methenamine hippurate 1 gram tablet 1 gm PO BID Qty: 60 RF: 12 Hold Instructions: Resume on 02/15/21. Discharge Orders: Discharge Order (Routine); Ordered 04/03/21 Ordered By: Ed Lang Referrals: Karl Paige DO [Primary Care Provider] - 1 week Discharge Diet: Regular Discharge Activity: Resume usual activity and Increase activity as tolerated Patient Instructions: Opioid Safety Activity Restrictions/Additional Instructions: Please follow-up with your primary care provider within next 1 week. Please repeat BMP next 1 week. Discharge Attestations Time Spent in Discharge Care*: greater than 30 min Specific Discharge Activities: educating patient, discussing with pcp/other providers, discussing with case consultant/social workers/dc planners, documenting/other paperwork and evaluating patient/reviewing data Status at Discharge: Cognitive status at discharge: cognitively intact , Behavioral status at discharge: cooperative , Functional status at discharge: other assisted ambulation Overall status at discharge: patient is back to baseline Quality Metrics Clinical Quality Measures During this hospital stay, did patient experience: None Coding Level of Care Code Acute Chg FW DC note Diagnoses Pneumonia due to severe acute respiratory syndrome coronavirus 2 (SARS-CoV-2) U07.1; J12.82 Hypoxia R09.02 Left ureteral calculus N20.1 Physical deconditioning R53.81
[2021-04-03 13:38] LABS: Basophils % 0.3 %; Eosinophils # 0.1 10^3/uL (0.0-0.8); Eosinophils % 0.6 %; Hematocrit 41.7 % (37.0-47.0); Hemoglobin 13.2 g/dL (11.5-15.3); Lymphocytes % 10.2 %; Mean Corpuscular HGB Conc 31.7 g/dL (30.0-36.0); Mean Corpuscular Hemoglobin 29.6 pg (28.0-34.0); Mean Corpuscular Volume 93.5 fL (81-99); Mean Platelet Volume 12.5 fL (7.4-10.4); Monocytes # 0.5 10^3/uL (0.2-0.9); Monocytes % 4.7 %; Neutrophils # 8.05 10^3/uL (1.8-7.7); Neutrophils % 81.5 %; Nucleated Red Blood Cells % 0 %; Platelet Count 214 10^3/cmm (130-400); Red Blood Count 4.46 10^6/uL (4.1-5.3); Red Cell Distribution Width 13.8 % (12.1-15.1); White Blood Count 9.9 10^3/uL (4.0-10.0)
[2021-04-03 14:08] LABS: Alanine Aminotransferase 63 U/L (0-33); Albumin Level 3.4 g/dL (3.5-5.2); Alkaline Phosphatase 71 IU/L (35-105); Aspartate Amino Transferase 36 U/L (0-32); Blood Urea Nitrogen 37 mg/dL (8-23); Calcium 8.8 mg/dL (8.5-10.5); Carbon Dioxide 29 mmol/L (22-29); Chloride 97 mmol/L (98-107); Globulin 2.6 g/dL (1.3-4.6); Glucose 194 mg/dL (65-115); Osmolality Calculated 296 mOsm/kg (285-295); Sodium 136 mmol/L (136-145); Total Bilirubin 0.6 mg/dL (0.15-1.2)
== END 2021-04-03 15:44 | disposition home or self-care (01) | DRG 177 ==
LOC: ER 18:11 → CSU 20:02 → ICU 03-21 13:53 → CSU 03-27 10:29 → MEDSURG 03-29 22:02
PROVIDERS: Internal Medicine; Admitting Provider Internal Medicine; Emergency Provider Emergency Medicine; PCP Internal Medicine; Visit Provider Student in an Organized Health Care Education/Training Program
DX: U07.1 COVID-19 (principal); J12.82 Pneumonia due to coronavirus disease 2019; J96.01 Acute respiratory failure with hypoxia; N20.2 Calculus of kidney with calculus of ureter; Z87.442 Personal history of urinary calculi
CPT/HCPCS: 36415; 36416; 36600; 51702; 71045; 80051; 80053; 82330; 82728; 82805; 82962; 83036; 83880; 84145; 84484; 85007; 85025; 85378; 85610; 85651; 85730; 86140; 87426; 93306; 94640; 96365; 96372; 96375; 97110; 97116; 97162; 97166; 97530; 97535; 99285; J0696; J1100; J1650; J1815; J1940; J2270; J3262; J3535

== ENCOUNTER 2021-06-04 09:48 | Outpatient (CLI) | payer MEDICARE, SELFPAY ==
--- NOTE | 2021-06-04 13:30 | XR_ITS ---
WS: [id number] Exam: XR KUB [id number] Date/Time of Exam: 06/04/2021 1:30 PM Reason For Exam: stones Comparison 02/26/2021. A left-sided pigtail ureteral stent catheter is in place appearing to be in satisfactory location. A prominent staghorn shaped stone is seen in the region of the left kidney. No bowel obstruction or stan e air. No sign of organ enlargement. Surgical clips in the right and left pelvis. XR/XR KUB [id number] IMPRESSION: 1. Staghorn left-sided renal stone noted. Left-sided ureteral catheter appears to be in appropriate location. 2. No acute abdominal process.
== END 2021-06-04 09:49 | disposition home or self-care (01) ==
LOC: RAD 09:52
PROVIDERS: PCP Physician Assistant; Visit Provider Urology
DX: N20.0 Calculus of kidney (principal); N30.80 Other cystitis without hematuria
CPT/HCPCS: 74018; 81003; 87077; 87086; 87184

== ENCOUNTER 2021-06-29 07:32 | Outpatient (CLI) | payer MEDICARE, SELFPAY ==
[2021-06-29 07:41] VITALS: BMI 39.8
--- NOTE | 2021-06-29 07:54 | ECG_ITS ---
[facility] Test Date: 2021-06-29 Pat Name: Melissa Courtney Department: Room: Gender: Female Railroad Hand: : 1945 Requested By: Kathia Bernal Order Number: [id number] Temo MD: SUKH SIMON Interpretive Statements NAME OF STUDY: LEXISCAN SESTAMIBI STRESS TEST INDICATION: Chest Pain NOTE: Please note that this is the electrocardiogram portion of the Lexiscan/Sestamibi stress test. The perfusion scan will be documented separately. DATA: Baseline heart rate was 102 beats per minute. Baseline blood pressure was 137/89 millimeters of mercury. Target heart rate was 146. Maximum heart rate achieved was 120. which was 82 % of the predicted target heart rate. Maximum blood pressure was 157/91 millimeters of mercury. The reason for ending the test was completion of the protocol. The patient did not experience any symptoms. ELECTROCARDIOGRAM: BASELINE: Sinus tachycardia. Left axis. Left bundle branch block EXERCISE: After Lexiscan injection, no ST-T changes suggestive of ischemic noted. No arrhythmia noted. CONCLUSION: Please note due to baseline abnormality of the EKG specificity and sensitivity of the EKG portion of LexiScan MIBI stress test will be low 1. EKG not suggestive of ischemia 2. Lexiscan injection unremarkable. 3. Perfusion scan will be documented separately. Electronically Signed On 07-01-2021 21:24:43 CDT by SUKH SIMON [id number]
--- NOTE | 2021-06-29 07:55 | NMCV_ITS ---
NM nicky perf SPECT r/s* [id number] Melissa Courtney Age: 76 Gender: F : 1945 Exam Date: 06/29/2021 08:58 Ordering Phys: Kathia Nugent Technologist: GERARD Santo Exam Location: [facility] Indications: LBBB STRESS TEST [facility] IMAGE PROTOCOL Rest/Stress 1 Lexiscan Day Radiopharmaceutical Dose (mCi) Administration Site Administered by Rest: Tc-99m 10.8 IV GERARD Santo Sestamibi Stress:Tc-99m 32.9 IV GERARD Ozuna Sestamibi Rest: 29-Jun-2021 60 Discovery 630 Stress: 29-Jun-2021 30 Discovery 630 0.4mg Lexiscan. Supine position only as patient was unable to lay prone. SPECT RESULTS Technical Quality: Excellent Raw Data Analysis: Breast attenuation Image Corrections: No attenuation or motion correction applied Summed Stress Score: 7 Summed Rest Score: 8 Summed Difference Score: 2 PERFUSION FINDINGS Medium-sized area of severe reversibility noted in mid to distal anterior wall suggestive of ischemia in mid LAD territory. Small area of fixed perfusion defect noted in apex of the left ventricle suggestive of old myocardial infarction versus scarring in distal LAD territiry. FUNCTIONAL RESULTS (calculated via Gated SPECT) Stress Image LV EF (%): 69 Stress EDV (mL):100 TID: 1.15 Stress ESV (mL):31 FUNCTIONAL FINDINGS: Mid to distal anterior and anteroseptal wall hypokinesis IMPRESSIONS Medium-sized area of severe reversibility noted in mid to distal anterior and lucas septal wall suggestive of ischemia in mid LAD territory. Small area of fixed perfusion defect noted in apex of the left ventricle suggestive of old myocardial infarction versus scarring in distal LAD territiry.TID ratio is elevated 1.15 which could be secondary to multivessel coronary artery disease or subendocardial ischemia. EKG segment will be documented separately. This study is positive for ischemia. Bronwyn Rivas MD (Electronically Signed) Final Date: 29 June 2021 19:31 S
[2021-06-29] MEDS: regadenoson 0.4 Mg/5 ml Syringe IVP (10:10)
[2021-06-29 10:14] VITALS: BP 131/81; PULSE 111
== END 2021-06-29 07:33 | disposition home or self-care (01) ==
LOC: CDL 07:35
PROVIDERS: PCP Physician Assistant; Visit Provider Physician Assistant
DX: R07.9 Chest pain, unspecified (principal); I44.7 Left bundle-branch block, unspecified
CPT/HCPCS: 78452; 93017; A9500; J2785

== ENCOUNTER → 2021-07-05 16:19 | Outpatient (BNVA) | payer MEDICARE, SELFPAY | PROVIDERS: PCP Physician Assistant; Visit Provider Internal Medicine Cardiovascular Disease | DX: R94.39 Abnormal result of other cardiovascular function study (principal); I50.33 Acute on chronic diastolic (congestive) heart failure; R06.02 Shortness of breath; R06.00 Dyspnea, unspecified; I25.5 Ischemic cardiomyopathy; I44.7 Left bundle-branch block, unspecified | CPT/HCPCS: 80048; 83880 ==

== ENCOUNTER 2021-07-15 10:08 | Inpatient (IN) | payer MEDICARE, SELFPAY ==
[2021-07-15 10:17] VITALS: BP 140/89; PULSE 121; RESP 28; TEMP 37.3; O2SAT 95; BMI 40.7
--- NOTE | 2021-07-15 10:38 | ECG_ITS ---
[facility] Test Date: 2021-07-15 Pat Name: Melissa Courtney Department: Room: Gender: Female Director Of Customer Acquisition: : 1945 Requested By: Heike Garay Order Number: [id number] Temo MD: Mara Murphy M.D. Measurements Intervals [place] Rate: 107 P: CT: QRS: -22 QRSD: 160 T: 91 QT: 386 QTc: 517 Interpretive Statements ATRIAL FLUTTER/TACHYCARDIA WITH RAPID VENTRICULAR RESPONSE LEFT BUNDLE BRANCH BLOCK [120+ ms QRS DURATION, 80+ ms Q/S IN V1/V2, 85+ ms R IN I/aVL/V5/V6] Compared to ECG 02/11/2021 13:16:02 Sinus rhythm no longer present Electronically Signed On 07-15-2021 22:55:00 SAMPLES AND REPAIRS PREPARER by Mara Murphy M.D. [id number]
--- NOTE | 2021-07-15 10:40 | W.ED.ABDPA2 ---
Documented by User: JIN Dow 07/15/21 13:03 HPI - Abdominal Pain General: Chief Complaint: Urogenital-Female Stated Complaint: Lower Back Pain, Kidney Stone Time Seen by Provider: 07/15/21 10:14 Source: patient and family Mode of arrival: wheelchair Limitations: no limitations History of Present Illness: HPI narrative: Patient is a 76-year-old female with a urologic history including cystitis cystica, obstructive pyelonephritis requiring emergency stenting and later ureteroscopic stone extraction after laser fragmentation, on chronic methenamine hippurate for UTI suppression, known left staghorn calculus and left ureter stent with plan for removal by Dr. Meyer with [facility] who is here in ED for complaints of dysuria, flank pains, and urinary frequency and concern for infection. No fevers. Reports previous COVID infection in March and has required oxygen therapy since that time. MD elicited complaint: abdominal pain and flank pain Associated Symptoms: Reports dysuria and hematuria; Denies change in bowel habits, change in stool character, chills, diarrhea, fever(s), nausea, syncope and vomiting Review of Systems Const: Denies: fever(s), chills or body aches Eyes: Denies: change in vision Card: Reports: dyspnea on exertion; Denies: chest pain, palpitations, irregular heart rhythm, edema, swelling of feet/ankles, lightheadedness, syncope or pre-syncope Resp: Reports: dyspnea (chronic following her COVID infection); Denies: productive cough, non-productive cough or chest congestion GI: Reports: abdominal pain; Denies: nausea, vomiting, diarrhea, change in bowel habits or change in stool character : Reports: flank pain, dysuria, urinary frequency and hematuria Musc: Denies: neck pain, extremity pain, joint pain or joint swelling Skin/Breast: Denies: rash Neuro: Denies: headache(s) PFSH ED PFSH: Medical History COVID-19 pati jinaguler manifesting chronic dyspnea Cystitis cystica Hypoxia Left ureteral calculus Obstructive pyelonephritis Peripheral edema Staghorn calculus Surgical History S/P appendectomy S/P bilateral oophorectomy S/P cholecystectomy S/P hysterectomy Status post laser lithotripsy of ureteral calculus Family History Mother , 73 Hypertension Father , 75 CAD (coronary artery disease) IA Family/Other Cancer Diabetes Thyroid disease Sister Cancer Denies family history of Clotting disorder Dementia Chronic kidney disease (CKD) Suicide Anesthesia complication Bleeding disorder Lung disease Stroke Social History Smoking and tobacco status: never smoked Alcohol intake: never Substance/Drug Use: never Marital status: / Current occupational status: retired History of recent travel: No Physical Exam Const: COMMON NORMALS: no acute distress, patient oriented x3, no limitations and alert NUTRITIONAL APPEARANCE: obese morbidly obese ORIENTATION/CONSCIOUSNESS: Yes awake, Yes oriented to person, Yes oriented to place and Yes oriented to time HENMT: COMMON NORMALS: normocephalic and atraumatic HEAD & SCALP: normocephalic and atraumatic Resp: COMMON NORMALS: normal respiratory effort and clear to auscultation bilaterally AUSCULTATION: clear to auscultation bilaterally OTHER: requiring 2L O2 which she states she has had to have chronically since March when she had COVID Cardio: COMMON NORMALS: regular rhythm RATE: tachycardic RHYTHM: regular rhythm GI: COMMON NORMALS: Soft to palpation INSPECTION: Yes normal to inspection PALPATION: Yes Soft to palpation and Yes Tenderness to palpation present (GI) (throughout lower) OTHER: hard to fully assess given pts morbid obesity : BLADDER/KIDNEY EXAM: Yes CVA tenderness on the right Back/Pelvis: GENERAL BACK: Yes CVA tenderness Extremity: GENERAL: Yes edema (non-pitting) Neuro: COMMON NORMALS: patient oriented x3 SENSORIUM/ORIENTATION: Yes alert, Yes oriented to person, Yes oriented to place and Yes oriented to time Skin: COMMON NORMALS: no rashes or lesions noted GENERAL SKIN EXAM: no rashes or lesions noted Course Consultations: Consultation #1: Dr. Meyer (spoke to KELLY Casarez who relayed message to Dr. Meyer in [place])-recommends admission to hospitalist and he will consult Consultation #2: Dr. Wing-accepts admission Vital Signs: Vital signs: Vital Signs Temperature 98.1 F 07/19/21 08:00 Pulse Rate 80 07/19/21 08:00 Respiratory Rate 17 07/19/21 08:00 Blood Pressure 122/72 07/19/21 08:00 Pulse Oximetry 95 07/19/21 08:00 MDM - Abdominal Pain MDM Narrative: Medical decision making narrative: Patient is a 76-year-old female here for concerns of dysuria, urinary frequency, hematuria, and flank pain. She is mildly tachycardic upon arrival. No fevers. She has a white count of 20.6. Urine is grossly infected. Normal lactate. 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 She also has a new 6 mm distal right ureter stone. Patient was started on Primaxin and Vancomycin. Plan to admit to Dr. Wing with Dr. Meyer to consult. Spoke to Dr. Garcaí regarding patient who agrees with ED assessment and plan. He will place admit orders. Lab Data: Labs: Lab Results 07/15/21 07/15/21 07/15/21 10:34 11:00 11:00 WBC 20.6 10^3/uL H 10 ^3/uL (4.0-10.0) RBC 4.11 10^6/uL 10^6 /uL (4.1-5.3) Hgb 12.3 g/dL g/dL (11.5-15.3) Hct 40.0 % % (37.0-47.0) MCV 97.3 fl fl (81-99) MCH 29.9 pg pg (28.0-34.0) MCHC 30.8 g/dL g/dL (30.0-36.0) RDW 14.3 % % (12.1-15.1) Plt Count 280 10^3/cmm 10^3 /cmm (130-400) MPV 10.0 fL fL (7.4-10.4) Neut % (Auto) 92.6 % % Lymph % (Auto) 2.2 % % Marathon % (Auto) 4.3 % % Eos % (Auto) 0.0 % % Baso % (Auto) 0.4 % % Neut # (Auto) 19.08 10^3/uL H 1 0^3/uL (1.8-7.7) Lymph # (Auto) 0.5 10^3/uL L 10^ 3/uL (0.8-4.8) Marathon # (Auto) 0.9 10^3/uL 10^3/ uL (0.2-0.9) Eos # (Auto) 0.0 10^3/uL 10^3/ uL (0.0-0.8) Baso # (Auto) 0.1 10^3/uL 10^3/ uL (0.0-0.1) Nucleated RBC % (a uto) 0 % % Nucleated RBCs # 0.0 /100WBC /100W BC Sodium 132 mmol/L L mmol /L (136-145) Potassium 3.8 mmol/L mmol/L (3.5-5.1) Chloride 95 mmol/L L mmol/ L (98-107) Carbon Dioxide 23 mmol/L mmol/L (22-29) Anion Gap 17.8 (5-19) BUN 21 mg/dL mg/dL (8-23) Creatinine 1.0 mg/dL H mg/dL (0.5-0.9) GFR Calculation Not Reportable Glucose 169 mg/dL H mg/dL (65-115) Calculated Osmolal ity 281 mOsm/kg L mOs m/kg (285-295) Lactic Acid Calcium 9.3 mg/dL mg/dL (8.5-10.5) Total Bilirubin 0.4 mg/dL mg/dL (0.15-1.2) AST 14 U/L U/L (0-32) ALT 6 U/L U/L (0-33) Alkaline Phosphata se 102 IU/L IU/L (35-105) Total Protein 7.6 g/dL g/dL (6.6-8.7) Albumin 3.5 g/dL g/dL (3.5-5.2) Globulin 4.1 g/dL g/dL (1.3-4.6) TSH Urine Color Red (Yellow) Urine Appearance Cloudy (CLEAR) Urine pH 8 H (5-7) Ur Specific Gravit y 1.010 (1.005-1.030) Urine Protein 3+ H (Negative) Urine Glucose (UA) Norm (Normal) Urine Ketones 1+ H (Negative) Urine Blood 3+ H (Negative) Urine Nitrate Positive H (Negative) Urine Bilirubin Neg (Negative) Prot Sulfosalicyli c Acd Negative (Negative) Urine Urobilinogen Norm mg/dL mg/dL (Negative) Ur Leukocyte Hansa ase 2+ H (Negative) Urine RBC 15-25 /hpf H /hpf (0-2) Urine WBC Too numerous to c nt /hpf H /hpf (0-5) Ur Squamous Epith Cells 5-10 /hpf H /hpf (0-5) Amorphous Sediment Not Reportable Urine Bacteria 2+ /hpf H /hpf (NONE) 07/15/21 07/15/21 11:00 11:00 WBC RBC Hgb Hct MCV MCH MCHC RDW Plt Count MPV Neut % (Auto) Lymph % (Auto) Marathon % (Auto) Eos % (Auto) Baso % (Auto) Neut # (Auto) Lymph # (Auto) Marathon # (Auto) Eos # (Auto) Baso # (Auto) Nucleated RBC % (a uto) Nucleated RBCs # Sodium Potassium Chloride Carbon Dioxide Anion Gap BUN Creatinine GFR Calculation Glucose Calculated Osmolal ity Lactic Acid 1.4 mmol/L mmol/L (0.5-2.2) Calcium Total Bilirubin AST ALT Alkaline Phosphata se Total Protein Albumin Globulin TSH 1.57 uIU/mL uIU/m L (0.27-4.20) Urine Color Urine Appearance Urine pH Ur Specific Gravit y Urine Protein Urine Glucose (UA) Urine Ketones Urine Blood Urine Nitrate Urine Bilirubin Prot Sulfosalicyli c Acd Urine Urobilinogen Ur Leukocyte Hansa ase Urine RBC Urine WBC Ur Squamous Epith Cells Amorphous Sediment Urine Bacteria Imaging Data ^: CXR: Radiologist's impression: [address] [id number] ReportSigned Patient: Melissa Courtney #: [id number]: [id number]#:[id number]/Sex: 76 / FADM Date: 07/15/21Loc: ERRoom/Bed:Attending Dr: Ordering Provider/Ordering MD: Heike Garay Date of Service: 07/15/21 Procedure(s): XR chest 1V portable [id number] Accession Number(s): [id number] Report Number: [id number] WS: [id number] Portable AP upright chest, 07/15/2021 Clinical Data: tachycardia, previous COVID infection Comparison: PA and lateral chest, 06/09/2021. Findings: No nodules, masses or effusions are seen. The heart is normal. The pulmonary vascularity is not increased. No pneumothorax is seen. There is still bilateral patchy opacity which is minimal throughout both lungs. The aortic arch and descending thoracic aorta show tortuosity. There are monitor leads on the chest wall. XR/XR chest 1V portable [id number] Impression: 1. Minimal residual bilateral pulmonary opacity. 2. Atherosclerosis. Dictated By:Rina Fermin MDSigned By:Rina Fermin MDSigned Date/Time:07/15/21 1110DD/ 1109 CT Abd/Pel: Radiologist's impression: [facility] [address] [facility] [place] [address] CT Scan Report Signed Patient: Melissa Courtney Unit #: [id number] : [id number] Age/Sex: 76 / F ADM Date: 07/15/21 Loc: ER Room/Bed: Attending Dr: Ordering Provider/Ordering MD: Heike Garay Date of Service: 07/15/21 Procedure(s): CT abdomen pelvis w con* [id number] Accession Number(s): [id number] Report Number: [id number] WS: [id number] CT ABDOMEN AND PELVIS WITH CONTRAST HISTORY: abdominal pain, flank pain, UTI/pyelo/sepsis TECHNIQUE: Imaging performed of the abdomen and pelvis with IV contrast. Single phase imaging of the abdomen. Coronal and sagittal reformats are submitted. All CT scans at [facility] use at least one of these dose optimization techniques: automated exposure control; mA and/or kV adjustment per patient size (includes targeted exams where dose is matched to clinical indication); or iterative reconstruction. IV CONTRAST: Omnipaque 300; 95 mL IV. Oral contrast: No DLP: 3644.87 mGy.cm COMPARISON: 01/26/2021 The initial imaging through the abdomen was performed with minimal IV contrast as the IV insertion site was in adequate for the injection. This noncontrast examination will also be read. No additional charge. Lower thorax: Bibasilar linear opacifications. Heart is normal size. Small hiatal hernia. Liver/biliary system: Normal size with no intrahepatic dilatation. Gallbladder: Prior cholecystectomy. No bile duct dilatation. Pancreas: Normal size pancreas and pancreatic duct. No adjacent inflammation. Spleen: Normal size spleen. No mass or infarct. Adrenal glands: Normal. Right kidney: Normal size kidney. Nonobstructing calcification measuring 14 x 8 mm in the upper pole. There is a smaller calcification in the lower pole. Mild to moderate hydronephrosis and hydroureter. Ureter is mildly tortuous and dilated secondary to a 6 mm calcification in the distal ureter the remaining ureter is normal caliber. Left kidney: Mildly enlarged kidney. Perinephric stranding has slightly increased. There is a large staghorn calculus in the central kidney measuring 16 x 28 mm. There are additional smaller calcifications in the lower pole dilated calyces. Patient has a double pigtail LEFT ureteral stent. Proximal pigtail is in the proximal ureter at the UP junction. The ureter is not dilated. The distal pigtail is coiled in the pelvis. There is marked hydronephrosis. Dilatation of all the calyces of the kidney with thinning of the cortex. These findings are new since the prior examination. Aorta: Mild atherosclerosis with no aneurysm. Lymphadenopathy: None. Free fluid: None. GI tract: Marked fecal retention and distal colon. No obstruction. Abdominal wall: Unremarkable abdominal wall. No hernia. Pelvis: Minimally distended urinary bladder. Pigtails were LEFT ureteral stent is noted. Bones: Degenerative changes throughout the lumbar spine. CT/CT abdomen pelvis w con* [id number] IMPRESSION: 1. New LEFT renal cortical thinning with renal enlargement, marked calyceal distention and perinephric stranding. With the central staghorn calculus being present. 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 2. LEFT double pigtail ureteral stent remains in good position with the proximal pigtail being at the UP junction. 3. New 6 mm calcification in the distal RIGHT ureter causing a mild RIGHT hydroureteronephrosis. 4. Bilateral renal calcifications as described above. 5. Prior cholecystectomy. 6. Moderate constipation. Dictated By: Ashley Weathers DO Signed By: Ashley Weathers DO Signed Date/Time: 07/15/21 1204 DD/ 1149 Discharge Plan Discharge Patient Disposition: Admitted As Inpatient Admit Provider: [facility] Clinical Impression: Xanthogranulomatous pyelonephritis, COVID-19 pati crowley manifesting chronic dyspnea Condition: Stable Coding Level of Care Code ED Information Assurance Manager for Chg Fwd Exam Comprehensive Documented by User: Sean García MD 07/19/21 10:13 HPI - Abdominal Pain General: Chief Complaint: Urogenital-Female Stated Complaint: Lower Back Pain, Kidney Stone Time Seen by Provider: 07/15/21 10:14 PFSH ED PFSH: Medical History COVID-19 pati crowley manifesting chronic dyspnea Cystitis cystica Hypoxia Left ureteral calculus Obstructive pyelonephritis Peripheral edema Staghorn calculus Surgical History S/P appendectomy S/P bilateral oophorectomy S/P cholecystectomy S/P hysterectomy Status post laser lithotripsy of ureteral calculus Family History Mother , 73 Hypertension Father , 75 CAD (coronary artery disease) [place] Family/Other Cancer Diabetes Thyroid disease Sister Cancer Denies family history of Clotting disorder Dementia Chronic kidney disease (CKD) Suicide Anesthesia complication Bleeding disorder Lung disease Stroke Social History Smoking and tobacco status: never smoked Alcohol intake: never Substance/Drug Use: never Marital status: / Current occupational status: retired History of recent travel: No Course Vital Signs: Vital signs: Vital Signs Temperature 98.1 F 07/19/21 08:00 Pulse Rate 80 07/19/21 08:00 Respiratory Rate 17 07/19/21 08:00 Blood Pressure 122/72 07/19/21 08:00 Pulse Oximetry 95 07/19/21 08:00 MDM - Abdominal Pain MDM Narrative: Medical decision making narrative: I discussed this case with JIN Dow. I reviewed documentation, labs, imaging. Sean García MD Emergency Medicine Lab Data: Labs: Lab Results 07/15/21 07/15/21 07/15/21 10:34 11:00 11:00 WBC 20.6 10^3/uL H 10 ^3/uL (4.0-10.0) RBC 4.11 10^6/uL 10^6 /uL (4.1-5.3) Hgb 12.3 g/dL g/dL (11.5-15.3) Hct 40.0 % % (37.0-47.0) MCV 97.3 fl fl (81-99) MCH 29.9 pg pg (28.0-34.0) MCHC 30.8 g/dL g/dL (30.0-36.0) RDW 14.3 % % (12.1-15.1) Plt Count 280 10^3/cmm 10^3 /cmm (130-400) MPV 10.0 fL fL (7.4-10.4) Neut % (Auto) 92.6 % % Lymph % (Auto) 2.2 % % Marathon % (Auto) 4.3 % % Eos % (Auto) 0.0 % % Baso % (Auto) 0.4 % % Neut # (Auto) 19.08 10^3/uL H 1 0^3/uL (1.8-7.7) Lymph # (Auto) 0.5 10^3/uL L 10^ 3/uL (0.8-4.8) Marathon # (Auto) 0.9 10^3/uL 10^3/ uL (0.2-0.9) Eos # (Auto) 0.0 10^3/uL 10^3/ uL (0.0-0.8) Baso # (Auto) 0.1 10^3/uL 10^3/ uL (0.0-0.1) Nucleated RBC % (a uto) 0 % % Nucleated RBCs # 0.0 /100WBC /100W BC Sodium 132 mmol/L L mmol /L (136-145) Potassium 3.8 mmol/L mmol/L (3.5-5.1) Chloride 95 mmol/L L mmol/ L (98-107) Carbon Dioxide 23 mmol/L mmol/L (22-29) Anion Gap 17.8 (5-19) BUN 21 mg/dL mg/dL (8-23) Creatinine 1.0 mg/dL H mg/dL (0.5-0.9) GFR Calculation Not Reportable Glucose 169 mg/dL H mg/dL (65-115) Calculated Osmolal ity 281 mOsm/kg L mOs m/kg (285-295) Lactic Acid Calcium 9.3 mg/dL mg/dL (8.5-10.5) Total Bilirubin 0.4 mg/dL mg/dL (0.15-1.2) AST 14 U/L U/L (0-32) ALT 6 U/L U/L (0-33) Alkaline Phosphata se 102 IU/L IU/L (35-105) Total Protein 7.6 g/dL g/dL (6.6-8.7) Albumin 3.5 g/dL g/dL (3.5-5.2) Globulin 4.1 g/dL g/dL (1.3-4.6) TSH Urine Color Red (Yellow) Urine Appearance Cloudy (CLEAR) Urine pH 8 H (5-7) Ur Specific Gravit y 1.010 (1.005-1.030) Urine Protein 3+ H (Negative) Urine Glucose (UA) Norm (Normal) Urine Ketones 1+ H (Negative) Urine Blood 3+ H (Negative) Urine Nitrate Positive H (Negative) Urine Bilirubin Neg (Negative) Prot Sulfosalicyli c Acd Negative (Negative) Urine Urobilinogen Norm mg/dL mg/dL (Negative) Ur Leukocyte Hansa ase 2+ H (Negative) Urine RBC 15-25 /hpf H /hpf (0-2) Urine WBC Too numerous to c nt /hpf H /hpf (0-5) Ur Squamous Epith Cells 5-10 /hpf H /hpf (0-5) Amorphous Sediment Not Reportable Urine Bacteria 2+ /hpf H /hpf (NONE) 07/15/21 07/15/21 11:00 11:00 WBC RBC Hgb Hct MCV MCH MCHC RDW Plt Count MPV Neut % (Auto) Lymph % (Auto) Marathon % (Auto) Eos % (Auto) Baso % (Auto) Neut # (Auto) Lymph # (Auto) Marathon # (Auto) Eos # (Auto) Baso # (Auto) Nucleated RBC % (a uto) Nucleated RBCs # Sodium Potassium Chloride Carbon Dioxide Anion Gap BUN Creatinine GFR Calculation Glucose Calculated Osmolal ity Lactic Acid 1.4 mmol/L mmol/L (0.5-2.2) Calcium Total Bilirubin AST ALT Alkaline Phosphata se Total Protein Albumin Globulin TSH 1.57 uIU/mL uIU/m L (0.27-4.20) Urine Color Urine Appearance Urine pH Ur Specific Gravit y Urine Protein Urine Glucose (UA) Urine Ketones Urine Blood Urine Nitrate Urine Bilirubin Prot Sulfosalicyli c Acd Urine Urobilinogen Ur Leukocyte Hansa ase Urine RBC Urine WBC Ur Squamous Epith Cells Amorphous Sediment Urine Bacteria Discharge Plan Discharge Patient Disposition: Admitted As Inpatient Admit Provider: [facility] Clinical Impression: Xanthogranulomatous pyelonephritis, 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 hauler manifesting chronic dyspnea Condition: Stable Coding Level of Care Code ED Information Assurance Manager for Chg Fwd Exam Comprehensive
[2021-07-15 10:51] LABS: Urine Appearance Cloudy (CLEAR); Urine Color Red (Yellow)
[2021-07-15 10:52] LABS: Bilirubin Urine Neg (Negative); Blood Urine 3+ (Negative); Glucose Urine UA Norm (Normal); Ketones Urine 1+ (Negative); Nitrate Urine Positive (Negative); Protein Urine 3+ (Negative); Sulfosalicylic Acid Urine Negative (Negative); Urobilinogen Urine Norm (Negative); pH Urine 8 (5-7)
--- NOTE | 2021-07-15 10:52 | XR_ITS ---
WS: [id number] Portable AP upright chest, 07/15/2021 Clinical Data: tachycardia, previous COVID infection Comparison: PA and lateral chest, 06/09/2021. Findings: No nodules, masses or effusions are seen. The heart is normal. The pulmonary vascularity is not increased. No pneumothorax is seen. There is still bilateral patchy opacity which is minimal thr oughout both lungs. The aortic arch and descending thoracic aorta show tortuosity. There are monitor leads on the chest wall. XR/XR chest 1V portable [id number] Impression: 1. Minimal residual bilateral pulmonary opacity. 2. Atherosclerosis.
[2021-07-15 10:53] LABS: Add Urine Culture? Yes; Add Urine Microscopic? YES; Bacteria Urine 2+ /hpf; Leukocyte Esterase Urine 2+ (Negative); RBC Urine 15-25 /hpf (0-2); WBC Urine TOO NUMEROUS TO CNT /hpf (0-5)
--- NOTE | 2021-07-15 10:58 | CT_ITS ---
WS: [id number] CT ABDOMEN AND PELVIS WITH CONTRAST HISTORY: abdominal pain, flank pain, UTI/pyelo/sepsis TECHNIQUE: Imaging performed of the abdomen and pelvis with IV contrast. Single phase imaging of the abdomen. Coronal and sagittal reformats are submitted. All CT scans at [facility] use at [address] one of these dose optimization techniques: automated exposure control; mA and/or kV adjustment per patient size (includes targeted exams where dose is matched to clinical indication); or iterative re construction. IV CONTRAST: Omnipaque 300; 95 mL IV. Oral contrast: No DLP: 3644.87 mGy.cm COMPARISON: 01/26/2021 The initial imaging through the abdomen was performed with minimal IV contrast as the IV insertion si te was in adequate for the injection. This noncontrast examination will also be read. No additional c harge. Lower thorax: Bibasilar linear opacifications. Heart is normal size. Small hiatal hernia. Liver/biliary system: Normal size with no intrahepatic dilatation. Gallbladder: Prior cholecystectomy. No bile duct dilatation. Pancreas: Normal size pancreas and pancreatic duct. No adjacent inflammation. Spleen: Normal size spleen. No mass or infarct. Adrenal glands: Normal. Right kidney: Normal size kidney. Nonobstructing calcification measuring 14 x 8 mm in the upper pole. There is a smaller calcification in the lower pole. Mild to moderate hydronephrosis and hydroureter. Ureter is mildly tortuous and dilated secondary to a 6 mm calcification in the distal ureter the rem aining ureter is normal caliber. Left kidney: Mildly enlarged kidney. Perinephric stranding has slightly increased. There is a large s taghorn calculus in the central kidney measuring 16 x 28 mm. There are additional smaller calcificati ons in the lower pole dilated calyces. Patient has a double pigtail LEFT ureteral stent. Proximal pig tail is in the proximal ureter at the UP junction. The ureter is not dilated. The distal pigtail is c oiled in the pelvis. There is marked hydronephrosis. Dilatation of all the calyces of the kidney with thinning of the cortex. These findings are new since the prior examination. Aorta: Mild atherosclerosis with no aneurysm. Lymphadenopathy: None. Free fluid: None. GI tract: Marked fecal retention and distal colon. No obstruction. Abdominal wall: Unremarkable abdominal wall. No hernia. Pelvis: Minimally distended urinary bladder. Pigtails were LEFT ureteral stent is noted. Bones: Degenerative changes throughout the lumbar spine. CT/CT abdomen pelvis w con* [id number] IMPRESSION: 1. New LEFT renal cortical thinning with renal enlargement, marked calyceal di stention and perinephric stranding. With the central staghorn calculus being pr esent. These findings are highly suspicious for xanthogranulomatous pyelonephri tis. 2. LEFT double pigtail ureteral stent remains in good position with the proxim al pigtail being at the UP junction. 3. New 6 mm calcification in the distal RIGHT ureter causing a mild RIGHT hydr oureteronephrosis. 4. Bilateral renal calcifications as described above. 5. Prior cholecystectomy. 6. Moderate constipation.
[2021-07-15 11:08] LABS: Basophils # 0.1 10^3/uL (0.0-0.1); Basophils % 0.4 %; Hemoglobin 12.3 g/dL (11.5-15.3); Lymphocytes # 0.5 10^3/uL (0.8-4.8); Lymphocytes % 2.2 %; Mean Corpuscular HGB Conc 30.8 g/dL (30.0-36.0); Mean Corpuscular Hemoglobin 29.9 pg (28.0-34.0); Mean Corpuscular Volume 97.3 fl (81-99); Monocytes # 0.9 10^3/uL (0.2-0.9); Monocytes % 4.3 %; Neutrophils # 19.08 10^3/uL (1.8-7.7); Neutrophils % 92.6 %; Nucleated Red Blood Cells % 0 %; Platelet Count 280 10^3/cmm (130-400); Red Blood Count 4.11 10^6/uL (4.1-5.3); Red Cell Distribution Width 14.3 % (12.1-15.1); White Blood Count 20.6 10^3/uL (4.0-10.0)
[2021-07-15] MEDS: sodium chloride 0.9% 1,000 ML 999 ML IV (11:18)
[2021-07-15] MEDS: vancomycin 1,000 MG in sodium chloride 0.9% 250 ML 250 MG IV (11:19)
[2021-07-15 11:24] LABS: Lactic Sepsis W/Reflex 1.4 mmol/L (0.5-2.2)
[2021-07-15 11:25] LABS: Alanine Aminotransferase 6 U/L (0-33); Albumin Level 3.5 g/dL (3.5-5.2); Alkaline Phosphatase 102 IU/L (35-105); Anion Gap 17.8 (5-19); Aspartate Amino Transferase 14 U/L (0-32); Blood Urea Nitrogen 21 mg/dL (8-23); Calcium 9.3 mg/dL (8.5-10.5); Carbon Dioxide 23 mmol/L (22-29); Chloride 95 mmol/L (98-107); Globulin 4.1 g/dL (1.3-4.6); Glucose 169 mg/dL (65-115); Osmolality Calculated 281 mOsm/kg (285-295); Potassium 3.8 mmol/L (3.5-5.1); Sodium 132 mmol/L (136-145); Total Bilirubin 0.4 mg/dL (0.15-1.2); Total Protein 7.6 g/dL (6.6-8.7)
[2021-07-15] MEDS: iohexol 350 mg/mL 100 mL Btl IV (11:48)
[2021-07-15 12:10] VITALS: PULSE 94; RESP 20; O2SAT 95
[2021-07-15 12:37] VITALS: BP 138/74; PULSE 94; RESP 17; O2SAT 96
--- NOTE | 2021-07-15 13:28 | PC.PHAR ---
pt states she takes care of her own medications-pt states she is no longer taking dexamethasone states she hasnt taken for a while ext med history shows last filled 04/18/21 30d/s-pt states she no longer takes kcl last filled 04/18/21 30d/s
--- NOTE | 2021-07-15 13:56 | PM.HP ---
Providers/Chief Complaint Primary Care Provider: Kathia Nugent Chief Complaint: Lower Back Pain, Kidney Stone History of Present Illness Pleasant 76-year-old lady with history of recurrent urinary tract infections, cystitis cystica, on methenamine, obstructive nephritis, status post left ureteral stenting on 02/11, with left side staghorn calculus, with delays in definitive therapy and stent retrieval due to intervening COVID-19 infection, hypoxia, slow recovery, still continues on 2 L of oxygen by nasal cannula, although overall gradually improved, with arrangements being made for definitive therapy with consideration of ESWL, stent retrieval as per latest appointment 06/04 in the intervening time had followed up with cardiology as well with regards to ischemic cardiomyopathy, LV dysfunction with known EF 38% by TTE in 2018, most recently TTE during hospitalization for COVID-19, LV function reported as diminished, but poor quality study, had been scheduled for repeat echocardiography on 07/22. Additionally had a Lexiscan stress test with nuclear imaging which showed medium-sized area of severe reversibility noted in mid to distal anterior and anteroseptal wall suggestive of ischemia in mid LAD territory. Small area of fixed perfusion defect in apex of the left ventricle suggestive of old myocardial infarction versus scarring in distal LAD territory. 3 times daily ratio elevated at 1.15 suspected possibly secondary multivessel coronary disease or subendocardial ischemia. She presents today due to feeling unwell in last several days, with dysuria, hematuria, malaise. With noted sepsis on presentation with leukocytosis, tachycardia, normal lactate, is started on empiric antibiotic. Urology is consulted. Review of Systems Const: Reports: fatigue and malaise; Denies: fever(s), chills or body aches Eyes: Denies: change in vision or eye redness ENMT: Denies: throat pain, oral sores or ear or mastoid pain Card: Reports: edema; Denies: chest pain, pre-syncope or dyspnea on exertion Resp: Denies: dyspnea, productive cough, change in phlegm color or hemoptysis GI: Denies: abdominal pain, nausea, vomiting, diarrhea, constipation, hematochezia or melena : Reports: flank pain, dysuria, urinary frequency, urinary urgency and hematuria Musc: Denies: back pain, joint swelling or joint redness Skin/Breast: Denies: rash, sores or new lesions Neuro: Denies: headache(s), numbness in extremities, weakness in extremities, dizziness, confusion or seizure-like activity Endo: Denies: polyuria or polydipsia Bentley/Lymph: Denies: easy bleeding or purpura All/Imm: Denies: urticaria, throat swelling or tongue swelling Medications/Allergies Home Medications Medication Instructions Recorded Confirmed Last Taken Type ascorbate calcium (vitamin C) 500 1,000 mg PO BID 10/15/19 07/15/21 07/14/21 History mg tablet acetaminophen [Tylenol Ex Str 500 - 1,000 mg PO Q4H PRN 07/15/21 07/15/21 Unknown History Rapid Release] methenamine hippurate 1 g PO BID 07/15/21 07/15/21 Unknown History nitroglycerin [Nitrostat] 0.4 mg SUBLINGUAL Q5M PRN 07/15/21 07/15/21 Unknown History Allergies Allergy/AdvReac Type Severity Reaction Status Date / Time aspirin Allergy NA Verified 07/15/21 13:28 levofloxacin [From Levaquin] Allergy NA Verified 07/15/21 13:28 nitrofurantoin Allergy NA Verified 07/15/21 13:28 Sulfa (Sulfonamide Allergy NA Verified 07/15/21 13:28 Antibiotics) PFSH Acute PFSH: Medical History 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 Hypoxia Left ureteral calculus Obstructive pyelonephritis Peripheral edema Staghorn calculus Surgical History S/P appendectomy S/P bilateral oophorectomy S/P cholecystectomy S/P hysterectomy Status post laser lithotripsy of ureteral calculus Family History Mother , 73 Hypertension Father , 75 CAD (coronary artery disease) [place] Family/Other Cancer Diabetes Thyroid disease Sister Cancer Denies family history of Clotting disorder Dementia Chronic kidney disease (CKD) Suicide Anesthesia complication Bleeding disorder Lung disease Stroke Social History Smoking and tobacco status: never smoked Alcohol intake: never Substance/Drug Use: never Marital status: / Current occupational status: retired History of recent travel: No Vitals/I&O/Wt Last Vital Signs Temp 99.1 F 07/15/21 10:17 Pulse 94 07/15/21 12:37 Resp 17 07/15/21 12:37 BP 138/74 07/15/21 12:37 Pulse Ox 96 07/15/21 12:37 Weight last 48 hrs Weight 104.326 kg Physical Exam Const: COMMON NORMALS: no acute distress and patient oriented x3 GENERAL APPEARANCE: frail appearing OTHER: NC on HENMT: COMMON NORMALS: oropharynx normal Neck/C-Spine: COMMON NORMALS: no JVD Resp: COMMON NORMALS: normal respiratory effort and clear to auscultation bilaterally AUSCULTATION: clear to auscultation bilaterally Cardio: COMMON NORMALS: no JVD, regular rhythm, S1 normal heart sound present, S2 normal heart sound present and No murmurs present (Cardio) RHYTHM: regular rhythm HEART SOUNDS: S1 normal heart sound present and S2 normal heart sound present GI: COMMON NORMALS: Normal to inspection, nondistended, normoactive bowel sounds present, Soft to palpation and non-tender PALPATION: Yes Soft to palpation Extremity: COMMON NORMALS: no joint enlargement GENERAL: Yes edema (1+) Neuro: COMMON NORMALS: patient oriented x3 and moves all extremities Skin: COMMON NORMALS: no rashes or lesions noted GENERAL SKIN EXAM: no rashes or lesions noted Data : 07/15/21 11:00 07/15/21 11:00 Micro: Microbiology 07/15/21 11:00 Blood Culture - Preliminary Blood SPECIMEN COLLECTED A&P Assessment and plan (1) Sepsis: With leukocytosis, tachycardia, sepsis secondary to complicated urinary tract infection. Previously growing Pseudomonas, E. coli, both pansensitive in urine. Lactic acid 1.4. Blood cultures collected. Started on Primaxin. Continue. Received a dose of vancomycin, will not continue for now. Will require definitive therapy with regards to staghorn calculus, left ureteral stent. Discussed with cardiology, prior to surgical procedure would benefit from additional evaluation by coronary geography given recently abnormal stress test, history of ischemic cardiopathy, history of EF 38% with unknown ejection fraction previously. Will treat sepsis, subsequently prior to surgical intervention cardiology consultation will be necessary for arrangements for coronary angiography. Obtain TTE. She does not appear to be on aspirin, will confirm with her, otherwise for now unless will have active ischemic symptoms may not be the best time to start prior to surgical procedure. Similarly with beta-blockers. Status: Acute (2) Pyelonephritis of left kidney: With staghorn calculus, left ureteral stent in place. Will need definitive therapy, but prior to procedure with additional cardiac assessment. Status: Acute (3) Abnormal stress test: As above. Status: Acute (4) Ischemic cardiomyopathy: Follows with cardiology. Previously reported ischemic cardiomyopathy with ejection fraction 38% as far back as 2018. Recent TTE per [facility] study although with diminished LV systolic function during recent admission for COVID-19 in March. TTE Status: Acute (5) Atrial flutter: On EKG. she is not aware of prior history. Discussed with her consideration of stroke prophylactic therapy with anticoagulation, although this would have to wait until after surgical intervention and after no further hematuria. She is in agreement. Possibly related to acute infection. TTE TSH Status: Acute Additional A&P Information Hypoxia: Slow recovery following COVID-19, so requiring 2 L of oxygen after acute illness in March. Chronic cystitis, chronically on methenamine Attestations Medical Necessity Statement*: Admission of over 2 midnights is going to be needed for assessment of management of sepsis with complicated urinary tract infection, with recently abnormal stress test with suspected underlying CAD, with history of ischemic cardiomyopathy. Coding Level of Care Code Acute Contact Officer for [facility] Fwd Diagnoses Sepsis A41.9 Pyelonephritis of left kidney N12 Abnormal stress test R94.39 Ischemic cardiomyopathy I25.5 Atrial flutter I48.92
[2021-07-15 17:12] VITALS: BP 117/70; PULSE 82; RESP 18; TEMP 36.7; O2SAT 98
[2021-07-15 17:13] VITALS: BMI 41.1
[2021-07-15 17:52] LABS: Thyroid Stimulating Hormone 1.57 uIU/mL (0.27-4.20)
[2021-07-15 18:23] VITALS: PULSE 89; RESP 18; O2SAT 95
[2021-07-15 20:00] VITALS: BP 128/78; PULSE 72; RESP 19; TEMP 37.2; O2SAT 94
[2021-07-16] VITALS (14 sets, daily range): BP systolic 102–174; BP diastolic 63–145; PULSE 76–114; RESP 15–40; TEMP 36.6–37.3; O2SAT 93–98
--- NOTE | 2021-07-16 | SCC_ITS ---
Procedure Done: 1. Cystoscopy, right ureteroscopy, laser lithotripsy, stent (7 Filipino by 26 cm double-pigtail 2. Cystolitholapaxy <2.5 cm (calcifications in the bladder associated with the distal aspect of the left ureteral stent) 25.3 seconds of fluoroscopic guidance, for a cumulative dose of 6.79 mGy, was provided to Dr. Meyer by the radiology department. C-arm images of the abdomen were saved for the patient's permanent record. KATHID
--- NOTE | 2021-07-16 05:47 | P.CONIM_ITS ---
Providers/Reason For Consult Consulting Physician/Specialty*: UROLOGY/ Meyer Reason for Consult*: Pyelonephritis Attending Physician: [place] Primary Care Provider: Kathia Nugent History of Present Illness History of Present Illness Melissa Courtney is a 76 year old female well known to me for history of recurrent pyelonephritis and stones. Previously, treatments have included emergent stentings, endoscopic treatment with laser lithotripsy for multiple stones dating back to 2015. Most recently in February 2021 had sequenced treatment for obstructive pyelo with stent and then laser lithotripsy of 2 large LEFT UPJ stones. Also had a known partial, nonobstructing staghorn LUP stone that initially she chose to follow and later elected treatment. Perc vs retrograde endoscopy vs ESWL vs combination of these were reviewed and she elected 1st attempt at treatment with retrograde endoscopy with laser. Unfortunately, she has had multiple unrelated medical set backs that have prevented proceeding with scheduled surgery. Her stent was placed in February. Recently has had additional cardiac issues that are being worked up. At baseline she is rather deconditioned. Was admitted through ED yesterday for pyelonephritis. CT scan was remarkable for new RIGHT distal stone and progressive deterioration of LEFT renal status with new findings suspicious for XANTHOGRANULOMATOUS pyelonephritis. She reports today that she is feeling better. She is alert and oriented And seems her more normal self. Despite the concerning findings she has been afebrile and her vital signs have been stable. Tachycardia has improved since her hospitalization and initiation. Blood pressure has been stable. This is a very difficult situation given the array of severe multiple Urologic, Infectious, and Cardiac concerns as well as her de-conditioned status. Recommendations: 1. Agree with broadspectrum antibiotics 2. RIGHT ureteral stent placement today if possible. Potentially try to change RIGHT stent but it appears encrusted and probably cannot be removed with out ESWL to proximal curl (contraindicated). Likely stent change will be futile given the appearance of Xanthogranulomatous Pyelo. Probably makes more sense to do nothing to indwelling stent in absence of progressive hydro and have it dealt with at time of #4 below. 3. Plan for evaluation for and likely LEFT NEPHRECTOMY at tertiary center as soon as feasible. After reviewing the patient with both Dr. Wing and Dr. Butterfield it was decided to proceed with at least a stent placement in the right collecting system to relieve obstruction from the right distal ureteral stone and reduce the risk of septic complications from obstructive pyelonephritis. If possible based on hemodynamic status at the time then proceed with ureteroscopic treatment of the stone. Had originally considered trying to repeat change or remove the stent on the left side but given the destruction of the kidney and the likelihood of needing a nephrectomy on the left side the stent became less of an issue and can be dealt with at that time. May require fragmentation of the calcifications associated with the stent in the bladder after reviewing the CT scan. Review of Systems Const: Reports: fatigue and malaise Eyes: Denies: change in vision ENMT: Denies: hoarseness Card: Denies: chest pain Resp: Denies: wheezing GI: Reports: abdominal pain : Reports: dysuria and urinary frequency Musc: Denies: joint redness or joint warmth Skin/Breast: Denies: rash Neuro: Denies: Slurred speech present or seizure-like activity Psych: Reports: anxiety (Mild); Denies: paranoia Endo: Reports: tired all the time Bentley/Lymph: Denies: easy bruising or easy bleeding All/Imm: Denies: urticaria or acute wheezing Meds/Allergies Home Medications and Allergies Home Medications Medication Instructions Recorded Confirmed Last Taken Type ascorbate calcium (vitamin C) 500 1,000 mg PO BID 10/15/19 07/15/21 07/14/21 History mg tablet acetaminophen [Tylenol Ex Str 500 - 1,000 mg PO Q4H PRN 07/15/21 07/15/21 Unknown History Rapid Release] methenamine hippurate 1 g PO BID 07/15/21 07/15/21 Unknown History nitroglycerin [Nitrostat] 0.4 mg SUBLINGUAL Q5M PRN 07/15/21 07/15/21 Unknown History Allergies Allergy/AdvReac Type Severity Reaction Status Date / Time aspirin Allergy NA Verified 07/15/21 13:28 levofloxacin [From Levaquin] Allergy NA Verified 07/15/21 13:28 nitrofurantoin Allergy NA Verified 07/15/21 13:28 Sulfa (Sulfonamide Allergy NA Verified 07/15/21 13:28 Antibiotics) Current Medications Current Medications Generic Name Dose Route Start Last Admin Trade Name Freq PRN Reason Stop Dose Admin Imipenem/Cilastatin Sodium 500 100 mls @ 200 mls/hr 07/15/21 17:12 07/16/21 02:01 mg/ Sodium Chloride IV Infused Q6H CARINA Infusion Protocol PFSH Acute PFSH: Medical History COVID-19 pati crowley manifesting chronic dyspnea Cystitis cystica Hypoxia Left ureteral calculus Obstructive pyelonephritis Peripheral edema Staghorn calculus Surgical History S/P appendectomy S/P bilateral oophorectomy S/P cholecystectomy S/P hysterectomy Status post laser lithotripsy of ureteral calculus Family History Mother , 73 Hypertension Father , 75 CAD (coronary artery disease) [place] Family/Other Cancer Diabetes Thyroid disease Sister Cancer Denies family history of Clotting disorder Dementia Chronic kidney disease (CKD) Suicide Anesthesia complication Bleeding disorder Lung disease Stroke Social History Smoking and tobacco status: never smoked Alcohol intake: never Substance/Drug Use: never Marital status: / Current occupational status: retired History of recent travel: No Vitals/I&O/Wt Last Vital Signs Temp 98.8 F 07/16/21 00:00 Pulse 96 07/16/21 00:00 Resp 17 07/16/21 00:00 BP 102/63 07/16/21 00:00 Pulse Ox 93 07/16/21 00:00 07/15/21 07/15/21 07/16/21 14:59 22:59 06:59 Intake Total 1450 / 1450 100 / 1550 Balance 1450 / 1450 100 / 1550 Weight last 48 hrs Weight 232 lb 8 oz Weight 230 lb Physical Exam Narrative: EXAM NARRATIVE: Overall feeling better this morning. Const: COMMON NORMALS: no acute distress, patient oriented x3 and alert GENERAL APPEARANCE: well kempt and well developed ORIENTATION/CONSCIOUSNESS: not confused HENMT: COMMON NORMALS: normocephalic and atraumatic HEAD & SCALP: normocephalic and atraumatic Eye: COMMON NORMALS: conjunctivae normal and no scleral icterus CONJUNCTIVA: Yes conjunctivae normal Neck/C-Spine: COMMON NORMALS: full ROM Lymph: LYMPHATIC: no lymphadenopathy noted Resp: COMMON NORMALS: normal respiratory effort EFFORT & INSPECTION: No labored and No Actively coughing Cardio: COMMON NORMALS: regular rate and regular rhythm RATE: regular rate RHYTHM: regular rhythm GI: COMMON NORMALS: no masses; negative for Normal to inspection, nondistended, normoactive bowel sounds present, negative for Soft to palpation and negative for non-tender PALPATION: No Soft to palpation : COMMON NORMALS: Yes no CVA tenderness BLADDER/KIDNEY EXAM: Yes no CVA tenderness OTHER: No obvious prolapse. No vaginal discharge. Normal- appearing urethral meatus. Urogenital atrophy appropriate for age. No bladder or urethral masses palpated. Back/Pelvis: COMMON NORMALS: no CVA tenderness Extremity: NARRATIVE EXTREMITY EXAM: Lower extremity edema Neuro: COMMON NORMALS: patient oriented x3 SENSORIUM/ORIENTATION: Yes alert Psych: COMMON NORMALS: mental status grossly normal, cooperative, normal affect and speech normal APPEARANCE: Yes grossly normal and Yes well kempt ATTITUDE: Yes calm and Yes engaged SPEECH: Yes normal speech Skin: COMMON NORMALS: no rashes or lesions noted and no jaundice GENERAL SKIN EXAM: no rashes or lesions noted Data Micro: Micro: Microbiology 07/15/21 13:56 Blood Culture - Pr eliminary Blood SPECIMEN [facility] 07/15/21 11:00 Blood Culture - Pr eliminary Blood SPECIMEN [facility] A&P Assessment and plan (1) Right ureteral calculus: Higher risk based on obstructive changes as well as essentially functionally solitary kidney on that side. Further complicated by UTI. 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 Had originally considered removing the stent on the left side and changing it out but changed that plan after seeing how severely damaged the left kidney was from xanthogranulomatous pyelonephritis. Status: Acute (4) Retained ureteral stent: If as I expect she will require nephrectomy for xanthogranulomatous pyelonephritis I expect there is no reason to try to remove the stent or change the stent until that is accomplished. Status: Chronic (5) Staghorn calculus: Status: Chronic (6) Physical deconditioning: Status: Chronic (7) Sepsis: White count better today. Vital signs are stable Status: Acute Consult Attestations Medical Necessity Statement: See attending. Coding Level of Care Code Acute Beam Dyer Recessed Vat for [facility] Fwd Exam Comprehensive Diagnoses Right ureteral calculus N20.1 Recurrent obstructive pyelonephritis N12 Xanthogranulomatous pyelonephritis N11.8 Retained ureteral stent Z96.0 Staghorn calculus N20.0 Physical deconditioning R53.81 Sepsis A41.9
[2021-07-16 06:15] LABS: Basophils # 0.1 10^3/uL (0.0-0.1); Basophils % 0.5 %; Eosinophils # 0.2 10^3/uL (0.0-0.8); Eosinophils % 1.8 %; Hemoglobin 10.3 g/dL (11.5-15.3); Lymphocytes # 1.3 10^3/uL (0.8-4.8); Lymphocytes % 11.8 %; Mean Corpuscular HGB Conc 30.3 g/dL (30.0-36.0); Mean Corpuscular Hemoglobin 29.8 pg (28.0-34.0); Mean Corpuscular Volume 98.3 fl (81-99); Mean Platelet Volume 10.5 fL (7.4-10.4); Monocytes # 1.2 10^3/uL (0.2-0.9); Neutrophils # 8.17 10^3/uL (1.8-7.7); Neutrophils % 74.5 %; Nucleated Red Blood Cells % 0 %; Platelet Count 258 10^3/cmm (130-400); Red Blood Count 3.46 10^6/uL (4.1-5.3); Red Cell Distribution Width 14.4 % (12.1-15.1)
[2021-07-16 06:34] LABS: Alanine Aminotransferase < 5 U/L (0-33); Albumin Level 2.7 g/dL (3.5-5.2); Alkaline Phosphatase 79 IU/L (35-105); Anion Gap 13.6 (5-19); Aspartate Amino Transferase 13 U/L (0-32); Blood Urea Nitrogen 20 mg/dL (8-23); Calcium 8.7 mg/dL (8.5-10.5); Carbon Dioxide 22 mmol/L (22-29); Chloride 104 mmol/L (98-107); Globulin 3.4 g/dL (1.3-4.6); Glucose 91 mg/dL (65-115); Osmolality Calculated 284 mOsm/kg (285-295); Potassium 3.6 mmol/L (3.5-5.1); Sodium 136 mmol/L (136-145); Total Bilirubin 0.2 mg/dL (0.15-1.2); Total Protein 6.1 g/dL (6.6-8.7)
[2021-07-16] MEDS: acetaminophen 500 mg Tablet 650 MG PO (10:57)
--- NOTE | 2021-07-16 11:06 | PM.CONSULT ---
Providers/Reason For Consult Consulting Physician/Specialty*: Dr. Butterfield, cardiology Reason for Consult*: Abnormal stress test, preop clearance Attending Physician: [place] Primary Care Provider: Kathia Nugent History of Present Illness History of Present Illness Melissa Courtney is a 76 year old female with recent abnormal stress test that was done for left bundle branch block. She does not have any history of OR, stroke or CVA. She does have known h/o CHF with LVEF=38% by echo in 2018. She was seen by Dr. Murphy on 05 July in office and decision was made to repeat another echocardiogram given technically difficult last study. Coronary angiogram was a consideration. She also has history of recurrent urinary tract infections,Obstructive nephritis, status post left ureteral stenting on 02/11, with left side staghorn calculus, with delays in definitive therapy and stent retrieval due to intervening COVID-19 infection, hypoxia, slow recovery, still continues on 2 L of oxygen by nasal cannula. She was seen by Dr. Meyerfor possible ESWL, stent retrieval. She was hospitalized yesterday due to feeling unwell in last few days, with dysuria and worsening of hematuria. On presentation, leukocytosis and tachycardia and was started on empiric antibiotic. Review of Systems Const: Reports: fatigue and malaise; Denies: fever(s), chills or body aches Eyes: Denies: change in vision or eye redness ENMT: Denies: throat pain, oral sores or ear or mastoid pain Card: Reports: edema; Denies: chest pain, pre-syncope or dyspnea on exertion Resp: Denies: dyspnea, productive cough, change in phlegm color or hemoptysis GI: Denies: abdominal pain, nausea, vomiting, diarrhea, constipation, hematochezia or melena : Reports: flank pain, dysuria, urinary frequency, urinary urgency and hematuria Musc: Denies: back pain, joint swelling or joint redness Skin/Breast: Denies: rash, sores or new lesions Neuro: Denies: headache(s), numbness in extremities, weakness in extremities, dizziness, confusion or seizure-like activity Endo: Denies: polyuria or polydipsia [place]/Lymph: Denies: easy bleeding or purpura All/Imm: Denies: urticaria, throat swelling or tongue swelling Meds/Allergies Home Medications and Allergies Home Medications Medication Instructions Recorded Confirmed Last Taken Type ascorbate calcium (vitamin C) 500 1,000 mg PO BID 10/15/19 07/15/21 07/14/21 History mg tablet acetaminophen [Tylenol Ex Str 500 - 1,000 mg PO Q4H PRN 07/15/21 07/15/21 Unknown History Rapid Release] methenamine hippurate 1 g PO BID 07/15/21 07/15/21 Unknown History nitroglycerin [Nitrostat] 0.4 mg SUBLINGUAL Q5M PRN 07/15/21 07/15/21 Unknown History Allergies Allergy/AdvReac Type Severity Reaction Status Date / Time aspirin Allergy NA Verified 07/15/21 13:28 levofloxacin [From Levaquin] Allergy NA Verified 07/15/21 13:28 nitrofurantoin Allergy NA Verified 07/15/21 13:28 Sulfa (Sulfonamide Allergy NA Verified 07/15/21 13:28 Antibiotics) Current Medications Current Medications Generic Name Dose Route Start Last Admin Trade Name Freq PRN Reason Stop Dose Admin Acetaminophen 650 mg 07/15/21 17:12 07/16/21 10:57 Acetaminophen 500 Mg Tablet PO 650 mg Q4H PRN Administration Pain Imipenem/Cilastatin Sodium 500 100 mls @ 200 mls/hr 07/15/21 17:12 07/16/21 10:06 mg/ Sodium Chloride IV Infused Q6H CARINA Infusion Protocol PFSH Acute PFSH: Medical History 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 Hypoxia Left ureteral calculus Obstructive pyelonephritis Peripheral edema Staghorn calculus Surgical History S/P appendectomy S/P bilateral oophorectomy S/P cholecystectomy S/P hysterectomy Status post laser lithotripsy of ureteral calculus Family History Mother , 73 Hypertension Father , 75 CAD (coronary artery disease) [place] Family/Other Cancer Diabetes Thyroid disease Sister Cancer Denies family history of Clotting disorder Dementia Chronic kidney disease (CKD) Suicide Anesthesia complication Bleeding disorder Lung disease Stroke Social History Smoking and tobacco status: never smoked Alcohol intake: never Substance/Drug Use: never Marital status: / Current occupational status: retired History of recent travel: No Vitals/I&O/Wt Last Vital Signs Temp 99.1 F 07/16/21 07:40 Pulse 92 07/16/21 07:40 Resp 17 07/16/21 07:40 BP 121/72 07/16/21 07:40 Pulse Ox 93 07/16/21 07:40 07/15/21 07/16/21 07/16/21 22:59 06:59 14:59 Intake Total 1450 / 1450 580 / 2030 100 / 100 Balance 1450 / 1450 580 / 2030 100 / 100 Weight last 48 hrs Weight 232 lb Weight 232 lb 8 oz Weight 230 lb Physical Exam Narrative: EXAM NARRATIVE: GENERAL: Averagely built and averagely nourished in no acute distress HEENT: Extraocular movement intact. Pupils equal round reactive to light. No pallor or icterus. NECK: central trachea, [] JVD, [] abdominojugular reflex. No carotid bruit. CARDIOVASCULAR SYSTEM: S1-S2 regular. No S3 or S4 present. [No murmur rubs or gallops.] RESPIRATORY SYSTEM: Chest clear to auscultation. No wheezes rhonchi or rubs heard. [] No use of accessory muscles. ABDOMEN: Soft, nontender and nondistended. Normal bowel sounds present. No hepatosplenomegaly appreciated. [] EXTREMITIES: No cyanosis or clubbing. [No edema]. No signs of chronic venous insufficiency. HYDROPONICS WORKER: Patient is alert oriented ?3. No focal neurological deficits. Cranial nerves intact. [] SKIN: Normal turgor and temperature. No breakdown, rash or nail changes noted. [] PSYCH: Normal insight and judgment. No suicidal or homicidal ideations. Data Micro: Micro: Microbiology 07/15/21 10:34 Urine Culture - Pr eliminary Urine,Clean Catch Gram Negative R ods Gram Negative R ods#2 07/15/21 13:56 Blood Culture - Pr eliminary Blood SPECIMEN [facility] 07/15/21 11:00 Blood Culture - Pr eliminary Blood SPECIMEN [facility] Other Data: Attestation for Other Data: I personally reviewed and interpreted the following: Other data: 06/29/21 Stress Test Medium-sized area of severe reversibility noted in mid to distal anterior and lucas septal wall suggestive of ischemia in mid LAD territory. Small area of fixed perfusion defect noted in apex of the left ventricle suggestive of old myocardial infarction versus scarring in distal LAD territiry.TID ratio is elevated 1.15 which could be secondary to multivessel coronary artery disease or subendocardial ischemia. EKG segment will be documented separately. This study is positive for ischemia. 1. EKG not suggestive of ischemia 2. Lexiscan injection unremarkable. 03/29/21 Echo Limited quality echocardiogram because of poor ultrasonic windows Grossly LV systolic function is mildly reduced Valvular structures are not well visualized but no significant abnormalities noted Because of poor visualization, comparison with prior echocardiogram is not possible. 01/31/18 Stress Test 1. There is predominantly fixed perfusion abnormality of mid to apical lateral wall on rest and stress images. This may represent attenuation artifact or myocardial infarction. 2. Overall left ventricular systolic function is abnormal with regional wall motion abnormalities. 3. Transient Ischemia Dilatation of 1.2. This may represent subendocardial ischemia. 4. No coronary ischemia based on this study. 1. EKG not suggestive of ischemia 2. Lexiscan injection unremarkable. A&P Assessment and plan (1) Pre-operative clearance: -Patient is not very active at baseline recently as she is recovering from COVID-19 pneumonia. She denies any chest discomfort or any shortness of breath that has been progressively worsening. -Medium sized area of possible ischemia in LAD territory on stress test few weeks back with normal LV function. However prone images were not obtained and there was some breast attenuation artifact on raw images. -Echocardiogram done today showed mildly decreased left ventricle systolic function estimated at ~50% on TDS study. EKG showed sinus tachycardia with left axis deviation deviation and left bundle branch block. QRS duration 160 ms. -Right renal stent placement and possible lithotripsy is an urgent procedure for the patient given solitary functioning kidney. -Even though patient is at elevated risk of perioperative operative cardiovascular risk if we are dealing with true LAD territory ischemia on stress test. After a long discussion with patient and her daughter, decision was made to proceed with planned procedure later today. -Patient and her daughter voiced their understanding and are agreeable with the plan. -Based on how she does today, we may consider doing coronary angiogram (+/- BMS) prior to contralateral nephrectomy. 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 Please feel free to call with questions or concerns Consult Attestations Time Spent in Patient Care: 16 - 35 minutes (>than 50% of time spent in counselling and/or direct pt care on unit). Coding Level of Care Code Acute Commissary Representative for Анна Ribeiro Diagnoses Pre-operative clearance Z01.818 Abnormal stress test R94.39
--- NOTE | 2021-07-16 13:12 | ANES.PREANE2 ---
Pre-Anesthetic Assessment Pre-Anesthetic Assessment: Height/Weight: Height 1.6 m Weight 105.233 kg Temp Pulse Resp BP Pulse Ox 98.4 F 91 16 120/71 93 07/16/21 11:17 07/16/21 11:17 07/16/21 11:17 07/16/21 11:17 07/16/21 11:17 Preop Diagnosis: 2 large left UPJ stones Proposed Procedure: Operation Date: 07/16/21 13:00 Proposed Procedures p Cystoscopy(Not Applicable) - Levy Meyer MD s Ureteral Stent Exchange(Left) - eLvy Meyer MD s Ureteral Stent Placement(Right) - Levy Meyer MD s Laser Lithotripsy(Right) - Levy Meyer MD s Ureteroscopy(Right) - Levy Meyer MD Familial anesthetic complications: None Was Beta Kely taken within 24 hours: N/A Was Clonidine taken within 24 hours: N/A Last intake: > 8hrs Social: Social History: No alcohol and No tobacco Exam: Pre-Anes Outpt Exam: alert, oriented x 3, clear to auscultation bilaterally and regular rate & rhythm Airway: Cervical ROM: WNL MP: 4 Dentition: Full Pulmonary: Comments: COVID 19 03/22/21, 2 l NC CV/HEM: CV/HEM: Afib and CHF (EF 38% on previous echo ? 2018) Comments: 06/29/21 Stress Test Medium-sized area of severe reversibility noted in mid to distal anterior and lucas septal wall suggestive of ischemia in mid LAD territory. Small area of fixed perfusion defect noted in apex of the left ventricle suggestive of old myocardial infarction versus scarring in distal LAD territiry.TID ratio is elevated 1.15 which could be secondary to multivessel coronary artery disease or subendocardial ischemia. EKG segment will be documented separately. This study is positive for ischemia. 1. EKG not suggestive of ischemia 2. Lexiscan injection unremarkable. 03/29/21 Echo Limited quality echocardiogram because of poor ultrasonic windows Grossly LV systolic function is mildly reduced Valvular structures are not well visualized but no significant abnormalities noted Because of poor visualization, comparison with prior echocardiogram is not possible. 01/31/18 Stress Test 1. There is predominantly fixed perfusion abnormality of mid to apical lateral wall on rest and stress images. This may represent attenuation artifact or myocardial infarction. 2. Overall left ventricular systolic function is abnormal with regional wall motion abnormalities. 3. Transient Ischemia Dilatation of 1.2. This may represent subendocardial ischemia. 4. No coronary ischemia based on this study. 1. EKG not suggestive of ischemia 2. Lexiscan injection unremarkable. 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 Hypoxia Left ureteral calculus Obstructive pyelonephritis Peripheral edema Staghorn calculus Surgical History S/P appendectomy S/P bilateral oophorectomy S/P cholecystectomy S/P hysterectomy Status post laser lithotripsy of ureteral calculus Family History Mother , 73 Hypertension Father , 75 CAD (coronary artery disease) [place] Family/Other Cancer Diabetes Thyroid disease Sister Cancer Denies family history of Clotting disorder Dementia Chronic kidney disease (CKD) Suicide Anesthesia complication Bleeding disorder Lung disease Stroke Social History Smoking and tobacco status: never smoked Alcohol intake: never Substance/Drug Use: never Marital status: / Current occupational status: retired History of recent travel: No Data Anesthesia CBC & Chem 7: 07/16/21 05:20 07/16/21 05:20 Other Labs: Laboratory Results - last 48 hr 07/15/21 07/15/21 07/15/21 10:34 11:00 11:00 WBC 20.6 H RBC 4.11 Hgb 12.3 Hct 40.0 MCV 97.3 MCH 29.9 MCHC 30.8 RDW 14.3 Plt Count 280 MPV 10.0 Neut % (Auto) 92.6 Lymph % (Auto) 2.2 [place] % (Auto) 4.3 Eos % (Auto) 0.0 Baso % (Auto) 0.4 Neut # (Auto) 19.08 H Lymph # (Auto) 0.5 L [place] # (Auto) 0.9 Eos # (Auto) 0.0 Baso # (Auto) 0.1 Nucleated RBC % (auto) 0 Nucleated RBCs # 0.0 Sodium 132 L Potassium 3.8 Chloride 95 L Carbon Dioxide 23 Anion Gap 17.8 BUN 21 Creatinine 1.0 H GFR Calculation Not Reportable Glucose 169 H Calculated Osmolality 281 L Lactic Acid Calcium 9.3 Total Bilirubin 0.4 AST 14 ALT 6 Alkaline Phosphatase 102 Total Protein 7.6 Albumin 3.5 Globulin 4.1 TSH Urine Color Red Urine Appearance Cloudy Urine pH 8 H Ur Specific [place] 1.010 Urine Protein 3+ H Urine Glucose (UA) Norm Urine Ketones 1+ H Urine Blood 3+ H Urine Nitrate Positive H Urine Bilirubin Neg Prot Sulfosalicylic Acd Negative Urine Urobilinogen Norm Ur Leukocyte Esterase 2+ H Urine RBC 15-25 H Urine WBC Too numerous to cnt H Ur Squamous Epith Cells 5-10 H Amorphous Sediment Not Reportable Urine Bacteria 2+ H 07/15/21 07/15/21 07/16/21 11:00 11:00 05:20 WBC 11.0 H RBC 3.46 L Hgb 10.3 L Hct 34.0 L MCV 98.3 MCH 29.8 MCHC 30.3 RDW 14.4 Plt Count 258 MPV 10.5 H Neut % (Auto) 74.5 Lymph % (Auto) 11.8 [place] % (Auto) 11.0 Eos % (Auto) 1.8 Baso % (Auto) 0.5 Neut # (Auto) 8.17 H Lymph # (Auto) 1.3 [place] # (Auto) 1.2 H Eos # (Auto) 0.2 Baso # (Auto) 0.1 Nucleated RBC % (auto) 0 Nucleated RBCs # 0.0 Sodium Potassium Chloride Carbon Dioxide Anion Gap BUN Creatinine GFR Calculation Glucose Calculated Osmolality Lactic Acid 1.4 Calcium Total Bilirubin AST ALT Alkaline Phosphatase Total Protein Albumin Globulin TSH 1.57 Urine Color Urine Appearance Urine pH Ur Specific [place] Urine Protein Urine Glucose (UA) Urine Ketones Urine Blood Urine Nitrate Urine Bilirubin Prot Sulfosalicylic Acd Urine Urobilinogen Ur Leukocyte Esterase Urine RBC Urine WBC Ur Squamous Epith Cells Amorphous Sediment Urine Bacteria 07/16/21 05:20 WBC RBC Hgb Hct MCV MCH MCHC RDW Plt Count MPV Neut % (Auto) Lymph % (Auto) [place] % (Auto) Eos % (Auto) Baso % (Auto) Neut # (Auto) Lymph # (Auto) [place] # (Auto) Eos # (Auto) Baso # (Auto) Nucleated RBC % (auto) Nucleated RBCs # Sodium 136 Potassium 3.6 Chloride 104 Carbon Dioxide 22 Anion Gap 13.6 BUN 20 Creatinine 0.7 GFR Calculation Not Reportable Glucose 91 Calculated Osmolality 284 L Lactic Acid Calcium 8.7 Total Bilirubin 0.2 AST 13 ALT < 5 Alkaline Phosphatase 79 Total Protein 6.1 L Albumin 2.7 L Globulin 3.4 TSH Urine Color Urine Appearance Urine pH Ur Specific [place] Urine Protein Urine Glucose (UA) Urine Ketones Urine Blood Urine Nitrate Urine Bilirubin Prot Sulfosalicylic Acd Urine Urobilinogen Ur Leukocyte Esterase Urine RBC Urine WBC Ur Squamous Epith Cells Amorphous Sediment Urine Bacteria Micro: Microbiology 07/15/21 11:00 Blood Culture - Preliminary Blood NEGATIVE TO DATE 07/15/21 10:34 Urine Culture - Preliminary Urine,Clean Catch Gram Negative Rods Gram Negative Rods#2 07/15/21 13:56 Blood Culture - Preliminary Blood SPECIMEN COLLECTED Cardiac Studies: Echocardiogram 03/29/21
--- NOTE | 2021-07-16 14:07 | PC.CHAP ---
Pastoral Care Encounter/Spiritual Assessment Type of Contact [] Declined pole tester visit [] Patient/Family/Request visit [] Outpatient visit [] Follow-up visit [] Physician referral [] Code/Alert [xx] Routine visit [] Staff referral [] Actively dying [] Patient sleeping [] Family support [] [] Out of room [] Palliative care [] [] Receiving care in room [] Pre-surgical visit [] Trauma [] Long length of stay [] ICU visit [] Other: Relational/Emotional Strength [xx] Patient feels connected with others/family/visitors/staff [] Distress [] Loneliness/isolation [] Abandonment Spirituality of Patient [xx] Person of Maritza [] Attends Taoist of their [place]za [xx] Believes in Prayer [xx] Reads Bible or Evangelical materials [] There are Spiritual issues to be addressed Ammonia Box Tender Interventions [xx] Prayer [xx] Active listening [xx] Non-anxious presence [] Spiritual/emotional support [] Crisis/trauma care [] Spiritual counseling [] Bereavement support [] Provided bereavement packet [xx] Provided Bible/devotional materials [] Provided toy/stuffed animal, coloring book to patient or family member [] Provided Communion [] Anointing/[place] [] Salvation [xx] Completed spiritual assessment [] Other: Impact on Illness or Injury [] Angry [] Fearful [xx] Anxious [] Often cries [] Exhaustion [] Unable to work [] Unable to attend episcopal [] Unable to walk/stand [] Unable to read [] Unable to drive [] Unable to eat/drink [] Unable to sleep [] Unable to be with family [] Patient intubated [] Other: Summary Patient state she is anxious about upcoming kidney stone surgery and dealing with pain until then. She also mentioned that her other kidney has rare infection that may require removal of the kidney if God doesn't intervene and heal her.She wants a miracle to have 2 healthy kidneys. Ammonia Box Tender prayed accordingly. Time spent with patient 8 minutes
--- NOTE | 2021-07-16 14:08 | SC_ITS ---
WS: [id number] INTRAOPERATIVE TECHNIQUE: 2 Spot fluoroscopic images for intraoperative purposes. FLUOROSCOPY TIME: 25.3 seconds CLINICAL INFORMATION: ureteral stone COMPARISON: None. FINDINGS: Intraoperative fluoroscopic images for right double-J ureteral stent placement. SC/C-arm FL for Urology IMPRESSION: Images obtained for intraoperative purposes.
--- NOTE | 2021-07-16 14:18 | ANE.PACU2 ---
Inpatient post-anesthesia follow up: Airway intact: Yes Vital signs: Temperature 99.2 F Pulse Rate 98 Respiratory Rate 19 Blood Pressure 142/69 Pulse Oximetry 95 Oxygen Delivery Me thod Nasal Cannula Oxygen Flow Rate 1.5 Fraction of Inspir ed Oxygen Hydration adequate: Yes Nausea and vomiting: No Pain level: 2 Mental status: Baseline
--- NOTE | 2021-07-16 15:01 | PM.OP ---
Operative Report Date of procedure: July 16, 2021 Pre-op Diagnosis: Right obstructing distally with UTI/sepsis Left calcified stent LEFT xanthogranulomatous pyelonephritis Post-op diagnosis: same Procedure Done: 1. Cystoscopy, right ureteroscopy, laser lithotripsy, stent (7 Finnish by 26 cm double-pigtail 2. Cystolitholapaxy <2.5 cm (calcifications in the bladder associated with the distal aspect of the left ureteral stent) Specimens removed/disposition: 1. Right ureteral stone fragments 2. Bladder stone fragments associated with the stent Pathology: 1. Right ureteral stone fragments 2. Bladder stone fragments associated with the stent Surgeon: Betsy Anesthesia: General Estimated blood loss: Minimal Urine output: Not measured Complications: None. She did very well throughout the procedure with hemodynamic stability. This allowed dealing with the stone in the right ureter and clearing the stent of large volume encrustation/bladder stone Findings: 1. Stone in the expected position in the right distal ureter. Easily fragmented with fragments removed with basket 2. Large calcification associated with the left distal ureteral stent. Some of it extended into the least the left distal ureter. All of the stone located within the bladder and external to the left ureter was fragmented and removed. Accounting for about 2 and half centimeters of total diameter. Disposition: PACU Brief History: Melissa is a very pleasant 76-year-old white female with a complicated history of recurrent pyelonephritis, obstructive pyelonephritis, bilateral renal calculi, and other multiple comorbidities. In February of this year she underwent endoscopic treatment of 2 large stones at the left UPJ and did well. She was known to have a large left upper pole partial staghorn. Because of her recurrent stones and UTIs I offered her consideration for treatment of that stone which would include 1 of 3 possibilities possibly combination. Percutaneous nephrostolithotomy, ESWL, retrograde endoscopic treatment. Ultimately she elected to try with a retrograde endoscopic treatment and the stent was left indwelling with the intention of maintaining passive dilation until that procedure could be completed in a very timely fashion. Unfortunately that did not occur because of multiple medical setbacks including Covid, continued deconditioning with difficult recovery from Covid, and recurrent infections as well as recent cardiac concerns. She was admitted to the hospital yesterday with concerns for pyelonephritis. Review of the films showed what appeared to be xanthogranulomatous pyelonephritis changes which were new in the left kidney from her previous imaging back in February. The kidney itself appeared to be essentially replaced with this process. There was no hydronephrosis associated with that. A new finding also was an RIGHT distal ureteral stone with obstruction. She was clinically septic and plans were made for right ureteral stent placement and if clinically safe consideration for removal of the right distal ureteral stone to have that out of the way and more definitively not an issue related to ultimate planning for treatment of the left xanthogranulomatous pyelonephritis. Plans have been made to consider cardiac catheterization before surgical intervention but given the concern about progressive septic complications related to obstructive pyelonephritis it was decided to proceed with treatment of the right ureteral stone least with stenting hopefully definitively before intervention cardiac yee. It is felt that she will need to left nephrectomy for the xanthogranulomatous pyelonephritis but that decision will be contingent upon how critical her coronary status is in relationship to the significant morbidity associated with xanthogranulomatous pyelonephritis All of this was discussed in great detail with the patient and her daughter She is taken to the operating room today for endoscopic treatment of the ureteral stone on the right if possible but a minimum right ureteral stent placement. CT scan did show significant encrustation on the distal aspect of the stent in the decided to if everything was going very well to try to clear that to make it removal easier once attempt at definitive treatment of the left infected kidney was planned Procedure: After urgent evaluation examination and obtaining of informed consent she was taken to the operating suite on 07/16/2021 where general anesthesia was administered without difficulty. Hemodynamically she was stable throughout the entire procedure from induction through awakening. Appropriate timeout was performed, SCDs confirmed to be functioning, preoperative therapeutic antibiotics were confirmed, beta-caity protocol confirmed as well. Prepped and draped in usual sterile fashion in dorsolithotomy position paying careful attention avoiding pressure points. 21 Finnish cystoscope with 30 degree lens was introduced to the urethra meatus and advanced into the bladder under videoscopy. The bladder was systematically examined. The stent was essentially covered with a large stone and crusting the distal stent on the left side extending into the left distal ureter. This was consistent with the CT scan findings. A flexible tip guidewire was then advanced up the right ureter easily bypassing the stone in the right distal ureter and curling in the area of the renal pelvis. The wire was secured to the drapes as a safety wire in offset semirigid ureteroscope was then advanced up the right ureter next to the guidewire and the stone was encountered in its expected position. Stone was too large to pull out intact. Anesthesia was again consulted and felt that she was doing well with requiring no pressure support etc. As we had discussed preoperatively it was decided that point because she did appear to be stable to go ahead and try to get rid of the stone and minimize the time the stent would be indwelling decrease further complications potentially related to prolonged course of treatment from her xanthogranulomatous pyelonephritis etc. A 360 ?m thulium superpulse laser fiber was utilized to fragment the stone to small pieces that were basketed out without difficulty with a parachute basket. On final inspection no significant fragments remained. A 7 Finnish by 26 Finnish double-pigtail stent was advanced over the guidewire easily through the cystoscope into appropriate position as confirmed via fluoroscopy and cystoscopy. Based on the size of the calcification associated with the distal stent it was decided to try to see if it could be broken up some to help facilitate stent removal at time of eventual treatment of the left xanthogranulomatous pyelonephritis with nephrectomy. Grasping forceps were used to help break up the stone partially but were not completely successful and for that reason the laser fiber was utilized to completely fragment what was remaining off of the stent and then small enough pieces that were flushed out of the bladder with an Ellik evacuator. There did remain some calcification on the stent just inside the left ureteral orifice but no attempt was made to try to heroically remove that. The bladder was drained with a 8 Finnish Monterroso catheter and the procedure was completed. She tolerated the procedure well without complications. She was hemodynamically stable throughout and was awakened and returned to recovery room in stable condition. PLANS: 1. Back to the floor from admission. 2. Continue cardiology assessment for timing of the remaining critical issues which would include coronary arteriography versus left nephrectomy at a tertiary center for xanthogranulomatous pyelonephritis. 3. Operative findings and status discussed with her daughter.
--- NOTE | 2021-07-16 16:59 | P.PN_ITS ---
Subjective Subjective: Interval history: Extensive discussions took place today between the managing specialists, patient, with regards to cardiac risks, need for additional urologic intervention given obstructive nephropathy and ureterolithiasis on the right side with noted progression to xanthogranulomatous pyelonephritis on the left, after careful consideration patient elected to proceed with urgent ureteroscopy, stent placement on the right. Stent to been retrieved. She is doing well postoperatively, denies pain or discomfort. No trouble breathing no chest pain or pressure. Denies any complaints or questions. Vitals/I&O/Wt Last Vital Signs Temp 98.0 F 07/16/21 15:48 Pulse 78 07/16/21 16:08 Resp 16 07/16/21 15:48 BP 137/71 07/16/21 15:48 Pulse Ox 98 07/16/21 16:08 07/16/21 07/16/21 07/16/21 06:59 14:59 22:59 Intake Total 580 / 2030 100 / 100 0 / 100 Output Total 0 / 0 Balance 580 / 2030 100 / 100 0 / 100 Weight last 48 hrs Weight 105.233 kg Weight 105.46 kg Weight 104.326 kg Physical Exam Const: COMMON NORMALS: no acute distress, patient oriented x3 and alert GEN ERAL APPEARANCE: frail appearing ORIENTATION/CONSCIOUSNESS: Yes awake OTHER: NC on HENMT: COMMON NORMALS: oropharynx normal Neck/C-Spine: COMMON NORMALS: no JVD Resp: COMMON NORMALS: normal respiratory effort and clear to auscultation bilaterally AUSCULTATION: clear to auscultation bilaterally Cardio: COMMON NORMALS: no JVD, regular rhythm, S1 normal heart sound present, S2 normal heart sound present and No murmurs present (Cardio) RHYTHM: regular rhythm HEART SOUNDS: S1 normal heart sound present and S2 normal heart sound present GI: COMMON NORMALS: Normal to inspection, nondistended, normoactive bowel sounds present, Soft to palpation and non-tender PALPATION: Yes Soft to pal pation Extremity: COMMON NORMALS: no joint enlargement GENERAL: Yes edema (1+) Neuro: COMMON NORMALS: patient oriented x3 and moves all extremities SENSORIUM/ORIENTATION: Yes alert Skin: COMMON NORMALS: no rashes or lesions noted GENERAL SKIN EXAM: no rashes or lesions noted Urinary Catheter Management^: Monterroso: Cath Placed During This Visit: yes Urinary Catheter Date of Insertion: 07/16/21 Urinary Catheter Time of Insertion: 14:36 Data : 07/16/21 05:20 07/16/21 05:20 Micro: Microbiology 07/15/21 13:56 Blood Culture - Preliminary Blood NEGATIVE TO DATE 07/15/21 11:00 Blood Culture - Preliminary Blood NEGATIVE TO DATE 07/15/21 10:34 Urine Culture - Preliminary Urine,Clean Catch Gram Negative Rods Gram Negative Rods#2 A&P Assessment and plan (1) Sepsis: Improving. Gram-negative rods growing in urine. Continue Primaxin. Left xanthogranulomatous pyelonephritis. Right hydroureteronephrosis with ureterolithiasis, underwent cystoscopy, right ureteroscopy, laser lithotripsy, stent placement. Further consideration of coronary angiography possibly proceeding left nephrectomy at a tertiary center for xanthogranulomatous pyelonephritis. Previously growing Pseudomonas, E. coli, both pansensitive in urine. Status: Acute (2) Pyelonephritis of left kidney: With staghorn calculus, left ureteral stent in place. Will need definitive therapy, but prior to procedure with additional cardiac assessment. Status: Acute (3) Abnormal stress test: As above. Status: Acute (4) Ischemic cardiomyopathy: Follows with cardiology. Previously reported ischemic cardiomyopathy with ejection fraction 38% as far back as 2018. Recent TTE per [facility] study although with diminished LV systolic function during recent admission for COVID-19 in March. TTE with noted EF 45-50%. Some septal wall motion abnormality. Status: Acute (5) Atrial flutter: On initial EKG although not a good quality study. She is not aware of prior history. Discussed with her consideration of stroke prophylactic therapy with anticoagulation once not bleeding risk, although this would have to wait until after surgical intervention and after no further hematuria. Telemetry monitoring. Possibly related to acute infection. TSH normal. Status: Acute Additional A&P Information Hypoxia: Slow recovery following COVID-19, so requiring 2 L of oxygen after acute illness in March. Chronic cystitis, chronically on methenamine Attestations Medical Necessity Statement*: Continue admission for assessment of management of complicated urine tract infection with sepsis on presentation. Additional cardiac assessment with possible ischemia in LAD territory. Coding Level of Care Code Acute Informatics Coordinator for [facility] Fwd Diagnoses Sepsis A41.9 Pyelonephritis of left kidney N12 Abnormal stress test R94.39 Ischemic cardiomyopathy I25.5 Atrial flutter I48.92
--- NOTE | 2021-07-16 17:12 | USCV_ITS ---
Melissa Courtney Age: 76 Gender: F : 1945 Exam Date: 07/16/2021 12:13 Ordering Phys: [place] MD Technologist: Tiff Trevino [place] [facility] [place]: ABNORMAL STRESS TEST, ISCHEMIC CARDIOMY BP: 108 / 65 HR: 97 Rhythm: Sinus Technical Quality: Adequate MEASUREMENTS (Male / Female) Normal Values 2D ECHO LV Diastolic Diameter PLAX 4.7 cm 4.2 - 5.9 / 3.9 - 5.3 cm LV Systolic Diameter PLAX 4.7 cm LV Chamber Size 4.4 cm IVS Diastolic Thickness 1.4 cm 0.6 - 1.0 / 0.6 - 0.9 cm IVS Systolic Thickness 1.4 cm LVPW Diastolic Thickness 1.5 cm 0.6 - 1.0 / 0.6 - 0.9 cm LVPW Systolic Thickness 1.7 cm RV Chamber Size 3.3 cm LVOT Diameter 2.0 cm LV Ejection Fraction 2D Teich 2.1 % LV Ejection Fraction MOD 2C 69.4 % LV Ejection Fraction 2C AL 71.3 % LA Diameter 3.0 cm LA Width 2.8 cm LA Height 4.2 cm RA Width 3.2 cm RA Height 4.2 cm Aorta at Sinotubular Diameter 2.9 cm M-MODE LV Diastolic Diameter MM 5.5 cm 4.2 - 5.9 / 3.9 - 5.3 cm LV Systolic Diameter MM 4.4 cm LV Ejection Fraction MM Teich 40.0 % IVS Diastolic Thickness MM 1.1 cm 0.6 - 1.0 / 0.6 - 0.9 cm IVS Systolic Thickness MM 1.8 cm LVPW Diastolic Thickness MM 1.3 cm 0.6 - 1.0 / 0.6 - 0.9 cm LVPW Systolic Thickness MM 1.8 cm Aortic Annulus Diameter 3.3 cm LA Ao Ratio MM 1.1 MV E Point Septal Separation 1.1 cm DOPPLER AV Peak Velocity 159.0 cm/s LVOT Peak Velocity 120.0 cm/s AV Area Cont Eq vti 2.5 cm squared AV Area Cont Eq pk 2.5 cm squared MV Area PHT 4.0 cm squared MV E' Velocity 75.5 cm/s Mitral E to MV E' Ratio 11.0 Mitral E to LV E' Lateral Ratio 7.2 Mitral E to LV E' Septal Ratio 24.1 TR Peak Velocity 296.6 cm/s TR Peak Gradient 35.2 mmHg TR Mean Velocity 235.1 cm/s TR Mean Gradient 24.5 mmHg TR Velocity Time Integral 88.1 cm TV Peak E Velocity 102.0 cm/s Right Atrial Pressure 3.0 mmHg Pulmonary Artery Systolic Pressu 38.2 mmHg PV Peak Velocity 116.0 cm/s RV Acceleration Time 0.2 s RV Ejection Time 0.3 s RV AcT/ET 0.5 FINDINGS Left Ventricle Normal left ventricular cavity size. Increased left ventricular wall thickness. Mildly decreased left ventricular systolic function. Left ventricular ejection fraction is estimated at 45- 50%. There is possible mild global hypokinesis somewhat more pronounced in septum (difficult to assess with abnormal septal motion). Abnormal septal motion consistent with conduction abnormality. Right Ventricle Normal right ventricular size and systolic function, RVSP 31 mmHg. Right Atrium Normal right atrial size. Left Atrium Moderately increased left atrial size. Mitral Valve Structurally normal mitral valve. No mitral valve stenosis. No significant mitral valve regurgitation. Aortic Valve Structurally normal trileaflet aortic valve. No aortic valve stenosis. No aortic valve regurgitation. Tricuspid Valve Structurally normal tricuspid valve. No tricuspid valve stenosis. Trace to mild tricuspid valve regurgitation. Pulmonic Valve Structurally normal pulmonic valve. No pulmonary valve stenosis. No pulmonary valve regurgitation. Pericardium No pericardial effusion. Aorta Normal-sized aortic root. Normal size inferior vena cava. CONCLUSIONS 1. Normal left ventricular cavity size. Increased left ventricular wall thickness. Mildly decreased left ventricular systolic function. Left ventricular ejection fraction is estimated at 45-50 %. There is possible mild global hypokinesis somewhat more pronounced in septum (difficult to assess with abnormal septal motion). Abnormal septal motion consistent with conduction abnormality. 2. Direct comparison to previous study dated 03/05, is not possible due to technically difficult study. Aurora Butterfield MD (Electronically Signed) Final Date: 16 July 2021 14:49 S
[2021-07-16 17:34] LABS: Glucose Point of Care 93 mg/dL (70-110)
[2021-07-16] MEDS: phenazopyridine 100 mg Tablet 200 MG PO (21:45)
[2021-07-16] MEDS: TRAMadol 50 mg Tablet PO (21:45)
[2021-07-17] VITALS: BP 106/62; PULSE 92; RESP 17; TEMP 37.2; O2SAT 95
[2021-07-17 04:00] VITALS: BP 110/68; PULSE 80; RESP 17; TEMP 37.4; O2SAT 93
[2021-07-17 06:13] LABS: Basophils # 0.1 10^3/uL (0.0-0.1); Basophils % 0.6 %; Eosinophils # 0.2 10^3/uL (0.0-0.8); Eosinophils % 1.9 %; Hematocrit 33.9 % (37.0-47.0); Hemoglobin 10.3 g/dL (11.5-15.3); Lymphocytes # 1.1 10^3/uL (0.8-4.8); Lymphocytes % 13.1 %; Mean Corpuscular HGB Conc 30.4 g/dL (30.0-36.0); Mean Corpuscular Hemoglobin 29.8 pg (28.0-34.0); Mean Platelet Volume 10.3 fL (7.4-10.4); Monocytes # 1.1 10^3/uL (0.2-0.9); Monocytes % 12.1 %; Neutrophils # 6.27 10^3/uL (1.8-7.7); Neutrophils % 71.8 %; Nucleated Red Blood Cells % 0 %; Platelet Count 247 10^3/cmm (130-400); Red Blood Count 3.46 10^6/uL (4.1-5.3); Red Cell Distribution Width 14.2 % (12.1-15.1); White Blood Count 8.7 10^3/uL (4.0-10.0)
[2021-07-17] MEDS: TRAMadol 50 mg Tablet PO ×2 (06:28→21:49)
[2021-07-17 06:36] LABS: Alanine Aminotransferase < 5 U/L (0-33); Albumin Level 2.5 g/dL (3.5-5.2); Alkaline Phosphatase 78 IU/L (35-105); Aspartate Amino Transferase 13 U/L (0-32); Blood Urea Nitrogen 14 mg/dL (8-23); Calcium 8.4 mg/dL (8.5-10.5); Carbon Dioxide 22 mmol/L (22-29); Chloride 105 mmol/L (98-107); Globulin 3.5 g/dL (1.3-4.6); Glucose 105 mg/dL (65-115); Osmolality Calculated 289 mOsm/kg (285-295); Sodium 139 mmol/L (136-145); Total Bilirubin 0.3 mg/dL (0.15-1.2)
[2021-07-17 06:39] LABS: Anion Gap 15.7 (5-19); Potassium 3.7 mmol/L (3.5-5.1)
[2021-07-17 07:18] VITALS: BP 125/66; PULSE 84; RESP 17; TEMP 36.9; O2SAT 92
[2021-07-17 11:12] VITALS: BP 124/69; PULSE 84; RESP 17; TEMP 36.7; O2SAT 94
--- NOTE | 2021-07-17 11:23 | P.PN_ITS ---
Subjective Subjective: Interval history: Urology follow-up: Postoperative day #1 right ureteroscopic laser lithotripsy, right ureteral stent placement, cystolitholapaxy. She states that she is feeling much better. Was having some right flank pain that is now markedly improved. Denies any emesis. No chest pain. Abdomen feels better. Monterroso catheter draining Pyridium stained urine. Will probably remove that tomorrow. No chills or fever. Reviewed the findings intraoperatively and the ability to get the stone removed as well as clean off some of the bladder stones from the left ureteral stent. Also reviewed with her some of the data on xanthogranulomatous pyelonephritis and the potential to potentially postpone definitive nephrectomy as long as she is responding well to antibiotics. Discussed with Dr. Butterfield this morning the findings intraoperatively as well as hierarchy of concerns related to the xanthogranulomatous pyelonephritis. For now I think is reasonable to continue IV antibiotics in the hospital, wait to hear from [facility] regarding timing of left nephrectomy potentially, and coordinate with that information actions related to her cardiac status. She felt comfortable with that plan. Will start a consistent carbohydrate diet which is what she consumes at home. Additional information: She also has a new stone in the right kidney that is nonobstructive. That will need to be factored into the decision-making process as well given the progression of events related to her left kidney. In the short-term that is not a big issue. Vitals/I&O/Wt Last Vital Signs Temp 98.0 F 07/17/21 11:12 Pulse 84 07/17/21 11:12 Resp 17 07/17/21 11:12 BP 124/69 07/17/21 11:12 Pulse Ox 94 07/17/21 11:12 07/16/21 07/17/21 07/17/21 22:59 06:59 14:59 Intake Total 100 / 200 300 / 500 220 / 220 Output Total 300 / 300 650 / 650 Balance -200 / -100 300 / 200 -430 / -430 Weight last 48 hrs Weight 232 lb Weight 232 lb Weight 232 lb 8 oz Physical Exam Const: COMMON NORMALS: no acute distress, alert and well nourished GENERAL APPEARANCE: well kempt and well developed ORIENTATION/CONSCIOUSNESS: not confused HENMT: COMMON NORMALS: normocephalic and atraumatic HEAD & SCALP: normocephalic and atraumatic Eye: COMMON NORMALS: conjunctivae normal and no scleral icterus CONJUNCTIVA: Yes conjunctivae normal Neck/C-Spine: COMMON NORMALS: full ROM Resp: COMMON NORMALS: normal respiratory effort EFFORT & INSPECTION: No labored and No Actively coughing Neuro: COMMON NORMALS: no focal motor deficits SENSORIUM/ORIENTATION: Yes alert Psych: COMMON NORMALS: mental status grossly normal APPEARANCE: Yes grossly normal and Yes well kempt ATTITUDE: Yes calm and Yes engaged Skin: COMMON NORMALS: no rashes or lesions noted and no jaundice GENERAL SKIN EXAM: no rashes or lesions noted Urinary Catheter Management^: Monterroso: Cath Placed During This Visit: yes Reason for Continuing Indwelling Catheter: Other Urinary Catheter Date of Insertion: 07/16/21 Urinary Catheter Time of Insertion: 14:36 Data : 07/17/21 05:56 07/17/21 05:56 Micro: Microbiology 07/15/21 10:34 Urine Culture - Final Urine,Clean Catch Escherichia coli Proteus mirabilis 07/15/21 13:56 Blood Culture - Preliminary Blood NEGATIVE TO DATE 07/15/21 11:00 Blood Culture - Preliminary Blood NEGATIVE TO DATE A&P Assessment and plan (1) Xanthogranulomatous pyelonephritis: Clinically doing okay with IV antibiotics. I expect that she will need a nephrectomy. Pending input from the [facility] regarding that. Needs to be coordinated carefully with further work-up and treatment for coronary artery disease. Status: Acute (2) Right ureteral calculus: Status post laser lithotripsy with complete removal. Temporary postop stent left indwelling Status: Resolved (3) Recurrent obstructive pyelonephritis: Doing well with antibiotic therapy. No evidence of progressive infectious concerns after treatment of the right ureteral obstructing stone and placement of stent. Status: Acute (4) Right renal stone: New finding. Status: Acute (5) Staghorn calculus: Large chronic left upper pole calculus. Now associated with progressive xanthogranulomatous pyelonephritis. Status: Chronic (6) Physical deconditioning: Status: Chronic (7) Retained ureteral stent: Chronic obstructive left ureteral stent. New right ureteral stent placed on 07/16/2021. Status: Chronic Attestations Medical Necessity Statement*: Severe infection. IV antibiotics. Recovering postoperatively. See attending. Cardiac issues still pending. Coding Level of Care Code Established Pt Acute Tableau Architect for [facility] Fwd Patient Type Established Exam Comprehensive Diagnoses Xanthogranulomatous pyelonephritis N11.8 Right ureteral calculus N20.1 Recurrent obstructive pyelonephritis N12 Right renal stone N20.0 Staghorn calculus N20.0 Physical deconditioning R53.81 Retained ureteral stent Z96.0 Time Spent (min) 50 Comment X-ray, lab, chart review, speaking with consultants, contacting [facility], patient exam/interview
--- NOTE | 2021-07-17 13:16 | P.PN_ITS ---
Subjective Subjective: Interval history: Patient states she feels better. She had her procedure yesterday. Medications: Reviewed: Yes Vitals/I&O/Wt Last Vital Signs Temp 98.0 F 07/17/21 11:12 Pulse 84 07/17/21 11:12 Resp 17 07/17/21 11:12 BP 124/69 07/17/21 11:12 Pulse Ox 94 07/17/21 11:12 07/16/21 07/17/21 07/17/21 22:59 06:59 14:59 Intake Total 100 / 200 300 / 500 220 / 220 Output Total 300 / 300 650 / 650 Balance -200 / -100 300 / 200 -430 / -430 Weight last 48 hrs Weight 232 lb Weight 232 lb Weight 232 lb 8 oz Physical Exam Narrative: EXAM NARRATIVE: GENERAL: Obese woman laying in bed in no acute distress HEENT: Pupils equal round reactive to light. No pallor or icterus. NECK: No JVD. No carotid bruit. CARDIOVASCULAR SYSTEM: S1-S2 regular. No murmur rubs or gallops. RESPIRATORY SYSTEM: Chest clear to auscultation. No wheezes rhonchi or rubs heard. No use of accessory muscles. ABDOMEN: Soft, nontender and nondistended. Normal bowel sounds present. EXTREMITIES: No cyanosis or clubbing. No edema. 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 No focal neurological deficits. Urinary Catheter Management^: [place]: Cath Placed During This Visit: yes Reason for Continuing Indwelling Catheter: Other Urinary Catheter Date of Insertion: 07/16/21 Urinary Catheter Time of Insertion: 14:36 Data : 07/17/21 05:56 07/17/21 05:56 Micro: Microbiology 07/15/21 10:34 Urine Culture - Final Urine,Clean Catch Escherichia coli Proteus mirabilis 07/15/21 13:56 Blood Culture - Preliminary Blood NEGATIVE TO DATE 07/15/21 11:00 Blood Culture - Preliminary Blood NEGATIVE TO DATE A&P Assessment and plan (1) Pre-operative clearance: -Patient is not very active at baseline recently as she is recovering from COVID-19 pneumonia. She denies any chest discomfort or any shortness of breath that has been progressively worsening. -Medium sized area of possible ischemia in LAD territory on stress test few weeks back with normal LV function. However prone images were not obtained and there was some breast attenuation artifact on raw images. -Echocardiogram done today showed mildly decreased left ventricle systolic function estimated at ~50% on TDS study. EKG showed sinus tachycardia with left axis deviation deviation and left bundle branch block. QRS duration 160 ms. -Right renal stent placement and possible lithotripsy is an urgent procedure for the patient given solitary functioning kidney. -Even though patient is at elevated risk of perioperative operative cardiovascular risk if we are dealing with true LAD territory ischemia on stress test. After a long discussion with patient and her daughter, decision was made to proceed with planned procedure later today. -Patient and her daughter voiced their understanding and are agreeable with the plan. -Based on how she does today, we may consider doing coronary angiogram (+/- BMS) prior to contralateral nephrectomy. 07/17/21 Patient underwent laser lithotripsy followed by stent placement to right ureter and cystolitholapaxy yesterday. She tolerated the procedure well and remained hemodynamically stable throughout the procedure. She denies having any cardiac complaints this morning and states she feels overall better. She is being considered for possible transfer to tertiary center at [facility] for management of xanthogranulomatous pyelonephritis of left kidney. Our options here are cardiac catheterization followed by bare-metal stent placement and delaying procedure by 1 month versus cardiac CTA for further risk stratification at tertiary center once she is transferred versus continuing with perioperative medical management. -Based on timeline for her possible nephrectomy, will decide on further course of action. -This was discussed with patient as well. 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 Please feel free to call with questions or concerns Attestations Medical Necessity Statement*: As per primary team Time Spent in Patient Care: 16 - 35 minutes (>than 50% of time spent in counselling and/or direct pt care on unit) . 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
[2021-07-17] MEDS: phenazopyridine 100 mg Tablet 200 MG PO (13:59)
[2021-07-17] MEDS: acetaminophen 325 mg Tablet 650 MG PO (13:59)
[2021-07-17] MEDS: piperacillin-tazobactam 3.375 GM in sodium chloride 0.9% (plus) 50 ML IV ×2 (14:00→21:48)
[2021-07-17 15:37] VITALS: BP 131/70; PULSE 78; RESP 17; TEMP 36.6; O2SAT 94
[2021-07-17 20:00] VITALS: BP 113/64; PULSE 76; RESP 17; TEMP 36.3; O2SAT 94
--- NOTE | 2021-07-17 20:32 | PC.NURSE ---
i reported to nurse low temp 97.4
--- NOTE | 2021-07-17 20:33 | PM.PN ---
Subjective Subjective: Interval history: Reports he is feeling much better. Some tenderness in the right lower quadrant. Otherwise doing well. No nausea or vomiting. No trouble breathing. No chest pain or pressure. Has been discussing with neurology, cardiology with regards to consideration of left nephrectomy, with urology reaching out to [facility]. Vitals/I&O/Wt Last Vital Signs Temp 97.4 F L 07/17/21 20:00 Pulse 76 07/17/21 20:00 Resp 17 07/17/21 20:00 BP 113/64 07/17/21 20:00 Pulse Ox 94 07/17/21 20:00 07/17/21 07/17/21 07/17/21 06:59 14:59 22:59 Intake Total 300 / 500 340 / 340 290 / 630 Output Total 650 / 650 Balance 300 / 200 -310 / -310 290 / -20 Weight last 48 hrs Weight 105.233 kg Weight 105.233 kg Physical Exam Const: COMMON NORMALS: no acute distress, patient oriented x3 and alert GENERAL APPEARANCE: frail appearing ORIENTATION/CONSCIOUSNESS: Yes awake OTHER: NC on HENMT: COMMON NORMALS: oropharynx normal Neck/C-Spine: COMMON NORMALS: no JVD Resp: COMMON NORMALS: normal respiratory effort and clear to auscultation bilaterally AUSCULTATION: clear to auscultation bilaterally Cardio: COMMON NORMALS: no JVD, regular rhythm, S1 normal heart sound present, S2 normal heart sound present and No murmurs present (Cardio) RHYTHM: regular rhythm HEART SOUNDS: S1 normal heart sound present and S2 normal heart sound present GI: COMMON NORMALS: Normal to inspection, nondistended, normoactive bowel sounds present and Soft to palpation PALPATION: Yes Soft to palpation and Yes Tenderness to palpation present (GI) Details: RLQ Extremity: COMMON NORMALS: no joint enlargement GENERAL: Yes edema (1+) Neuro: COMMON NORMALS: patient oriented x3 and moves all extremities SENSORIUM/ORIENTATION: Yes alert Skin: COMMON NORMALS: no rashes or lesions noted GENERAL SKIN EXAM: no rashes or lesions noted Urinary Catheter Management^: [place]: Cath Placed During This Visit: yes Reason for Continuing Indwelling Catheter: Not indwelling catheter Urinary Catheter Date of Insertion: 07/16/21 Urinary Catheter Time of Insertion: 14:36 Data : 07/17/21 05:56 07/17/21 05:56 Micro: Microbiology 07/15/21 10:34 Urine Culture - Final Urine,Clean Catch Escherichia coli Proteus mirabilis A&P Assessment and plan (1) Sepsis: Sepsis resolving. Doing well following ureteroscopy, stenting with relief of obstructive uropathy on the right. E. coli, Proteus growing in urine. Changed antibiotic to Zosyn. Left xanthogranulomatous pyelonephritis. Right hydroureteronephrosis with ureterolithiasis, underwent cystoscopy, right ureteroscopy, laser lithotripsy, stent placement. Further consideration of coronary angiography possibly proceeding left nephrectomy at a tertiary center for xanthogranulomatous pyelonephritis. Previously growing Pseudomonas, E. coli, both pansensitive in urine. 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 Needing nephrectomy. Urology making he is reaching out to [facility] to make arrangements for surgery. With staghorn calculus, left ureteral stent in place. Will need definitive therapy, but prior to procedure with additional cardiac assessment. Status: Acute (3) Abnormal stress test: As above. Status: Acute (4) Ischemic cardiomyopathy: Consideration of additional preoperative work-up by cardiology. Appreciate recommendations. Previously reported ischemic cardiomyopathy with ejection fraction 38% as far back as 2018. Recent TTE per [facility] study although with diminished LV systolic function during recent admission for COVID-19 in March. TTE with noted EF 45-50%. Some septal wall motion abnormality. Status: Acute (5) Atrial flutter: On initial EKG although not a good quality study. She is not aware of prior history. Discussed with her consideration of stroke prophylactic therapy with anticoagulation once not bleeding risk, although this would have to wait until after surgical intervention and after no further hematuria. Telemetry monitoring. Possibly related to acute infection. TSH normal. Status: Acute Additional A&P Information Hypoxia: Slow recovery following COVID-19, so requiring 2 L of oxygen after acute illness in March. Chronic cystitis, chronically on methenamine Attestations Medical Necessity Statement*: Continue admission for arrangements for left nephrectomy due to xanthogranulomatous pyelonephritis, consideration of additional cardiac investigation/intervention in the setting of recently abnormal stress test, ischemic cardiomyopathy. 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
[2021-07-18] VITALS: BP 131/72; PULSE 87; RESP 17; TEMP 36.7; O2SAT 94
[2021-07-18] MEDS: phenazopyridine 100 mg Tablet 200 MG PO ×2 (00:05→21:54)
[2021-07-18] MEDS: acetaminophen 325 mg Tablet 650 MG PO ×2 (00:48→21:54)
[2021-07-18 04:00] VITALS: BP 135/76; PULSE 84; RESP 17; TEMP 36.7; O2SAT 93
[2021-07-18] MEDS: piperacillin-tazobactam 3.375 GM in sodium chloride 0.9% (plus) 50 ML IV ×3 (05:33→21:11)
[2021-07-18 05:44] LABS: Basophils # 0.1 10^3/uL (0.0-0.1); Basophils % 0.7 %; Eosinophils # 0.3 10^3/uL (0.0-0.8); Eosinophils % 3.9 %; Hematocrit 34.8 % (37.0-47.0); Hemoglobin 10.5 g/dL (11.5-15.3); Lymphocytes # 1.6 10^3/uL (0.8-4.8); Lymphocytes % 18.6 %; Mean Corpuscular HGB Conc 30.2 g/dL (30.0-36.0); Mean Corpuscular Hemoglobin 29.7 pg (28.0-34.0); Mean Corpuscular Volume 98.3 fl (81-99); Mean Platelet Volume 10.4 fL (7.4-10.4); Neutrophils # 5.54 10^3/uL (1.8-7.7); Neutrophils % 64.1 %; Nucleated Red Blood Cells % 0 %; Platelet Count 253 10^3/cmm (130-400); Red Blood Count 3.54 10^6/uL (4.1-5.3); Red Cell Distribution Width 13.9 % (12.1-15.1); White Blood Count 8.7 10^3/uL (4.0-10.0)
[2021-07-18 06:05] LABS: Alanine Aminotransferase < 5 U/L (0-33); Albumin Level 2.5 g/dL (3.5-5.2); Alkaline Phosphatase 114 IU/L (35-105); Anion Gap 13.5 (5-19); Aspartate Amino Transferase 10 U/L (0-32); Blood Urea Nitrogen 16 mg/dL (8-23); Calcium 8.3 mg/dL (8.5-10.5); Carbon Dioxide 25 mmol/L (22-29); Chloride 105 mmol/L (98-107); Globulin 3.6 g/dL (1.3-4.6); Glucose 95 mg/dL (65-115); Osmolality Calculated 291 mOsm/kg (285-295); Potassium 3.5 mmol/L (3.5-5.1); Sodium 140 mmol/L (136-145); Total Bilirubin 0.2 mg/dL (0.15-1.2); Total Protein 6.1 g/dL (6.6-8.7)
[2021-07-18 07:05] VITALS: BP 119/66; PULSE 77; RESP 17; TEMP 36.8; O2SAT 93
--- NOTE | 2021-07-18 10:38 | P.PN_ITS ---
Subjective Subjective: Interval history: Urology follow-up: Postoperative day #2 right ureteroscopy, laser lithotripsy stent placement Feeling better. Still having some suprapubic discomfort with urgency. Some flank pain but not bad. No fever or chills. No nausea or vomiting. Appetite returning. No spiking temperature. Abdomen soft. Nontender. Reviewed with her her current status. Still pending information from [facility] regarding potential nephrectomy timing. Current thought at this point is to hold on coronary arteriography until we have a sense of [facility]'s position. Reviewed also that she has still a residual stone in the right renal pelvis/calyx that is new and we might consider if there is a significant delay to nephrectomy to go ahead and try to make her stone free. She tolerated her recent procedure well which may make attempt at right renal calculus more reasonable prior to nephrectomy. Vitals/I&O/Wt Last Vital Signs Temp 98.3 F 07/18/21 07:05 Pulse 77 07/18/21 07:05 Resp 17 07/18/21 07:05 BP 119/66 07/18/21 07:05 Pulse Ox 93 07/18/21 07:05 07/17/21 07/18/21 07/18/21 22:59 06:59 14:59 Intake Total 290 / 630 410 / 1040 Output Total 1300 / 1950 Balance 290 / -20 -890 / -910 Weight last 48 hrs Weight 241 lb 14.4 oz Weight 232 lb Physical Exam Const: COMMON NORMALS: no acute distress, alert and well nourished GENERAL APPEARANCE: well kempt and well developed ORIENTATION/CONSCIOUSNESS: not confused HENMT: COMMON NORMALS: normocephalic and atraumatic HEAD & SCALP: normocephalic and atraumatic Eye: COMMON NORMALS: conjunctivae normal and no scleral icterus CONJUNC TIVA: Yes conjunctivae normal Neck/C-Spine: COMMON NORMALS: full ROM Resp: COMMON NORMALS: normal respiratory effort EFFORT & INSPECTION: No labored and No Actively coughing Neuro: COMMON NORMALS: no focal motor deficits SENSORIUM/ORIENTATION: Yes alert Psych: COMMON NORMALS: mental status grossly normal APPEARANCE: Yes grossly normal and Yes well kempt ATTITUDE: Yes calm and Yes engaged Skin: COMMON NORMALS: no rashes or lesions noted and no jaundice GENERAL SKIN EXAM: no rashes or lesions noted Urinary Catheter Management^: [place]: Cath Placed During This Visit: yes Reason for Continuing Indwelling Catheter: Other Urinary Catheter Date of Insertion: 07/16/21 Urinary Catheter Time of Insertion: 14:36 Data : 07/18/21 04:39 07/18/21 04:39 Micro: Microbiology 07/15/21 10:34 Urine Culture - Final Urine,Clean Catch Escherichia coli Proteus mirabilis A&P Assessment and plan (1) Xanthogranulomatous pyelonephritis: No evidence of infectious progression on antibiotics. Pending opinion from [facility] regarding timing of nephrectomy. Status: Acute (2) Recurrent obstructive pyelonephritis: Doing well. No evidence of sepsis progression. Status: Acute (3) Right renal stone: New stone recently diagnosed. Likely infectious. I expect that the stone in the ureter and the stone were both struvite. 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 Hopefully can convert to oral antibiotics soon. Clinically brittle. 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 Fwd Exam Comprehensive Diagnoses Xanthogranulomatous pyelonephritis N11.8 Recurrent obstructive pyelonephritis N12 Right renal stone N20.0 Right ureteral calculus N20.1 Staghorn calculus N20.0
[2021-07-18 10:55] VITALS: PULSE 85; O2SAT 93
--- NOTE | 2021-07-18 11:37 | PC.SOCIAL ---
IMM Update: pg 2 of IMM updated and reviewed w/ patient. Copy provided and copy placed in chart.
[2021-07-18] MEDS: TRAMadol 50 mg Tablet PO (14:17)
[2021-07-18 16:00] VITALS: BP 131/84; PULSE 96; RESP 17; TEMP 36.7; O2SAT 95
[2021-07-18 19:09] VITALS: BP 123/74; PULSE 93; RESP 16; TEMP 36.9; O2SAT 94
--- NOTE | 2021-07-18 20:15 | P.PN_ITS ---
Subjective Subjective: Interval history: She is doing all right. Denies chest pain or pressure, no trouble breathing. No nausea or vomiting. Not bothered by abdominal pain. Is visited by her daughter. They asked a number of excellent questions about nephrectomy, duration of IV antibiotics, and timing of definitive therapy of the right kidney stone. I probably was not able to answer them to their satisfaction given further plans are pending with regards to transfer to [place] for nephrectomy. Vitals/I&O/Wt Last Vital Signs Temp 98.4 F 07/18/21 19:09 Pulse 93 07/18/21 19:09 Resp 16 07/18/21 19:09 BP 123/74 07/18/21 19:09 Pulse Ox 94 07/18/21 19:09 07/18/21 07/18/21 07/18/21 06:59 14:59 22:59 Intake Total 410 / 1040 50 / 50 120 / 170 Output Total 1300 / 1950 1550 / 1550 440 / 1990 Balance -890 / -910 -1500 / -1500 -320 / -1820 Weight last 48 hrs Weight 109.724 kg Weight 105.233 kg Physical Exam Const: COMMON NORMALS: no acute distress, patient oriented x3 and alert GENERAL APPEARANCE: frail appearing ORIENTATION/CONSCIOUSNESS: Yes awake OTHER: NC on HENMT: COMMON NORMALS: oropharynx normal Neck/C-Spine: COMMON NORMALS: no JVD Resp: COMMON NORMALS: normal respiratory effort and clear to auscultation bilaterally AUSCULTATION: clear to auscultation bilaterally Cardio: COMMON NORMALS: no JVD, regular rhythm, S1 normal heart sound present, S2 normal heart sound present and No murmurs present (Cardio) RHYTHM: regular rhythm HEART SOUNDS: S1 normal heart sound present and S2 normal heart sound present GI: COMMON NORMALS: Normal to inspection, nondistended, normoactive bowel sounds present and Soft to palpation PALPATION: Yes Soft to palpation and Yes Tenderness to palpation present (GI) Extremity: COMMON NORMALS: no joint enlargement and no pedal edema Neuro: COMMON NORMALS: patient oriented x3 and moves all extremities SENSORIUM/ORIENTATION: Yes alert Skin: COMMON NORMALS: no rashes or lesions noted GENERAL SKIN EXAM: no rashes or lesions noted Urinary Catheter Management^: [place]: Cath Placed During This Visit: yes Reason for Continuing Indwelling Catheter: Other Urinary Catheter Date of Insertion: 07/16/21 Urinary Catheter Time of Insertion: 14:36 Data : 07/18/21 04:39 07/18/21 04:39 A&P Assessment and plan (1) Sepsis: Sepsis resolved. Doing well following ureteroscopy, stenting with relief of obstructive uropathy on the right. E. coli, Proteus growing in urine. Changed antibiotic to Zosyn. 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 Further consideration of coronary angiography possibly proceeding left nephrectomy at a tertiary center for xanthogranulomatous pyelonephritis. Previously growing Pseudomonas, E. coli, both pansensitive in urine. 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 Needing nephrectomy. Pending arrangements by urology with [facility]. With staghorn calculus, left ureteral stent in place. Will need definitive therapy, but prior to procedure with additional cardiac assessment. Continue IV antibiotics. Status: Acute (3) Abnormal stress test: As above. Status: Acute (4) Ischemic cardiomyopathy: Consideration of additional preoperative work-up by cardiology depending on timing of nephrectomy. Appreciate recommendations. Previously reported ischemic cardiomyopathy with ejection fraction 38% as far back as 2018. Recent TTE per [facility] study although with diminished LV systolic function during recent admission for COVID-19 in March. TTE with noted EF 45-50%. Some septal wall motion abnormality. Status: Acute (5) Atrial flutter: On initial EKG although not a good quality study. She is not aware of prior history. Discussed with her consideration of stroke prophylactic therapy with anticoagulation once not bleeding risk, although this would have to wait until after surgical intervention and after no further hematuria. Telemetry monitoring. Possibly related to acute infection. TSH normal. Status: Acute Additional A&P Information Hypoxia: Slow recovery following COVID-19, so requiring 2 L of oxygen after acute illness in March. Chronic cystitis, chronically on methenamine Attestations Medical Necessity Statement*: Continue admission for assessment management of complicated urinary tract infection, pending arrangements for left side nephrectomy due to xanthogranulomatous pyelonephritis, pending definitive therapy for right renal stone, as well as possible additional cardiac evaluation with coronary angiography depending on the timing of the procedures. 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
[2021-07-19] VITALS (8 sets, daily range): BP systolic 120–148; BP diastolic 69–86; PULSE 66–118; RESP 16–18; TEMP 36.4–36.8; O2SAT 90–97
[2021-07-19] MEDS: piperacillin-tazobactam 3.375 GM in sodium chloride 0.9% (plus) 50 ML IV ×2 (05:21→12:05)
[2021-07-19 05:24] LABS: Basophils # 0.1 10^3/uL (0.0-0.1); Basophils % 0.6 %; Eosinophils # 0.4 10^3/uL (0.0-0.8); Eosinophils % 3.7 %; Hematocrit 38.7 % (37.0-47.0); Lymphocytes # 2.8 10^3/uL (0.8-4.8); Lymphocytes % 29.8 %; Mean Corpuscular Hemoglobin 29.9 pg (28.0-34.0); Mean Corpuscular Volume 96.3 fl (81-99); Mean Platelet Volume 10.2 fL (7.4-10.4); Monocytes % 10.9 %; Neutrophils # 5.08 10^3/uL (1.8-7.7); Neutrophils % 53.8 %; Nucleated Red Blood Cells % 0 %; Platelet Count 272 10^3/cmm (130-400); Red Blood Count 4.02 10^6/uL (4.1-5.3); Red Cell Distribution Width 13.6 % (12.1-15.1); White Blood Count 9.4 10^3/uL (4.0-10.0)
[2021-07-19 05:56] LABS: Alanine Aminotransferase < 5 U/L (0-33); Albumin Level 2.9 g/dL (3.5-5.2); Alkaline Phosphatase 93 IU/L (35-105); Anion Gap 16.9 (5-19); Aspartate Amino Transferase 12 U/L (0-32); Blood Urea Nitrogen 20 mg/dL (8-23); Calcium 8.6 mg/dL (8.5-10.5); Carbon Dioxide 24 mmol/L (22-29); Chloride 103 mmol/L (98-107); Globulin 4.2 g/dL (1.3-4.6); Glucose 131 mg/dL (65-115); Osmolality Calculated 294 mOsm/kg (285-295); Potassium 3.9 mmol/L (3.5-5.1); Sodium 140 mmol/L (136-145); Total Bilirubin 0.3 mg/dL (0.15-1.2); Total Protein 7.1 g/dL (6.6-8.7)
[2021-07-19] MEDS: acetaminophen 325 mg Tablet 650 MG PO ×2 (10:28→23:33)
--- NOTE | 2021-07-19 13:44 | PM.PN ---
Subjective Subjective: Interval history: Patient is feeling better. Denies any chest pain or chest tightness. No unusual shortness of breath. Remains afebrile. No fever, chills or cough. Medications: Reviewed: Yes Medication Review Details: Current Medications Acetaminophen (Acetaminophen 325 Mg Tablet) 650 mg PO Q4H PRN PRN Reason: Pain Last Admin: 07/19/21 10:28 Dose: 650 mg Documented by: Dextrose (Dextrose 50% Syringe 50 Ml) 25 ml IVP ONCE PRN; Protocol PRN Reason: hypoglycemia protocol Dextrose (Dextrose 50% Syringe 50 Ml) 50 ml IVP PRN PRN; Protocol PRN Reason: hypoglycemia protocol Famotidine (Famotidine 20 Mg Tablet) 20 mg PO BID CARINA Glucagon (Glucagon 1 Mg/Ml Inj 1 Ml) 1 mg IM ONCE PRN; Protocol PRN Reason: Adult Acute Hypoglycemia Prot. Ceftriaxone Sodium 1,000 mg/ (Sodium Chloride) 50 mls @ 100 mls/hr IV Q24H CARINA; Protocol Dextrose (D5w) 500 mls @ 100 mls/hr IV ONCE PRN; Protocol PRN Reason: Adult Acute Hypoglycemia Prot Insulin Human Lispro (Insulin Lispro 100 Unit/1 Ml) 0 unit SUBCUT WM&BEDTIME CARINA; Protocol Nitroglycerin (Nitroglycerin 0.4 Mg Sublingual Tablet) 0.4 mg SUBLINGUAL Q5M PRN PRN Reason: Chest Pain Phenazopyridine HCl (Phenazopyridine 100 Mg Tablet) 200 mg PO TID PRN PRN Reason: DYSURIA Last Admin: 07/18/21 21:54 Dose: 200 mg Documented by: Tiotropium [place] (Tiotropium 18 Mcg Mdi) 18 mcg INHALATION DAILY.RESPIRATORY CARINA Tramadol HCl (Tramadol 50 Mg Tablet) 50 mg PO Q6H PRN PRN Reason: MODERATE PAIN Last Admin: 07/19/21 14:00 Dose: 50 mg Documented by: Vitals/I&O/Wt Last Vital Signs Temp 97.9 F 07/19/21 12:00 Pulse 78 07/19/21 12:00 Resp 17 07/19/21 12:00 BP 121/73 07/19/21 12:00 Pulse Ox 94 07/19/21 12:00 07/18/21 07/19/21 07/19/21 22:59 06:59 14:59 Intake Total 170 / 220 210 / 430 50 / 50 Output Total 440 / 1989 450 / 2440 300 / 300 Balance -270 / -1770 -240 / -2010 -250 / -250 Weight last 48 hrs Weight 241 lb 14.4 oz Weight 241 lb 14.4 oz Physical Exam Narrative: EXAM NARRATIVE: GENERAL: The patient is alert and oriented times three. Not in any acute distress. Obese HEENT: Normocephalic. No, icterus or lymphadenopathy.Oral cavity: There are no mucous membrane lesions. NECK: Trachea appears to be central. No masses noted. No JVD or thyromegaly appreciated. RESPIRATORY: Chest is symmetrical. No intercostals muscle retraction or any accessory muscle activation. There is no chest wall tenderness. Breath sounds are heard bilaterally. No rales or rhonchi heard. No evidence of any consolidation. BREASTS: Deferred. HEART: The heart sounds are normal. No S3 or S4. Short systolic murmur in the left sternal border. No diastolic murmurs.. No pericardial rub ABDOMEN: Obese. No vessel pulsations or distention. No tenderness. No organomegaly appreciated. Bowel sounds are normally heard. : Deferred. RECTAL: Deferred. LYMPHATIC: No lymphadenopathy noted in the neck or groin. EXTREMITIES: 1+ edema of the lower extremities. No cyanosis. MUSCULOSKELETAL: No acute joint deformities or swelling SKIN: There are no significant rashes or ecchymosis NEUROPSYCHIATRIC: The patient is alert and oriented x3. Appears to be in a good mood. No tremors or rigidity noted. Urinary Catheter Management^: [place]: Cath Placed During This Visit: yes Reason for Continuing Indwelling Catheter: Other Urinary Catheter Date of Insertion: 07/16/21 Urinary Catheter Time of Insertion: 14:36 Data : 07/19/21 04:40 07/19/21 04:40 Other Labs: Myocardial perfusion imaging revealed Medium-sized area of severe reversibility noted in mid to distal anterior and lucas septal wall suggestive of ischemia in mid LAD territory. Small area of fixed perfusion defect noted in apex of the left ventricle suggestive of old myocardial infarction versus scarring in distal LAD territiry.TID ratio is elevated 1.15 which could be secondary to multivessel coronary artery disease or subendocardial ischemia. EKG segment will be documented separately. This study is positive for ischemia. The echocardiogram revealed 1. Normal left ventricular cavity size. Increased left ventricular wall thickness. Mildly decreased left ventricular systolic function. Left ventricular ejection fraction is estimated at 45-50 %. There is possible mild global hypokinesis somewhat more pronounced in septum (difficult to assess with abnormal septal motion). Abnormal septal motion consistent with conduction abnormality. 2. Direct comparison to previous study dated 03/05, is not possible due to technically difficult study. Laboratory Last Values WBC 9.4 10^3/uL (4.0-10.0) 07/19/21 04:40 RBC 4.02 10^6/uL (4.1-5.3) L 07/19/21 04:40 Hgb 12.0 g/dL (11.5-15.3) 07/19/21 04:40 Hct 38.7 % (37.0-47.0) 07/19/21 04:40 MCV 96.3 fl (81-99) 07/19/21 04:40 MCH 29.9 pg (28.0-34.0) 07/19/21 04:40 MCHC 31.0 g/dL (30.0-36.0) 07/19/21 04:40 RDW 13.6 % (12.1-15.1) 07/19/21 04:40 Plt Count 272 10^3/cmm (130-400) 07/19/21 04:40 MPV 10.2 fL (7.4-10.4) 07/19/21 04:40 Neut % (Auto) 53.8 % 07/19/21 04:40 Lymph % (Auto) 29.8 % 07/19/21 04:40 [place] % (Auto) 10.9 % 07/19/21 04:40 Eos % (Auto) 3.7 % 07/19/21 04:40 Baso % (Auto) 0.6 % 07/19/21 04:40 Neut # (Auto) 5.08 10^3/uL (1.8-7.7) 07/19/21 04:40 Lymph # (Auto) 2.8 10^3/uL (0.8-4.8) 07/19/21 04:40 [place] # (Auto) 1.0 10^3/uL (0.2-0.9) H 07/19/21 04:40 Eos # (Auto) 0.4 10^3/uL (0.0-0.8) 07/19/21 04:40 Baso # (Auto) 0.1 10^3/uL (0.0-0.1) 07/19/21 04:40 Nucleated RBC % (auto) 0 % 07/19/21 04:40 Nucleated RBCs # 0.0 /100WBC 07/19/21 04:40 Sodium 140 mmol/L (136-145) 07/19/21 04:40 Potassium 3.9 mmol/L (3.5-5.1) 07/19/21 04:40 Chloride 103 mmol/L (98-107) 07/19/21 04:40 Carbon Dioxide 24 mmol/L (22-29) 07/19/21 04:40 Anion Gap 16.9 (5-19) 07/19/21 04:40 BUN 20 mg/dL (8-23) 07/19/21 04:40 Creatinine 0.9 mg/dL (0.5-0.9) 07/19/21 04:40 GFR Calculation Not Reportable 07/19/21 04:40 Glucose 131 mg/dL (65-115) H 07/19/21 04:40 POC Glucose 93 mg/dL (70-110) 07/16/21 17:20 Calculated Osmolality 294 mOsm/kg (285-295) 07/19/21 04:40 Lactic Acid 1.4 mmol/L (0.5-2.2) 07/15/21 11:00 Calcium 8.6 mg/dL (8.5-10.5) 07/19/21 04:40 Total Bilirubin 0.3 mg/dL (0.15-1.2) 07/19/21 04:40 AST 12 U/L (0-32) 07/19/21 04:40 ALT < 5 U/L (0-33) 07/19/21 04:40 Alkaline Phosphatase 93 IU/L (35-105) 07/19/21 04:40 Total Protein 7.1 g/dL (6.6-8.7) 07/19/21 04:40 Albumin 2.9 g/dL (3.5-5.2) L 07/19/21 04:40 Globulin 4.2 g/dL (1.3-4.6) 07/19/21 04:40 TSH 1.57 uIU/mL (0.27-4.20) 07/15/21 11:00 Urine Color Red (Yellow) 07/15/21 10:34 Urine Appearance Cloudy (CLEAR) 07/15/21 10:34 Urine pH 8 (5-7) H 07/15/21 10:34 Ur Specific [place] 1.010 (1.005-1.030) 07/15/21 10:34 Urine Protein 3+ (Negative) H 07/15/21 10:34 Urine Glucose (UA) Norm (Normal) 07/15/21 10:34 Urine Ketones 1+ (Negative) H 07/15/21 10:34 Urine Blood 3+ (Negative) H 07/15/21 10:34 Urine Nitrate Positive (Negative) H 07/15/21 10:34 Urine Bilirubin Neg (Negative) 07/15/21 10:34 Prot Sulfosalicylic Acd Negative (Negative) 07/15/21 10:34 Urine Urobilinogen Norm mg/dL (Negative) 07/15/21 10:34 Ur Leukocyte Esterase 2+ (Negative) H 07/15/21 10:34 Urine RBC 15-25 /hpf (0-2) H 07/15/21 10:34 Urine WBC Too numerous to cnt /hpf (0-5) H 07/15/21 10:34 Ur Squamous Epith Cells 5-10 /hpf (0-5) H 07/15/21 10:34 Amorphous Sediment Not Reportable 07/15/21 10:34 Urine Bacteria 2+ /hpf (NONE) H 07/15/21 10:34 A&P Assessment and plan (1) Ischemic cardiomyopathy: In view of the abnormal myocardial perfusion imaging and LV dysfunction, possibility of the patient having underlying coronary artery disease is very high. If she is going for a major intra-abdominal procedure, it may be appropriate to do a cardiac catheterization to better evaluate the coronary status and decide on further management. I discussed with the patient the option of doing the procedure here versus in [facility]. Patient would like to have all the procedures done in the same hospital, if possible. So it may be appropriate to have it done in [place] prior to the nephrectomy. Since the patient is going to be there for a while, it may be appropriate to consult with cardiology there to make these decisions. Patient may leave this hospital with all the records specifically on the stress test and echocardiogram. Status: Acute (2) Recurrent obstructive pyelonephritis: Management as per the nephrology service Status: Acute (3) Atrial flutter: Patient was found to be in atrial flutter with rapid ventricular rate on 07/15/2021. She was found to have features of a urosepsis at that time. Currently she seems to be back in a regular rhythm. If she has any recurrence of atrial letter/fibrillation, she may require long-term oral anticoagulation. Apparently the echocardiogram did not reveal any significant atrial enlargement. Status: Acute Qualifiers: Atrial flutter type: unspecified Qualified Code(s): I48.92 - Unspecified atrial flutter (4) Abnormal stress test: As mentioned above Status: Acute (5) Sepsis: Clinically is resolving Status: Acute Qualifiers: Sepsis type: sepsis due to unspecified organism Sepsis acute organ dysfunction status: unspecified Qualified Code(s): A41.9 - Sepsis, unspecified organism (6) Right ureteral calculus: Management as per the nephrology service. Status: Resolved Additional A&P Information Since the patient's current cardiovascular status seems to be stable, she may not require any specific intervention at this point. Advised to quit on the current measures. Attestations Medical Necessity Statement*: Disposition as per the primary/nephrology Coding Level of Care Code Acute Research Coordinator for Анна Fwd History Detailed Exam Detailed Medical Decision Making Moderate Complexity Diagnoses Ischemic cardiomyopathy I25.5 Recurrent obstructive pyelonephritis N12 Atrial flutter I48.92 Atrial flutter type: unspecified Abnormal stress test R94.39 Sepsis A41.9 Sepsis type: sepsis due to unspecified organism Sepsis acute organ dysfunction status: unspecified Right ureteral calculus N20.1
[2021-07-19] MEDS: TRAMadol 50 mg Tablet PO (14:00)
[2021-07-19] MEDS: cefTRIAXone 1,000 MG in sodium chloride 0.9% (plus) 50 ML 100 MG IV (14:37)
[2021-07-19] MEDS: famotidine 20 mg Tablet PO ×2 (14:37→17:52)
[2021-07-19 14:42] LABS: Iron 47 ug/dL (37-145); Percent Saturation 31.1 % (20-50); Total Iron Binding Capacity 151 mcg/dl; Unsaturated Iron Binding 104 ug/dL (112-347)
--- NOTE | 2021-07-19 17:04 | PM.PN ---
Subjective Subjective: Interval history: Hospital course, labs appreciated. Examination patient lying comfortably in bed. Complaining of occasional pain in the right lower quadrant of abdomen. Denies any nausea vomiting, headache. Has remained hemodynamically stable afebrile. Currently on 2 L saturating 96%. Vitals/I&O/Wt Last Vital Signs Temp 97.9 F 07/19/21 16:00 Pulse 77 07/19/21 16:00 Resp 17 07/19/21 16:00 BP 124/69 07/19/21 16:00 Pulse Ox 95 07/19/21 16:00 07/19/21 07/19/21 07/19/21 06:59 14:59 22:59 Intake Total 210 / 430 71.9 / 71.9 50 / 121.9 Output Total 450 / 2440 300 / 300 825 / 1125 Balance -240 / -2010 -228.1 / -228.1 -775 / -1003.1 Weight last 48 hrs Weight 109.724 kg Weight 109.724 kg Physical Exam Const: COMMON NORMALS: no acute distress, patient oriented x3 and alert GENERAL APPEARANCE: frail appearing ORIENTATION/CONSCIOUSNESS: Yes awake OTHER: NC on HENMT: COMMON NORMALS: oropharynx normal Neck/C-Spine: COMMON NORMALS: no JVD Resp: COMMON NORMALS: normal respiratory effort and clear to auscultation bilaterally AUSCULTATION: clear to auscultation bilaterally Cardio: COMMON NORMALS: no JVD, regular rhythm, S1 normal heart sound present, S2 normal heart sound present and No murmurs present (Cardio) RHYTHM: regular rhythm HEART SOUNDS: S1 normal heart sound present and S2 normal heart sound present GI: COMMON NORMALS: Normal to inspection, nondistended, normoactive bowel sounds present and Soft to palpation PALPATION: Yes Soft to palpation and Yes Tenderness to palpation present (GI) Extremity: COMMON NORMALS: no joint enlargement and no pedal edema GENERAL: Yes edema (1+) Neuro: COMMON NORMALS: patient oriented x3 and moves all extremities SENSORIUM/ORIENTATION: Yes alert Skin: COMMON NORMALS: no rashes or lesions noted GENERAL SKIN EXAM: no rashes or lesions noted Urinary Catheter Management^: [place]: Cath Placed During This Visit: yes Reason for Continuing Indwelling Catheter: Other Urinary Catheter Date of Insertion: 07/16/21 Urinary Catheter Time of Insertion: 14:36 Data : 07/19/21 04:40 07/19/21 04:40 A&P Assessment and plan (1) Sepsis: Sepsis resolved. Doing well following ureteroscopy, stenting with relief of obstructive uropathy on the right. E. coli, Proteus growing in urine. Sensitivities appreciated. Stop Zosyn and switch to IV ceftriaxone. 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 Pending arrangements by urology with [place]. With staghorn calculus, left ureteral stent in place. Will need definitive therapy, but prior to procedure with additional cardiac assessment. Continue IV antibiotics. Status: Acute (3) Abnormal stress test: Seen by cardiology during this admission. Further consideration of coronary angiography possibly proceeding left nephrectomy at a tertiary center for xanthogranulomatous pyelonephritis. Status: Acute (4) Ischemic cardiomyopathy: Consideration of additional preoperative work-up by cardiology depending on timing of nephrectomy. Appreciate recommendations. Repeat echocardiogram during this hospitalization shows an EF of 45 to 50% with mild decreased LV systolic function, possible mild global LV hypokinesia more pronounced in septum, RVSP of 31 mmHg. Status: Acute (5) Atrial flutter: On initial EKG although not a good quality study. She is not aware of prior history. Discussed with her consideration of stroke prophylactic therapy with anticoagulation once not bleeding risk, although this would have to wait until after surgical intervention and after no further hematuria. Telemetry monitoring. Possibly related to acute infection. TSH normal. 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 Keep saturation over 90%. Start on Spiriva. Continue with I-S and Acapella. Type II diabetes mellitus: Start on insulin sliding scale. Full code. Famotidine for PUD prophylaxis. SCDs for DVT prophylaxis. Attestations Medical Necessity Statement*: Continue admission for assessment management of complicated urinary tract infection, pending arrangements for left side nephrectomy due to xanthogranulomatous pyelonephritis, pending definitive therapy for right renal stone, as well as possible additional cardiac evaluation with coronary angiography depending on the timing of the procedures. Time Spent in Patient Care: Greater than 35 minutes (>than 50% of time spent in counselling and/or direct pt care on unit). Coding Level of Care Code Acute Health Care Facility Administrator for [facility] Fwd Diagnoses Sepsis A41.9 Sepsis type: sepsis due to unspecified organism Sepsis acute organ dysfunction status: unspecified Pyelonephritis of left kidney N12 Abnormal stress test R94.39 Ischemic cardiomyopathy I25.5 Atrial flutter I48.92 Atrial flutter type: unspecified
--- NOTE | 2021-07-19 17:16 | P.PN_ITS ---
Subjective Subjective: Interval history: Urology follow-up: Postop day #3 right ureteroscopy laser lithotripsy stent placement. Continues to do well. No evidence of progressive infectious concerns. She is feeling stronger. Urine is still somewhat bloody. Denies fever chills nausea vomiting increasing abdominal pain or renal colic. Pending connection with [place] regarding timing of evaluation for potential left nephrectomy. It is my hope that we can keep her covered with oral antibiotics and discharge even potentially as early as tomorrow but that may be premature. Also reviewed today that she still has some stones that are relatively new over the last couple months now in the right kidney. There is are most likely new struvite stones from infection concerns and I think it would make sense to try to consider the possibility of getting her stone free on the right side before left nephrectomy as well. We reviewed her options for that. Could consider doing that later this week in order to have her prepared for [place]. Still need to weigh carefully the timing of cardiac evaluation with cardiac cath and potential stenting with nephrectomy. She is leaning more toward considering surgical intervention in [place] and as needed cardiac evaluation there concurrently as needed. Vitals/I&O/Wt Last Vital Signs Temp 97.9 F 07/19/21 16:00 Pulse 77 07/19/21 16:00 Resp 17 07/19/21 16:00 BP 124/69 07/19/21 16:00 Pulse Ox 95 07/19/21 16:00 07/19/21 07/19/21 07/19/21 06:59 14:59 22:59 Intake Total 210 / 430 71.9 / 71.9 50 / 121.9 Output Total 450 / 2440 300 / 300 825 / 1125 Balance -240 / -2010 -228.1 / -228.1 -775 / -1003.1 Weight last 48 hrs Weight 241 lb 14.4 oz Weight 241 lb 14.4 oz Physical Exam Const: COMMON NORMALS: no acute distress, alert and well nourished GENERAL APPEARANCE: well kempt and well developed ORIENTATION/CONSCIOUSNESS: not confused Neck/C-Spine: COMMON NORMALS: full ROM GENERAL: Yes normal visual ins pection Resp: COMMON NORMALS: normal respiratory effort EFFORT & INSPECTION: No labored and No Actively coughing : OTHER: Urine is bloody but not severely so. Catheter is functioning well. Neuro: SENSORIUM/ORIENTATION: Yes alert Psych: COMMON NORMALS: mental status grossly normal APPEARANCE: Yes grossly normal and Yes well kempt ATTITUDE: Yes calm and Yes engaged Skin: COMMON NORMALS: no rashes or lesions noted and no jaundice GENERAL SK IN EXAM: no rashes or lesions noted Urinary Catheter Management^: [place]: Cath Placed During This Visit: yes Reason for Continuing Indwelling Catheter: Other Urinary Catheter Date of Insertion: 07/16/21 Urinary Catheter Time of Insertion: 14:36 Data : 07/19/21 04:40 07/19/21 04:40 A&P Assessment and plan (1) Xanthogranulomatous pyelonephritis: No evidence of infectious progression on antibiotics. Pending opinion from [facility] regarding timing of nephrectomy. Seemingly well controlled with antibiotics currently. Status: Acute (2) Recurrent obstructive pyelonephritis: Doing well. No evidence of sepsis progression. Recovering well after stenting and stone laser lithotripsy. Status: Acute (3) Right renal stone: New stone recently diagnosed. Likely infectious. I expect that the stone in the ureter and the stone were both struvite. Need to consider treatment of this sooner than later based on the rapid progression of the stone. 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 See HPI Coding Level of Care Code Acute Cross Tie Maker for [facility] Fwd Diagnoses Xanthogranulomatous pyelonephritis N11.8 Recurrent obstructive pyelonephritis N12 Right renal stone N20.0 Right ureteral calculus N20.1 Staghorn calculus N20.0
[2021-07-19 17:46] LABS: Glucose Point of Care 95 mg/dL (70-110)
--- NOTE | 2021-07-19 19:35 | PC.NURSE ---
i reported high pulse 118 to nurse
[2021-07-19 20:48] LABS: Glucose Point of Care 163 mg/dL (70-110)
[2021-07-20] VITALS (8 sets, daily range): BP systolic 117–142; BP diastolic 64–79; PULSE 71–89; RESP 17–18; TEMP 36.6–37.1; O2SAT 94–98
[2021-07-20] MEDS: acetaminophen 325 mg Tablet 650 MG PO (04:47)
[2021-07-20 06:38] LABS: Glucose Point of Care 123 mg/dL (70-110)
[2021-07-20 06:45] LABS: Basophils # 0.1 10^3/uL (0.0-0.1); Basophils % 0.8 %; Eosinophils # 0.4 10^3/uL (0.0-0.8); Eosinophils % 4.5 %; Hematocrit 33.8 % (37.0-47.0); Hemoglobin 10.3 g/dL (11.5-15.3); Lymphocytes # 1.9 10^3/uL (0.8-4.8); Lymphocytes % 24.6 %; Mean Corpuscular HGB Conc 30.5 g/dL (30.0-36.0); Mean Corpuscular Hemoglobin 29.5 pg (28.0-34.0); Mean Corpuscular Volume 96.8 fl (81-99); Mean Platelet Volume 10.3 fL (7.4-10.4); Monocytes # 0.9 10^3/uL (0.2-0.9); Monocytes % 11.3 %; Neutrophils # 4.47 10^3/uL (1.8-7.7); Neutrophils % 57.1 %; Nucleated Red Blood Cells % 0 %; Platelet Count 275 10^3/cmm (130-400); Red Blood Count 3.49 10^6/uL (4.1-5.3); Red Cell Distribution Width 13.7 % (12.1-15.1); White Blood Count 7.8 10^3/uL (4.0-10.0)
[2021-07-20 07:00] LABS: Alanine Aminotransferase < 5 U/L (0-33); Albumin Level 2.5 g/dL (3.5-5.2); Alkaline Phosphatase 73 IU/L (35-105); Anion Gap 14.8 (5-19); Aspartate Amino Transferase 11 U/L (0-32); Blood Urea Nitrogen 19 mg/dL (8-23); Calcium 8.6 mg/dL (8.5-10.5); Carbon Dioxide 25 mmol/L (22-29); Chloride 103 mmol/L (98-107); Globulin 3.5 g/dL (1.3-4.6); Glucose 111 mg/dL (65-115); Osmolality Calculated 291 mOsm/kg (285-295); Potassium 3.8 mmol/L (3.5-5.1); Sodium 139 mmol/L (136-145); Total Bilirubin 0.2 mg/dL (0.15-1.2)
[2021-07-20] MEDS: famotidine 20 mg Tablet PO ×2 (09:23→18:52)
--- NOTE | 2021-07-20 11:13 | PC.SOCIAL ---
IMM Updated Updated pt on IMM. No questions voiced. Provided pt a copy. Initialed, dated, & timed copy in chart.
[2021-07-20 11:57] LABS: Glucose Point of Care 147 mg/dL (70-110)
[2021-07-20] MEDS: cefTRIAXone 1,000 MG in sodium chloride 0.9% (plus) 50 ML 100 MG IV (14:57)
--- NOTE | 2021-07-20 15:37 | PM.PN ---
Subjective Subjective: Interval history: No acute events overnight. Has remained hemodynamically stable and afebrile. Currently on 2 L oxygen supplementation saturating 96%. Still complaining of mild abdominal pain though states is tolerable. Medications: Reviewed: Yes Vitals/I&O/Wt Last Vital Signs Temp 98.3 F 07/20/21 14:55 Pulse 77 07/20/21 14:55 Resp 18 07/20/21 14:55 BP 117/69 07/20/21 14:55 Pulse Ox 96 07/20/21 14:55 07/20/21 07/20/21 07/20/21 06:59 14:59 22:59 Intake Total 360 / 481.9 360 / 360 50 / 410 Output Total 800 / 1925 1100 / 1100 Balance -440 / -1443.1 -740 / -740 50 / -690 Weight last 48 hrs Weight 108.862 kg Weight 109.724 kg Physical Exam Const: COMMON NORMALS: no acute distress, patient oriented x3 and alert GENERAL APPEARANCE: frail appearing ORIENTATION/CONSCIOUSNESS: Yes awake OTHER: NC on HENMT: COMMON NORMALS: oropharynx normal Neck/C-Spine: COMMON NORMALS: no JVD Resp: COMMON NORMALS: normal respiratory effort and clear to auscultation bilaterally AUSCULTATION: clear to auscultation bilaterally Cardio: COMMON NORMALS: no JVD, regular rhythm, S1 normal heart sound present, S2 normal heart sound present and No murmurs present (Cardio) RHYTHM: regular rhythm HEART SOUNDS: S1 normal heart sound present and S2 normal heart sound present GI: COMMON NORMALS: Normal to inspection, nondistended, normoactive bowel sounds present and Soft to palpation PALPATION: Yes Soft to palpation and Yes Tenderness to palpation present (GI) Extremity: COMMON NORMALS: no joint enlargement and no pedal edema GENERAL: Yes edema (1+) Neuro: COMMON NORMALS: patient oriented x3 and moves all extremities SENSORIUM/ORIENTATION: Yes alert Skin: COMMON NORMALS: no rashes or lesions noted GENERAL SKIN EXAM: no rashes or lesions noted Urinary Catheter Management^: [place]: Cath Placed During This Visit: yes Reason for Continuing Indwelling Catheter: Acute Urinary Retention or Obstruction Urinary Catheter Date of Insertion: 07/16/21 Urinary Catheter Time of Insertion: 14:36 Data : 07/20/21 05:37 07/20/21 05:37 Micro: Microbiology 07/15/21 13:56 Blood Culture - Final Blood NO GROWTH AFTER 5 DAYS 07/15/21 11:00 Blood Culture - Final Blood NO GROWTH AFTER 5 DAYS A&P Assessment and plan (1) Sepsis: Sepsis resolved. Doing well following ureteroscopy, stenting with relief of obstructive uropathy on the right. E. coli, Proteus growing in urine. Sensitivities appreciated. Continue with IV ceftriaxone. 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 Pending arrangements by urology with [place]. With staghorn calculus, left ureteral stent in place. Will need definitive therapy, but prior to procedure with additional cardiac assessment. Continue IV antibiotics. Status: Acute (3) Abnormal stress test: Seen by cardiology during this admission. Further consideration of coronary angiography possibly proceeding left nephrectomy at a tertiary center for xanthogranulomatous pyelonephritis. Status: Acute (4) Ischemic cardiomyopathy: Consideration of additional preoperative work-up by cardiology depending on timing of nephrectomy. Appreciate recommendations. Repeat echocardiogram during this hospitalization shows an EF of 45 to 50% with mild decreased LV systolic function, possible mild global LV hypokinesia more pronounced in septum, RVSP of 31 mmHg. Status: Acute (5) Atrial flutter: On initial EKG although not a good quality study. She is not aware of prior history. Discussed with her consideration of stroke prophylactic therapy with anticoagulation once not bleeding risk, although this would have to wait until after surgical intervention and after no further hematuria. Telemetry monitoring. Possibly related to acute infection. TSH normal. 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 Keep saturation over 90%. Start on Spiriva. Continue with I-S and Acapella. Type II diabetes mellitus: Start on insulin sliding scale. Full code. Famotidine for PUD prophylaxis. SCDs for DVT prophylaxis. Discharge planning: Most likely patient will be discharged on IV ceftriaxone going forward for at least next 1 week till further definitive plans for xanthomatous pyelonephritis with possible nephrectomy is sought out [facility]. Case management has been alerted for home health and outpatient IV drug administration. Most likely patient will go home on IV ceftriaxone 1 g daily for at least next 7 days. Attestations Medical Necessity Statement*: Requires further hospitalization for management of xanthomatous pyelonephritis while safe discharge planning resolve, requirement of IV antibiotics. Further definitive plan is sought out. Time Spent in Patient Care: Greater than 35 minutes (>than 50% of time spent in counselling and/or direct pt care on unit). Coding Level of Care Code Acute Marine Chronometer Assembler for g Fwd Diagnoses Sepsis A41.9 Sepsis type: sepsis due to unspecified organism Sepsis acute organ dysfunction status: unspecified Pyelonephritis of left kidney N12 Abnormal stress test R94.39 Ischemic cardiomyopathy I25.5 Atrial flutter I48.92 Atrial flutter type: unspecified
[2021-07-20 17:30] LABS: Glucose Point of Care 112 mg/dL (70-110)
--- NOTE | 2021-07-20 19:03 | PM.PN ---
Subjective Subjective: Interval history: Patient is feeling okay. She has no chest pain or shortness of breath. Her vital signs seems to be stable. Medications: Reviewed: Yes Medication Review Details: Current Medications Acetaminophen (Acetaminophen 325 Mg Tablet) 650 mg PO Q4H PRN PRN Reason: Pain Last Admin: 07/20/21 04:47 Dose: 650 mg Documented by: Dextrose (Dextrose 50% Syringe 50 Ml) 25 ml IVP ONCE PRN; Protocol PRN Reason: hypoglycemia protocol Dextrose (Dextrose 50% Syringe 50 Ml) 50 ml IVP PRN PRN; Protocol PRN Reason: hypoglycemia protocol Famotidine (Famotidine 20 Mg Tablet) 20 mg PO BID CARINA Last Admin: 07/20/21 18:52 Dose: 20 mg Documented by: Glucagon (Glucagon 1 Mg/Ml Inj 1 Ml) 1 mg IM ONCE PRN; Protocol PRN Reason: Adult Acute Hypoglycemia Prot. Ceftriaxone Sodium 1,000 mg/ (Sodium Chloride) 50 mls @ 100 mls/hr IV Q24H CARINA; Protocol Last Infusion: 07/20/21 15:29 Dose: Infused Documented by: Dextrose (D5w) 500 mls @ 100 mls/hr IV ONCE PRN; Protocol PRN Reason: Adult Acute Hypoglycemia Prot Insulin Human Lispro (Insulin Lispro 100 Unit/1 Ml) 0 unit SUBCUT WM&BEDTIME CARINA; Protocol Last Admin: 07/20/21 18:52 Dose: Not Given Documented by: Nitroglycerin (Nitroglycerin 0.4 Mg Sublingual Tablet) 0.4 mg SUBLINGUAL Q5M PRN PRN Reason: Chest Pain Phenazopyridine HCl (Phenazopyridine 100 Mg Tablet) 200 mg PO TID PRN PRN Reason: DYSURIA Last Admin: 07/18/21 21:54 Dose: 200 mg Documented by: Tiotropium [place] (Tiotropium 18 Mcg Mdi) 18 mcg INHALATION DAILY.RESPIRATORY CARINA Last Admin: 07/20/21 09:05 Dose: 1 puff Documented by: Tramadol HCl (Tramadol 50 Mg Tablet) 50 mg PO Q6H PRN PRN Reason: MODERATE PAIN Last Admin: 07/19/21 14:00 Dose: 50 mg Documented by: Vitals/I&O/Wt Last Vital Signs Temp 98.3 F 07/20/21 14:55 Pulse 77 07/20/21 14:55 Resp 18 07/20/21 14:55 BP 117/69 07/20/21 14:55 Pulse Ox 96 07/20/21 14:55 07/20/21 07/20/21 07/20/21 06:59 14:59 22:59 Intake Total 360 / 481.9 360 / 360 50 / 410 Output Total 800 / 1925 1100 / 1100 Balance -440 / -1443.1 -740 / -740 50 / -690 Weight last 48 hrs Weight 240 lb Weight 241 lb 14.4 oz Physical Exam Narrative: EXAM NARRATIVE: GENERAL: The patient is alert and oriented times three. Not in any acute distress. Obese HEENT: Normocephalic. No, icterus or lymphadenopathy.Oral cavity: There are no mucous membrane lesions. NECK: Trachea appears to be central. No masses noted. No JVD or thyromegaly appreciated. RESPIRATORY: Chest is symmetrical. No intercostals muscle retraction or any accessory muscle activation. There is no chest wall tenderness. Breath sounds are heard bilaterally. No rales or rhonchi heard. No evidence of any consolidation. BREASTS: Deferred. HEART: The heart sounds are normal. No S3 or S4. Short systolic murmur in the left sternal border. No diastolic murmurs.. No pericardial rub ABDOMEN: Obese. No vessel pulsations or distention. No tenderness. No organomegaly appreciated. Bowel sounds are normally heard. : Deferred. RECTAL: Deferred. LYMPHATIC: No lymphadenopathy noted in the neck or groin. EXTREMITIES: 1+ edema of the lower extremities. No cyanosis. MUSCULOSKELETAL: No acute joint deformities or swelling SKIN: There are no significant rashes or ecchymosis NEUROPSYCHIATRIC: The patient is alert and oriented x3. Appears to be in a good mood. No tremors or rigidity noted. Urinary Catheter Management^: [place]: Cath Placed During This Visit: yes Reason for Continuing Indwelling Catheter: Acute Urinary Retention or Obstruction Urinary Catheter Date of Insertion: 07/16/21 Urinary Catheter Time of Insertion: 14:36 Data : 07/20/21 05:37 07/20/21 05:37 Micro: Microbiology 07/15/21 13:56 Blood Culture - Final Blood NO GROWTH AFTER 5 DAYS 07/15/21 11:00 Blood Culture - Final Blood NO GROWTH AFTER 5 DAYS A&P Assessment and plan (1) Ischemic cardiomyopathy: In view of the abnormal myocardial perfusion imaging and LV dysfunction, possibility of the patient having underlying coronary artery disease is very high. If she is going for a major intra-abdominal procedure, it may be appropriate to do a cardiac catheterization to better evaluate the coronary status and decide on further management. I discussed with the patient the option of doing the procedure here versus in [facility]. Patient would like to have all the procedures done in the same hospital, if possible. So it may be appropriate to have it done in [place] prior to the nephrectomy. Since the patient is going to be there for a while, it may be appropriate to consult with cardiology there to make these decisions. Patient may leave this hospital with all the records specifically on the stress test and echocardiogram. Status: Acute (2) Recurrent obstructive pyelonephritis: Management as per the nephrology service Status: Acute (3) Atrial flutter: Patient was found to be in atrial flutter with rapid ventricular rate on 07/15/2021. She was found to have features of a urosepsis at that time. Currently she seems to be back in a regular rhythm. If she has any recurrence of atrial letter/fibrillation, she may require long-term oral anticoagulation. Apparently the echocardiogram did not reveal any significant atrial enlargement. Also in view of the ongoing hematuria, it may be appropriate to hold off on the anticoagulation at this time Status: Acute Qualifiers: Atrial flutter type: unspecified Qualified Code(s): I48.92 - Unspecified atrial flutter (4) Abnormal stress test: As mentioned above Status: Acute (5) Sepsis: Clinically is resolving Status: Acute Qualifiers: Sepsis type: sepsis due to unspecified organism Sepsis acute organ dysfunction status: unspecified Qualified Code(s): A41.9 - Sepsis, unspecified organism (6) Right ureteral calculus: Management as per the nephrology service. Status: Resolved Additional A&P Information Continue on the current management. Disposition as per the primary Attestations Medical Necessity Statement*: Deferred to the primary attending Coding Level of Care Code Acute Telesales Specialist for [facility] Fwd Diagnoses Ischemic cardiomyopathy I25.5 Recurrent obstructive pyelonephritis N12 Atrial flutter I48.92 Atrial flutter type: unspecified Abnormal stress test R94.39 Sepsis A41.9 Sepsis type: sepsis due to unspecified organism Sepsis acute organ dysfunction status: unspecified Right ureteral calculus N20.1
[2021-07-20 21:18] LABS: Glucose Point of Care 128 mg/dL (70-110)
[2021-07-20] MEDS: phenazopyridine 100 mg Tablet 200 MG PO (21:44)
[2021-07-20] MEDS: TRAMadol 50 mg Tablet PO (21:44)
[2021-07-21] VITALS (8 sets, daily range): BP systolic 104–133; BP diastolic 56–74; PULSE 67–82; RESP 16–17; TEMP 36.3–37.2; O2SAT 92–95
[2021-07-21] MEDS: acetaminophen 325 mg Tablet 650 MG PO (02:33)
[2021-07-21 05:36] LABS: Basophils # 0.1 10^3/uL (0.0-0.1); Basophils % 0.6 %; Eosinophils # 0.4 10^3/uL (0.0-0.8); Eosinophils % 4.4 %; Hematocrit 33.7 % (37.0-47.0); Hemoglobin 10.3 g/dL (11.5-15.3); Lymphocytes # 1.9 10^3/uL (0.8-4.8); Lymphocytes % 20.3 %; Mean Corpuscular HGB Conc 30.6 g/dL (30.0-36.0); Mean Corpuscular Hemoglobin 29.3 pg (28.0-34.0); Monocytes # 0.9 10^3/uL (0.2-0.9); Monocytes % 9.9 %; Neutrophils # 5.95 10^3/uL (1.8-7.7); Neutrophils % 63.4 %; Nucleated Red Blood Cells % 0 %; Platelet Count 289 10^3/cmm (130-400); Red Blood Count 3.51 10^6/uL (4.1-5.3); Red Cell Distribution Width 13.7 % (12.1-15.1); White Blood Count 9.4 10^3/uL (4.0-10.0)
[2021-07-21 05:59] LABS: Alanine Aminotransferase < 5 U/L (0-33); Albumin Level 2.6 g/dL (3.5-5.2); Alkaline Phosphatase 73 IU/L (35-105); Anion Gap 12.7 (5-19); Aspartate Amino Transferase 12 U/L (0-32); Blood Urea Nitrogen 19 mg/dL (8-23); Calcium 8.4 mg/dL (8.5-10.5); Carbon Dioxide 27 mmol/L (22-29); Chloride 104 mmol/L (98-107); Globulin 3.5 g/dL (1.3-4.6); Glucose 106 mg/dL (65-115); Osmolality Calculated 293 mOsm/kg (285-295); Potassium 3.7 mmol/L (3.5-5.1); Sodium 140 mmol/L (136-145); Total Bilirubin 0.2 mg/dL (0.15-1.2); Total Protein 6.1 g/dL (6.6-8.7)
[2021-07-21 06:55] LABS: Glucose Point of Care 136 mg/dL (70-110)
--- NOTE | 2021-07-21 07:20 | PM.PN ---
Subjective Subjective: Interval history: Urology follow-up: Overall doing well. No fever or chills. Denies nausea vomiting. Has some mild abdominal pain on the right side. Probably stent. Reviewed her options. Given the increased size of the stones over a relatively short order in the right renal pelvis, and pending nephrectomy [place] for her left xanthogranulomatous pyelonephritis, and need for continued IV antibiotics we decided to proceed with endoscopic treatment of the right renal pelvic stones prior to her discharge. I think she is recovered well from her obstructive pyelonephritis episodes and she had a stent in for several days now which will lead to improved access to the upper urinary tract with endoscopy. Informed consent was obtained after detailed explanation of procedure expected. We will plan on that tomorrow afternoon when time is available. Reviewed with Dr. Lang. Vitals/I&O/Wt Last Vital Signs Temp 98.5 F 07/21/21 04:00 Pulse 67 07/21/21 05:31 Resp 17 07/21/21 04:00 BP 104/58 07/21/21 04:00 Pulse Ox 94 07/21/21 04:00 07/20/21 07/21/21 07/21/21 22:59 06:59 14:59 Intake Total 170 / 530 140 / 670 Output Total 150 / 1250 Balance 170 / -570 -10 / -580 Weight last 48 hrs Weight 240 lb Weight 240 lb Physical Exam Const: COMMON NORMALS: no acute distress, alert and well nourished GENERAL APPEARANCE: well kempt and well developed ORIENTATION/CONSCIOUSNESS: not confused Resp: COMMON NORMALS: normal respiratory effort EFFORT & INSPECTION: No labored and No Actively coughing Neuro: SENSORIUM/ORIENTATION: Yes alert Psych: COMMON NORMALS: mental status grossly normal APPEARANCE: Yes grossly normal and Yes well kempt ATTITUDE: Yes calm and Yes engaged Skin: COMMON NORMALS: no rashes or lesions noted and no jaundice GENERAL SKIN EXAM: no rashes or lesions noted Urinary Catheter Management^: [place]: Cath Placed During This Visit: yes Reason for Continuing Indwelling Catheter: Acute Urinary Retention or Obstruction Urinary Catheter Date of Insertion: 07/16/21 Urinary Catheter Time of Insertion: 14:36 Data : 07/21/21 04:50 07/21/21 04:50 Micro: Microbiology 07/15/21 13:56 Blood Culture - Final Blood NO GROWTH AFTER 5 DAYS 07/15/21 11:00 Blood Culture - Final Blood NO GROWTH AFTER 5 DAYS A&P Assessment and plan (1) Xanthogranulomatous pyelonephritis: Medical treatment now. Tentative plans for left nephrectomy in [place]. Status: Acute (2) Right renal stone: Partial staghorn. Fairly prompt recurrence since previous CT scan. We have cleared the right ureteral calculus and she is doing well from obstructive pyelonephritis perspective. Will plan on endoscopic treatment of the right renal stone tomorrow afternoon with time available. Status: Acute (3) Recurrent obstructive pyelonephritis: Clinically doing very well Status: Acute (4) Cystitis cystica: Status: Chronic (5) Retained ureteral stent: Will be removed at time of left nephrectomy. Status: Chronic Attestations Medical Necessity Statement*: Continue IV antibiotics. Surgery tomorrow. 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
[2021-07-21] MEDS: famotidine 20 mg Tablet PO ×2 (10:50→18:43)
[2021-07-21 11:32] LABS: Glucose Point of Care 132 mg/dL (70-110)
--- NOTE | 2021-07-21 14:12 | P.PN_ITS ---
Subjective Subjective: Interval history: No events overnight. Patient lying comfortably in bed today. Denies any nausea vomiting, headache. Has remained afebrile hemodynamically stable. Vitals/I&O/Wt Last Vital Signs Temp 97.4 F L 07/21/21 11:03 Pulse 67 07/21/21 11:03 Resp 16 07/21/21 11:03 BP 133/74 07/21/21 11:03 Pulse Ox 95 07/21/21 11:03 07/20/21 07/21/21 07/21/21 22:59 06:59 14:59 Intake Total 170 / 530 140 / 670 360 / 360 Output Total 150 / 1250 1150 / 1150 Balance 170 / -570 -10 / -580 -790 / -790 Weight last 48 hrs Weight 108.862 kg Weight 108.862 kg Physical Exam Const: COMMON NORMALS: no acute distress, patient oriented x3 and alert GENERAL APPEARANCE: frail appearing ORIENTATION/CONSCIOUSNESS: Yes awake OTHER: NC on HENMT: COMMON NORMALS: oropharynx normal Neck/C-Spine: COMMON NORMALS: no JVD Resp: COMMON NORMALS: normal respiratory effort and clear to auscultation bilaterally AUSCULTATION: clear to auscultation bilaterally Cardio: COMMON NORMALS: no JVD, regular rhythm, S1 normal heart sound present, S2 normal heart sound present and No murmurs present (Cardio) RHYTHM: regular rhythm HEART SOUNDS: S1 normal heart sound present and S2 normal heart sound present GI: COMMON NORMALS: Normal to inspection, nondistended, normoactive bowel sounds present and Soft to palpation PALPATION: Yes Soft to palpation and Yes Tenderness to palpation present (GI) Extremity: COMMON NORMALS: no joint enlargement and no pedal edema GENERAL: Yes edema (1+) Neuro: COMMON NORMALS: patient oriented x3 and moves all extremities SENSORIUM/ORIENTATION: Yes alert Skin: COMMON NORMALS: no rashes or lesions noted GENERAL SKIN EXAM: no rashes or lesions noted Urinary Catheter Management^: [place]: Cath Placed During This Visit: yes Reason for Continuing Indwelling Catheter: Acute Urinary Retention or Obstruction Urinary Catheter Date of Insertion: 07/16/21 Urinary Catheter Time of Insertion: 14:36 Data : 07/21/21 04:50 07/21/21 04:50 Micro: Microbiology 07/15/21 13:56 Blood Culture - Final Blood NO GROWTH AFTER 5 DAYS 07/15/21 11:00 Blood Culture - Final Blood NO GROWTH AFTER 5 DAYS A&P Assessment and plan (1) Sepsis: Sepsis resolved. Doing well following ureteroscopy, stenting with relief of obstructive uropathy on the right. E. coli, Proteus growing in urine. Sensitivities appreciated. Continue with IV ceftriaxone. Plan for IV antibiotics for 7 days post discharge. Will require a PICC line. Case discussed with Dr. Meyer. Plan for lithotripsy on July 22. 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 Pending arrangements by urology with [facility]. With staghorn calculus, left ureteral stent in place. Will need definitive therapy, but prior to procedure with additional cardiac assessment. Continue IV antibiotics. Status: Acute (3) Abnormal stress test: Seen by cardiology during this admission. Further consideration of coronary angiography possibly proceeding left nephrectomy at a tertiary center for xanthogranulomatous pyelonephritis. Status: Acute (4) Ischemic cardiomyopathy: Consideration of additional preoperative work-up by cardiology depending on timing of nephrectomy. Appreciate recommendations. Repeat echocardiogram during this hospitalization shows an EF of 45 to 50% with mild decreased LV systolic function, possible mild global LV hypokinesia more pronounced in septum, RVSP of 31 mmHg. Status: Acute (5) Atrial flutter: On initial EKG although not a good quality study. She is not aware of prior history. Discussed with her consideration of stroke prophylactic therapy with anticoagulation once not bleeding risk, although this would have to wait until after surgical intervention and after no further hematuria. Telemetry monitoring. Possibly related to acute infection. TSH normal. 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 Keep saturation over 90%. Start on Spiriva. Continue with I-S and Acapella. Type II diabetes mellitus: Start on insulin sliding scale. Full code. Famotidine for PUD prophylaxis. SCDs for DVT prophylaxis. Discharge planning: Most likely patient will be discharged on IV ceftriaxone going forward for at least next 1 week till further definitive plans for xanthomatous pyelonephritis with possible nephrectomy is sought out [facility]. Case management has been alerted for home health and outpatient IV drug administration. Most likely patient will go home on IV ceftriaxone 1 g daily for at least next 7 days. Attestations Medical Necessity Statement*: Requires further hospitalization for management of xanthogranulomatous pyelonephritis of left kidney requiring possible nephrectomy Time Spent in Patient Care: Greater than 35 minutes (>than 50% of time spent in counselling and/or direct pt care on unit) . Coding Level of Care Code Acute Contracts Law Professor for Анна Ribeiro Diagnoses Sepsis A41.9 Sepsis type: sepsis due to unspecified organism Sepsis acute organ dysfunction status: unspecified Pyelonephritis of left kidney N12 Abnormal stress test R94.39 Ischemic cardiomyopathy I25.5 Atrial flutter I48.92 Atrial flutter type: unspecified
[2021-07-21] MEDS: cefTRIAXone 1,000 MG in sodium chloride 0.9% (plus) 50 ML 100 MG IV (14:20)
[2021-07-21 17:03] LABS: Glucose Point of Care 207 mg/dL (70-110)
[2021-07-21] MEDS: insulin lispro 100 unit/1 mL SUBCUT (18:43)
[2021-07-21] MEDS: TRAMadol 50 mg Tablet PO (21:20)
[2021-07-21 21:21] LABS: Glucose Point of Care 101 mg/dL (70-110)
[2021-07-22] VITALS (11 sets, daily range): BP systolic 110–150; BP diastolic 60–92; PULSE 75–99; RESP 16–18; TEMP 36.3–36.9; O2SAT 90–96
--- NOTE | 2021-07-22 | SCC_ITS ---
Procedure Done: 1. Cystoscopy removal of right ureteral stent 2. Right retrograde ureteropyelogram 3. Right ureteroscopy, laser lithotripsy and stent 55.2 seconds of fluoroscopic guidance, for a cumulative dose of 11.54 mGy, was provided to Dr. Meyer by the radiology department. C-arm images of the abdomen were saved for the patient's permanent record. [facility]
[2021-07-22] MEDS: phenazopyridine 100 mg Tablet 200 MG PO (01:33)
[2021-07-22 06:45] LABS: Alanine Aminotransferase < 5 U/L (0-33); Albumin Level 2.9 g/dL (3.5-5.2); Alkaline Phosphatase 76 IU/L (35-105); Aspartate Amino Transferase 12 U/L (0-32); Blood Urea Nitrogen 24 mg/dL (8-23); Calcium 8.6 mg/dL (8.5-10.5); Carbon Dioxide 26 mmol/L (22-29); Chloride 101 mmol/L (98-107); Globulin 3.6 g/dL (1.3-4.6); Glucose 97 mg/dL (65-115); Osmolality Calculated 292 mOsm/kg (285-295); Sodium 139 mmol/L (136-145); Total Bilirubin 0.3 mg/dL (0.15-1.2); Total Protein 6.5 g/dL (6.6-8.7)
[2021-07-22] MEDS: famotidine 20 mg Tablet PO (07:53)
[2021-07-22 12:37] LABS: Glucose Point of Care 122 mg/dL (70-110)
--- NOTE | 2021-07-22 13:26 | SUR.PREOP ---
TIME OUT FOR PICC LINE INSERTION
--- NOTE | 2021-07-22 13:26 | SUR.PHASEII ---
PICC NOTE/ABORT NOTE Patient evaluated for PICC line insertion. Consents obtained. Questions answered. Procedure began per usual fashion. Access obtained initially in the right bascilic vein midportion of the upper arm with wire advancement and dilation of the tissues with the 5FR dilator. Catheter trimmed to appropriate length and inserted but would not advance. System removed as a whole and pressure held at site. A second attempt was made at the upper bascilic with the same result(only needle and wire access made with no advancement). The patient at this time requested the procedure to be aborted. I went over the need for the picc line and home use and she understands the implications of it not being placed. Family updated. Staff updated. Access sites secured with sterile 4x4's and coban. Patient's condition- stable and affect is good.
--- NOTE | 2021-07-22 13:45 | P.PN_ITS ---
Subjective Subjective: Interval history: No acute events overnight. Patient has remained hemodynamically stable and afebrile. Worked appropriately with physical therapy yesterday. Plan for OR later in the day today. Plan for PICC line today as well. Medications: Reviewed: Yes Vitals/I&O/Wt Last Vital Signs Temp 98.2 F 07/22/21 11:04 Pulse 88 07/22/21 13:35 Resp 18 07/22/21 13:35 BP 150/91 07/22/21 13:35 Pulse Ox 93 07/22/21 13:35 07/21/21 07/22/21 07/22/21 22:59 06:59 14:59 Intake Total 290 / 650 0 / 650 Output Total 1050 / 2850 Balance 290 / -1150 -1050 / -2200 Weight last 48 hrs Weight 108.862 kg Physical Exam Const: COMMON NORMALS: no acute distress, patient oriented x3 and alert GENERAL APPEARANCE: frail appearing ORIENTATION/CONSCIOUSNESS: Yes awake OTHER: NC on HENMT: COMMON NORMALS: oropharynx normal Neck/C-Spine: COMMON NORMALS: no JVD Resp: COMMON NORMALS: normal respiratory effort and clear to auscultation bilaterally AUSCULTATION: clear to auscultation bilaterally Cardio: COMMON NORMALS: no JVD, regular rhythm, S1 normal heart sound present, S2 normal heart sound present and No murmurs present (Cardio) RHYTHM: regular rhythm HEART SOUNDS: S1 normal heart sound present and S2 normal heart sound present GI: COMMON NORMALS: Normal to inspection, nondistended, normoactive bowel sounds present and Soft to palpation PALPATION: Yes Soft to palpation and Yes Tenderness to palpation present (GI) Extremity: COMMON NORMALS: no joint enlargement and no pedal edema GENERAL: Yes edema (1+) Neuro: COMMON NORMALS: patient oriented x3 and moves all extremities SENSORIUM/ORIENTATION: Yes alert Skin: COMMON NORMALS: no rashes or lesions noted GENERAL SKIN EXAM: no rashes or lesions noted Urinary Catheter Management^: Monterroso: Cath Placed During This Visit: yes Reason for Continuing Indwelling Catheter: Other Urinary Catheter Date of Insertion: 07/16/21 Urinary Catheter Time of Insertion: 14:36 Data : 07/21/21 04:50 07/22/21 05:26 A&P Assessment and plan (1) Sepsis: Sepsis resolved. Doing well following ureteroscopy, stenting with relief of obstructive uropathy on the right. E. coli, Proteus growing in urine. Sensitivities appreciated. Continue with IV ceftriaxone. Plan for IV antibiotics for 7 days post discharge. Will require a PICC line. Case discussed with Dr. Myeer. Plan for lithotripsy on July 22. 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 Pending arrangements by urology with [place]. With staghorn calculus, left ureteral stent in place. Will need definitive therapy, but prior to procedure with additional cardiac assessment. Continue IV antibiotics. Status: Acute (3) Abnormal stress test: Seen by cardiology during this admission. Further consideration of coronary angiography possibly proceeding left nephrectomy at a tertiary center for xanthogranulomatous pyelonephritis. Status: Acute (4) Ischemic cardiomyopathy: Consideration of additional preoperative work-up by cardiology depending on timing of nephrectomy. Appreciate recommendations. Repeat echocardiogram during this hospitalization shows an EF of 45 to 50% with mild decreased LV systolic function, possible mild global LV hypokinesia more pronounced in septum, RVSP of 31 mmHg. Status: Acute (5) Atrial flutter: On initial EKG although not a good quality study. She is not aware of prior history. Discussed with her consideration of stroke prophylactic therapy with anticoagulation once not bleeding risk, although this would have to wait until after surgical intervention and after no further hematuria. Telemetry monitoring. Possibly related to acute infection. TSH normal. 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 Keep saturation over 90%. Start on Spiriva. Continue with I-S and Acapella. Type II diabetes mellitus: Start on insulin sliding scale. Full code. Famotidine for PUD prophylaxis. SCDs for DVT prophylaxis. Plan for today: Plan for OR with Dr. Meyer for lithotripsy. Continue ceftriaxone. PICC line placement for IV ceftriaxone as an outpatient. Continue with physical and Occupational Therapy. Home health arrangement. Attestations Medical Necessity Statement*: Requires further hospitalization for management of xanthogranulomatous pyelonephritis of left kidney, staghorn calculi of right kidney needing lithotripsy Time Spent in Patient Care: Greater than 35 minutes (>than 50% of time spen t in counselling and/or direct pt care on unit) . Coding Level of Care Code Acute Dirt Bike Racer for [facility] Diagnoses Sepsis A41.9 Sepsis type: sepsis due to unspecified organism Sepsis acute organ dysfunction status: unspecified Pyelonephritis of left kidney N12 Abnormal stress test R94.39 Ischemic cardiomyopathy I25.5 Atrial flutter I48.92 Atrial flutter type: unspecified
--- NOTE | 2021-07-22 14:13 | P.ANESASSM_ITS ---
Pre-Anesthetic Assessment Pre-Anesthetic Assessment: Height/Weight: Height 1.6 m Weight 108.862 kg Temp Pulse Resp BP Pulse Ox 98.2 F 88 18 150/91 93 07/22/21 11:04 07/22/21 13:35 07/22/21 13:35 07/22/21 13:35 07/22/21 13:35 Preop Diagnosis: 2 large left UPJ stones Proposed Procedure: Operation Date: 07/16/21 13:00 Proposed Procedures p Cystoscopy(Not Applicable) - Levy Meyer MD s Ureteral Stent Exchange(Left) - Levy Meyer MD s Ureteral Stent Placement(Right) - Levy Meyer MD s Laser Lithotripsy(Right) - Levy Meyer MD s Ureteroscopy(Right) - Levy Meyer MD Operation Date: 07/22/21 14:00 Proposed Procedures p Cystoscopy(Not Applicable) - Levy Meyer MD s Retrograde Pyelogram(Right) - Levy Meyer MD s Ureteroscopy(Right) - Levy Meyer MD s Laser Lithotripsy(Right) - Levy Meyer MD s Ureteral Stent Placement(Right) - Levy Meyer MD Was Beta Kely taken within 24 hours: N/A Was Clonidine taken within 24 hours: N/A Last intake: Intake Last Liquid Date 07/15/21 Last Liquid Time 18:00 Last Solid Date 07/15/21 Last Solid Time 18:00 Social: Social History: No alcohol and No tobacco Exam: Pre-Anes Outpt Exam: alert, oriented x 3, clear to auscultation bilaterally and regular rate & rhythm Airway: Submandibular: WNL Cervical ROM: WNL MP: 2 Dentition: Chipped CV/HEM: CV/HEM: Afib (flutter), Anemia, Arrythmia (LBBB), CAD and CHF (EF 35- 40%) Metabolic: Metabolic: Morbid obesity Anesthetic Plan: ASA status: 3 Anesthesia: General Meds/Allergies Current Medications: Current Medications Generic Name Dose Route Start Last Admin Trade Name Freq PRN Reason Stop Dose Admin Acetaminophen 650 mg 07/17/21 13:55 07/21/21 02:33 Acetaminophen 32 5 Mg Tablet PO 650 mg Q4H PRN Administration Pain Famotidine 20 mg 07/19/21 13:35 07/22/21 07:53 Famotidine 20 Mg Tablet PO 20 mg BID CARINA Administration Ceftriaxone Sodium 1,000 mg/ 50 mls @ 100 mls/ hr 07/19/21 14:30 07/21/21 15:41 Sodium Chloride IV Infused Q24H CARINA Infusion Protocol Insulin Human Lisp ro 0 unit 07/19/21 18:00 07/22/21 13:17 Insulin Lispro 1 00 Unit/1 Ml SUBCUT Not Given WM&BEDTIME CARINA Protocol Phenazopyridine HC l 200 mg 07/16/21 08:26 07/22/21 01:33 Phenazopyridine 100 Mg Tablet PO 200 mg TID PRN Administration DYSURIA Tiotropium [place] 18 mcg 07/19/21 13:40 07/21/21 10:01 Tiotropium 18 Mc g Mdi INHALATION 1 puff DAILY.RESPIRATORY CARINA Administration Tramadol HCl 50 mg 07/16/21 20:50 07/21/21 21:20 Tramadol 50 Mg T ablet PO 50 mg Q6H PRN Administration MODERATE PAIN PFSH Anesthesia PFSH: Medical History 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 Hypoxia Left ureteral calculus Obstructive pyelonephritis Peripheral edema Staghorn calculus Surgical History S/P appendectomy S/P bilateral oophorectomy S/P cholecystectomy S/P hysterectomy Status post laser lithotripsy of ureteral calculus Family History Mother , 73 Hypertension Father , 75 CAD (coronary artery disease) ID Family/Other Cancer Diabetes Thyroid disease Sister Cancer Denies family history of Clotting disorder Dementia Chronic kidney disease (CKD) Suicide Anesthesia complication Bleeding disorder Lung disease Stroke Social History Smoking and tobacco status: never smoked Alcohol intake: never Substance/Drug Use: never Marital status: / Current occupational status: retired History of recent travel: No Data Anesthesia CBC & Chem 7: 07/21/21 04:50 07/22/21 05:26 Other Labs: Laboratory Results - last 48 hr 07/20/21 07/20/21 07/21/21 17:26 21:10 04:50 WBC 9.4 RBC 3.51 L Hgb 10.3 L Hct 33.7 L MCV 96.0 MCH 29.3 MCHC 30.6 RDW 13.7 Plt Count 289 MPV 10.0 Neut % (Auto) 63.4 Lymph % (Auto) 20.3 [place] % (Auto) 9.9 Eos % (Auto) 4.4 Baso % (Auto) 0.6 Neut # (Auto) 5.95 Lymph # (Auto) 1.9 [facility] # (Auto) 0.9 Eos # (Auto) 0.4 Baso # (Auto) 0.1 Nucleated RBC % (auto) 0 Nucleated RBCs # 0.0 Sodium Potassium Chloride Carbon Dioxide Anion Gap BUN Creatinine GFR Calculation Glucose POC Glucose 112 H 128 H Calculated Osmolality Calcium Total Bilirubin AST ALT Alkaline Phosphatase Total Protein Albumin Globulin 07/21/21 07/21/21 07/21/21 04:50 06:48 11:01 WBC RBC Hgb Hct MCV MCH MCHC RDW Plt Count MPV Neut % (Auto) Lymph % (Auto) [facility] % (Auto) Eos % (Auto) Baso % (Auto) Neut # (Auto) Lymph # (Auto) [facility] # (Auto) Eos # (Auto) Baso # (Auto) Nucleated RBC % (auto) Nucleated RBCs # Sodium 140 Potassium 3.7 Chloride 104 Carbon Dioxide 27 Anion Gap 12.7 BUN 19 Creatinine 0.7 GFR Calculation Not Reportable Glucose 106 POC Glucose 136 H 132 H Calculated Osmolality 293 Calcium 8.4 L Total Bilirubin 0.2 AST 12 ALT < 5 Alkaline Phosphatase 73 Total Protein 6.1 L Albumin 2.6 L Globulin 3.5 07/21/21 07/21/21 07/22/21 16:54 20:58 05:26 WBC RBC Hgb Hct MCV MCH MCHC RDW Plt Count MPV Neut % (Auto) Lymph % (Auto) [facility] % (Auto) Eos % (Auto) Baso % (Auto) Neut # (Auto) Lymph # (Auto) [facility] [place] # (Auto) Eos # (Auto) Baso # (Auto) Nucleated RBC % (auto) Nucleated RBCs # Sodium 139 Potassium 4.0 Chloride 101 Carbon Dioxide 26 Anion Gap 16.0 BUN 24 H Creatinine 0.8 GFR Calculation Not Reportable Glucose 97 POC Glucose 207 H 101 Calculated Osmolality 292 Calcium 8.6 Total Bilirubin 0.3 AST 12 ALT < 5 Alkaline Phosphatase 76 Total Protein 6.5 L Albumin 2.9 L Globulin 3.6 07/22/21 11:01 WBC RBC Hgb Hct MCV MCH MCHC RDW Plt Count MPV Neut % (Auto) Lymph % (Auto) [facility] [place] [facility] % (Auto) Eos % (Auto) Baso % (Auto) Neut # (Auto) Lymph # (Auto) [facility] [place] [facility] # (Auto) Eos # (Auto) Baso # (Auto) Nucleated RBC % (auto) Nucleated RBCs # Sodium Potassium Chloride Carbon Dioxide Anion Gap BUN Creatinine GFR Calculation Glucose POC Glucose 122 H Calculated Osmolality Calcium Total Bilirubin AST ALT Alkaline Phosphatase Total Protein Albumin Globulin Cardiac Studies: Echocardiogram 07/16/21
--- NOTE | 2021-07-22 15:39 | PC.OT ---
OT orders received and OT evaluation attempted this date but patient was in surgery. Will attempt evaluation tomorrow.
--- NOTE | 2021-07-22 16:07 | P.MISC_ITS ---
Miscellaneous Note Note: Reviewed with the patient again her options. Were planning on treating the right renal pelvic stone today with laser lithotripsy and stent replacement for short-term trying to become stone free before considering treatment of her xanthogranulomatous pyelonephritis via nephrectomy likely at the [facility]. Discussed with the patient and her daughter. They are ready to proceed as anticipated yesterday.
--- NOTE | 2021-07-22 16:14 | SC_ITS ---
WS: [id number] C-ARM RADIOGRAPHS ABDOMEN; 3 IMAGES HISTORY: SURGERY COMPARISON: None available. Intraoperative imaging during stent placement. The stent is probably being placed within the RIGHT re nal pelvis. SC/C-arm FL for Urology IMPRESSION: Intraoperative imaging during ureteral stent placement.
[2021-07-22] MEDS: iohexol 300 mg/mL 50 mL Btl (OR ONLY) XX (16:44)
--- NOTE | 2021-07-22 17:50 | P.PCN_ITS ---
Documented by User: Tk Rao CRNA 07/22/21 17:50 PACU note PACU note: VSS, Good respiratory effort, report to DOG FOOD SHREDDER OPERATOR Post-Anesthesia Exam: awake
--- NOTE | 2021-07-22 17:50 | PM.PACU ---
Documented by User: Tk Rao CRNA 07/22/21 17:50 PACU note PACU note: VSS, Good respiratory effort, report to UNARMED SECURITY OFFICER Post-Anesthesia Exam: awake
--- NOTE | 2021-07-22 17:57 | PM.OP ---
Operative Report Date of procedure: July 22, 2021 Pre-op Diagnosis: 2 large left UPJ stones Post-op diagnosis: same Procedure Done: 1. Cystoscopy removal of right ureteral stent 2. Right retrograde ureteropyelogram 3. Right ureteroscopy, laser lithotripsy and stent Implants: 24 cm double-pigtail without string Pathology: none sent Surgeon: Betsy Anesthesia: General Estimated blood loss: <10 cc. Urine output: Not measured Complications: None Findings: 1. There is still some inflammatory changes where the previously treated right distal ureteral stone had been impacted 2. Right upper pole stone was identified and treated with laser lithotripsy and broken into primarily sand. Much of that was flushed out through the scope and around the scope through the sheath 3. 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 This was further complicated by recent/concurrent right ureteral stone with obstructive pyelonephritis requiring initially antibiotic therapy followed by endoscopic treatment of the stone. She was also known to have a partial staghorn in the right kidney. The 2 right stones were new and likely payable representative of chronic infection with struvite stones. She is recovered well from right-sided obstructive pyelonephritis and there is pending consult with [facility] for consideration of left nephrectomy for xanthogranulomatous pyelonephritis. It was decided to go ahead and treat the right renal pelvic stone/partial staghorn while in the hospital on antibiotics in hopes of reducing risk of further infectious complications or stone growth. That was felt to be especially important given her lack of margin of error after severe dysfunction development of left kidney with xanthogranulomatous pyelonephritis. Procedure: After urgent evaluation examination and obtaining of informed consent she was taken to the operating suite on 07/22/2021 where general anesthesia was administered without difficulty after appropriate timeout was performed, SCDs confirmed to be functioning, therapeutic antibiotics confirmed, and beta-caity protocol confirmed. Prepped and draped in the usual sterile fashion in dorsolithotomy position paying careful attention to avoiding pressure points. 21 Congolese cystoscope with 30 degree lens was introduced into the urethral meatus and advanced into the bladder under videoscopy. There are few small stone fragments having broken off the chronic left ureteral stent that were flushed free from the bladder. The stent was grasped and grasping forceps on the RIGHT side and withdrawn through the urethral meatus and a guidewire passed up the stent without difficulty. The stent was removed and that wire was secured to the drapes as a safety wire. A second wire was then passed up through the cystoscope up the right ureter into the same area in the renal pelvis and then a 7.5 Congolese offset semirigid ureteroscope was then advanced next to the guidewire. The area where the stone had been treated recently was still inflamed but was bypassable. The scope was passed all the way into the UPJ area and no other significant abnormality was noted in the ureter. The scope was removed and the working wire was utilized to pass a 24 cm ureteral access sheath without difficulty under fluoroscopic guidance to just below the UPJ. The wire was removed as was the inner sheath and a video 7 Congolese flexible ureteroscope was advanced through the sheath up into the renal pelvis. Some contrast was injected into the renal pelvis so that the calyces could be outlined and then the scope was passed into all the different calyces. The stone in the upper pole lateral calyx was easily identified. A 200 ?m thulium superpulse laser fiber was utilized to fragment the stone which measured about 1.5 cm into sand and some very very small fragments. This took a while but ultimately result was good. An X catch basket was utilized to remove some of the fragments but most of it was too small to be secured into the basket and much of it was flushed through the scope with irrigation. On final inspection there were no larger fragments identified. There was no active bleeding. The ureteral access sheath was backed onto the hub of the scope and the ureter was inspected as the scope was slowly withdrawn. The ureter was in good shape. The cystoscope was then backloaded over the safety wire and a 7 Congolese by 24 cm double-pigtail stent was advanced over the guidewire through the cystoscope into appropriate position as confirmed via fluoroscopy and cystoscopy. The bladder was drained and the procedure completed. No Monterroso catheter. PLANS: 1. It is hoped that she will be stable enough for discharge tomorrow on IV antibiotics and ultimately oral antibiotics in preparation for consultation with [facility] for left nephrectomy for xanthogranulomatous pyelonephritis. 2. Reviewed with the patient and the family.
[2021-07-22] MEDS: sodium chloride 0.9% 1,000 ML 30 ML IV (18:43)
[2021-07-22 21:04] LABS: Glucose Point of Care 159 mg/dL (70-110)
[2021-07-23 03:42] VITALS: BP 132/82; PULSE 85; RESP 17; TEMP 36.8; O2SAT 95
[2021-07-23 05:57] LABS: Basophils % 0.3 %; Hematocrit 38.7 % (37.0-47.0); Lymphocytes # 1.3 10^3/uL (0.8-4.8); Lymphocytes % 12.8 %; Mean Corpuscular Hemoglobin 30.2 pg (28.0-34.0); Mean Corpuscular Volume 97.2 fl (81-99); Mean Platelet Volume 10.2 fL (7.4-10.4); Monocytes # 0.3 10^3/uL (0.2-0.9); Monocytes % 2.9 %; Neutrophils # 8.28 10^3/uL (1.8-7.7); Neutrophils % 82.9 %; Nucleated Red Blood Cells % 0 %; Platelet Count 353 10^3/cmm (130-400); Red Blood Count 3.98 10^6/uL (4.1-5.3); Red Cell Distribution Width 13.6 % (12.1-15.1)
[2021-07-23 06:22] LABS: Alanine Aminotransferase 6 U/L (0-33); Alkaline Phosphatase 90 IU/L (35-105); Aspartate Amino Transferase 15 U/L (0-32); Blood Urea Nitrogen 23 mg/dL (8-23); Calcium 9.3 mg/dL (8.5-10.5); Carbon Dioxide 27 mmol/L (22-29); Chloride 103 mmol/L (98-107); Globulin 4.1 g/dL (1.3-4.6); Glucose 173 mg/dL (65-115); Osmolality Calculated 298 mOsm/kg (285-295); Sodium 140 mmol/L (136-145); Total Bilirubin 0.3 mg/dL (0.15-1.2); Total Protein 7.1 g/dL (6.6-8.7)
[2021-07-23 06:51] LABS: Glucose Point of Care 157 mg/dL (70-110)
--- NOTE | 2021-07-23 07:50 | P.PN_ITS ---
Subjective Subjective: Interval history: Urology follow-up: Overall doing well. No untoward events following right renal stone laser lithotripsy. I think it is reasonable for her to be able to be discharged today. I think it is also important to remain on IV antibiotics for several more days to complete the originally planned 7-day course and then switch over to CEFUROXIME until she has had her left nephrectomy. Prescription for the cefuroxime has already been sent. Plans for [place] are still pending but I will continue to pursue that. Vitals/I&O/Wt Last Vital Signs Temp 98.2 F 07/23/21 03:42 Pulse 85 07/23/21 03:42 Resp 17 07/23/21 03:42 BP 132/82 07/23/21 03:42 Pulse Ox 95 07/23/21 03:42 07/22/21 07/23/21 07/23/21 22:59 06:59 14:59 Intake Total 0 / 0 Output Total 250 / 250 1180 / 1430 Balance -250 / -250 -1180 / -1430 Physical Exam Const: COMMON NORMALS: no acute distress, alert and well nourished GENERAL APPEARANCE: well kempt and well developed ORIENTATION/CONSCIOUSNESS: not confused Resp: COMMON NORMALS: normal respiratory effort EFFORT & INSPECTION: No labored and No Actively coughing Neuro: SENSORIUM/ORIENTATION: Yes alert Psych: COMMON NORMALS: mental status grossly normal APPEARANCE: Yes grossly normal and Yes well kempt ATTITUDE: Yes calm and Yes engaged Skin: COMMON NORMALS: no rashes or lesions noted and no jaundice GENERAL SKIN EXAM: no rashes or lesions noted Urinary Catheter Management^: Monterroso: Cath Placed During This Visit: yes, but has since been removed by the nurse Reason for Continuing Indwelling Catheter: Other Urinary Catheter Date of Insertion: 07/16/21 Urinary Catheter Time of Insertion: 14:36 Date Urinary Catheter Removed: 07/22/21 Time Urinary Catheter Discontinued: 16:28 Data : 07/23/21 05:04 07/23/21 05:04 A&P Assessment and plan (1) Xanthogranulomatous pyelonephritis: Medical treatment now. Tentative plans for left nephrectomy in [place]. We will notify her when plans have been solidified. Status: Acute (2) Right renal stone: Partial staghorn stone treated with laser lithotripsy yesterday. Stent replaced. Which should remain in until post nephrectomy most likely. Status: Acute (3) Recurrent obstructive pyelonephritis: Clinically doing very well with good recovery. Status: Acute (4) Cystitis cystica: Status: Resolved (5) Retained ureteral stent: Chronic left ureteral stent will be removed at left nephrectomy. The right stent needs to be removed about that time or shortly thereafter. Status: Chronic Attestations Medical Necessity Statement*: See attending Coding Level of Care Code Acute Staff Registered Nurse for [facility] Fwd Diagnoses Xanthogranulomatous pyelonephritis N11.8 Right renal stone N20.0 Recurrent obstructive pyelonephritis N12 Cystitis cystica N30.80 Retained ureteral stent Z96.0
[2021-07-23 08:00] VITALS: BP 130/68; PULSE 70; RESP 16; TEMP 36.6; O2SAT 93
--- NOTE | 2021-07-23 08:05 | ANE.PACU2 ---
Inpatient post-anesthesia follow up: Airway intact: Yes Vital signs: Temperature 98.2 F Pulse Rate 85 Respiratory Rate 17 Blood Pressure 132/82 Pulse Oximetry 95 Oxygen Delivery Me thod [ Nasal Cannula Current Rate & Del franko] Oxygen Delivery Me thod Nasal Cannula Oxygen Flow Rate [ Current Rate 2 & Delivery] Oxygen Flow Rate 2 Fraction of Inspir ed Oxygen 28 Hydration adequate: Yes Nausea and vomiting: No Pain level: 2 Mental status: Baseline
[2021-07-23] MEDS: famotidine 20 mg Tablet PO (10:16)
[2021-07-23 10:40] VITALS: PULSE 68; RESP 16; O2SAT 93
[2021-07-23 11:41] VITALS: BP 145/69; PULSE 80; RESP 18; TEMP 36.4; O2SAT 94
[2021-07-23 11:48] LABS: Glucose Point of Care 142 mg/dL (70-110)
--- NOTE | 2021-07-23 12:03 | PM.DCS ---
Discharge Providers Date of Admission: 07/15/21 13:06 Date of Discharge: July 23, 2021 Attending Provider at Admission: [place] Attending Provider at Discharge: Ed Lang MD Consults: Cardiology: Dr. Murphy Urology: Dr. Meyer Primary Care Provider: Kathia Nugent Diagnoses at Discharge Discharge Diagnosis (1) Xanthogranulomatous pyelonephritis: Status: Acute (2) Right renal stone: Status: Acute Permanent problem details: First noted July 2021. Probably struvite (3) Recurrent obstructive pyelonephritis: Status: Acute (4) Cystitis cystica: Status: Resolved (5) Retained ureteral stent: Status: Chronic Reason for Visit Reason for Visit: Lower Back Pain, Kidney Stone Hospital Course Hospital Course 76-year-old lady with history of recurrent urinary tract infections, cystitis cystica, on methenamine, obstructive nephritis, status post left ureteral stenting on 02/11, with left side staghorn calculus, with delays in definitive therapy and stent retrieval due to intervening COVID-19 infection, hypoxia, slow recovery, still continues on 2 L of oxygen by nasal cannula, although overall gradually improved, with arrangements being made for definitive therapy with consideration of ESWL, stent retrieval as per latest appointment 06/04 in the intervening time had followed up with cardiology as well with regards to ischemic cardiomyopathy, LV dysfunction with known EF 38% by TTE in 2018, most recently TTE during hospitalization for COVID-19, LV function reported as diminished, but poor quality study, had been scheduled for repeat echocardiography on 07/22. Additionally had a Lexiscan stress test with nuclear imaging which showed medium-sized area of severe reversibility noted in mid to distal anterior and anteroseptal wall suggestive of ischemia in mid LAD territory. Small area of fixed perfusion defect in apex of the left ventricle suggestive of old myocardial infarction versus scarring in distal LAD territory. 3 times daily ratio elevated at 1.15 suspected possibly secondary multivessel coronary disease or subendocardial ischemia. She presented to ER on 07/15/2021 due to feeling unwell in last several days, with dysuria, hematuria, malaise. With noted sepsis on presentation with leukocytosis, tachycardia, normal lactate, is started on empiric antibiotic. CT scan was remarkable for new RIGHT distal stone and progressive deterioration of LEFT renal status with new findings suspicious for XANTHOGRANULOMATOUS pyelonephritis. She was started on broad spectrum antibiotics and urology/cardiology was consulted. She underwent Cystoscopy, right ureteroscopy, laser lithotripsy, stent (7 Malay by 26 cm double-pigtail) and Cystolitholapaxy <2.5 cm (calcifications in the bladder associated with the distal aspect of the left ureteral stent) after clearance from cardiology. She underwent Echocardiogram which showed Left ventricular ejection fraction is estimated at 45-50 % along with possible mild global hypokinesis somewhat more pronounced in septum (difficult to assess with abnormal septal motion). Patient antibiotics were tailored as per the urine culture results. Urine culture grew E. coli and Proteus mirabilis both susceptible to levofloxacin and ceftriaxone. Unfortunately patient is allergic levofloxacin. Antibiotics were changed to ceftriaxone. As per urology recommendation patient needs nephrectomy for her xanthogranulomatous pyelonephritis along with continued IV antibiotics. Transfer was sought to higher facility at [facility] for nephrectomy but is currently pending because of bed availability. Patient was also found to have increased size of stone and relatively short order in the right renal pelvis for which he underwent cystoscopy removal of right ureteral stent, right retrograde ureteropyelogram and laser lithotripsy along with stent. Plan for now is to continue with IV antibiotics for next few days and then transition to cefuroxime while transfer is sought to a higher facility for nephrectomy. Given her cardiac comorbidities patient would need further cardiac work-up including angiography and possible PCI prior to the procedure. Patient would most likely need procedure be to be done at [facility] prior to nephrectomy. The plan was discussed in detail with patient and patient's family. Patient will follow up as an outpatient with urology within next 1 week. Till then patient would continue getting IV ceftriaxone as outpatient infusion center. Physical Exam Const: COMMON NORMALS: no acute distress, patient oriented x3 and alert GENERAL APPEARANCE: frail appearing ORIENTATION/CONSCIOUSNESS: Yes awake OTHER: NC on HENMT: COMMON NORMALS: oropharynx normal Neck/C-Spine: COMMON NORMALS: no JVD Resp: COMMON NORMALS: normal respiratory effort and clear to auscultation bilaterally AUSCULTATION: clear to auscultation bilaterally Cardio: COMMON NORMALS: no JVD, regular rhythm, S1 normal heart sound present, S2 normal heart sound present and No murmurs present (Cardio) RHYTHM: regular rhythm HEART SOUNDS: S1 normal heart sound present and S2 normal heart sound present GI: COMMON NORMALS: Normal to inspection, nondistended, normoactive bowel sounds present and Soft to palpation PALPATION: Yes Soft to palpation and Yes Tenderness to palpation present (GI) Extremity: COMMON NORMALS: no joint enlargement and no pedal edema GENERAL: Yes edema (1+) Neuro: COMMON NORMALS: patient oriented x3 and moves all extremities SENSORIUM/ORIENTATION: Yes alert Skin: COMMON NORMALS: no rashes or lesions noted GENERAL SKIN EXAM: no rashes or lesions noted Urinary Catheter Management^: [place]: Cath Placed During This Visit: yes, but has since been removed by the nurse Reason for Continuing Indwelling Catheter: Other Urinary Catheter Date of Insertion: 07/16/21 Urinary Catheter Time of Insertion: 14:36 Date Urinary Catheter Removed: 07/22/21 Time Urinary Catheter Discontinued: 16:28 Discharge Data Data Completed and Pending: Completed Studies During Hospitalization Category Date Time Status CT abdomen pelvis w con* [id number] Urge nt Cat Scan 07/15/21 10:58 Completed XR chest 1V rochelle ble [id number] Urgent Exams 07/15/21 10:52 Completed Pathology: Surgic al [PTH] Routine Pth 07/16/21 14:55 Completed CV. echo complete * [id number] Routine Ultrasound 07/16/21 17:12 Completed Pending at discharge Category Date Time Status Stone Analysis Ro utine Lab 07/16/21 14:34 Received Labs from last 24 hours 07/23/21 07/23/21 07/23/21 11:36 06:42 05:04 WBC RBC Hgb Hct MCV MCH MCHC RDW Plt Count MPV Neut % (Auto) Lymph % (Auto) [place] % (Auto) Eos % (Auto) Baso % (Auto) Neut # (Auto) Lymph # (Auto) [place] # (Auto) Eos # (Auto) Baso # (Auto) Nucleated RBC % (a uto) Nucleated RBCs # Sodium 140 Potassium 5.0 Chloride 103 Carbon Dioxide 27 Anion Gap 15.0 BUN 23 Creatinine 0.7 GFR Calculation Not Reportable Glucose 173 H POC Glucose 142 H 157 H Calculated Osmolal ity 298 H Calcium 9.3 Total Bilirubin 0.3 AST 15 ALT 6 Alkaline Phosphata se 90 Total Protein 7.1 Albumin 3.0 L Globulin 4.1 07/23/21 07/22/21 07/22/21 05:04 20:40 11:01 WBC 10.0 RBC 3.98 L Hgb 12.0 Hct 38.7 MCV 97.2 MCH 30.2 MCHC 31.0 RDW 13.6 Plt Count 353 MPV 10.2 Neut % (Auto) 82.9 Lymph % (Auto) 12.8 [place] % (Auto) 2.9 Eos % (Auto) 0.0 Baso % (Auto) 0.3 Neut # (Auto) 8.28 H Lymph # (Auto) 1.3 [place] # (Auto) 0.3 Eos # (Auto) 0.0 Baso # (Auto) 0.0 Nucleated RBC % (a uto) 0 Nucleated RBCs # 0.0 Sodium Potassium Chloride Carbon Dioxide Anion Gap BUN Creatinine GFR Calculation Glucose POC Glucose 159 H 122 H Calculated Osmolal ity Calcium Total Bilirubin AST ALT Alkaline Phosphata se Total Protein Albumin Globulin Addt'l Data from Hospital Stay: Laboratory Results WBC 10.0 10^3/uL (4.0 -10.0) 07/23/21 05:04 RBC 3.98 10^6/uL (4.1 -5.3) L 07/23/21 05:04 Hgb 12.0 g/dL (11.5-1 5.3) 07/23/21 05:04 Hct 38.7 % (37.0-47.0 ) 07/23/21 05:04 MCV 97.2 fl (81-99) 07/23/21 05:04 MCH 30.2 pg (28.0-34. 0) 07/23/21 05:04 MCHC 31.0 g/dL (30.0-3 6.0) 07/23/21 05:04 RDW 13.6 % (12.1-15.1 ) 07/23/21 05:04 Plt Count 353 10^3/cmm (130 -400) 07/23/21 05:04 MPV 10.2 fL (7.4-10.4 ) 07/23/21 05:04 Neut % (Auto) 82.9 % 07/23/21 05:04 Lymph % (Auto) 12.8 % 07/23/21 05:04 [place] % (Auto) 2.9 % 07/23/21 05:04 Eos % (Auto) 0.0 % 07/23/21 05:04 Baso % (Auto) 0.3 % 07/23/21 05:04 Neut # (Auto) 8.28 10^3/uL (1.8 -7.7) H 07/23/21 05:04 Lymph # (Auto) 1.3 10^3/uL (0.8- 4.8) 07/23/21 05:04 [place] # (Auto) 0.3 10^3/uL (0.2- 0.9) 07/23/21 05:04 Eos # (Auto) 0.0 10^3/uL (0.0- 0.8) 07/23/21 05:04 Baso # (Auto) 0.0 10^3/uL (0.0- 0.1) 07/23/21 05:04 Nucleated RBC % (a uto) 0 % 07/23/21 05:04 Nucleated RBCs # 0.0 /100WBC 07/23/21 05:04 Sodium 140 mmol/L (136-1 45) 07/23/21 05:04 Potassium 5.0 mmol/L (3.5-5 .1) 07/23/21 05:04 Chloride 103 mmol/L (98-10 7) 07/23/21 05:04 Carbon Dioxide 27 mmol/L (22-29) 07/23/21 05:04 Anion Gap 15.0 (5-19) 07/23/21 05:04 BUN 23 mg/dL (8-23) 07/23/21 05:04 Creatinine 0.7 mg/dL (0.5-0. 9) 07/23/21 05:04 GFR Calculation Not Reportable 07/23/21 05:04 Glucose 173 mg/dL (65-115 ) H 07/23/21 05:04 POC Glucose 142 mg/dL (70-110 ) H 07/23/21 11:36 Calculated Osmolal ity 298 mOsm/kg (285- 295) H 07/23/21 05:04 Lactic Acid 1.4 mmol/L (0.5-2 .2) 07/15/21 11:00 Calcium 9.3 mg/dL (8.5-10 .5) 07/23/21 05:04 Iron 47 ug/dL (37-145) 07/19/21 04:40 TIBC 151 mcg/dl 07/19/21 04:40 % Saturation 31.1 % (20-50) 07/19/21 04:40 Unsat Iron Binding 104 ug/dL (112-34 7) L 07/19/21 04:40 Total Bilirubin 0.3 mg/dL (0.15-1 .2) 07/23/21 05:04 AST 15 U/L (0-32) 07/23/21 05:04 ALT 6 U/L (0-33) 07/23/21 05:04 Alkaline Phosphata se 90 IU/L (35-105) 07/23/21 05:04 Total Protein 7.1 g/dL (6.6-8.7 ) 07/23/21 05:04 Albumin 3.0 g/dL (3.5-5.2 ) L 07/23/21 05:04 Globulin 4.1 g/dL (1.3-4.6 ) 07/23/21 05:04 TSH 1.57 uIU/mL (0.27 -4.20) 07/15/21 11:00 Urine Color Red (Yellow) 07/15/21 10:34 Urine Appearance Cloudy (CLEAR) 07/15/21 10:34 Urine pH 8 (5-7) H 07/15/21 10:34 Ur Specific Gravit y 1.010 (1.005-1.0 30) 07/15/21 10:34 Urine Protein 3+ (Negative) H 07/15/21 10:34 Urine Glucose (UA) Norm (Normal) 07/15/21 10:34 Urine Ketones 1+ (Negative) H 07/15/21 10:34 Urine Blood 3+ (Negative) H 07/15/21 10:34 Urine Nitrate Positive (Negati ve) H 07/15/21 10:34 Urine Bilirubin Neg (Negative) 07/15/21 10:34 Prot Sulfosalicyli c Acd Negative (Negati ve) 07/15/21 10:34 Urine Urobilinogen Norm mg/dL (Negat jessi) 07/15/21 10:34 Ur Leukocyte Hansa ase 2+ (Negative) H 07/15/21 10:34 Urine RBC 15-25 /hpf (0-2) H 07/15/21 10:34 Urine WBC Too numerous to c nt /hpf (0-5) H 07/15/21 10:34 Ur Squamous Epith Cells 5-10 /hpf (0-5) H 07/15/21 10:34 Amorphous Sediment Not Reportable 07/15/21 10:34 Urine Bacteria 2+ /hpf (NONE) H 07/15/21 10:34 Impressions Chest X-Ray 07/15/21 10:52 Impression: 1. Minimal residual bilateral pulmonary opacity. 2. Atherosclerosis. Abdomen/Pelvis CT 07/15/21 10:58 IMPRESSION: 1. New LEFT renal cortical thinning with renal enlargement, marked calyceal distention and perinephric stranding. With the central staghorn calculus being present. 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 2. LEFT double pigtail ureteral stent remains in good position with the proximal pigtail being at the UP junction. 3. New 6 mm calcification in the distal RIGHT ureter causing a mild RIGHT hydroureteronephrosis. 4. Bilateral renal calcifications as described above. 5. Prior cholecystectomy. 6. Moderate constipation. C-Arm Fluoroscopy 07/22/21 16:14 IMPRESSION: Intraoperative imaging during ureteral stent placement. Vitals: Last Vital Signs Temp 97.5 F L 07/23/21 11:41 Pulse 80 07/23/21 11:41 Resp 18 07/23/21 11:41 BP 145/69 07/23/21 11:41 Pulse Ox 94 07/23/21 11:41 Discharge Plan Discharge Patient Disposition: Home Condition: Stable Prescriptions: New cefuroxime axetil 500 mg tablet 500 mg PO BID 20 Days Qty: 40 RF: 1 famotidine 20 mg Tablet 20 mg PO BID 30 Days Qty: 60 RF: 0 Nystop 100,000 unit/gram Powder 1 applic topical BID Qty: 30 RF: 0 Spiriva with HandiHaler 18 mcg capsule, w/inhalation device 1 cap inhalation DAILY 60 Days Qty: 60 RF: 0 Continued ascorbate calcium (vitamin C) 500 mg tablet 1,000 mg PO BID RF: 0 acetaminophen 500 mg Tablet 500 - 1,000 mg PO Q4H PRN (Reason: Pain) RF: 0 Nitrostat 0.4 mg Tablet, Sublingual 0.4 mg SUBLINGUAL Q5M PRN (Reason: Chest Pain) RF: 0 methenamine hippurate 1 gram tablet 1 g PO BID RF: 0 Discharge Orders: Discharge Order (Routine); Ordered 07/23/21 Ordered By: Levy Meyer Referrals: Outpatient Surgery for IV Antibiotics [Other] Levy Meyer MD [Physician] - (Dr. Meyer's office will call you with an appointment.) Kathia Nugent PA [Primary Care Provider] - 08/04/21 10:00 am Discharge Diet: Cardiac Discharge Activity: Resume usual activity, Increase activity as tolerated and As per PT/OT instructions Patient Instructions: Cefuroxime (By mouth) (Ceftin), Famotidine (By mouth) (Acid Controller, Acid Auto Bumper Mechanic, Pepcid AC, Pepcid), Nystatin (On the skin) (Nyamyc, Nyata, Nystop, Pediaderm AF), Tiotropium (By breathing) (Spiriva, Spiriva Respimat), Kidney Infection (DC), Opioid Safety Activity Restrictions/Additional Instructions: Please continue with IV ceftriaxone once daily for next 7 days. You should be on IV ceftriaxone 1 g daily for next 7 days. Antibiotic has been set up as outpatient infusion center. Please follow-up with Dr. Meyer as directed. Once you meet with Dr. Meyer antibiotic can be changed to cefuroxime. Please continue take Spiriva daily as directed. UROLOGY INSTRUCTIONS: 1. It will be important for you to stay on antibiotics until the left kidney is removed. You will be discharged on IV antibiotics and a prescription for CEFUROXIME has been sent to your pharmacy to begin the day after you complete IV antibiotics. 2. You will be notified after [facility] has agreed to proceed with further evaluation and treatment. 3. You still have a stent in the right kidney which will be removed either at the same time as the nephrectomy or can be done here after you have recovered from that. 4. Please call [phone], my office if you have not heard anything from [facility] by next Monday (07/28/2021) Discharge Attestations Time Spent in Discharge Care*: greater than 30 min Specific Discharge Activities: educating patient, discussing with pcp/other providers, discussing with family independence case manager/social workers/dc planners, documenting/other paperwork and evaluating patient/reviewing data Status at Discharge: Cognitive status at discharge: cognitively intact, Behavioral status at discharge: cooperative, Functional status at discharge: uses cane/walker Overall status at discharge: patient is back to baseline Quality Metrics Clinical Quality Measures During this hospital stay, did patient experience: None Coding Level of Care Code Acute Chg FW DC note Exam Comprehensive Diagnoses Xanthogranulomatous pyelonephritis N11.8 Right renal stone N20.0 Recurrent obstructive pyelonephritis N12 Cystitis cystica N30.80 Retained ureteral stent Z96.0
[2021-07-23] MEDS: cefTRIAXone 1,000 MG in sodium chloride 0.9% (plus) 50 ML 100 MG IV (12:51)
--- NOTE | 2021-07-23 13:33 | PC.CHAP ---
Pastoral Care Encounter/Spiritual Assessment Type of Contact [] Declined tier over visit [] Patient/Family/Request visit [] Outpatient visit [xx] Follow-up visit [] Physician referral [] Code/Alert [xx] Routine visit [] Staff referral [] Actively dying [] Patient sleeping [] Family support [] [] Out of room [] Palliative care [] [] Receiving care in room [] Pre-surgical visit [] Trauma [xx] Long length of stay [] ICU visit [] Other: Relational/Emotional Strength [xx] Patient feels connected with others/family/visitors/staff [] Distress [] Loneliness/isolation [] Abandonment Spirituality of Patient [xx] Person of Maritza [] Attends Yazdanism of their Maritza [xx] Believes in Prayer [] Reads Bible or Scientology materials [] There are Spiritual issues to be addressed Enterer Interventions [xx] Prayer [xx] Active listening [xx] Non-anxious presence [] Spiritual/emotional support [] Crisis/trauma care [] Spiritual counseling [] Bereavement support [] Provided bereavement packet [] Provided Bible/devotional materials [] Provided toy/stuffed animal, coloring book to patient or family member [] Provided Communion [] Anointing/Leslie [] Salvation [xx] Completed spiritual assessment [] Other: Impact on Illness or Injury [] Angry [] Fearful [xx] Anxious [] Often cries [] Exhaustion [] Unable to work [] Unable to attend gnosticist [] Unable to walk/stand [] Unable to read [] Unable to drive [] Unable to eat/drink [] Unable to sleep [] Unable to be with family [] Patient intubated [xx] Other: worried Summary Patient had kidney stone removed and may be discharged later today but she is having complications with PIC line/IV line or equivalent and doctors haven't yet found best solution for her to get the medications she needs any other way. She is worried about this. Time spent with patient 8 minutes
--- NOTE | 2021-07-23 15:59 | PC.SOCIAL ---
1500 centralized scheduling called and said pt was on the schedule for IV antibiotics in outpatient surgery for 1130 this 07-24-07-31. Supervisor Filling And Packing called and let Josselin, warehouse general laborer know and she reports she will let the nurse know on Med Surg. press writer also updated discharge instructions with dates and times and where pt needs to check in for IV antibiotics.
[2021-07-23 20:58] LABS: Stone Source RIGHT URETER
== END 2021-07-23 16:25 | disposition home or self-care (01) | DRG 854 ==
LOC: ER 13:03 → MEDSURG 15:46
PROVIDERS: Urology; Admitting Provider Internal Medicine; Emergency Provider Physician Assistant; PCP Physician Assistant; Visit Provider Student in an Organized Health Care Education/Training Program
PROC: 0TJB8ZZ Inspection of Bladder, Via Natural or Artificial Opening Endoscopic (ICD-10-PCS; CPT 52000; principal; 2021-07-16 13:00)
PROC: 0T768DZ Dilation of Right Ureter with Intraluminal Device, Via Natural or Artificial Opening Endoscopic (ICD-10-PCS; 2021-07-16 13:00)
PROC: 0T768DZ Dilation of Right Ureter with Intraluminal Device, Via Natural or Artificial Opening Endoscopic (ICD-10-PCS; CPT 50605; 2021-07-16 13:00)
PROC: 0T768DZ Dilation of Right Ureter with Intraluminal Device, Via Natural or Artificial Opening Endoscopic (ICD-10-PCS; 2021-07-16 13:00)
PROC: 0TJ98ZZ Inspection of Ureter, Via Natural or Artificial Opening Endoscopic (ICD-10-PCS; CPT 52351; 2021-07-16 13:00)
PROC: 0TJ98ZZ Inspection of Ureter, Via Natural or Artificial Opening Endoscopic (ICD-10-PCS; CPT 52351; 2021-07-22 14:00)
PROC: 0T768DZ Dilation of Right Ureter with Intraluminal Device, Via Natural or Artificial Opening Endoscopic (ICD-10-PCS; CPT 50605; 2021-07-22 14:00)
DX: A41.9 Sepsis, unspecified organism (principal); N10 Acute pyelonephritis; D76.3 Other histiocytosis syndromes; I48.92 Unspecified atrial flutter; T83.89XA Other specified complication of genitourinary prosthetic devices, implants and grafts, initial encounter; N20.0 Calculus of kidney; U09.9 Post COVID-19 condition, unspecified; R06.00 Dyspnea, unspecified; Z96.0 Presence of urogenital implants; Z87.440 Personal history of urinary (tract) infections; Z99.81 Dependence on supplemental oxygen; I25.5 Ischemic cardiomyopathy; I25.10 Atherosclerotic heart disease of native coronary artery without angina pectoris; Z87.01 Personal history of pneumonia (recurrent); Y73.1 Therapeutic (nonsurgical) and rehabilitative gastroenterology and urology devices associated with adverse incidents; B96.4 Proteus (mirabilis) (morganii) as the cause of diseases classified elsewhere; B96.20 Unspecified Escherichia coli [E. coli] as the cause of diseases classified elsewhere; Z79.2 Long term (current) use of antibiotics; N30.20 Other chronic cystitis without hematuria
CPT/HCPCS: 36415; 36416; 71045; 74177; 76000; 80053; 81001; 82365; 82962; 83540; 83550; 83605; 84443; 85025; 87040; 87077; 87086; 87186; 88300; 93005; 93306; 94640; 94664; 96365; 96367; 97110; 97116; 97161; 97165; 99285; C2625; J0696; J0743; J1815; J2250; J2405; J2543; J2704; J3010; J3370; J3490; J7030; J7050; Q9967

== ENCOUNTER → 2021-07-27 14:10 | Outpatient (BNVA) | payer MEDICARE, SELFPAY | PROVIDERS: PCP Physician Assistant; Visit Provider Urology | DX: N20.0 Calculus of kidney (principal); N11.8 Other chronic tubulo-interstitial nephritis; N20.1 Calculus of ureter | CPT/HCPCS: 81003 ==

== ENCOUNTER 2021-07-30 12:00 | Outpatient (RCR) | payer MEDICARE, SELFPAY ==
[2021-07-24 11:28] VITALS: BP 143/81; PULSE 100; RESP 17; TEMP 36.5; O2SAT 95
[2021-07-24 11:54] VITALS: BMI 40.7
[2021-07-24] MEDS: cefTRIAXone 1,000 MG in sodium chloride 0.9% (plus) 50 ML 100 MG IV (12:16)
[2021-07-24 12:50] VITALS: BP 130/106; PULSE 96; RESP 17; TEMP 37; O2SAT 95
[2021-07-25] MEDS: cefTRIAXone 1,000 MG in sodium chloride 0.9% (plus) 50 ML 100 MG IV (11:31)
[2021-07-26] MEDS: cefTRIAXone 1,000 MG in sodium chloride 0.9% (plus) 50 ML 100 MG IV (11:30)
[2021-07-26 11:51] VITALS: BP 132/91; PULSE 98; RESP 18; TEMP 36.2; O2SAT 94
[2021-07-27] MEDS: cefTRIAXone 1,000 MG in sodium chloride 0.9% (plus) 50 ML 100 MG IV (11:38)
[2021-07-27 11:40] VITALS: BP 151/77; PULSE 83; RESP 18; TEMP 36.4; O2SAT 94
[2021-07-28] MEDS: cefTRIAXone 1,000 MG in sodium chloride 0.9% (plus) 50 ML 100 MG IV (12:00)
[2021-07-28 12:03] VITALS: BP 144/82; PULSE 82; RESP 18; TEMP 36.1; O2SAT 96
[2021-07-29] MEDS: cefTRIAXone 1,000 MG in sodium chloride 0.9% (plus) 50 ML 200 MG IV (09:27)
[2021-07-29 09:41] VITALS: BP 140/100; PULSE 75; RESP 18; TEMP 36.4; O2SAT 96
[2021-07-30] MEDS: cefTRIAXone 1,000 MG in sodium chloride 0.9% (plus) 50 ML 200 MG IV (11:35)
[2021-07-30 11:39] VITALS: BP 137/89; PULSE 83; RESP 18; TEMP 36.7; O2SAT 98
== END 2021-08-03 23:59 | disposition home or self-care (01) ==
LOC: GILAB 12:00
PROVIDERS: PCP Physician Assistant; Visit Provider Student in an Organized Health Care Education/Training Program
DX: N12 Tubulo-interstitial nephritis, not specified as acute or chronic (principal); N20.0 Calculus of kidney; N11.8 Other chronic tubulo-interstitial nephritis; N20.1 Calculus of ureter
CPT/HCPCS: 81003; 96365; J0696

== ENCOUNTER 2021-10-04 09:51 | Outpatient (CLI) | payer MEDICARE, SELFPAY ==
--- NOTE | 2021-10-04 10:03 | NM_ITS ---
WS: [id number] NUCLEAR MEDICINE RENAL SCINTIGRAPHY INDICATION: Obstructive pyelonephritis. Right renal stent. TECHNIQUE: Nuclear medicine renal flow study with 11.9 mCi technetium DTPA. 20 mg Lasix administered at 10 minutes. FINDINGS: Comparison CT July 15, 2021 Prior history of suspected xanthogranulomatous pyelonephritis left kidney. Poor initial uptake and pe rfusion in the left kidney with no significant excretion on the post diuretic images. More normal-appearing uptake and perfusion in the right kidney with estimated GFR of 32. No significa nt excretion prior to diuretic administration. Upon administration of diuretic at 10 minutes there is prompt response with renal excretion. Diuretic T1 half is 18.8 minutes NM/NM renal flow w pharm [id number] IMPRESSION: 1. Diuretic responsive excretion right kidney with Diuretic T1half 18.8 minute s 2. Overall poor function of the left kidney with poor overall uptake and perfu roosevelt and no significant excretion. Findings compatible with chronic obstruction left kidney.
== END 2021-10-04 09:52 | disposition home or self-care (01) ==
LOC: RAD 09:53
PROVIDERS: PCP Physician Assistant; Visit Provider Urology
DX: N12 Tubulo-interstitial nephritis, not specified as acute or chronic (principal); N20.0 Calculus of kidney; Z96.0 Presence of urogenital implants
CPT/HCPCS: 78708; 81003; 87077; 87086; 87184; A9539

== ENCOUNTER → 2021-11-02 07:19 | Outpatient (BNVA) | payer MEDICARE, SELFPAY | PROVIDERS: PCP Physician Assistant; Visit Provider Urology | DX: N20.2 Calculus of kidney with calculus of ureter (principal); N11.8 Other chronic tubulo-interstitial nephritis; Z96.0 Presence of urogenital implants | CPT/HCPCS: 81003 ==

== ENCOUNTER → 2021-11-24 09:02 | Outpatient (BNVA) | payer MEDICARE, SELFPAY | PROVIDERS: PCP Physician Assistant; Visit Provider Nurse Practitioner Family | DX: N20.0 Calculus of kidney (principal); Z20.822 Contact with and (suspected) exposure to COVID-19 | CPT/HCPCS: 87635 ==

== ENCOUNTER → 2021-11-29 14:54 | Outpatient (BNVA) | payer MEDICARE, SELFPAY | PROVIDERS: PCP Physician Assistant; Visit Provider Internal Medicine Cardiovascular Disease | DX: R94.39 Abnormal result of other cardiovascular function study (principal); I44.7 Left bundle-branch block, unspecified; R06.02 Shortness of breath; N20.0 Calculus of kidney; I51.9 Heart disease, unspecified | CPT/HCPCS: 99214 ==

== ENCOUNTER 2021-11-29 15:51 | Outpatient (CLI) | payer MEDICARE, SELFPAY ==
[2021-11-29 16:16] LABS: Basophils # 0.1 10^3/uL (0.0-0.1); Basophils % 1.1 %; Eosinophils % 0.4 %; Hematocrit 43.3 % (37.0-47.0); Hemoglobin 13.6 g/dL (11.5-15.3); Lymphocytes # 2.4 10^3/uL (0.8-4.8); Lymphocytes % 28.1 %; Mean Corpuscular HGB Conc 31.4 g/dL (30.0-36.0); Mean Corpuscular Hemoglobin 29.4 pg (28.0-34.0); Mean Corpuscular Volume 93.7 fl (81-99); Mean Platelet Volume 10.5 fL (7.4-10.4); Monocytes # 0.5 10^3/uL (0.2-0.9); Monocytes % 5.6 %; Neutrophils # 5.44 10^3/uL (1.8-7.7); Neutrophils % 64.4 %; Nucleated Red Blood Cells % 0 %; Platelet Count 252 10^3/cmm (130-400); Red Blood Count 4.62 10^6/uL (4.1-5.3); Red Cell Distribution Width 14.4 % (12.1-15.1); White Blood Count 8.4 10^3/uL (4.0-10.0)
[2021-11-29 16:44] LABS: Anion Gap 16.3 (5-19); Blood Urea Nitrogen 30 mg/dL (8-23); Carbon Dioxide 24 mmol/L (22-29); Chloride 101 mmol/L (98-107); Glucose 131 mg/dL (65-115); NT Pro B Type Natriuretic Pept 350 pg/mL (0-125); Osmolality Calculated 292 mOsm/kg (285-295); Potassium 4.3 mmol/L (3.5-5.1); Sodium 137 mmol/L (136-145)
== END 2021-11-29 15:52 | disposition home or self-care (01) ==
LOC: LAB 15:54
PROVIDERS: PCP Physician Assistant; Visit Provider Internal Medicine Cardiovascular Disease
DX: R06.02 Shortness of breath (principal); I50.33 Acute on chronic diastolic (congestive) heart failure; I44.7 Left bundle-branch block, unspecified; N20.0 Calculus of kidney; R94.39 Abnormal result of other cardiovascular function study
CPT/HCPCS: 80048; 83880; 85025; 99214

== ENCOUNTER 2021-12-24 07:55 | Outpatient (CLI) | payer MEDICARE, SELFPAY ==
--- NOTE | 2021-12-24 08:05 | XR_ITS ---
WS: [id number] Exam: XR KUB [id number] Date/Time of Exam: 12/24/2021 8:08 AM Reason For Exam: STONES No bowel obstruction or free air. Moderate amount retained stool in the colon. Organ margins are obsc ured. Numerous surgical clips in the right upper quadrant. Additional surgical clips in the right lef t pelvis. 15 mm calcification in the central lower pelvis that may represent a bladder stone. XR/XR KUB [id number] IMPRESSION: 1. IMPRESSION: 1. No acute abdominal process. Postoperative changes. Constipation. 2. 15 mm calcified density in the central lower pelvis. This could represent a bladder calculus or stool in the sigmoid colon.
== END 2021-12-24 07:56 | disposition home or self-care (01) ==
PROVIDERS: PCP Physician Assistant; Visit Provider Urology
DX: N20.0 Calculus of kidney (principal); K59.00 Constipation, unspecified
CPT/HCPCS: 74018; 81003

== ENCOUNTER 2021-12-27 08:20 | Day surgery (SDC) | payer MEDICARE, SELFPAY ==
[2021-12-24 17:24] VITALS: BMI 40.7
--- NOTE | 2021-12-27 | SCC_ITS ---
Procedure done: 1. Cystoscopy, RIGHT retrograde ureteropyelogram with intraoperative interpretation exclusive of radiology 2. RIGHT ureteroscopy, laser lithotripsy, stent 7 Fijian by 24 cm double- pigtail without string) 3. LEFT retrograde ureteropyelogram 4. LEFT ureteroscopy, laser lithotripsy, no stent 58.7 seconds of fluoroscopic guidance, for a cumulative dose of 16.32 mGy, was provided to Dr. Meyer by the radiology department. C-arm images of the abdomen were saved for the patient's permanent record. KATHID
--- NOTE | 2021-12-27 08:30 | SC_ITS ---
WS: [id number] C-arm fluoroscopy for ureteral stent placement, 12/27/2021 Clinical Data: Right ureteral calculi Comparison: None. Findings: Dr. Meyer placed a right ureteral stent. Dr. Meyer inserted a left ureteral guidewire. SC/C-arm FL for Urology Impression: Right ureteral stent placement.
--- NOTE | 2021-12-27 08:30 | XR_ITS ---
WS: [id number] KUB, AP view, 12/27/2021 Clinical Data: Preop right ureteroscopy right ureteral calculus Comparison: KUB, 12/24/2021. Findings: No abnormal intraabdominal masses or calcifications are seen. There is no dilatated small bowel or ev idence of obstruction. There are surgical clips in the true pelvis bilaterally. There is a large amount of fecal material th roughout the colon. There are right upper quadrant surgical clips. Degenerative change of the lumbar vertebral bodies is moderate. XR/XR KUB [id number] Impression: Large amount of fecal material in the colon.
[2021-12-27 09:01] VITALS: BP 160/98; PULSE 102; RESP 20; TEMP 36.9; O2SAT 94
[2021-12-27] MEDS: sodium chloride 0.9% 1,000 ML 30 ML IV (09:22)
--- NOTE | 2021-12-27 09:46 | W.PM.OPSUD ---
Surgery/Procedure H&P Update DATE OF PROCEDURE: December 27, 2021 DATE H&P PERFORMED: 12/24/21 H&P UPDATE INFORMATION: I have reviewed H&P completed within last 30 days, I have examined patient prior to procedure, No changes to prior documentation and H&P is in [facility] [place] EMR on date indicated CHANGES TO PREVIOUS DOCUMENTATION: Doing well. Reviewed the procedure again. Plan to proceed as scheduled PREOP DIAGNOSIS: Right ureteral calculi PLANNED PROCEDURE: Operation Date: 12/27/21 09:40 Proposed Procedures p Cystoscopy [id number] mod 26/63790/n20.0(Not Applicable) - Levy Meyer MD s Retrograde Pyelogram(Right) - MD naomi Ga Laser Lithotripsy(Right) - MD naomi Ga Ureteroscopy(Right) - MD naomi Ga Ureteral Stent Placement(Right) - Levy Meyer MD
--- NOTE | 2021-12-27 09:48 | P.OP_ITS ---
Operative Report Date of procedure: December 27, 2021 Pre-op diagnosis: RIGHT ureteral calculi Post-op diagnosis: RIGHT ureteral calculi Procedure done: 1. Cystoscopy, RIGHT retrograde ureteropyelogram with intraoperative interpretation exclusive of radiology 2. RIGHT ureteroscopy, laser lithotripsy, stent 7 Lithuanian by 24 cm double- pigtail without string) 3. LEFT retrograde ureteropyelogram 4. LEFT ureteroscopy, laser lithotripsy, no stent Specimens removed/disposition: Ureteral stent Pathology: Stone fragments Surgeon: Betsy Anesthesia: General Estimated blood loss: Minimal Complications: None Findings: 1. Stone fragments in expected position. Readily accessible via ureteroscopy with laser lithotripsy. Stent was required on the right. See below 2. Left retrograde ureteropyelogram demonstrated a filling defect consistent with the calcification seen on the KUB. It was confirmed to be a stone on ureteroscopy and also treated. No stent was required on the left Brief History: Mrs. Courtney is a very pleasant 76-year-old white female with a complicated history of stone disease having undergone gone a recent left percutaneous nephrostolithotomy for partial staghorn calculus. She is due for a second procedure to clear an additional partial staghorn calculus not readily accessible through her prior port She had had a stent placed previously for a right ureteral stone treatment with laser lithotripsy via ureteroscopy. Unfortunately over time that stent became encrusted and it was removed at the same time as her percutaneous nephrostolithotomy up at the [facility]. There were some stent calcifications that remained post stent removal and she is being admitted for treatment of those today. Stones were not readily identifiable on plain x-ray and therefore endoscopy was chosen over ESWL. Procedure: After routine preoperative evaluation examination and obtaining of informed consent she was taken to the operating suite on 12/27/2021 where general anesthesia was administered without difficulty. Prepped and draped in the usual sterile fashion in dorsolithotomy position paying careful attention to avoiding pressure points. 21 Lithuanian cystoscope with 30 degree lens was introduced into the Riether meatus and advanced into the bladder under videoscopy. An 8 Lithuanian cone-tip catheter was intubated into the right ureteral orifice for a RIGHT RETROGRADE URETEROPYELOGRAM: Ureter showed normal course and caliber until the filling defects in the proximal ureter consistent with the stone seen on recent CT scan at [facility]. Ureter proximal to that point was somewhat dilated. A LEFT retrograde ureteropyelogram was then performed with an 8 Lithuanian cone- tip catheter. This was done because of a calcification seen in the left pelvis consistent with area of the left distal ureter on today's KUB which was not demonstrated on previous KUB. Was infected filling defect consistent with a calcification seen on the preoperative KUB that was in the distal ureter on the LEFT. Flexible tip guidewire was then advanced up the right ureter bypassing the stones and curling in the area of the renal pelvis. Wire secured to the drapes as a safety wire and a 7.5 Lithuanian offset semirigid ureteroscope was advanced up the right ureter next to the guidewire. The 7.5 Lithuanian offset semirigid ureteroscope was then advanced up the ureter easily and that it had been quite dilated from the stent. It was passed to the stones which were encountered in the proximal ureter. A wire was then passed through the scope the scope removed and a 24 cm ureteral access sheath was advanced over the working wire to just below the level of the stones. The ureteroscope was then passed again and a 365 ?m thulium superpulse laser fiber was utilized to fragment all the fragments within the ureter. Some of them migrated into the renal pelvis. A flexible ureteroscope was then passed and the remaining fragments that were sizable were treated as well. There was a large amount of matrix type material with embedded small fragments of stones. This actually required some lasering in order to break it into small enough pieces it could then be removed with grasping forceps and an X catch basket. On final inspection there were no significant stone fragments remaining. There was still a lot of sand. The ureter was a carefully inspected as the sheath was backed onto the hub of the scope and it was in reasonably good shape. It was decided to leave a stent for further healing. The cystoscope was then backloaded over the guidewire and a 7 Lithuanian by 24 cm double-pigtail stent without string was advanced over the guidewire through the cystoscope into appropriate position as confirmed via fluoroscopy and cystoscopy. Attention was then directed to the left side. A 7.5 Lithuanian offset semirigid ureteroscope was then advanced up the ureter and the stone was confirmed. A flexible tip guidewire was then passed and secured to the drapes as a safety wire. The stone was secured in grasping forceps but was felt to be too large to pull out intact and therefore the 200 ?m thulium superpulse laser fiber was utilized to essentially break the stone and half in each cath was withdrawn with grasping forceps without difficulty or tension. Final passage showed the ureter to be in excellent condition. Based on that it was decided to not place a stent on the left. Some fragments had migrated into the bladder were then flushed free through the cystoscope and the procedure was completed. PLANS: 1. Maintain stent for at least a week 2. Follow-up in my office at about that time for KUB and then stent removal.
--- NOTE | 2021-12-27 09:52 | ANES.PREANE2 ---
Pre-Anesthetic Assessment Height/Weight: Height 1.6 m Weight 104.326 kg Temp Pulse Resp BP Pulse Ox 98.5 F 102 H 20 H 160/98 94 12/27/21 09:01 12/27/21 09:01 12/27/21 09:01 12/27/21 09:01 12/27/21 09:01 Preop Diagnosis: Right ureteral calculi Operation Date: 12/27/21 09:40 Proposed Procedures p Cystoscopy 49753/91362 mod 99870/n20.0(Not Applicable) - Levy Meyer MD s Retrograde Pyelogram(Right) - MD naomi Ga Laser Lithotripsy(Right) - MD naomi Ga Ureteroscopy(Right) - Levy Meyer MD s Ureteral Stent Placement(Right) - Levy Meyer MD Familial anesthetic complications: None Was Beta Kely taken within 24 hours: N/A Was Clonidine taken within 24 hours: N/A Last intake: Intake Last Liquid Date 12/27/21 Last Liquid Time 04:00 Last Solid Date 12/26/21 Last Solid Time 23:00 Social No alcohol and No tobacco Exam alert, oriented x 3 and regular rate & rhythm B/L wheezing Airway Submandibular: within normal limits Cervical ROM: within normal limits Mallampati: Class II Dentition: chipped Comments: Comments: Missing multiple teeth Pulmonary Exertional Dyspnea and Shortness of Breath SOB since having COVID Pneumonia CV/HEM Arrythmia (Hx of atrial flutter, LBB) Ischemic cardiomyopathy s/p cardiac cath, per patient has clean coronaries and told she doesn't need a senior technical recruiter to follow her TTE 07/2021 CONCLUSIONS ?1. Normal left ventricular cavity size. Increased left ?ventricular wall thickness. Mildly decreased left ventricular ?systolic function. Left ventricular ejection fraction is ?estimated at 45-50 %.? There is possible mild global hypokinesis ?somewhat more pronounced in septum (difficult to assess with ?abnormal septal motion).? Abnormal septal motion consistent with ?conduction abnormality. ?2.? Direct comparison to previous study dated? 03/05, is ?not possible due to technically difficult study. Nuc Med tudy IMPRESSIONS ?Medium-sized area of severe reversibility noted in mid to distal anterior and ?lucas septal wall suggestive of ischemia in mid LAD territory.? Small area of ?fixed perfusion defect noted in apex of the left ventricle suggestive of old ?myocardial infarction versus scarring in distal LAD territiry.TID ratio is ?elevated 1.15 which could be secondary to multivessel coronary artery disease ?or subendocardial ischemia.? EKG segment will be documented separately.? This ?study is positive for ischemia. Chronic Renal Insufficiency Obstructive pyelonephritis Hepatic None reported GI None reported Metabolic Morbid Obesity Musc/skel Osteoarthritis/DJD Neuropsych None reported Anesthetic Plan ASA status: 3 Anesthesia: Anesthesia Evaluation and General Other: We discussed risk and benefits of general anesthesia including PONV, sore throat (sometimes severe), corneal abrasion, positioning and peripheral nerve injuries, life threatening allergic reaction, post operative ICU admission requiring prolonged intubation, stroke, heart attack, , and rare incidences of recall. Patient consents to proceed with general anesthesia. Risk of > 500 ml blood loss (7ml/kg in children): No Medications/Allergies Home Medications Medication Instructions Recorded Confirmed Last Taken Type acetaminophen 500 mg tablet 500 - 1,000 mg PO Q4H PRN 07/15/21 12/27/21 12/26/21 History ampicillin 500 mg capsule 500 mg PO TID 12/24/21 12/27/21 12/25/21 History docusate sodium 100 mg capsule 100 mg PO BID 12/24/21 12/27/21 12/26/21 History oxycodone 5 mg capsule 5 mg PO Q6H PRN 12/24/21 12/27/21 12/27/21 History tamsulosin 0.4 mg capsule 0.4 mg PO DAILY 12/24/21 12/27/21 12/26/21 History cefuroxime axetil 500 mg tablet 500 mg PO BID 12/27/21 12/27/21 12/26/21 History Allergies Allergy/AdvReac Type Severity Reaction Status Date / Time aspirin Allergy NA Verified 12/27/21 09:10 levofloxacin [From Levaquin] Allergy NA Verified 12/27/21 09:10 nitrofurantoin Allergy NA Verified 12/27/21 09:10 Sulfa (Sulfonamide Allergy NA Verified 12/27/21 09:10 Antibiotics) Current Medications Generic Name Dose Route Start Last Admin Trade Name Freq PRN Reason Stop Dose Admin Sodium Chloride 1,000 mls @ 30 mls/hr 12/27/21 08:30 12/27/21 09:22 Sodium Chloride 0.9% IV 12/28/21 08:29 30 mls/hr .Q24H CARINA Administration PFSH Anesthesia Medical History Abnormal stress test Atrial flutter 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 Hypoxia Ischemic cardiomyopathy Left ureteral calculus Obstructive pyelonephritis Peripheral edema Staghorn calculus Surgical History S/P appendectomy S/P bilateral oophorectomy S/P cholecystectomy S/P hysterectomy Status post laser lithotripsy of ureteral calculus Family History Mother , 73 Hypertension Father , 75 CAD (coronary artery disease) [place] Family/Other Cancer Diabetes Thyroid disease Sister Cancer Denies family history of Clotting disorder Dementia Chronic kidney disease (CKD) Suicide Anesthesia complication Bleeding disorder Lung disease Stroke Social History Smoking and tobacco status: never smoked Alcohol intake: never Marital status: / Current occupational status: retired History of recent travel: No Data Anesthesia Cardiac Studies: Echocardiogram 07/16/21 Sestamibi Stress Test (Cardiology) 06/29/21
[2021-12-27] MEDS: piperacillin-tazobactam 3.375 GM in sodium chloride 0.9% (plus) 50 ML IV (10:05)
[2021-12-27 12:20] VITALS: BP 141/80; PULSE 82; RESP 20; TEMP 36.1; O2SAT 96
[2021-12-27 12:25] VITALS: BP 127/84; PULSE 77; RESP 18; O2SAT 97
[2021-12-27 12:30] VITALS: BP 130/82; PULSE 88; RESP 18; O2SAT 97
[2021-12-27 12:51] VITALS: BP 147/91; PULSE 71; RESP 18; TEMP 36.1; O2SAT 98
--- NOTE | 2021-12-27 13:22 | PC.NURSE ---
spoke with Charles at Dr Mgcuire office re: f/u appointment and pain medication, was advised that the office would call with an appointment and that Yoly would call back with pain med information
[2021-12-27 13:43] VITALS: BP 124/65; PULSE 69; RESP 20; O2SAT 95
--- NOTE | 2021-12-27 14:43 | ANE.PACU2 ---
Inpatient post-anesthesia follow up: Airway intact: Yes Vital signs: Temperature 97.0 F Pulse Rate 69 Respiratory Rate 20 Blood Pressure 124/65 Pulse Oximetry 95 Oxygen Delivery Me thod Room Air Oxygen Flow Rate 3 Fraction of Inspir ed Oxygen Hydration adequate: Yes Nausea and vomiting: No Pain level: 2 Mental status: Baseline
[2022-01-05 08:33] LABS: Stone Source RT URETER
== END 2021-12-27 13:45 | disposition home or self-care (01) ==
PROVIDERS: PCP Physician Assistant; Visit Provider Urology
PROC: 0TJB8ZZ Inspection of Bladder, Via Natural or Artificial Opening Endoscopic (ICD-10-PCS; CPT 52000; principal; 2021-12-27 09:30)
PROC: (CPT 74420; 2021-12-27 09:30)
PROC: (CPT 52353; 2021-12-27 09:30)
PROC: 0TJ98ZZ Inspection of Ureter, Via Natural or Artificial Opening Endoscopic (ICD-10-PCS; CPT 52351; 2021-12-27 09:30)
PROC: (CPT 50605; 2021-12-27 09:30)
DX: N20.0 Calculus of kidney (principal); E66.01 Morbid (severe) obesity due to excess calories; Z68.41 Body mass index [BMI] 40.0-44.9, adult; M19.90 Unspecified osteoarthritis, unspecified site; Z86.16 Personal history of COVID-19
CPT/HCPCS: 52353; 52356; 74018; 76000; 82365; 88300; C2625; J0330; J1100; J2370; J2405; J2543; J2704; J2710; J3010; J3490; J7030

== ENCOUNTER 2022-03-04 08:51 | Outpatient (CLI) | payer MEDICARE, SELFPAY ==
--- NOTE | 2022-03-04 09:00 | XR_ITS ---
WS: [id number] XR KUB [id number] REASON FOR EXAM: Kidney Stone FINDINGS: Previous CT abdomen and pelvis 12/22/2021 demonstrated bilateral renal and ureteral calculi with bladd er calculi. Examination from 01/12/2021 demonstrated remaining large calculus within the left kidney. Current examination demonstrates no renal, ureteral, or bladder calculi. Postoperative pelvis with multiple surgical clips. Moderate degenerative spondylosis in the lumbar spine. Bony pelvis is intact. XR/XR KUB [id number] IMPRESSION: No urinary tract calculi currently identified.
== END 2022-03-04 08:52 | disposition home or self-care (01) ==
LOC: RAD 08:52
PROVIDERS: PCP Physician Assistant; Visit Provider Urology
DX: N20.2 Calculus of kidney with calculus of ureter
CPT/HCPCS: 74018; 81003; 87086; 99213

== ENCOUNTER 2022-03-10 08:42 | Outpatient (CLI) | payer MEDICARE, SELFPAY ==
[2022-03-13 16:21] LABS: Calcium-Oxalate 1.14 (<2.00); Uric Stone 0.76 (<2.00); Urine Ammonia 24 Hour 17 mEq/day (14-62); Urine Citric Acid 24 Hour 140 mg/day (>320); Urine PH 24 Hour 5.9 (5.5-7.0); Urine Phosphorus 24 Hour 487 mg/day (<1100); Urine Potassium 24 Hour 30 mEq/day (19-135); Urine Sulfate 24 Hour 4 mmol/day (<30)
== END 2022-03-10 08:43 | disposition home or self-care (01) ==
LOC: LAB 08:45
PROVIDERS: PCP Physician Assistant; Visit Provider Urology
DX: N20.1 Calculus of ureter (principal)
CPT/HCPCS: 81003; 82131; 82140; 82340; 82436; 82507; 82570; 83735; 83935; 84300

== ENCOUNTER → 2022-04-21 09:54 | Outpatient (BNVA) | payer MEDICARE, SELFPAY | PROVIDERS: PCP Physician Assistant; Visit Provider Urology | DX: N20.0 Calculus of kidney (principal); N20.9 Urinary calculus, unspecified; N11.8 Other chronic tubulo-interstitial nephritis; N39.0 Urinary tract infection, site not specified | CPT/HCPCS: 81003; 87077; 87086; 87186; 99213 ==

== ENCOUNTER 2022-06-23 10:02 | Outpatient (CLI) | payer MEDICARE, SELFPAY ==
[2022-06-23] MEDS: iohexol 350 mg/mL 100 mL Btl IV (10:23)
[2022-06-23 11:08] LABS: Anion Gap 18.7 (5-19); Blood Urea Nitrogen 27 mg/dL (8-23); Calcium 9.9 mg/dL (8.5-10.5); Carbon Dioxide 22 mmol/L (22-29); Chloride 102 mmol/L (98-107); Glucose 105 mg/dL (65-115); Osmolality Calculated 293 mOsm/kg (285-295); Phosphorus 3.2 mg/dL (2.5-4.5); Potassium 3.7 mmol/L (3.5-5.1); Sodium 139 mmol/L (136-145); Uric Acid 5.3 mg/dL (2.4-5.7)
--- NOTE | 2022-06-23 12:00 | CTR_ITS ---
PROCEDURE INFORMATION: Exam: CT Abdomen And Pelvis Without And With Contrast Exam date and time: 06/23/2022 11:29 AM Age: 76 years old Clinical indication: Condition or disease; Kidney or ureter condition; Calculus (stone) in kidney; Primary cancer: Uterine; Prior surgery; Surgery type: Hyst, lt renal calc removal, appy, gb; Additional info: Stones, CT abd/pelvis with and without contrast 06/23/22 appt at our TECHNIQUE: Imaging protocol: Computed tomography of the abdomen and pelvis without and with contrast. Delayed images were also obtained. 3D rendering (Not supervised by radiologist): MIP reconstructed images were created by the technologist. Radiation optimization: All CT scans at this facility use at least one of these dose optimization techniques: automated exposure control; mA and/or kV adjustment per patient size (includes targeted exams where dose is matched to clinical indication); or iterative reconstruction. Contrast material: OMNI 350; Contrast volume: 95 ml; Contrast route: INTRAVENOUS (IV); COMPARISON: CT abdomen pelvis w con* [id number] 07/15/2021 11:28 AM RADIATION DOSE METRICS: Total DLP (mGy-cm): 3719.92 FINDINGS: Lungs: Increased left anterior basilar pulmonary parenchymal scarring. Stable subpleural nonspecific pulmonary interstitial abnormalities bilateral lower lung zones. Heart: Cardiac left ventricular enlargement. Diaphragm: A small sliding hiatal hernia is present above the level of the diaphragm. Liver: Normal. No mass. Gallbladder and bile ducts: The gallbladder is surgically absent, with metallic clips in the gallbladder fossa. No extrahepatic biliary ductal dilatation or calculus. Pancreas: Normal. No ductal dilation. Spleen: A small inferior splenule is present. Adrenal glands: Normal. No mass. Kidneys and ureters: Interval removal of left ureteral stent. Mild left extrarenal renal pelviectasis, a normal variant. Right renal calculi (3), the largest in the lower pole measuring 3.1 mm. Left renal calculi (5), the largest in the posterolateral mid kidney measuring 6.7 mm. Resolved left hydronephrosis. Persistent uniform mild left renal pelvic wall thickening with mild peripelvic adipose induration. Mild residual right renal pelvicaliectasis. Severe left renal parenchymal scarring and volume loss compared to prior study. Right renal 9.0 mm benign cyst. Right distal ureteral calculus no longer present. Stomach and bowel: Pancolonic diverticula are present without evidence of diverticulitis. Appendix: The vermiform appendix is not identified on this examination. There is, however, no pericecal abnormality to suggest appendicitis. Intraperitoneal space: Unremarkable. No free air. No significant fluid collection. Vasculature: Mild aortic atherosclerotic calcification without aneurysm. The iliac arteries show mild bilateral atherosclerotic calcifications without evidence of aneurysm. Lymph nodes: No enlarged lymph nodes. Urinary bladder: The urinary bladder is partially decompressed and somewhat difficult to assess. Reproductive: The uterus is status post hysterectomy. The ovaries are not identified. Bones/joints: Bilateral lower lumbar facet primary osteoarthritis. Soft tissues: Severe bilateral rectus abdominus muscular atrophy with anterior abdominal wall bulging. CT/CT abdomen pelvis wo/w [id number] IMPRESSION: 1. Interval removal of left ureteral stent. 2. Bilateral renal calyceal lithiasis. 3. Resolved left hydronephrosis. 4. Persistent uniform mild left renal pelvic wall thickening with mild peripelvic adipose induration. Clinical correlation (exclude upper urinary tract infection) with urinalysis is recommended. 5. Diverticulosis. 6. Right distal ureteral calculus no longer present. 7. Mild residual right renal pelvicaliectasis. 8. Prior hysterectomy. 9. Severe left renal parenchymal scarring and volume loss compared to prior study. 10. Prior cholecystectomy. 11. Right renal small benign cyst. No follow-up imaging is recommended. 12. Small hiatal hernia. 13. Cardiac left ventricular enlargement. COMMENTS: Consistent with the [employer]'s Incidental Findings Committee white paper (J Am Lili Radiol 2018): Any incidental renal lesion less than 1 cm or classified as too small to characterize, or any incidental cystic renal lesion characterized as simple-appearing, is likely benign. No follow-up imaging is recommended for these lesions per consensus recommendations based on imaging criteria.
== END 2022-06-23 10:03 | disposition home or self-care (01) ==
LOC: RAD 10:03
PROVIDERS: PCP Physician Assistant; Visit Provider Urology
DX: N20.2 Calculus of kidney with calculus of ureter (principal); N12 Tubulo-interstitial nephritis, not specified as acute or chronic; N39.0 Urinary tract infection, site not specified; N11.8 Other chronic tubulo-interstitial nephritis
CPT/HCPCS: 36415; 74178; 80048; 81003; 84100; 84550; 87077; 87086; 87186; 99213

== ENCOUNTER 2022-10-31 11:39 | Outpatient (CLI) | payer MEDICARE, SELFPAY ==
--- NOTE | 2022-10-31 13:00 | CT_ITS ---
WS: [id number] CT ABDOMEN PELVIS TECHNIQUE: Noncontrast CT of the abdomen and pelvis with coronal and sagittal reformatted images. CLINICAL INFORMATION: left Renal stone COMPARISON: CT June 23, 2022 DLP: 1057.[address] scans at [facility] use at least one of these dose optimization techniques: automated e xposure control; mA and/or kV adjustment per patient size (includes targeted exams where dose is matc hed to clinical indication); or iterative reconstruction. FINDINGS: LEFT renal atrophy. Small amount of fluid and induration in the LEFT renal pelvis unchanged in appearance. LEFT ureter is decompressed. No obstructing LEFT renal or ureteral calculi today. No hydronephrosis in the LEFT kidney. Nonobstructing LEFT renal parenchymal and calyceal calculi. No hydronephrosis in the RIGHT kidney. RIGHT calyceal tip calculus similar to previous measuring 5 mm . No hydronephrosis in RIGHT kidney. Mild prominence of the RIGHT ureter is unchanged in appearance c ompared to previous. No obstructing RIGHT renal or ureteral calculi. Hysterectomy and tubal ligation clips in the pelvis degrades some images. Subsegmental atelectasis in the lingula. Fibrotic changes in the lung bases similar to previous. Normal noncontrast liver. Asha cystectomy clips. Cardiomegaly. Normal noncontrast spleen. Small esophageal hiatal hernia. Normal non contrast pancreas. Adrenal glands are normal. Small RIGHT renal cysts appear unchanged. Atrophic LEFT kidney. Normal caliber abdominal aorta. Sigmoid constipation. Tortuous sigmoid colon with diverticulosis. No evidence of acute diverticulitis . Moderate spondylitic changes lumbar spine. Bladder appears unremarkable. CT/CT abdomen pelvis wo con [id number] IMPRESSION: 1. No hydronephrosis in either kidney. 2. Atrophic LEFT kidney. No obstructing LEFT renal or ureteral calculi. 3. Bilateral subcentimeter nonobstructing calyceal tip and parenchymal calculi . 4. Bladder appears normal. 5. Sigmoid diverticulosis. 6. Small esophageal hiatal hernia. 7. Prior hysterectomy and tubal ligation. 8. Prior cholecystectomy. 9. No other remarkable changes.
== END 2022-10-31 11:40 | disposition home or self-care (01) ==
LOC: RAD 11:45
PROVIDERS: PCP Physician Assistant; Visit Provider Urology
DX: N20.0 Calculus of kidney (principal)
CPT/HCPCS: 74176

== ENCOUNTER 2022-11-16 10:21 | Outpatient (CLI) | payer MEDICARE, SELFPAY | END 2022-11-16 10:22 | disposition home or self-care (01) | LOC: RAD 10:29 | PROVIDERS: PCP Physician Assistant; Visit Provider Urology | DX: N20.9 Urinary calculus, unspecified (principal); Z96.0 Presence of urogenital implants; Z87.440 Personal history of urinary (tract) infections | CPT/HCPCS: 81003; 99213 ==

== ENCOUNTER 2022-11-16 10:32 | Outpatient (CLI) | payer MEDICARE, SELFPAY ==
--- NOTE | 2022-11-16 10:39 | MM_ITS ---
WS: [id number] BILATERAL SCREENING DIGITAL TOMOSYNTHESIS MAMMOGRAM WITH CAD HISTORY: SCREENING COMPARISON: 11/22/2007 Bilateral CC and MLO views with tomosynthesis and synthetic mammography submitted. Computer aided det ection analyzed. Technically very difficult and limited evaluation of the breast. Entire breasts are not included. The re is overlapping soft tissue on the CC projections posteriorly. Breast composition: There are scattered areas of fibroglandular density. No suspicious masses, microc alcifications or architectural distortion. MM/[place] [id number] IMPRESSION: BI-RADS: 2-Benign FOLLOW UP: 1 Year Follow-up
== END 2022-11-16 10:33 | disposition home or self-care (01) ==
PROVIDERS: PCP Physician Assistant; Visit Provider Physician Assistant
DX: Z12.31 Encounter for screening mammogram for malignant neoplasm of breast (principal)
CPT/HCPCS: 77063; 77067

== ENCOUNTER → 2023-07-14 15:22 | Outpatient (BNVA) | payer MEDICARE, SELFPAY | PROVIDERS: PCP Physician Assistant; Visit Provider Nurse Practitioner Family | DX: R10.9 Unspecified abdominal pain (principal) | CPT/HCPCS: 81000 ==

== ENCOUNTER → 2023-07-31 11:16 | Outpatient (BNVA) | payer MEDICARE, SELFPAY | PROVIDERS: PCP Physician Assistant; Visit Provider Nurse Practitioner Family | DX: N23 Unspecified renal colic (principal) | CPT/HCPCS: 81000; 87086 ==

== ENCOUNTER 2023-08-04 14:20 | Emergency (ER) | payer MEDICARE, SELFPAY ==
[2023-08-04 14:41] VITALS: BP 159/90; PULSE 110; RESP 17; TEMP 36.6; O2SAT 97; BMI 51.3
[2023-08-04 15:29] LABS: Basophils # 0.1 10^3/uL (0.0-0.1); Basophils % 0.8 %; Eosinophils % 0.4 %; Hematocrit 46.2 % (36-47); Lymphocytes # 1.7 10^3/uL (0.8-4.8); Lymphocytes % 22.8 %; Mean Corpuscular HGB Conc 31.6 g/dL (30-55); Mean Corpuscular Hemoglobin 31.7 pg (27-33); Mean Corpuscular Volume 100.4 fl (85-98); Mean Platelet Volume 11.1 fL (7.4-10.4); Monocytes # 0.5 10^3/uL (0.2-0.9); Monocytes % 6.7 %; Neutrophils # 5.06 10^3/uL (1.8-7.7); Nucleated Red Blood Cells % 0 %; Platelet Count 200 10^3/cmm (157-399); Red Cell Distribution Width 14.4 % (12.1-15.1); White Blood Count 7.33 10^3/uL (3.29-11.43)
[2023-08-04 15:49] LABS: Alanine Aminotransferase 8 U/L (0-33); Albumin Level 4.1 g/dL (3.5-5.2); Alkaline Phosphatase 88 U/L (35-105); Anion Gap 18.9 (5-19); Aspartate Amino Transferase 17 U/L (0-32); Blood Urea Nitrogen 17 mg/dL (8-23); Calcium 9.8 mg/dL (8.5-10.5); Carbon Dioxide 22 mmol/L (22-29); Chloride 103 mmol/L (98-107); Globulin 3.5 g/dL (1.3-4.6); Glucose 132 mg/dL (65-115); Osmolality Calculated 293 mOsm/kg (285-295); Potassium 3.9 mmol/L (3.5-5.1); Sodium 140 mmol/L (136-145); Total Bilirubin 0.8 mg/dL (0.15-1.2); Total Protein 7.6 g/dL (6.6-8.7)
--- NOTE | 2023-08-04 16:43 | ED_ITS ---
HPI - Back Pain/Injury 2 General: Chief Complaint: Back Pain/Injury Stated Complaint: abd pain, history of kidney stones Time Seen by Provider: 08/04/23 16:32 History of Present Illness: Patient presents with right-sided flank pain. This been going on at least the last week continuous. Patient has been on a round of ciprofloxacin that did not seem to help. Patient has an extensive history of kidney stones. MD elicited complaint: back pain Pertinent past history: kidney stones Onset (ago): week(s) Timing: constant and intermittent Severity: moderate Quality: sharp and aching Location: right flank Radiation: groin Exacerbating factors: none Relieving factors: none Treatments prior to arrival: other medications (Cipro) Review of Systems 2 General: Reports: 10 or more systems reviewed and unremarkable except in HPI and below PFSH ED 2 PFSH: Medical History Atrial flutter Abnormal stress test Peripheral edema 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 hauler manifesting chronic dyspnea Ischemic cardiomyopathy Hypoxia Left ureteral calculus Obstructive pyelonephritis Cystitis cystica Staghorn calculus Surgical History Status post laser lithotripsy of ureteral calculus S/P cholecystectomy S/P appendectomy S/P hysterectomy S/P bilateral oophorectomy Family History Mother , 73 Hypertension Father , 75 CAD (coronary artery disease) [place] Family/Other Cancer Diabetes Thyroid disease Sister Cancer Denies family history of Clotting disorder Dementia Chronic kidney disease (CKD) Suicide Anesthesia complication Bleeding disorder Lung disease Stroke Social History Smoking and tobacco/nicotine status: never used tobacco/nicotine Alcohol intake: never Substance/Drug Use: never Marital status: / Current occupational status: retired Physical Exam 2 Const: COMMON NORMALS: no acute distress, average body habitus, patient oriented x3, no limitations, healthy appearing, alert and well nourished HENMT: COMMON NORMALS: normocephalic, atraumatic, hearing grossly normal bilaterally, external ears normal, Normal external nose present, moist oral mucous membranes and oropharynx normal HEAD & SCALP: normocephalic and atraumatic NOSE: Normal external nose present EXTERNAL EAR: Yes external ears normal Neck/C-Spine: COMMON NORMALS: no JVD Chest: COMMONS NORMALS: normal inspection of the chest and normal palpation of entire chest wall Resp: COMMON NORMALS: normal respiratory effort, No retractions, No use of accessory muscles and clear to auscultation bilaterally AUSCULTATION: clear to auscultation bilaterally Cardio: COMMON NORMALS: no JVD, regular rate, regular rhythm, S1 normal heart sound present, S2 normal heart sound present, No gallops present (Cardio), No clicks present (Cardio), No murmurs present (Cardio) and No rub (Cardio) R ATE: regular rate RHYTHM: regular rhythm HEART SOUNDS: S1 normal heart sound present and S2 normal heart sound present GI: COMMON NORMALS: Normal to inspection, nondistended, normoactive bowel sounds present, Soft to palpation, non-tender, No hepatosplenomegaly present and no masses PALPATION: Yes Soft to palpation and Yes No hepatosplenomegaly present : COMMON NORMALS: No no CVA tenderness (Mild right-sided CVA tenderness) BLADDER/KIDNEY EXAM: No no CVA tenderness (Mild right-sided CVA tenderness) Back/Pelvis: COMMON NORMALS: negative for no CVA tenderness (Mild right-sided CVA tenderness) Neuro: COMMON NORMALS: patient oriented x3 SENSORIUM/ORIENTATION: Yes alert Course 2 Vital Signs: Vital signs: Vital Signs Temperature 97.8 F 08/04/23 14:41 Pulse Rate 110 H 08/04/23 14:41 Respiratory Rate 17 08/04/23 14:41 Blood Pressure 159/90 08/04/23 14:41 Pulse Oximetry 97 08/04/23 14:41 Oxygen Delivery Me thod Room Air 08/04/23 14:41 MDM - Back Pain/Injury Medical Decision Making patient presents to the ER with complaints of right flank pain. Patient has a history of kidn Patient had CBC and CMP which were unremarkable. Patient is a noncontrasted CT scan of the abdomen pelvis with a 6 mm distal right ureteral calculus with moderate hydronephrosis. Patient is currently on Cipro. Patient be discharged home with Toradol and to follow-up with her urologist. Differential Diagnosis Likely renal colic; Unlikely lumbar radiculopathy, sciatica, strain of lumbar region, pyelonephritis, thoracic back pain, AAA or discitis Medical Records I reviewed the patient's medical records. Labs I reviewed the patient's lab results. 08/04/23 15:03 08/04/23 15:03 Radiology Impressions Abdomen/Pelvis CT 08/04/23 16:46 IMPRESSION: 6 mm distal right ureteral calculus with moderate hydroureteronephrosis. Laboratory Results WBC 7.33 10^3/uL (3.29-11.43) 08/04/23 15:03 RBC 4.60 10^6/uL (3.85-5.65) 08/04/23 15:03 Hgb 14.60 g/dL (11.27-16.99) 08/04/23 15:03 Hct 46.2 % (36-47) 08/04/23 15:03 MCV 100.4 fl (85-98) H 08/04/23 15:03 MCH 31.7 pg (27-33) 08/04/23 15:03 MCHC 31.6 g/dL (30-55) 08/04/23 15:03 RDW 14.4 % (12.1-15.1) 08/04/23 15:03 Plt Count 200 10^3/cmm (157-399) 08/04/23 15:03 MPV 11.1 fL (7.4-10.4) H 08/04/23 15:03 Neut % (Auto) 69.0 % 08/04/23 15:03 Lymph % (Auto) 22.8 % 08/04/23 15:03 Ocean % (Auto) 6.7 % 08/04/23 15:03 Eos % (Auto) 0.4 % 08/04/23 15:03 Baso % (Auto) 0.8 % 08/04/23 15:03 Neut # (Auto) 5.06 10^3/uL (1.8-7.7) 08/04/23 15:03 Lymph # (Auto) 1.7 10^3/uL (0.8-4.8) 08/04/23 15:03 Ocean # (Auto) 0.5 10^3/uL (0.2-0.9) 08/04/23 15:03 Eos # (Auto) 0.0 10^3/uL (0.0-0.8) 08/04/23 15:03 Baso # (Auto) 0.1 10^3/uL (0.0-0.1) 08/04/23 15:03 Nucleated RBC % (auto) 0 % 08/04/23 15:03 Nucleated RBCs # 0.0 /100WBC 08/04/23 15:03 Sodium 140 mmol/L (136-145) 08/04/23 15:03 Potassium 3.9 mmol/L (3.5-5.1) 08/04/23 15:03 Chloride 103 mmol/L (98-107) 08/04/23 15:03 Carbon Dioxide 22 mmol/L (22-29) 08/04/23 15:03 Anion Gap 18.9 (5-19) 08/04/23 15:03 BUN 17 mg/dL (8-23) 08/04/23 15:03 Creatinine 0.9 mg/dL (0.5-0.9) 08/04/23 15:03 GFR Calculation Not Reportable 08/04/23 15:03 Glucose 132 mg/dL (65-115) H 08/04/23 15:03 Calculated Osmolality 293 mOsm/kg (285-295) 08/04/23 15:03 Calcium 9.8 mg/dL (8.5-10.5) 08/04/23 15:03 Total Bilirubin 0.8 mg/dL (0.15-1.2) 08/04/23 15:03 AST 17 U/L (0-32) 08/04/23 15:03 ALT 8 U/L (0-33) 08/04/23 15:03 Alkaline Phosphatase 88 U/L (35-105) 08/04/23 15:03 Total Protein 7.6 g/dL (6.6-8.7) 08/04/23 15:03 Albumin 4.1 g/dL (3.5-5.2) 08/04/23 15:03 Globulin 3.5 g/dL (1.3-4.6) 08/04/23 15:03 All radiology interpretation(s) finalized by discharge Discharge Plan Discharge Patient Disposition: Home Clinical Impression: Urolithiasis Qualifiers: Urinary calculus location: ureter Qualified Code(s): N20.1 - Calculus of ureter Condition: Stable Prescriptions: No Action cholecalciferol (vitamin D3) 10 mcg (400 unit) capsule 10 mcg PO DAILY omega 0-yvq-dgr-fish oil [Fish Oil] 300-1,000 mg capsule 1 cap PO DAILY ascorbate calcium (vitamin C) 500 mg tablet 500 mg PO DAILY ciprofloxacin HCl 500 mg tablet 500 mg PO BID 10 Days Qty: 20 0RF methenamine hippurate 1 gram tablet See Rx Instructions .ROUTE .COMPLEX Qty: 60 12RF Dose Instruction: TAKE 1 TABLET BY MOUTH TWICE DAILY TAKE WITH 1000 MG OF VITAMIN C WITH EACH DOSE Rx Instructions: TAKE 1 TABLET BY MOUTH TWICE DAILY TAKE WITH 1000 MG OF VITAMIN C WITH EACH DOSE acetaminophen 500 mg Tablet 500 - 1,000 mg PO Q4H PRN (Reason: Pain) Discharge Orders: Discharge ED (Routine); Ordered 08/04/23 Ordered By: Ronnie Castillo Referrals: Kathia Nugent PA [Primary Care Provider] - 1 week Patient Instructions: Kidney Stones (ED) Activity Restrictions/Additional Instructions: plenty of fluids. Please take your pain medicine as needed. Please follow-up with your Coding Level of Care Code ED Senior J[employer] Developer for Анна Ribeiro
--- NOTE | 2023-08-04 16:46 | CTR_ITS ---
PROCEDURE INFORMATION: Exam: CT Abdomen And Pelvis Without Contrast Exam date and time: 08/04/2023 5:13 PM Age: 78 years old Clinical indication: Right flank pain, HX of kidney stones TECHNIQUE: Imaging protocol: Computed tomography of the abdomen and pelvis without contrast. Radiation optimization: All CT scans at this facility use at least one of these dose optimization techniques: automated exposure control; mA and/or kV adjustment per patient size (includes targeted exams where dose is matched to clinical indication); or iterative reconstruction. REPORTING DATA: Count of CT and Cardiac NM exams in prior 12 months: This patient has received [address] and 0 known cardiac nuclear medicine studies in the 12 months prior to the current study. COMPARISON: CT abdomen pelvis wo con [id number] 10/31/2022 12:03 PM RADIATION DOSE METRICS: Total DLP (mGy-cm): 60019.4 FINDINGS: Liver: No acute findings. Gallbladder and bile ducts: Cholecystectomy. Pancreas: No ductal dilation. Spleen: No splenomegaly. Adrenal glands: No mass. Kidneys and ureters: 6 mm distal right ureteral calculus (3-77) with moderate upstream hydroureteronephrosis. Additional bilateral renal calculi. Left renal atrophy. Stomach and bowel: Small hiatal hernia. No obstruction. Appendix: No evidence of appendicitis. Intraperitoneal space: No free air. No significant fluid collection. Vasculature: No abdominal aortic aneurysm. Lymph nodes: No enlarged lymph nodes. Urinary bladder: Decompressed. Reproductive: Hysterectomy. Bones/joints: Degenerative changes without acute findings. Soft tissues: Unremarkable. CT/CT abdomen pelvis wo con [id number] IMPRESSION: 6 mm distal right ureteral calculus with moderate hydroureteronephrosis.
[2023-08-04] MEDS: ketorolac 30 mg/mL INJ IM (17:00)
[2023-08-04 18:06] LABS: Urine Color Yellow (Yellow)
[2023-08-04 18:07] LABS: Add Urine Microscopic? YES; Bilirubin Urine Neg (Negative); Blood Urine 2+ (Negative); Glucose Urine UA Norm (Normal); Ketones Urine 1+ (Negative); Leukocyte Esterase Urine 2+ (Negative); Nitrate Urine Negative (Negative); Protein Urine Trace (Negative); Urine Appearance Cloudy (CLEAR); Urobilinogen Urine Norm (Negative); pH Urine 5 (5-7)
[2023-08-04 18:08] LABS: Bacteria Urine TRACE /hpf; RBC Urine 0-4 /hpf (0-2); Squamous Epithelial Cell Urine 25-40 /hpf (0-5); WBC Urine 25-40 /hpf (0-5)
== END 2023-08-04 18:07 | disposition home or self-care (01) ==
PROVIDERS: Emergency Provider Emergency Medicine; PCP Physician Assistant
DX: N13.2 Hydronephrosis with renal and ureteral calculous obstruction (principal); I25.5 Ischemic cardiomyopathy; Z87.442 Personal history of urinary calculi
CPT/HCPCS: 36415; 74176; 80053; 81001; 85025; 96372; 99284; J1885

== ENCOUNTER 2024-09-22 10:15 | Observation (INO) | payer MEDICARE, SELFPAY ==
[2024-09-22] VITALS (12 sets, daily range): BP systolic 143–174; BP diastolic 77–93; PULSE 77–98; RESP 16–22; TEMP 36.5–36.7; O2SAT 86–97; BMI 42.5
--- NOTE | 2024-09-22 10:20 | ECG_ITS ---
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
--- NOTE | 2024-09-22 10:23 | XRR_ITS ---
PROCEDURE INFORMATION: Exam: XR Chest Exam date and time: 09/22/2024 11:02 AM Age: 79 years old Clinical indication: Shortness of breath; Additional info: SOB TECHNIQUE: Imaging protocol: Radiologic exam of the chest. Views: 1 view. COMPARISON: CR XR chest 1V portable [id number] 07/15/2021 11:01 AM FINDINGS: Lungs: Vascular congestion is suspected. No focal consolidation is identified. Pleural spaces: Unremarkable. No pleural effusion. No pneumothorax. Heart/Mediastinum: The heart is enlarged. There is calcified plaque involving the aorta. Diaphragm: There is elevation of the right hemidiaphragm. Bones/joints: Unremarkable. XR/XR chest 1V portable [id number] IMPRESSION: 1. Mild cardiomegaly with suspected vascular congestion.
--- NOTE | 2024-09-22 10:25 | ED_ITS ---
HPI - SOB/Dyspnea 2 General: Chief Complaint: Shortness of Breath/Dyspnea Stated Complaint: sob Time Seen by Provider: 09/22/24 10:18 Source: patient and EMS Mode of arrival: EMS Limitations: no limitations History of Present Illness: HPI Narrative: 79-year-old female who states that over the last week she has been having cough congestion, body aches. He states the cough has been productive of green sputum she denies any vomiting denies any worsening improving factors. Denies any chest pain Associated symptoms: Deny abdominal pain, chest pain, fever(s), nausea or vomiting Related Data Home Medications Medication Instructions Recorded Confirmed acetaminophen 500 mg tablet 500 - 1,000 mg PO Q4H PRN Pain 07/15/21 09/22/24 cholecalciferol (vitamin D3) 10 10 mcg PO DAILY 03/04/22 09/22/24 mcg (400 unit) capsule omega 5-xtc-lul-fish oil 300 1 cap PO DAILY 03/04/22 09/22/24 mg-1,000 mg capsule (Fish Oil) ascorbate calcium (vitamin C) 500 500 mg PO DAILY 04/21/22 09/22/24 mg tablet Previous Rx's Medication Instructions Recorded methenamine hippurate 1 gram tablet See Rx Instructions .Route 07/04/22 .COMPLEX #60 tabs Allergies Allergy/AdvReac Type Severity Reaction Status Date / Time aspirin Allergy NA Verified 07/31/23 11:13 levofloxacin [From Levaquin] Allergy NA Verified 07/31/23 11:13 nitrofurantoin Allergy NA Verified 07/31/23 11:13 Sulfa (Sulfonamide Allergy NA Verified 07/31/23 11:13 Antibiotics) Review of Systems 2 Const: Reports: chills; Denies: fever(s), body aches or change in appetite ENMT: Denies: throat pain or dental pain Card: Denies: chest pain Resp: Reports: dyspnea and productive cough GI: Denies: abdominal pain, nausea, vomiting or diarrhea Musc: Denies: neck pain or back pain Skin/Breast: Denies: rash Neuro: Denies: headache(s) PFSH ED 2 PFSH: Medical History Atrial flutter Abnormal stress test Peripheral edema 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 hauler manifesting chronic dyspnea Ischemic cardiomyopathy Hypoxia Left ureteral calculus Obstructive pyelonephritis Cystitis cystica Staghorn calculus Surgical History Status post laser lithotripsy of ureteral calculus S/P cholecystectomy S/P appendectomy S/P hysterectomy S/P bilateral oophorectomy Family History Mother , 73 Hypertension Father , 75 CAD (coronary artery disease) [place] Family/Other Cancer Diabetes Thyroid disease Sister Cancer Denies family history of Clotting disorder Dementia Chronic kidney disease (CKD) Suicide Anesthesia complication Bleeding disorder Lung disease Stroke Social History Smoking and tobacco/nicotine status: never used tobacco/nicotine Alcohol intake: never Substance/Drug Use: never Marital status: / Current occupational status: retired Physical Exam 2 Const: COMMON NORMALS: patient oriented x3 HENMT: COMMON NORMALS: normocephalic and atraumatic HEAD & SCALP: n ormocephalic and atraumatic Eye: COMMON NORMALS: conjunctivae normal CONJUNCTIVA: Yes conjunctivae normal Neck/C-Spine: COMMON NORMALS: full ROM and supple Chest: COMMONS NORMALS: normal inspection of the chest Resp: COMMON NORMALS: normal respiratory effort, No retractions, No use of accessory muscles and clear to auscultation bilaterally AUSCULTATION: clear to auscultation bilaterally and rales Cardio: COMMON NORMALS: regular rate, regular rhythm and No murmurs present (Cardio) RATE: regular rate RHYTHM: regular rhythm GI: COMMON NORMALS: Normal to inspection, nondistended, normoactive bowel sounds present, Soft to palpation, non-tender and no masses PALPATION: Yes Soft to palpation Extremity: COMMON NORMALS: normal to inspection and full ROM Neuro: COMMON NORMALS: patient oriented x3, moves all extremities and no focal motor deficits Psych: COMMON NORMALS: mental status grossly normal, Normal thought process present and cooperative THOUGHT PROCESS: Normal thought process present Skin: COMMON NORMALS: no rashes or lesions noted and no wounds GENERAL SKIN EXAM: no rashes or lesions noted Course 2 Vital Signs: Vital signs: Vital Signs Temperature 97.7 F 09/22/24 10:22 Pulse Rate 95 09/22/24 10:25 Respiratory Rate 18 09/22/24 10:25 Blood Pressure 174/93 09/22/24 10:25 Pulse Oximetry 96 09/22/24 10:25 Oxygen Delivery Me thod Room Air 09/22/24 10:25 MDM - SOB/Dyspnea Medical Decision Making Patient presents with productive cough no shortness of breath she does have an elevated white count x-ray shows pulm edema versus pneumonia did start her on antibiotics I spoke to the hospitalist will admit. Medical Records I reviewed the patient's medical records. Lab Data I reviewed the patient's lab results. 09/22/24 10:35 09/22/24 10:35 Labs/Radiology: Laboratory Results WBC 21.08 10^3/uL (3.29-11.43) H 09/22/24 10:35 RBC 4.37 10^6/uL (3.85-5.65) 09/22/24 10:35 Hgb 13.60 g/dL (11.27-16.99) 09/22/24 10:35 Hct 42.5 % (36-47) 09/22/24 10:35 MCV 97.3 fl (85-98) 09/22/24 10:35 MCH 31.1 pg (27-33) 09/22/24 10:35 MCHC 32.0 g/dL (30-55) 09/22/24 10:35 RDW 14.5 % (12.1-15.1) 09/22/24 10:35 Plt Count 195 10^3/cmm (157-399) 09/22/24 10:35 MPV 10.9 fL (7.4-10.4) H 09/22/24 10:35 Neut % (Auto) 87.6 % 09/22/24 10:35 Lymph % (Auto) 5.7 % 09/22/24 10:35 [place] % (Auto) 5.6 % 09/22/24 10:35 Eos % (Auto) 0.0 % 09/22/24 10:35 Baso % (Auto) 0.3 % 09/22/24 10:35 Neut # (Auto) 18.46 10^3/uL (1.8-7.7) H 09/22/24 10:35 Lymph # (Auto) 1.2 10^3/uL (0.8-4.8) 09/22/24 10:35 [place] # (Auto) 1.2 10^3/uL (0.2-0.9) H 09/22/24 10:35 Eos # (Auto) 0.0 10^3/uL (0.0-0.8) 09/22/24 10:35 Baso # (Auto) 0.1 10^3/uL (0.0-0.1) 09/22/24 10:35 Nucleated RBC % (auto) 0 % 09/22/24 10:35 Nucleated RBCs # 0.0 /100WBC 09/22/24 10:35 PT 14.80 SECONDS (12.1-14.9) 09/22/24 10:35 INR 1.09 (0.8-1.2) 09/22/24 10:35 Sodium 137 mmol/L (136-145) 09/22/24 10:35 Potassium 3.6 mmol/L (3.5-5.1) 09/22/24 10:35 Chloride 99 mmol/L (98-107) 09/22/24 10:35 Carbon Dioxide 22 mmol/L (22-29) 09/22/24 10:35 Anion Gap 19.6 (5-19) H 09/22/24 10:35 BUN 20 mg/dL (8-23) 09/22/24 10:35 Creatinine 1.0 mg/dL (0.5-0.9) H 09/22/24 10:35 GFR Calculation Not Reportable 09/22/24 10:35 Glucose 121 mg/dL (65-115) H 09/22/24 10:35 Calculated Osmolality 288 mOsm/kg (285-295) 09/22/24 10:35 Calcium 9.4 mg/dL (8.5-10.5) 09/22/24 10:35 Total Bilirubin 0.9 mg/dL (0.15-1.2) 09/22/24 10:35 AST 15 U/L (0-32) 09/22/24 10:35 ALT 9 U/L (0-33) 09/22/24 10:35 Alkaline Phosphatase 108 U/L (35-105) H 09/22/24 10:35 NT-Pro-B Natriuret Pep 8807 pg/mL (0-450) H 09/22/24 10:35 Total Protein 7.1 g/dL (6.6-8.7) 09/22/24 10:35 Albumin 3.8 g/dL (3.5-5.2) 09/22/24 10:35 Globulin 3.3 g/dL (1.3-4.6) 09/22/24 10:35 Coronavirus (PCR) Negative (Negative) 09/22/24 10:35 Influenza A (PCR) Negative (Negative) 09/22/24 10:35 Influenza Type B (PCR) Negative (Negative) 09/22/24 10:35 RSV (PCR) Negative (Negative) 09/22/24 10:35 All radiology interpretation(s) finalized by discharge EKG Data EKG 1: I personally reviewed and interpreted this EKG as follows: EKG Interpretation Date: 09/22/24 EKG interpretation time: 10:20 Interpretation: nsr hr [address] elevation qrs 162 qtc 442 Discharge Plan Discharge Patient Disposition: Admitted As Inpatient Clinical Impression: Community acquired pneumonia Condition: Stable Prescriptions: No Action cholecalciferol (vitamin D3) 10 mcg (400 unit) capsule 10 mcg PO DAILY omega 0-qxz-mcd-fish oil [Fish Oil] 300-1,000 mg capsule 1 cap PO DAILY ascorbate calcium (vitamin C) 500 mg tablet 500 mg PO DAILY methenamine hippurate 1 gram tablet See Rx Instructions .ROUTE .COMPLEX Qty: 60 12RF Dose Instruction: TAKE 1 TABLET BY MOUTH TWICE DAILY TAKE WITH 1000 MG OF VITAMIN C WITH EACH DOSE Rx Instructions: TAKE 1 TABLET BY MOUTH TWICE DAILY TAKE WITH 1000 MG OF VITAMIN C WITH EACH DOSE acetaminophen 500 mg Tablet 500 - 1,000 mg PO Q4H PRN (Reason: Pain) Referrals: Kathia Nugent PA [Primary Care Provider] - Coding Level of Care Code ED Technical Service Specialist for Анна Ribeiro
[2024-09-22 10:41] LABS: Basophils # 0.1 10^3/uL (0.0-0.1); Basophils % 0.3 %; Hematocrit 42.5 % (36-47); Lymphocytes # 1.2 10^3/uL (0.8-4.8); Lymphocytes % 5.7 %; Mean Corpuscular Hemoglobin 31.1 pg (27-33); Mean Corpuscular Volume 97.3 fl (85-98); Mean Platelet Volume 10.9 fL (7.4-10.4); Monocytes # 1.2 10^3/uL (0.2-0.9); Monocytes % 5.6 %; Neutrophils # 18.46 10^3/uL (1.8-7.7); Neutrophils % 87.6 %; Nucleated Red Blood Cells % 0 %; Platelet Count 195 10^3/cmm (157-399); Red Blood Count 4.37 10^6/uL (3.85-5.65); Red Cell Distribution Width 14.5 % (12.1-15.1); White Blood Count 21.08 10^3/uL (3.29-11.43)
[2024-09-22 10:54] LABS: INR 1.09 (0.8-1.2)
[2024-09-22 11:08] LABS: Alanine Aminotransferase 9 U/L (0-33); Albumin Level 3.8 g/dL (3.5-5.2); Alkaline Phosphatase 108 U/L (35-105); Anion Gap 19.6 (5-19); Aspartate Amino Transferase 15 U/L (0-32); Blood Urea Nitrogen 20 mg/dL (8-23); Calcium 9.4 mg/dL (8.5-10.5); Carbon Dioxide 22 mmol/L (22-29); Chloride 99 mmol/L (98-107); Creatinine Clr Calc Pharmacy 55.7699; Globulin 3.3 g/dL (1.3-4.6); Glucose 121 mg/dL (65-115); NT Pro B Type Natriuretic Pept 8807 pg/mL (0-450); Osmolality Calculated 288 mOsm/kg (285-295); Potassium 3.6 mmol/L (3.5-5.1); Sodium 137 mmol/L (136-145); Total Bilirubin 0.9 mg/dL (0.15-1.2); Total Protein 7.1 g/dL (6.6-8.7)
[2024-09-22 11:19] LABS: Covid PCR NEGATIVE (Negative); Influenza A NEGATIVE (Negative); Influenza B NEGATIVE (Negative); Respiratory Syncytial Virus Ce NEGATIVE (Negative)
[2024-09-22] MEDS: AZITHROMYCIN ADD-Vantage 500 MG in 0.9% NaCl ADD-Vantage 250 ML 250 MG IV (11:55)
[2024-09-22] MEDS: FUROsemide 10 mg/mL SDV 4mL 40 MG IVP (11:55)
[2024-09-22] MEDS: cefTRIAXone 1,000 mg SDV 1000 MG IVP (11:55)
--- NOTE | 2024-09-22 12:52 | P.HP_ITS ---
Providers/Chief Complaint 2 Primary Care Provider: Kathia Nugent Chief Complaint: sob History of Present Illness Melissa Courtney is a 79 year old female with PMH of Chronic cystitis, hypovitamin D, atrial flutter and ischemic cardiomyopathy, who states that over the last week she has been having fevers, cough with sputum, congestion, body aches. Endorses greenish sputum and malaise. Currently having a headache and reports that she has had body aches throughout the week. Has not had much of an appetite, but has been eating and drinking some. In ER, was given IVF's, received Rocephin and Ceftriaxone. Elevated wbc's to 21 with neutrophilia. Cr slightly elevated above baseline to 1.0. BNP elevated to 8800. CXR shows mild cardiomegaly with suspected vascular congestion. Received dose of Lasix today. Will admit to observation today for continued treatment of PNA, pulmonary edema. Review of Systems 2 General: Reports: 10 or more systems reviewed and unremarkable except in HPI and below Const: Reports: fever(s), chills, body aches, fatigue and malaise Resp: Reports: dyspnea and productive cough Medications/Allergies Home Medications Medication Instructions Recorded Confirmed Last Taken Type acetaminophen 500 mg tablet 500 - 1,000 mg PO Q4H PRN Pain 07/15/21 09/22/24 12/26/21 History cholecalciferol (vitamin D3) 10 10 mcg PO DAILY 03/04/22 09/22/24 Unknown History mcg (400 unit) capsule omega [id number]-[id number]-fish oil 300 1 cap PO DAILY 03/04/22 09/22/24 Unknown History mg-1,000 mg capsule (Fish Oil) ascorbate calcium (vitamin C) 500 500 mg PO DAILY 04/21/22 09/22/24 Unknown History mg tablet methenamine hippurate 1 gram tablet See Rx Instructions .Route 07/04/22 09/22/24 Unknown Rx .COMPLEX #60 tabs Allergies Allergy/AdvReac Type Severity Reaction Status Date / Time aspirin Allergy NA Verified 07/31/23 11:13 levofloxacin [From Levaquin] Allergy NA Verified 07/31/23 11:13 nitrofurantoin Allergy NA Verified 07/31/23 11:13 Sulfa (Sulfonamide Allergy NA Verified 07/31/23 11:13 Antibiotics) PFSH Acute 2 PFSH: Medical History Atrial flutter Abnormal stress test Peripheral edema 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 hauler manifesting chronic dyspnea Ischemic cardiomyopathy Hypoxia Left ureteral calculus Obstructive pyelonephritis Cystitis cystica Staghorn calculus Surgical History Status post laser lithotripsy of ureteral calculus S/P cholecystectomy S/P appendectomy S/P hysterectomy S/P bilateral oophorectomy Family History Mother , 73 Hypertension Father , 75 CAD (coronary artery disease) [place] Family/Other Cancer Diabetes Thyroid disease Sister Cancer Denies family history of Clotting disorder Dementia Chronic kidney disease (CKD) Suicide Anesthesia complication Bleeding disorder Lung disease Stroke Social History Smoking and tobacco/nicotine status: never used tobacco/nicotine Alcohol intake: never Substance/Drug Use: never Marital status: / Current occupational status: retired Vitals/I&O/Wt Last Vital Signs Temp 97.7 F 09/22/24 10:22 Pulse 93 09/22/24 11:54 Resp 18 09/22/24 10:25 BP 161/80 09/22/24 11:54 Pulse Ox 95 09/22/24 11:54 O2 Del Method Room Air 09/22/24 11:54 Weight last 48 hrs Weight 240 lb Physical Exam 2 Narrative: General: Ill appearing. No acute distress. HEENT: Normocephalic, Atraumatic. External ears normal. Nasal passages patent without drainage. MMM. Heart: RRR. Resp:Bilateral rales in the lung bases with scattered rales. Abd: Soft, non-tender. Non-distended. Extremities: No edema. Skin: No rash or lesions on exposed areas. Neuro: No focal motor or sensory loss. A/O x 3. Data 09/22/24 10:35 09/22/24 10:35 Micro: Microbiology 09/22/24 10:54 Blood Culture - Preliminary Blood SPECIMEN COLLECTED 09/22/24 10:51 Blood Culture - Preliminary Blood SPECIMEN COLLECTED A&P Assessment and plan (1) Community acquired pneumonia: Qualifiers: Laterality: unspecified laterality Qualified Code(s): J18.9 - Pneumonia, unspecified organism (2) SOB (shortness of breath): (3) Elevated brain natriuretic peptide (BNP) level: (4) Elevated creatine kinase: Plan 79 y/o Female admitted for CAP with elevated BNP, dyspnea. [facility] Continue current treatment with Rocephin, Azithromycin. Hold on steroids for now, but may need if respiratory status does not improve. Received dose of lasix for volume overload. Recheck am labs. BCx pending. Consider obtaining sputum culture is symptoms do not improve. RAAT, O2 protocol, Duonebs. Continue cardiac monitoring. Blood cultures pending. Can have hydrocodone for pain while inpatient. APAP available as well. Hold on IVF's for now as she is tolerating oral intake. Will recheck am labs to see if Cr improves. Code Status: Full IVF: None DVT PPx: SCD's GI PPx: Protonix ABx: Ceftriaxone, Azithromycin Diet: Regular Discharge plan: Home when stable. Attestations 2 Medical Necessity Statement*: Will need observation for treatment of pneumonia, volume overload, Elevated Cr from possible dehydration, elevated WBC. Coding Level of Care Code Acute Code for Chg Fwd Moderate MDM includes number and complexity of problems actively addressed during encounter, amount and/or complexity of data reviewed/ordered and described risk of complication, morbidity or mortality of management as documented Diagnoses Community acquired pneumonia, unspecified laterality J18.9 Laterality: unspecified laterality SOB (shortness of breath) R06.02 Elevated brain natriuretic peptide (BNP) level R79.89 Elevated creatine kinase R74.8
[2024-09-22] MEDS: pantoprazole 40 mg SDV IVP (13:40)
[2024-09-22] MEDS: HYDROcodone-acetaminophen 5-325 mg Tablet 1 TAB PO ×2 (13:42→20:17)
[2024-09-22] MEDS: ipratropium-albuterol 3 mL Neb INHALATION ×2 (15:55→21:31)
[2024-09-23] VITALS (14 sets, daily range): BP systolic 107–138; BP diastolic 52–80; PULSE 80–112; RESP 15–20; TEMP 36.6–36.9; O2SAT 90–97
[2024-09-23] MEDS: HYDROcodone-acetaminophen 5-325 mg Tablet 1 TAB PO ×4 (02:56→22:46)
[2024-09-23] MEDS: ipratropium-albuterol 3 mL Neb INHALATION ×4 (02:58→20:31)
[2024-09-23 04:35] LABS: Basophils % 0.3 %; Eosinophils # 0.1 10^3/uL (0.0-0.8); Eosinophils % 0.7 %; Hematocrit 39.6 % (36-47); Lymphocytes # 1.8 10^3/uL (0.8-4.8); Lymphocytes % 11.6 %; Mean Corpuscular HGB Conc 31.3 g/dL (30-55); Mean Corpuscular Hemoglobin 31.3 pg (27-33); Mean Platelet Volume 11.8 fL (7.4-10.4); Monocytes # 0.8 10^3/uL (0.2-0.9); Monocytes % 5.2 %; Neutrophils # 12.48 10^3/uL (1.8-7.7); Neutrophils % 81.5 %; Nucleated Red Blood Cells % 0 %; Platelet Count 187 10^3/cmm (157-399); Red Blood Count 3.96 10^6/uL (3.85-5.65); Red Cell Distribution Width 14.7 % (12.1-15.1); White Blood Count 15.31 10^3/uL (3.29-11.43)
[2024-09-23 04:52] LABS: Alanine Aminotransferase 7 U/L (0-33); Albumin Level 3.1 g/dL (3.5-5.2); Alkaline Phosphatase 104 U/L (35-105); Anion Gap 16.4 (5-19); Aspartate Amino Transferase 13 U/L (0-32); Blood Urea Nitrogen 20 mg/dL (8-23); Calcium 9.2 mg/dL (8.5-10.5); Carbon Dioxide 26 mmol/L (22-29); Chloride 103 mmol/L (98-107); Creatinine Clr Calc Pharmacy 56.2153; Globulin 3.5 g/dL (1.3-4.6); Glucose 71 mg/dL (65-115); Osmolality Calculated 295 mOsm/kg (285-295); Potassium 3.4 mmol/L (3.5-5.1); Sodium 142 mmol/L (136-145); Total Bilirubin 0.4 mg/dL (0.15-1.2); Total Protein 6.6 g/dL (6.6-8.7)
[2024-09-23 04:59] LABS: Procalcitonin 1.85 ng/mL (0-0.5)
[2024-09-23 05:15] LABS: C Reactive Protein 336.1 mg/L (0.0-4.9)
[2024-09-23 08:52] LABS: Basophils % 0.3 %; Eosinophils # 0.1 10^3/uL (0.0-0.8); Eosinophils % 0.8 %; Hematocrit 39.9 % (36-47); Lymphocytes # 1.8 10^3/uL (0.8-4.8); Lymphocytes % 12.2 %; Mean Corpuscular HGB Conc 31.3 g/dL (30-55); Mean Corpuscular Hemoglobin 30.4 pg (27-33); Mean Corpuscular Volume 97.1 fl (85-98); Mean Platelet Volume 11.6 fL (7.4-10.4); Monocytes # 0.7 10^3/uL (0.2-0.9); Monocytes % 4.7 %; Neutrophils # 11.91 10^3/uL (1.8-7.7); Neutrophils % 81.5 %; Nucleated Red Blood Cells % 0 %; Platelet Count 193 10^3/cmm (157-399); Red Blood Count 4.11 10^6/uL (3.85-5.65); Red Cell Distribution Width 14.6 % (12.1-15.1); White Blood Count 14.61 10^3/uL (3.29-11.43)
[2024-09-23 09:10] LABS: Alanine Aminotransferase 8 U/L (0-33); Albumin Level 3.3 g/dL (3.5-5.2); Alkaline Phosphatase 101 U/L (35-105); Anion Gap 16.2 (5-19); Aspartate Amino Transferase 12 U/L (0-32); Blood Urea Nitrogen 20 mg/dL (8-23); Carbon Dioxide 26 mmol/L (22-29); Chloride 100 mmol/L (98-107); Creatinine Clr Calc Pharmacy 56.2153; Globulin 3.1 g/dL (1.3-4.6); Glucose 113 mg/dL (65-115); Osmolality Calculated 291 mOsm/kg (285-295); Potassium 3.2 mmol/L (3.5-5.1); Sodium 139 mmol/L (136-145); Total Bilirubin 0.5 mg/dL (0.15-1.2); Total Protein 6.4 g/dL (6.6-8.7)
--- NOTE | 2024-09-23 09:16 | PC.CHAP ---
Pastoral Care Encounter/Spiritual Assessment Type of Contact [] Declined hospitalist medical director visit [] Patient/Family/Request visit [] Outpatient visit [] Follow-up visit [] Physician referral [] Code/Alert [x] Routine visit [] Staff referral [] Actively dying [x] Patient sleeping [] Family support [] [] Out of room [] Palliative care [] [] Receiving care in room [] Pre-surgical visit [] Trauma [] Long length of stay [] ICU visit [] Other: Relational/Emotional Strength [] Patient feels connected with others/family/visitors/staff [] Distress [] Loneliness/isolation [] Abandonment Spirituality of Patient [] Person of Maritza [] Attends Mosque of their Maritza [] Believes in Prayer [] Reads Bible or Bahai materials [] There are Spiritual issues to be addressed Provider Engagement Executive Interventions [x] Prayer [] Active listening [] Non-anxious presence [] Spiritual/emotional support [] Crisis/trauma care [] Spiritual counseling [] Bereavement support [] Provided bereavement packet [] Provided Bible/devotional materials [] Provided toy/stuffed animal, coloring book to patient or family member [] Provided Communion [] Anointing/[place] [] Salvation [] Completed spiritual assessment [] Other: Impact on Illness or Injury [] Angry [] Fearful [] Anxious [] Often cries [] Exhaustion [] Unable to work [] Unable to attend lutheran [] Unable to walk/stand [] Unable to read [] Unable to drive [] Unable to eat/drink [] Unable to sleep [] Unable to be with family [] Patient intubated [] Other: Summary Time spent with patient
--- NOTE | 2024-09-23 12:25 | CT_ITS ---
WS: [id number] CT CHEST, ABDOMEN AND PELVIS NONCONTRAST HISTORY: jesus alberto, pna, staghorn calculi, post urethral stent TECHNIQUE: Contiguous 5 mm axial imaging performed through the chest, abdomen and pelvis without IV c ontrast, oral contrast has not been provided. Coronal and sagittal reformats chest. Coronal and sagit suellen reformats through the abdomen and pelvis. All CT scans at [facility] use at least one of these dose optimization techniques: automated exposure control; mA and/or kV adjustment per patient s ize (includes targeted exams where dose is matched to clinical indication); or iterative reconstructi on. CONTRAST: None DLP: 1201.68 mGy.cm COMPARISON: CT abdomen and pelvis 08/04/[address]: Numerous scattered pulmonary opacifications within both lungs. More dense area of consolida tion in the RIGHT middle lobe with air bronchograms. No pneumothorax. No pericardial or pleural effus ions. Mild atherosclerosis aorta. Pulmonary artery is mildly dilated. No adenopathy identified. Small or moderate size lymph nodes would easily be obscured without contrast. Mild cardiomegaly. Increase in thoracic kyphosis. No bone destruction. No rib fractures. Abdomen CT: Prior cholecystectomy. Nonenhanced imaging of the liver, pancreas and spleen are negative . No adrenal mass. Nonobstructing central 8 mm calcification RIGHT renal pelvis. Severe atrophy of th e LEFT kidney. Multiple small calcifications in the remaining renal pelvis. No hydronephrosis or hydr oureter. Moderate atherosclerosis aorta. No GI tract obstruction. Distal colonic diverticulosis without acute diverticulitis. Pelvic CT: Monterroso catheter in nondistended bladder. Marked thinning of the abdominal wall musculature. Degenerative disc disease thoracic and lumbar spin [place]. CT/[place] [id number] IMPRESSION: 1. Numerous scattered pulmonary opacifications probably a combination of pneum onitis and atelectasis. 2. More focal dense consolidation with air bronchograms in the RIGHT middle lo be. Volume loss therefore favor atelectasis over pneumonia. Superimposed pneumo maile may be present. 3. Prior cholecystectomy. 4. Mild cardiomegaly. 5. Severe atrophy LEFT kidney. 6. Bilateral nonobstructing renal calculi. 7. Monterroso catheter in the urinary bladder.
[2024-09-23] MEDS: guaiFENesin-dextromethorphan UDC 10 mL 5 ML PO (13:49)
[2024-09-23] MEDS: predniSONE 20 mg Tablet 40 MG PO (13:50)
[2024-09-23] MEDS: cefTRIAXone 1,000 mg SDV 1000 MG IV (13:53)
[2024-09-23 14:01] LABS: Estmated Average Glucose 91; Hemoglobin A1C 4.8 % (4.0-6.0)
[2024-09-23] MEDS: pantoprazole 40 mg SDV IVP (14:03)
[2024-09-23 14:23] LABS: Procalcitonin 1.17 ng/mL (0-0.5); Thyroid Stimulating Hormone 1.55 uIU/mL (0.27-4.20); Vitamin B12 808 pg/mL (232-1245)
[2024-09-23 14:36] LABS: Iron 14 ug/dL (37-145); Percent Saturation 8.3 % (20-50); Total Iron Binding Capacity 168 mcg/dl; Unsaturated Iron Binding 154 ug/dL (112-347)
--- NOTE | 2024-09-23 15:14 | P.PN_ITS ---
Subjective 2 Subjective: Hospital course, labs appreciated. Patient seen laying comfortably in bed. States she is feeling fairly weak. Currently on 2 L of oxygen supplementation. States usually she is not on oxygen. Complaining of hoarseness in her voice and cough which is causing her to have back pain. Denies any nausea, vomiting, headache. Vitals/I&O/Wt Last Vital Signs Temp 98.2 F 09/23/24 11:03 Pulse 100 09/23/24 14:05 Resp 16 09/23/24 14:05 BP 123/57 09/23/24 11:03 Pulse Ox 93 09/23/24 14:05 O2 Del Method Nasal Cannula 09/23/24 14:05 O2 Flow Rate 1.5 09/23/24 14:05 09/23/24 09/23/24 09/23/24 06:59 14:59 22:59 Intake Total 592 / 592 Output Total 575 / 1275 Balance -575 / -905 592 / 592 Weight last 48 hrs Weight 110.359 kg Weight 108.908 kg Weight 108.862 kg Physical Exam 2 Narrative: General: Ill appearing. No acute distress. HEENT: Normocephalic, Atraumatic. External ears normal. Nasal passages patent without drainage. MMM. Heart: RRR. Resp:Bilateral rales in the lung bases with scattered rales. Abd: Soft, non-tender. Non-distended. Extremities: No edema. Skin: No rash or lesions on exposed areas. Neuro: No focal motor or sensory loss. A/O x 3. Data 09/23/24 08:09 09/23/24 08:09 Micro: Microbiology 09/22/24 10:54 Blood Culture - Preliminary Blood NEGATIVE TO DATE 09/22/24 10:51 Blood Culture - Preliminary Blood NEGATIVE TO DATE A&P Assessment and plan (1) Generalized weakness: Likely in setting of bronchitis. Cannot rule out community-acquired pneumonia. COVID-19, flu, RSV antigen negative on admission. UTI less likely. Check urinalysis. Appreciate all urine culture. Will be covered by ceftriaxone as already started. Physical therapy. Patient lives with her grandson. Usually is able to walk around with her walker though she does not walk around much. Check A1c, TSH, iron panel, vitamin B12 levels. (2) Bronchitis: Check respiratory viral panel. Start conservatively on Tessalon Perles, Robitussin as needed. Prednisone 40 mg oral daily. Flonase twice daily. (3) Community acquired pneumonia: Does have leukocytosis. Appreciate chest x-ray from admission. Check CT chest without contrast for further evaluation of possible consolidation. Follow-up blood culture. Sputum culture when available. Check procalcitonin. Appreciate CRP. Continue with IV ceftriaxone and azithromycin for now. Check bacterial urine antigen. Qualifiers: Laterality: unspecified laterality Qualified Code(s): J18.9 - Pneumonia, unspecified organism (4) SOB (shortness of breath): (5) Elevated creatine kinase: Plan Code Status: Again confirmed with the patient. Daughter will be the DPOA. Full code IVF: None DVT PPx: Heparin 5000 Q8 hourly. GI PPx: Protonix ABx: Ceftriaxone, Azithromycin Diet: Regular Discharge plan: Home with home health. Physical therapy evaluation. Attestations 2 Medical Necessity Statement*: Requires further hospitalization for management of generalized weakness in setting of bronchitis while community-acquired pneumonia was ruled out and safe discharge planning is sought. Diagnoses Generalized weakness R53.1 Bronchitis J40 Community acquired pneumonia, unspecified laterality J18.9 Laterality: unspecified laterality SOB (shortness of breath) R06.02 Elevated creatine kinase R74.8
[2024-09-23] MEDS: azithromycin 250 MG in sodium chloride 0.9% 250 ML IV (15:28)
[2024-09-23] MEDS: benzonatate 100 mg Capsule PO ×2 (16:04→20:44)
[2024-09-23 16:24] LABS: Adenovirus Not Detected (NOT DETECT); Chlamydia Pneumoniae Not Detected (NOT DETECT); Coronavirus 229E,HKU1,NL63,OC4 Not Detected (NOT DETECT); Human Metapneumovirus Not Detected (NOT DETECT); Human Rhinovirus/Enterovirus Not Detected (NOT DETECT); Influenza A Not Detected (NOT DETECT); Influenza A H1 Not Detected (NOT DETECT); Influenza A H1-2009 Not Detected (NOT DETECT); Influenza A H3 Not Detected (NOT DETECT); Influenza B Not Detected (NOT DETECT); Mycoplasma Pneumoniae Not Detected (NOT DETECT); Parainfluenza Virus Type 1 Not Detected (NOT DETECT); Parainfluenza Virus Type 2 Not Detected (NOT DETECT); Parainfluenza Virus Type 3 Not Detected (NOT DETECT); Parainfluenza Virus Type 4 Not Detected (NOT DETECT); Respiratory Syncytial Virus A Not Detected (NOT DETECT); Respiratory Syncytial Virus B Not Detected (NOT DETECT); SARS-COV-2 Not Detected (NOT DETECT)
[2024-09-23] MEDS: fluticasone nasal spray 16gm Btl 1 SPRAY NASAL (17:13)
[2024-09-23] MEDS: budesonide 0.5 mg/2 mL Neb INHALATION (20:31)
[2024-09-24] VITALS (8 sets, daily range): BP systolic 120–161; BP diastolic 64–99; PULSE 83–119; RESP 16–19; TEMP 36.7–37.1; O2SAT 92–95
[2024-09-24] MEDS: ipratropium-albuterol 3 mL Neb INHALATION ×2 (02:51→07:55)
[2024-09-24 05:27] LABS: Basophils % 0.1 %; Hematocrit 37.5 % (36-47); Lymphocytes # 0.8 10^3/uL (0.8-4.8); Lymphocytes % 9.1 %; Mean Corpuscular Hemoglobin 31.7 pg (27-33); Mean Corpuscular Volume 98.9 fl (85-98); Mean Platelet Volume 10.9 fL (7.4-10.4); Monocytes # 0.5 10^3/uL (0.2-0.9); Monocytes % 5.9 %; Neutrophils # 7.62 10^3/uL (1.8-7.7); Neutrophils % 84.2 %; Nucleated Red Blood Cells % 0 %; Platelet Count 194 10^3/cmm (157-399); Red Blood Count 3.79 10^6/uL (3.85-5.65); Red Cell Distribution Width 14.5 % (12.1-15.1); White Blood Count 9.04 10^3/uL (3.29-11.43)
[2024-09-24 05:52] LABS: Chol HDL Ratio 2.63 mg/dL (0.0-4.40); Cholesterol 126 mg/dL (0-200); HDL Cholesterol 48 mg/dL (60-100); LDL Cholesterol Calculated 64 mg/dL (50-129); Magnesium 2.2 mg/dL (1.7-2.3); Triglycerides 69 mg/dL (0-150); VLDL Cholestrol Calculation 14 mg/dL (0-30)
[2024-09-24 05:55] LABS: Alanine Aminotransferase < 5 U/L (0-33); Alkaline Phosphatase 89 U/L (35-105); Anion Gap 14.9 (5-19); Aspartate Amino Transferase 10 U/L (0-32); Blood Urea Nitrogen 21 mg/dL (8-23); Carbon Dioxide 26 mmol/L (22-29); Chloride 103 mmol/L (98-107); Creatinine Clr Calc Pharmacy 70.2691; Globulin 3.1 g/dL (1.3-4.6); Glucose 164 mg/dL (65-115); Osmolality Calculated 297 mOsm/kg (285-295); Potassium 3.9 mmol/L (3.5-5.1); Sodium 140 mmol/L (136-145); Total Bilirubin 0.2 mg/dL (0.15-1.2); Total Protein 6.1 g/dL (6.6-8.7)
[2024-09-24 06:14] LABS: Folate Level 4.3 ng/mL (4.8-37.3)
[2024-09-24] MEDS: budesonide 0.5 mg/2 mL Neb INHALATION (07:54)
[2024-09-24] MEDS: fluticasone nasal spray 16gm Btl 1 SPRAY NASAL (08:34)
[2024-09-24] MEDS: benzonatate 100 mg Capsule PO (08:35)
[2024-09-24] MEDS: predniSONE 20 mg Tablet 40 MG PO (08:35)
--- NOTE | 2024-09-24 10:07 | PC.CHAP ---
Pastoral Care Encounter/Spiritual Assessment Type of Contact [] Declined dry drug worker visit [] Patient/Family/Request visit [] Outpatient visit [] Follow-up visit [] Physician referral [] Code/Alert [x] Routine visit [] Staff referral [] Actively dying [] Patient sleeping [] Family support [] [] Out of room [] Palliative care [] [] Receiving care in room [] Pre-surgical visit [] Trauma [] Long length of stay [] ICU visit [] Other: Relational/Emotional Strength [x] Patient feels connected with others/family/visitors/staff [] Distress [] Loneliness/isolation [] Abandonment Spirituality of Patient [x] Person of Maritza [] Attends Hindu of their Maritza [x] Believes in Prayer [] Reads Bible or Temple materials [] There are Spiritual issues to be addressed Metal Furnace Operator Interventions [x] Prayer [x] Active listening [] Non-anxious presence [x] Spiritual/emotional support [] Crisis/trauma care [] Spiritual counseling [] Bereavement support [] Provided bereavement packet [] Provided Bible/devotional materials [] Provided toy/stuffed animal, coloring book to patient or family member [] Provided Communion [] Anointing/[place] [] Salvation [x] Completed spiritual assessment [] Other: Impact on Illness or Injury [] Angry [] Fearful [] Anxious [] Often cries [] Exhaustion [] Unable to work [] Unable to attend faith [] Unable to walk/stand [] Unable to read [] Unable to drive [] Unable to eat/drink [] Unable to sleep [] Unable to be with family [] Patient intubated [] Other: Summary Time spent with patient 5 min
--- NOTE | 2024-09-24 10:26 | PM.DCS ---
Discharge Providers Date of Admission: 09/22/24 11:44 Date of Discharge: September 24, 2024 Attending Provider at Admission: Yuri Lema DO Attending Provider at Discharge: Ed aLng MD Primary Care Provider: Kathia Nugent Diagnoses at Discharge Discharge Diagnosis (1) Generalized weakness: Status: Acute (2) Bronchitis: Status: Acute (3) Community acquired pneumonia: Status: Acute Qualifiers: Laterality: unspecified laterality Qualified Code(s): J18.9 - Pneumonia, unspecified organism (4) SOB (shortness of breath): Status: Acute (5) Elevated creatine kinase: Status: Acute (6) Congestive heart failure due to cardiomyopathy: Status: Acute (7) Ischemic cardiomyopathy: Status: Acute Reason for Visit Reason for Visit: sob Brief History: History as per HPI: Melissa Courtney is a 79 year old female with PMH of Chronic cystitis, hypovitamin D, atrial flutter and ischemic cardiomyopathy, who states that over the last week she has been having fevers, cough with sputum, congestion, body aches. Endorses greenish sputum and malaise. Currently having a headache and reports that she has had body aches throughout the week. Has not had much of an appetite, but has been eating and drinking some. In ER, was given IVF's, received Rocephin and Ceftriaxone. Elevated wbc's to 21 with neutrophilia. Cr slightly elevated above baseline to 1.0. BNP elevated to 8800. CXR shows mild cardiomegaly with suspected vascular congestion. Received dose of Lasix today. Will admit to observation today for continued treatment of PNA, pulmonary edema. Hospital Course Hospital Course Patient was admitted to the hospital further evaluation and management of generalized weakness in setting of possible bronchitis. On admission there was concern for community-acquired pneumonia for which she was started on IV antibiotics. Respiratory viral panel remain negative. CT chest was done which was concerning for mild fluid overload. Patient responded well to the treatment and worked well with physical therapy. Discharge plan were discussed in detail with the patient and she wanted to be transferred back home and declined SNF. She has been discharged in hemodynamically stable condition to back home on prednisone 40 mg daily for next 5 days, Augmentin for next 3 days. She is to take Lasix 20 mg oral daily going forward with concerns for acute on chronic congestive heart failure. Physical Exam Narrative: General: Ill appearing. No acute distress. HEENT: Normocephalic, Atraumatic. External ears normal. Nasal passages patent without drainage. MMM. Heart: RRR. Resp:Bilateral rales in the lung bases with scattered rales. Abd: Soft, non-tender. Non-distended. Extremities: No edema. Skin: No rash or lesions on exposed areas. Neuro: No focal motor or sensory loss. A/O x 3. Discharge Data Studies Completed and Pending Completed Studies During Hospitalization Category Date Time Status CT chest abdomen pelvis [[place] [id number] Cat Scan 09/23/24 12:25 Completed ] Routine XR chest 1V portable [id number] Stat Exams 09/22/24 10:23 Completed Pending at discharge Category Date Time Status Blood Culture Stat Lab 09/22/24 10:54 Results MAG [Magnesium] AM LABS Lab 09/25/24 04:00 Ordered MAG [Magnesium] AM LABS Lab 09/26/24 04:00 Ordered Sputum Culture and Gram Stain Stat Lab 09/23/24 20:45 Received Urinalysis Routine Lab 09/23/24 12:24 Ordered Radiology Impressions Chest X-Ray 09/22/24 10:23 IMPRESSION: 1. Mild cardiomegaly with suspected vascular congestion. Chest/Abdomen/Pelvis CT 09/23/24 12:25 IMPRESSION: 1. Numerous scattered pulmonary opacifications probably a combination of pneumonitis and atelectasis. 2. More focal dense consolidation with air bronchograms in the RIGHT middle lobe. Volume loss therefore favor atelectasis over pneumonia. Superimposed pneumonia may be present. 3. Prior cholecystectomy. 4. Mild cardiomegaly. 5. Severe atrophy LEFT kidney. 6. Bilateral nonobstructing renal calculi. 7. Monterroso catheter in the urinary bladder. Laboratory Results WBC 9.04 10^3/uL (3.29-11.43) 09/24/24 04:57 RBC 3.79 10^6/uL (3.85-5.65) L 09/24/24 04:57 Hgb 12.00 g/dL (11.27-16.99) 09/24/24 04:57 Hct 37.5 % (36-47) 09/24/24 04:57 MCV 98.9 fl (85-98) H 09/24/24 04:57 MCH 31.7 pg (27-33) 09/24/24 04:57 MCHC 32.0 g/dL (30-55) 09/24/24 04:57 RDW 14.5 % (12.1-15.1) 09/24/24 04:57 Plt Count 194 10^3/cmm (157-399) 09/24/24 04:57 MPV 10.9 fL (7.4-10.4) H 09/24/24 04:57 Neut % (Auto) 84.2 % 09/24/24 04:57 Lymph % (Auto) 9.1 % 09/24/24 04:57 Shannon % (Auto) 5.9 % 09/24/24 04:57 Eos % (Auto) 0.0 % 09/24/24 04:57 Baso % (Auto) 0.1 % 09/24/24 04:57 Neut # (Auto) 7.62 10^3/uL (1.8-7.7) 09/24/24 04:57 Lymph # (Auto) 0.8 10^3/uL (0.8-4.8) 09/24/24 04:57 Shannon # (Auto) 0.5 10^3/uL (0.2-0.9) 09/24/24 04:57 Eos # (Auto) 0.0 10^3/uL (0.0-0.8) 09/24/24 04:57 Baso # (Auto) 0.0 10^3/uL (0.0-0.1) 09/24/24 04:57 Nucleated RBC % (auto) 0 % 09/24/24 04:57 Nucleated RBCs # 0.0 /100WBC 09/24/24 04:57 PT 14.80 SECONDS (12.1-14.9) 09/22/24 10:35 INR 1.09 (0.8-1.2) 09/22/24 10:35 Sodium 140 mmol/L (136-145) 09/24/24 04:57 Potassium 3.9 mmol/L (3.5-5.1) 09/24/24 04:57 Chloride 103 mmol/L (98-107) 09/24/24 04:57 Carbon Dioxide 26 mmol/L (22-29) 09/24/24 04:57 Anion Gap 14.9 (5-19) 09/24/24 04:57 BUN 21 mg/dL (8-23) 09/24/24 04:57 Creatinine 0.8 mg/dL (0.5-0.9) 09/24/24 04:57 GFR Calculation Not Reportable 09/24/24 04:57 Glucose 164 mg/dL (65-115) H 09/24/24 04:57 Estimat Average Glucose 91 09/23/24 13:07 Hemoglobin A1c 4.8 % (4.0-6.0) 09/23/24 13:07 Calculated Osmolality 297 mOsm/kg (285-295) H 09/24/24 04:57 Calcium 9.0 mg/dL (8.5-10.5) 09/24/24 04:57 Magnesium 2.2 mg/dL (1.7-2.3) 09/24/24 04:57 Iron 14 ug/dL (37-145) L 09/23/24 13:07 TIBC 168 mcg/dl 09/23/24 13:07 % Saturation 8.3 % (20-50) L 09/23/24 13:07 Unsat Iron Binding 154 ug/dL (112-347) 09/23/24 13:07 Total Bilirubin 0.2 mg/dL (0.15-1.2) 09/24/24 04:57 AST 10 U/L (0-32) 09/24/24 04:57 ALT < 5 U/L (0-33) 09/24/24 04:57 Alkaline Phosphatase 89 U/L (35-105) 09/24/24 04:57 C-Reactive Protein 336.1 mg/L (0.0-4.9) H 09/23/24 02:33 NT-Pro-B Natriuret Pep 8807 pg/mL (0-450) H 09/22/24 10:35 Total Protein 6.1 g/dL (6.6-8.7) L 09/24/24 04:57 Albumin 3.0 g/dL (3.5-5.2) L 09/24/24 04:57 Globulin 3.1 g/dL (1.3-4.6) 09/24/24 04:57 Triglycerides 69 mg/dL (0-150) 09/24/24 04:57 Cholesterol 126 mg/dL (0-200) 09/24/24 04:57 LDL Cholesterol, Calc 64 mg/dL (50-129) 09/24/24 04:57 Total VLDL Cholesterol 14 mg/dL (0-30) 09/24/24 04:57 HDL Cholesterol 48 mg/dL (60-100) L 09/24/24 04:57 Cholesterol/HDL Ratio 2.63 mg/dL (0.0-4.40) 09/24/24 04:57 Vitamin B12 808 pg/mL (232-1245) 09/23/24 13:07 Folate 4.3 ng/mL (4.8-37.3) L 09/24/24 04:57 Procalcitonin 1.17 ng/mL (0-0.5) H 09/23/24 13:07 TSH 1.55 uIU/mL (0.27-4.20) 09/23/24 13:07 Adenovirus (PCR) Not detected (NOT DETECT) 09/23/24 14:11 C. pneumoniae DNA (PCR) Not detected (NOT DETECT) 09/23/24 14:11 Coronavirus (PCR) Negative (Negative) 09/22/24 10:35 Coronavirus 229E (PCR) Not detected (NOT DETECT) 09/23/24 14:11 Human Metapneumovir PCR Not detected (NOT DETECT) 09/23/24 14:11 Influenza A (H1) PCR Not detected (NOT DETECT) 09/23/24 14:11 Influenza A (PCR) Negative (Negative) 09/22/24 10:35 Influ A (H1/09) PCR Not detected (NOT DETECT) 09/23/24 14:11 Influenza A (H3) PCR Not detected (NOT DETECT) 09/23/24 14:11 Influenza Type A (PCR) Not detected (NOT DETECT) 09/23/24 14:11 Influenza Type B (PCR) Not detected (NOT DETECT) 09/23/24 14:11 M. pneumoniae (PCR) Not detected (NOT DETECT) 09/23/24 14:11 Parainfluenza 1 (PCR) Not detected (NOT DETECT) 09/23/24 14:11 Parainfluenza 2 (PCR) Not detected (NOT DETECT) 09/23/24 14:11 Parainfluenza 3 (PCR) Not detected (NOT DETECT) 09/23/24 14:11 Parainfluenza 4 (PCR) Not detected (NOT DETECT) 09/23/24 14:11 RSV (PCR) Negative (Negative) 09/22/24 10:35 RSV Type A (PCR) Not detected (NOT DETECT) 09/23/24 14:11 RSV Type B (PCR) Not detected (NOT DETECT) 09/23/24 14:11 Entero/Rhino (PCR) Not detected (NOT DETECT) 09/23/24 14:11 SARS-CoV-2 (PCR) Not detected (NOT DETECT) 09/23/24 14:11 Vitals Last Vital Signs Temp 98.1 F 09/24/24 08:00 Pulse 87 09/24/24 08:11 Resp 16 09/24/24 08:00 BP 120/64 09/24/24 08:00 Pulse Ox 92 09/24/24 08:11 O2 Del Method Room Air 09/24/24 08:11 O2 Flow Rate 1 09/24/24 07:56 Discharge Plan Discharge Patient Disposition: Home Condition: Stable Prescriptions: New benzonatate 100 mg Capsule 100 mg PO TID Qty: 14 0RF fluticasone propionate 50 mcg/actuation Seney,Suspension 1 spray nasal BID 14 Days Qty: 16 0RF prednisone 20 mg Tablet 40 mg PO DAILY Qty: 10 0RF furosemide [Lasix] 20 mg tablet 20 mg PO QAM Qty: 30 2RF amoxicillin-pot clavulanate 875-125 mg tablet 1 tab PO BID Qty: 6 0RF Continued cholecalciferol (vitamin D3) 10 mcg (400 unit) capsule 10 mcg PO DAILY omega [id number]-[id number]-fish oil [Fish Oil] 300-1,000 mg capsule 1 cap PO DAILY ascorbate calcium (vitamin C) 500 mg tablet 500 mg PO DAILY methenamine hippurate 1 gram tablet See Rx Instructions .ROUTE .COMPLEX Qty: 60 12RF Dose Instruction: TAKE 1 TABLET BY MOUTH TWICE DAILY TAKE WITH 1000 MG OF VITAMIN C WITH EACH DOSE Rx Instructions: TAKE 1 TABLET BY MOUTH TWICE DAILY TAKE WITH 1000 MG OF VITAMIN C WITH EACH DOSE acetaminophen 500 mg Tablet 500 - 1,000 mg PO Q4H PRN (Reason: Pain) Discharge Orders: Discharge Order (Routine); Ordered 09/24/24 Ordered By: Ed Lang Referrals: Kathia Nugent PA [Primary Care Provider] - 10/01/24 8:40 am Discharge Diet: Cardiac Discharge Activity: Resume usual activity and Increase activity as tolerated Patient Instructions: Benzonatate (By mouth), Furosemide (By mouth), Prednisone (By mouth), Amoxicillin/Clavulanate Potassium (By mouth), CHF Stoplight, Opioid Safety Activity Restrictions/Additional Instructions: Continue steroids with prednisone 40 mg daily for next 5 days. Take Lasix 20 mg oral daily going forward. Restrict fluid intake to less than 1500 cc, salt intake to less than 2 g daily. Advised to check his weight daily at home. Is advised that weight today would be the dry weight and if body weight increases by around 5 pounds, patient is to take an extra dose of Lasix daily till body weight comes down to weight today. If not able to come down to dry body weight in 1 week, then is to call cardiology office for further recommendations. Patient was counseled in detail to take medications regularly as prescribed. Use Flonase twice daily for next 2 weeks. Discharge Attestations Time Spent in Discharge Care*: greater than 30 min Status at Discharge: Cognitive status at discharge: cognitively intact, Behavioral status at discharge: cooperative, Quality Metrics Clinical Quality Measures [ No reported AMI, CVA or VTE this stay] Coding Level of Care Code 11806 Total time (in minutes) for Discharge: 60 Diagnoses Generalized weakness R53.1 Bronchitis J40 Community acquired pneumonia, unspecified laterality J18.9 Laterality: unspecified laterality SOB (shortness of breath) R06.02 Elevated creatine kinase R74.8 Congestive heart failure due to cardiomyopathy I50.9; I42.9 Ischemic cardiomyopathy I25.5
== END 2024-09-24 12:08 | disposition home or self-care (01) ==
LOC: ER 11:56 → MEDSURG 13:14
PROVIDERS: Admitting Provider Family Medicine; Emergency Provider Emergency Medicine; PCP Physician Assistant; Visit Provider Student in an Organized Health Care Education/Training Program
DX: J18.9 Pneumonia, unspecified organism (principal); R06.02 Shortness of breath; R74.8 Abnormal levels of other serum enzymes; I50.9 Heart failure, unspecified; I42.9 Cardiomyopathy, unspecified; I25.5 Ischemic cardiomyopathy; E55.9 Vitamin D deficiency, unspecified
CPT/HCPCS: 36415; 71045; 71250; 74176; 80053; 80061; 82607; 82746; 83036; 83540; 83550; 83735; 83880; 84145; 84443; 85025; 85610; 86140; 87040; 87070; 87205; 87486; 87581; 87633; 87637; 93005; 94640; 94664; 96365; 96375; 97110; 97161; 99285; G0378; J0456; J0696; J1940; J2470; J7050; J7512; J7626